=== PATIENT | male | born 1995 | race Caucasian/White ===

== ENCOUNTER 2020-06-01 18:05 | Inpatient (IN) ==
[2020-06-01] MEDS ORDERED: HALOPERIDOL LACTATE 5 MG/ML 1 ML VIAL IM PRN (18:16)
[2020-06-01] MEDS ORDERED: LORazepam 2 MG/ML VIAL (IM USE) IM PRN (18:16)
[2020-06-01 18:52] LABS: Basophils # (auto) 0.03 K/uL (0-0.2); Basophils % (auto) 0.2 %; Eosinophils # (auto) 0.04 K/uL (0-0.5); Eosinophils % (auto) 0.3 %; Hematocrit (blood only) 37.9 % (42-52); Hemoglobin 13.2 g/dL (14.0-18.0); Immature Granulocytes # (auto) 0.03 K/uL (0.00-0.02); Immature Granulocytes % (auto) 0.2 %; Lymphocytes # (auto) 1.21 K/uL (1.2-3.4); Lymphocytes % (auto) 9.2 %; Mean Corpuscular Hemoglobin 31.2 pg (25-34); Mean Corpuscular Hgb Conc 34.8 g/dL (32-36); Mean Corpuscular Volume 89.6 fL (80-100); Mean Platelet Volume 9.7 fL (7.4-10.4); Monocytes # (auto) 0.78 K/uL (0.11-0.59); Monocytes % (auto) 5.9 %; Neutrophils # (auto) 11.09 K/uL (1.4-6.5); Neutrophils % (auto) 84.2 %; Platelet Count 240 K/uL (130-400); RDW Coefficient of Variation 12.1 % (11.5-14.5); Red Blood Count 4.23 M/uL (4.7-6.1); White Blood Count 13.18 K/uL (4.8-10.8)
[2020-06-01 18:52] LABS: Appearance Urine Clear (Clear); Bilirubin Urine Negative (Negative); Blood Urine Negative (Negative); Color Urine Yellow; Glucose Urine UA Negative (Negative); Ketones Urine Negative (Negative); Leukocyte Esterase Urine Negative (Negative); Nitrite Urine Negative (Negative); Protein Urine Negative (Negative); Specific Gravity Urine 1.012 (1.000-1.030); Urobilinogen Urine Negative (Negative); pH Urine 7.5 (4.5-7.5)
[2020-06-01 19:10] LABS: Albumin Level 4.3 gm/dl (3.4-5.0); BUN Creatinine Ratio 13.4 (10-20); Calcium 9.4 mg/dl (8.5-10.1); Creatinine Clr Calc Pharmacy 103.6 ml/min; Est GFR (African American) 120.9; Est GFR (Non-African American) 104.4; Potassium 3.7 mmol/L (3.5-5.1)
[2020-06-01 19:12] LABS: Amphetamines+Metham, Urine Neg (Neg); Barbiturates, Urine Neg (Neg); Benzodiazepine, Urine Neg (Neg); Cocaine, Urine Neg (Neg); MDMA (Ecstacy), Urine Neg (Neg); Methadone, Urine Neg (Neg); Opiate, Urine Neg (Neg); Phencyclidine, Urine Neg (Neg)
[2020-06-01 19:17] LABS: Acetaminophen < 2 ug/ml (10-30); Lithium < 0.2 mmol/L (0.6-1.2); Salicylate < 1.7 mg/dl (2.8-20); Valproic Acid < 3 mcg/ml (50-100)
[2020-06-01 19:21] LABS: Albumin Globulin Ratio 1.2 (0.9-2); Bilirubin,Total 0.5 mg/dl (0.2-1); Globulin 3.5 gm/dl (2.5-4.0); Thyroid Stimulating Hormone 0.34 uIu/ml (0.300-4.500); Total Protein 7.8 gm/dl (6.4-8.2)
[2020-06-01] MEDS ORDERED: NICOTINE 21 MG/24 HR TDSY TD STA (19:34)
--- NOTE | 2020-06-01 20:42 | Emergency Department Note ---
Impression & Plan Delusional disorder, Behavioral disorder, Marijuana use ED Provider Note NAME: JAYSON CAMPUZANO AGE: 25 SEX: M : 1995 ARRIVES VIA: Walk-In INFORMANT: Patient, ED PROVIDER(S): Rishi Chacon MD Chief Complaint: Behavioral disturbance HPI: Patient does present with concern for behavioral disturbance. Patient was reportedly found near [facility] and subsequently gotten into a vehicle and drove off. The patient was not they are to the [facility]: Please give Rick. There is no reported trauma and the patient was brought in in police custody for further evaluation and treatment. The patient does admit to smoking marijuana and believes he did take his Abilify. Police are unsure as to whether or not the patient has taken an unknown amount of at home prescription or [id number] medication. Patient does admit to smoking cigarettes but denies any alcohol use. The patient states that he lives with his family. The patient is somewhat uncooperative to questioning. ROS: Unable to obtain secondary to the patient's uncooperative status. Past medical history: See below Surgical history: See below Social history: See below Physical Exam: GENERAL: Well appearing, well nourished, NAD, non-toxic. EYE EXAM: Normal conjunctiva. PERRL, no anisocoria and EOM's grossly intact w/o pain. NECK: Supple, no nuchal rigidity, no adenopathy, non-tender. No signs of meningismus. LUNGS: Clear to auscultation. Normal chest wall mechanics. HEART: NSR, no MRG. ABDOMEN: Abdomen soft, non-tender, normo-active bowel sounds, no masses, no rebound or guarding. BACK: No CVA TTP. SKIN: No rashes and no bruising. UPPER EXTREMITIES: Upper extremities are grossly normal. LOWER EXTREMITIES: Grossly normal, no edema. NEURO EXAM: A&O x3, cranial nerves II-XII grossly intact, normal speech, moves all 4 extremities on command w/o issue. Psych: Periods of calm mixed with periods of emotional outbursts, very alert, denies SI or AVH. Differential diagnoses: Mood disorder, infection, hypoglycemia, electrolyte abn ormalities, cardiac sources, intracerebral event, toxicologic, trauma, neurologic, as well as other pathologies. Course: Patient was seen and evaluated the bedside. Full history physical exam was performed. EKG: Indication: Possible overdose Sinus tachycardia, rate of 110, normal intervals, normal axis, nonspecific ST changes. No prior EKGs for comparison. MDM: Patient was seen due to concern for behavioral changes as well as the possibility of overdose. Blood work was obtained. The patient does have mild white count 13. The patient has not had any infectious symptoms. Additional h istory was gathered from the patient's mother with the psych telephonic case manager. Patient does receive an IM injection of the Abilify. The patient is currently not taking Depakote or lithium but was recently ordered a repeat prescription of the Depakote by the patient's primary mental health specialist. The patient has mild anemia at 13. The patient has normal kidney function no concerning LFTs TSH urinalysis. Patient's tox screen does show positive marijuana which the patient already endorsed. The patient's Depakote and lithium levels are undetectable along with patient's salicylate Tylenol and alcohol. A referral was made for inpatient treatment. The patient was subsequently mated to [facility] for inpatient treatment for acute psychosis. The patient was given some IM Ativan. Critical Care: I have personally spent 40 minutes of critical care time in direct management of this patient. This includes bedside care, interpretation of diagnostic studies, and testing, discussion with consultants, patient, and family members, and other require inpatient management activities. This 40 minutes is in excess of all separately billable procedures. Past Med/Surg History Medical History Bipolar disorder Surgical History No pertinent past surgical history Social History Smoking Status: Current every day smoker Tobacco Type: Cigarettes Preferred Language: [place]i Feels Safe at Home: Yes Allergies Allergies Allergy/AdvReac Type Severity Reaction Status Date / Time No Known Allergies Allergy Mild Verified 03/23/20 15:13 Home Meds Home Medications Medication Instructions Recorded Confirmed No Known Home Medications 03/23/20 03/23/20 Results & Data (ED) Vital Signs Vital Signs - 24 hr 06/01/20 18:07 06/01/20 22:03 Temperature 37.1 C Temperature Source Oral Pulse Rate 145 H Pulse Rate [Right Finger] 113 H Pulse Rhythm Regular Pulse Strength Normal Respiratory Rate 20 19 Respiratory Effort / Characteristics Non-Labored Spontaneous Respiratory Depth Normal Respiratory Pattern Regular Blood Pressure 145/92 H Blood Pressure [Right Arm] 139/85 Blood Pressure Mean 109 Blood Pressure Mean [Right Arm] 103 Blood Pressure Position Sitting Pulse Oximetry 96 98 Oxygen Delivery Method Room Air Sepsis Recent Fever Within 48 Hours No Sepsis New/Unexplained Change in Mental Status N/A Sepsis Action Taken by Nursing No Action Required Home Medications Current Medication List: was personally reviewed by me Laboratory Data Attestation: I reviewed the patient's lab results. Result diagrams: 06/01/20 18:36 06/01/20 18:36 Lab Results 06/01/20 06/01/20 06/01/20 Range/Units 18:36 18:36 18:36 WBC 13.18 H (4.8-10.8) K/uL RBC 4.23 L (4.7-6.1) M/uL Hgb 13.2 L (14.0-18.0) g/dL Hct 37.9 L (42-52) % MCV 89.6 (80-100) fL MCH 31.2 (25-34) pg MCHC 34.8 (32-36) g/dL RDW Std Deviation 39.0 (36.4-46.3) fL RDW Coeff of Connie 12.1 (11.5-14.5) % Plt Count 240 (130-400) K/uL MPV 9.7 (7.4-10.4) fL Immature Gran % (Auto) 0.2 % Neut % (Auto) 84.2 % Lymph % (Auto) 9.2 % Cooke % (Auto) 5.9 % Eos % (Auto) 0.3 % Baso % (Auto) 0.2 % Neut # (Auto) 11.09 H (1.4-6.5) K/uL Lymph # (Auto) 1.21 (1.2-3.4) K/uL [place]oke # (Auto) 0.78 H (0.11-0.59) K/uL Eos # (Auto) 0.04 (0-0.5) K/uL Baso # (Auto) 0.03 (0-0.2) K/uL Immature Gran # (Auto) 0.03 H (0.00-0.02) K/uL Sodium 136 (136-145) mmol/L Potassium 3.7 (3.5-5.1) mmol/L Chloride 105 (98-107) mmol/L Carbon Dioxide 26 (21-32) mmol/L Anion Gap 5.0 (3-11) BUN 14 (7-18) mg/dl Creatinine 1.01 (0.6-1.4) mg/dl Est Cr Clr Drug Dosing 103.6 ml/min Est GFR ( Amer) 120.9 Est GFR (Non-Af Amer) 104.4 BUN/Creatinine Ratio 13.4 (10-20) Glucose 146 H (70-99) mg/dl Calcium 9.4 (8.5-10.1) mg/dl Total Bilirubin 0.5 (0.2-1) mg/dl AST 15 (15-37) U/L ALT 27 (12-78) U/L Alkaline Phosphatase 51 (45-117) U/L Total Protein 7.8 (6.4-8.2) gm/dl Albumin 4.3 (3.4-5.0) gm/dl Globulin 3.5 (2.5-4.0) gm/dl Albumin/Globulin Ratio 1.2 (0.9-2) TSH 0.340 (0.300-4.500) uIu/ml Urine Color Urine Appearance (Clear) Urine pH (4.5-7.5) Ur Specific [place] (1.000-1.030) Urine Protein (Negative) Urine Glucose (UA) (Negative) Urine Ketones (Negative) Urine Blood (Negative) Urine Nitrite (Negative) Urine Bilirubin (Negative) Urine Urobilinogen (Negative) Ur Leukocyte Esterase (Negative) Salicylates < 1.7 L (2.8-20) mg/dl Urine Opiates Screen (Neg) Ur Methadone, Qual (Neg) Acetaminophen < 2 L (10-30) ug/ml Urine Barbiturates (Neg) Valproic Acid < 3 L (50-100) mcg/ml Ur Phencyclidine (PCP) (Neg) U Amphetamin/Meth Scrn (Neg) MDMA (Ecstasy) Screen (Neg) U Benzodiazepines Scrn (Neg) Wishram < 0.2 L (0.6-1.2) mmol/L Ur Cocaine Metabolite (Neg) U Marijuana (THC) Screen (Neg) Ethyl Alcohol mg/dL (0-3) mg/dl 06/01/20 06/01/20 06/01/20 Range/Units 18:36 18:40 18:40 WBC (4.8-10.8) K/uL RBC (4.7-6.1) M/uL Hgb (14.0-18.0) g/dL Hct (42-52) % MCV (80-100) fL MCH (25-34) pg MCHC (32-36) g/dL RDW Std Deviation (36.4-46.3) fL RDW Coeff of Connie (11.5-14.5) % Plt Count (130-400) K/uL MPV (7.4-10.4) fL Immature Gran % (Auto) % Neut % (Auto) % Lymph % (Auto) % [place] % (Auto) % Eos % (Auto) % Baso % (Auto) % Neut # (Auto) (1.4-6.5) K/uL Lymph # (Auto) (1.2-3.4) K/uL [place] # (Auto) (0.11-0.59) K/uL Eos # (Auto) (0-0.5) K/uL Baso # (Auto) (0-0.2) K/uL Immature Gran # (Auto) (0.00-0.02) K/uL Sodium (136-145) mmol/L Potassium (3.5-5.1) mmol/L Chloride (98-107) mmol/L Carbon Dioxide (21-32) mmol/L Anion Gap (3-11) BUN (7-18) mg/dl Creatinine (0.6-1.4) mg/dl Est Cr Clr Drug Dosing ml/min Est GFR ( Amer) Est GFR (Non-Af Amer) BUN/Creatinine Ratio (10-20) Glucose (70-99) mg/dl Calcium (8.5-10.1) mg/dl Total Bilirubin (0.2-1) mg/dl AST (15-37) U/L ALT (12-78) U/L Alkaline Phosphatase (45-117) U/L Total Protein (6.4-8.2) gm/dl Albumin (3.4-5.0) gm/dl Globulin (2.5-4.0) gm/dl Albumin/Globulin Ratio (0.9-2) TSH (0.300-4.500) uIu/ml Urine Color Yellow Urine Appearance Clear (Clear) Urine pH 7.5 (4.5-7.5) Ur Specific [place] 1.012 (1.000-1.030) Urine Protein Negative (Negative) Urine Glucose (UA) Negative (Negative) Urine Ketones Negative (Negative) Urine Blood Negative (Negative) Urine Nitrite Negative (Negative) Urine Bilirubin Negative (Negative) Urine Urobilinogen Negative (Negative) Ur Leukocyte Esterase Negative (Negative) Salicylates (2.8-20) mg/dl Urine Opiates Screen Neg (Neg) Ur Methadone, Qual Neg (Neg) Acetaminophen (10-30) ug/ml Urine Barbiturates Neg (Neg) Valproic Acid (50-100) mcg/ml Ur Phencyclidine (PCP) Neg (Neg) U Amphetamin/Meth Scrn Neg (Neg) MDMA (Ecstasy) Screen Neg (Neg) U Benzodiazepines Scrn Neg (Neg) Wishram (0.6-1.2) mmol/L Ur Cocaine Metabolite Neg (Neg) U Marijuana (THC) Screen Pos H (Neg) Ethyl Alcohol mg/dL < 3.0 (0-3) mg/dl Administered Medications Lorazepam (Lorazepam 2 Mg/Ml Vial (Im Use)) 1 mg IM UD PRN PRN Reason: Agitation Stop: 07/01/20 18:15 Last Admin: 06/01/20 21:56 Dose: 1 mg Documented by: [id number] Discontinued Medications Nicotine (Nicotine 21 Mg/24 Hr Tdsy) 21 mg TD NOW STA Stop: 06/01/20 19:35 Last Admin: 06/01/20 19:38 Dose: 21 mg Documented by: [id number] Discharge Plan Visit Data Chief Complaint: Mental Health Evaluation Stated Complaint: MENTAL HEALTH EVAL ED Provider: Rishi Chacon Discharge Problem: Delusional disorder, Behavioral disorder, Marijuana use Forms Stand Alone Forms: My [facility], Suicide Prevention Resources Prescriptions Prescriptions: No Action No Known Home Medications RF: 0
[2020-06-02] MEDS ORDERED: BISMUTH SUBSALICYLATE PER ML OMNICELL CHARGE PO PRN (00:23)
[2020-06-02] MEDS ORDERED: SODIUM CHLORIDE 0.65% NA SOLN 45 ML (OCEAN) PRN (00:23)
[2020-06-02] MEDS ORDERED: MAGNESIUM HYDROXIDE SUSP 30 ML UDC PO PRN (00:23)
[2020-06-02] MEDS ORDERED: ALUMINUM/MAGNESIUM SUSP 30 ML UDC PO PRN (00:23)
[2020-06-02] MEDS ORDERED: HALOPERIDOL LACTATE 5 MG/ML 1 ML VIAL IM PRN (00:26)
[2020-06-02] MEDS ORDERED: haloperidoL 5 MG TAB PO PRN (00:26)
[2020-06-02] MEDS: NICOTINE 21 MG/24 HR TDSY TD SCH (06:30)
--- NOTE | 2020-06-02 08:29 | Electrocardiogram Report ---
Test Reason : Blood Pressure : / mmHG Vent. Rate : 110 BPM Atrial Rate : 110 BPM P-R Int : 130 ms QRS Dur : 098 ms QT Int : 328 ms P-R-T Axes : 071 076 -20 degrees QTc Int : 443 ms Poor data quality, interpretation may be adversely affected Sinus tachycardia Diffuse Nonspecific T wave abnormality Abnormal ECG No previous ECGs available Confirmed by Nash Chicas ([id number]) on 06/02/2020 8:28:51 AM Referred By: REFERRED SELF Confirmed By:Nash Chicas
[2020-06-02] MEDS: NICOTINE POLACRILEX 2 MG GUM MT PRN ×3 (12:54→20:53)
[2020-06-02] MEDS ORDERED: ARIPiprazole 10 MG TAB PO SCH (13:30)
[2020-06-02] MEDS: lamoTRIgine 25 MG TAB PO SCH (14:16)
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
[2020-06-02] MEDS: MUPIROCIN 2% OINT 22 GM TUBE EXT SCH (20:43)
[2020-06-03] MEDS: TEMAZEPAM 15 MG CAPSULE PO PRN ×2 (02:44→23:11)
[2020-06-03] MEDS: ARIPiprazole 10 MG TAB PO SCH (07:29)
[2020-06-03] MEDS: lamoTRIgine 25 MG TAB PO SCH (07:29)
[2020-06-03] MEDS: NICOTINE 21 MG/24 HR TDSY TD SCH (07:30)
[2020-06-03] MEDS: MUPIROCIN 2% OINT 22 GM TUBE EXT SCH ×2 (07:30→21:52)
[2020-06-03] MEDS: NICOTINE POLACRILEX 2 MG GUM MT PRN ×4 (08:45→19:52)
[2020-06-03] MEDS ORDERED: BENZTROPINE MESYLATE 1 MG TAB PO PRN (09:52)
[2020-06-03] MEDS ORDERED: HALOPERIDOL LACTATE 5 MG/ML 1 ML VIAL IM PRN (09:53)
--- NOTE | 2020-06-03 10:02 | Psychiatric Progress Note ---
Date of Service June 03, 2020 Impression / Recommendations Impression This 25-year-old man was admitted after he was brought into the emergency department last night by the police following an arrest for stealing a truck that was apparently parked in a parking lot at [facility]. The patient is a poor historian, and I believe that in many instances the confused and contradictory history that the patient gives is deliberatenot to obfuscate, but because he has decided that it is somehow abusing or funny to misrepresent the truth or mislead, even after it is pointed out to him that this is a very serious situation and he needs to be sure to tell the truth. There is almost and oppositional defiant quality to some of the patient's behavior during the interview. However, he is clearly having a manic episode, with symptoms that include psychomotor agitation, pressured speech, flight of ideas, delusional grandiosity (going to get in [facility] with the stands at full capacity, and that the car he stole was either a "grand prize" that he had just won, or a present from his father, a former [employer] dealer, according the patient.), impulsive behavior, and extremely poor judgment. Collateral information is still needed. The patient gives various reports regarding his medications and his medication adherence. During the psychiatric assessment, he repeatedly said that he is never been prescribed any psychiatric medications. Med has also been reported that he has been prescribed aripiprazole, both oral and in Depo form, but it is not known at this point which the patient has actually taken, or at what dose he is taking the medication, or if he has taken any at all recently. Acknowledges that he smokes marijuana every day, or at least he claims he smokes marijuana every day. It is possible that he has used marijuana that has been laced with a synthetic drug. However, the patient's known history is most consistent with the current working diagnosis of bipolar disorder. We will start aripiprazole 10 mg by mouth daily and lamotrigine 25 mg daily with titration as indicated and tolerated. Material risks and anticipated benefits of both medications were reviewed with the patient. He indicated understanding after asking several questions. 06/03--reviewed. ongoing nhan but pleasant. (1) Bipolar disorder with severe nhan: 06/02/20 -The patient has been admitted to the [facility] behavioral health unit and placed in the special observation area. When more psychiatrically stable he will be encouraged to attend group and activity therapies. In the meantime, individual interventions will be provided. -Collateral information from his family, and possibly from outside treatment providers will be sought. The patient is not a reliable historian and seems to be misrepresenting the truth when it comes to his symptom treatment history. -We will attempt to obtain medical records from [place]. The patient had initially claimed that he had never been previously psychiatrically hospitalized, but then mentioned, in passing, that he likes the [facility] behavioral health unit much better than he liked [place], and when asked to explain the contradiction the patient stated, flatly, "I was lying." -After saying that he does not take and has never taken any psychiatric medications, he did acknowledge that he had taken aripiprazole. He gives conflicting reports regarding dose and dose schedule and dose form. However, he also says that he believes that aripiprazole helps, and he cannot recall the last time he actually took it. (There is no indication he may have received an aripiprazole injection an unspecified amount on 05/30/2020, but this has not been verified.) Given the degree of the patient's current nhan, and his psychosis, we will begin aripiprazole 10 mg by mouth now, and then daily pending acquisition of further information. -We will also begin lamotrigine 25 mg daily and titrate as indicated every 2 weeks. Material risks, including but not limited to, Kruger-Arvind syndrome were reviewed with the patient and he indicated understanding. 06/03--add standing order Lucia as receiving prns on top of Abilify. [place] prn. Consider temporary benzo if persists. (2) Marijuana use: 06/02/20 -The patient says that he smokes marijuana every day, and that an ounce of [place] will last him "a week." He also says that he purchases marijuana from someone who is well-known to him and who he believes is reliable. Nevertheless, he also reports that his current "batch" of marijuana is particularly "good," by which he says he means means strong. -At this point, the patient's thought processes are too disorganized to allow him to benefit from substance abuse counseling. We will refocus our attention on this problem as the patient's psychiatric condition improves. 06/03/20 reviewed (3) Axillary abscess: 06/02/20 -The patient has a small (6-10 mm) injected and tender axillary abscess. He reports that the abscess appeared "a day or 2 ago," and is currently painful. -There are no known allergies. We will treat with Bactroban 2% topical ointment to affected area twice daily. 06/03--reviewed Inventory Assets Strengths: Willing to take psychiatric medications. Supportive family. Intelligent Needs: Resolution of criminal charges. Resolution of nhan and mood stabilization. Risk Factors Assessment Male: Yes : Yes Do You Have Access To A Gun?: No (The patient says he does not have access to a gun. The emergency room record indicates that during the summer the patient presented after he had attempted to grab a gun at home. It is not known if the gun is still available to him at home.) Health Problems: No Mental Health Diagnoses: Yes Substance Use Disorders: Yes Previous Attempt: No (The patient says that he has never attempted suicide. The record indicates that he was evaluated in the emergency room and hospitalized after he reportedly attempted to grab a gun at home while so threatening to shoot himself.) Family History of Suicide: No Previous Psychiatric Hospitalization: Yes Hopelessness: No Smoker: Yes (The patient variously reports that he smokes and that he does not smoke. We are assuming that he is telling the truth when he says that he does smoke, and nicotine replacement medications have been prescribed.) Protective Factors Assessment Confucianism Beliefs: Yes (The patient says that he is Mormonism. 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 Review of Systems Sleep Information Total Hours of Sleep: 5 Sleep Comments: pt on q- 15 minute checks Meal Information Percent Meal Consumed - Breakfast: 100 Percent Meal Consumed - Lunch: 100 Percent Meal Consumed - Dinner: 75 Subjective Subjective Patient was seen & assessed and interval progress reviewed with nursing and social work. Difficult to stay in group, overstimulated by tv due to nhan, calls out cheering to [employer] commercials. He is requesting additional Haldol to calm down. 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 Remains on elopement precautions as did ring the rhodes to be let out. Physical Exam Psychiatric Orientation: alert, oriented to person and oriented to place; + uncooperative Apperance: + disheveled and appeared stated age Eye Contact: + fair eye contact Motor Behavior: + psychomotor agitation Speech: + pressured speech Affect: + elated affect Thought Process: + flight of ideas Thought Content: + delusions Suicidal Thoughts: denies suicidal thoughts Homicidal Thoughts: denies homicidal thoughts Hallucinations: no auditory hallucinations, no visual hallucinations, no tactile hallucinations and no gustatory hallucinations Estimated Intelligence: + above average estimated intelligence Insight: + poor insight Judgement: + severely impaired judgement Vital Signs (Past 24 Hours) Last Vital Signs Temp 36.5 C 06/03/20 06:37 Pulse 94 H 06/03/20 06:38 Resp 17 06/03/20 06:37 BP 132/91 06/03/20 06:38 Pulse Ox 98 06/01/20 23:54 Results & Data ([facility]) Current Inpatient Medications Current Inpatient Medications: Current Inpatient Medications Acetaminophen (Acetaminophen 325 Mg Tab) 650 mg PO Q4H PRN PRN Reason: Headache or Minor Fever Stop: 07/02/20 00:22 Al Hydrox/Mg Hydrox/Simethicone (Aluminum/Magnesium Susp 30 Ml Udc) 30 ml PO Q4H PRN PRN Reason: GI Upset Stop: 07/02/20 00:22 Aripiprazole (Aripiprazole 10 Mg Tab) 10 mg PO QAM TITA Stop: 07/03/20 08:59 Last Admin: 06/03/20 07:29 Dose: 10 mg Documented by: Benztropine Mesylate (Benztropine Mesylate 1 Mg Tab) 1 mg PO Q6 PRN PRN Reason: Muscle Spasm Stop: 07/03/20 09:51 Bismuth Subsalicylate (Bismuth Subsalicylate Per Ml Omnicell Charge) 15 ml PO PRN PRN PRN Reason: Loose Stool Stop: 07/02/20 00:22 Haloperidol (Haloperidol 5 Mg Tab) 5 mg PO Q4 PRN PRN Reason: Psychosis/Agitation Stop: 07/02/20 00:25 Haloperidol (Haloperidol 5 Mg Tab) 5 mg PO BID [facility] Stop: 07/03/20 09:59 Haloperidol Lactate (Haloperidol Lactate 5 Mg/Ml 1 Ml Vial) 10 mg IM Q4 PRN PRN Reason: Agitation/Psychosis Stop: 07/02/20 00:25 Hydroxyzine HCl (Hydroxyzine Hcl 25 Mg Tab) 50 mg PO HSZ PRN PRN Reason: Insomnia Stop: 07/02/20 00:22 Hydroxyzine HCl (Hydroxyzine Hcl 25 Mg Tab) 25 mg PO Q4H PRN PRN Reason: Anxiety Stop: 07/02/20 00:22 Lamotrigine (Lamotrigine 25 Mg Tab) 25 mg PO QAM [facility] Stop: 07/02/20 13:29 Last Admin: 06/03/20 07:29 Dose: 25 mg Documented by: Magnesium Hydroxide (Magnesium Hydroxide Susp 30 Ml Udc) 30 ml PO DAILY PRN PRN Reason: Constipation Stop: 07/02/20 00:22 Miscellaneous (Remove Nicoderm Patch) 1 ea N/A DAILY@0859 [facility] Stop: 07/02/20 08:58 Last Admin: 06/03/20 07:34 Dose: Not Given Documented by: Mupirocin (Mupirocin 2% Oint 22 Gm Tube) 1 appln EXT BID [facility] Stop: 06/09/20 20:59 Last Admin: 06/03/20 07:30 Dose: 1 appln Documented by: Nicotine (Nicotine 21 Mg/24 Hr Tdsy) 21 mg TD QAM [facility] Stop: 07/02/20 08:59 Last Admin: 06/03/20 07:30 Dose: 21 mg Documented by: Nicotine Polacrilex (Nicotine Polacrilex 2 Mg Gum) 1 piece MT Q1H PRN PRN Reason: nicotine cravings Stop: 07/02/20 11:55 Last Admin: 06/02/20 20:53 Dose: 1 piece Documented by: Sodium Chloride (Sodium Chloride 0.65% Na Soln 45 Ml ([place])) 1 - 2 sprays NA PRN PRN PRN Reason: Nasal Dryness/Congestion Stop: 07/02/20 00:22 Temazepam (Temazepam 15 Mg Capsule) 15 mg PO HSZ PRN PRN Reason: Insomnia Stop: 07/02/20 16:39 Last Admin: 06/03/20 02:44 Dose: 15 mg Documented by: Mental Health & Subst Abuse Tx Therapist Name of Therapist: None Liquefaction Supervisor Name of Liquefaction Supervisor: None
[2020-06-03] MEDS: haloperidoL 5 MG TAB PO SCH ×2 (10:06→21:52)
[2020-06-03] MEDS: clonazePAM 1 MG TAB PO SCH ×2 (12:16→21:53)
[2020-06-03] MEDS: clonazePAM 1 MG TAB PO PRN (16:41)
[2020-06-03 22:32] LABS: Marijuana Quant, GCMS Urine 439 ng/mL (<5)
[2020-06-04] MEDS: clonazePAM 1 MG TAB PO SCH ×2 (09:05→15:25)
[2020-06-04] MEDS: lamoTRIgine 25 MG TAB PO SCH (09:06)
[2020-06-04] MEDS: ARIPiprazole 10 MG TAB PO SCH (09:06)
[2020-06-04] MEDS: haloperidoL 5 MG TAB PO SCH ×2 (09:06→20:24)
[2020-06-04] MEDS: NICOTINE 21 MG/24 HR TDSY TD SCH (09:06)
[2020-06-04] MEDS: MUPIROCIN 2% OINT 22 GM TUBE EXT SCH ×2 (09:07→20:24)
[2020-06-04] MEDS: clonazePAM 1 MG TAB PO PRN ×2 (11:34→19:09)
[2020-06-04] MEDS: haloperidoL 5 MG TAB PO PRN (11:34)
--- NOTE | 2020-06-04 11:58 | Psychiatric Progress Note ---
Date of Service June 04, 2020 Impression / Recommendations Impression This 25-year-old man was admitted after he was brought into the emergency department last night by the police following an arrest for stealing a truck that was apparently parked in a parking lot at [facility]. The patient is a poor historian, and I believe that in many instances the confused and contradictory history that the patient gives is deliberatenot to obfuscate, but because he has decided that it is somehow abusing or funny to misrepresent the truth or mislead, even after it is pointed out to him that this is a very serious situation and he needs to be sure to tell the truth. There is almost and oppositional defiant quality to some of the patient's behavior during the interview. However, he is clearly having a manic episode, with symptoms that include psychomotor agitation, pressured speech, flight of ideas, delusional grandiosity (going to get in [place] [employer] with the stands at full capacity, and that the car he stole was either a "grand prize" that he had just won, or a present from his father, a former [employer] dealer, according the patient.), impulsive behavior, and extremely poor judgment. Collateral information is still needed. The patient gives various reports regarding his medications and his medication adherence. During the psychiatric assessment, he repeatedly said that he is never been prescribed any psychiatric medications. Med has also been reported that he has been prescribed aripiprazole, both oral and in Depo form, but it is not known at this point which the patient has actually taken, or at what dose he is taking the medication, or if he has taken any at all recently. Acknowledges that he smokes marijuana every day, or at least he claims he smokes marijuana every day. It is possible that he has used marijuana that has been laced with a synthetic drug. However, the patient's known history is most consistent with the current working diagnosis of bipolar disorder. We will start aripiprazole 10 mg by mouth daily and lamotrigine 25 mg daily with titration as indicated and tolerated. Material risks and anticipated benefits of both medications were reviewed with the patient. He indicated understanding after asking several questions. 06/04--ongoing nhan but pleasant. BID Klonopin was added yesterday to limit amount of Haldol prn given overall dosing of antipsychotic with injectable. Inventory Assets Strengths: Willing to take psychiatric medications. Supportive family. Intelligent Needs: Resolution of criminal charges. Resolution of nhan and mood stabilization. Risk Factors Assessment Male: Yes : Yes Do You Have Access To A Gun?: No (The patient says he does not have access to a gun. The emergency room record indicates that during the summer the patient presented after he had attempted to grab a gun at home. It is not known if the gun is still available to him at home.) Health Problems: No Mental Health Diagnoses: Yes Substance Use Disorders: Yes Previous Attempt: No (The patient says that he has never attempted suicide. The record indicates that he was evaluated in the emergency room and hospitalized after he reportedly attempted to grab a gun at home while so threatening to shoot himself.) Family History of Suicide: No Previous Psychiatric Hospitalization: Yes Hopelessness: No Smoker: Yes (The patient variously reports that he smokes and that he does not smoke. We are assuming that he is telling the truth when he says that he does smoke, and nicotine replacement medications have been prescribed.) Protective Factors Assessment Scientologist Beliefs: Yes (The patient says that he is Taoism. 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 It's just salt". Review of Systems Sleep Information Total Hours of Sleep: 7.25 Sleep Comments: pt on q- 15 minute checks Meal Information Percent Meal Consumed - Breakfast: 75 Percent Meal Consumed - Lunch: 0 Percent Meal Consumed - Dinner: 75 Nutrition Comment: pt. resting. Meal dated/labeled/refrigerated Subjective Subjective Patient was seen & assessed and interval progress reviewed with nursing and social work. Still requiring prns, Klonopin did decrease restlessness and he was able to sleep for 2 hours yesterday and the 5 hrs overnight. He still dances in his room as full of energy and will call out indiscriminately, sometimes rapping but much improved. Physical Exam Psychiatric Orientation: alert, oriented to person, oriented to place and + guarded; + uncooperative Apperance: + disheveled and appeared stated age Eye Contact: + fair eye contact Motor Behavior: + psychomotor agitation Speech: + pressured speech (but less) Affect: + elated affect Thought Process: + flight of ideas Thought Content: + delusions Suicidal Thoughts: denies suicidal thoughts Homicidal Thoughts: denies homicidal thoughts Hallucinations: no auditory hallucinations, no visual hallucinations, no tactile hallucinations and no gustatory hallucinations Estimated Intelligence: + above average estimated intelligence Insight: + poor insight Judgement: + severely impaired judgement Vital Signs (Past 24 Hours) Last Vital Signs Temp 36.4 C L 06/04/20 05:45 Pulse 111 H 06/04/20 05:45 Resp 18 06/04/20 05:45 BP 126/89 06/04/20 05:45 Pulse Ox 98 06/01/20 23:54 Results & Data ([facility]) Laboratory Results Laboratory Results - last 24 hr 06/01/20 18:40 U Marijuana THC Carboxy 439 H Drug Screen Comment SEE NOTE Current Inpatient Medications Current Inpatient Medications: Current Inpatient Medications Acetaminophen (Acetaminophen 325 Mg Tab) 650 mg PO Q4H PRN PRN Reason: Headache or Minor Fever Stop: 07/02/20 00:22 Al Hydrox/Mg Hydrox/Simethicone (Aluminum/Magnesium Susp 30 Ml Udc) 30 ml PO Q4H PRN PRN Reason: GI Upset Stop: 07/02/20 00:22 Aripiprazole (Aripiprazole 10 Mg Tab) 10 mg PO QAM TITA Stop: 07/03/20 08:59 Last Admin: 06/04/20 09:06 Dose: 10 mg Documented by: Benztropine Mesylate (Benztropine Mesylate 1 Mg Tab) 1 mg PO Q6 PRN PRN Reason: Muscle Spasm Stop: 07/03/20 09:51 Bismuth Subsalicylate (Bismuth Subsalicylate Per Ml Omnicell Charge) 15 ml PO PRN PRN PRN Reason: Loose Stool Stop: 07/02/20 00:22 Clonazepam (Clonazepam 1 Mg Tab) 1 mg PO BID PRN PRN Reason: Anxiety/Agitation Stop: 07/03/20 11:49 Last Admin: 06/04/20 11:34 Dose: 1 mg Documented by: Clonazepam (Clonazepam 1 Mg Tab) 1 mg PO BID17 TITA Stop: 07/04/20 16:59 Haloperidol (Haloperidol 5 Mg Tab) 5 mg PO Q4 PRN PRN Reason: Psychosis/Agitation Stop: 07/02/20 00:25 Last Admin: 06/04/20 11:34 Dose: 5 mg Documented by: Haloperidol (Haloperidol 5 Mg Tab) 5 mg PO BID [facility] Stop: 07/03/20 09:59 Last Admin: 06/04/20 09:06 Dose: 5 mg Documented by: Haloperidol Lactate (Haloperidol Lactate 5 Mg/Ml 1 Ml Vial) 10 mg IM Q4 PRN PRN Reason: Agitation/Psychosis Stop: 07/02/20 00:25 Hydroxyzine HCl (Hydroxyzine Hcl 25 Mg Tab) 50 mg PO HSZ PRN PRN Reason: Insomnia Stop: 07/02/20 00:22 Hydroxyzine HCl (Hydroxyzine Hcl 25 Mg Tab) 25 mg PO Q4H PRN PRN Reason: Anxiety Stop: 07/02/20 00:22 Last Admin: 06/04/20 06:16 Dose: 25 mg Documented by: Lamotrigine (Lamotrigine 25 Mg Tab) 25 mg PO QAM [facility] Stop: 07/02/20 13:29 Last Admin: 06/04/20 09:06 Dose: 25 mg Documented by: Magnesium Hydroxide (Magnesium Hydroxide Susp 30 Ml Udc) 30 ml PO DAILY PRN PRN Reason: Constipation Stop: 07/02/20 00:22 Miscellaneous (Remove Nicoderm Patch) 1 ea N/A DAILY@0859 [facility] Stop: 07/02/20 08:58 Last Admin: 06/04/20 09:07 Dose: 1 ea Documented by: Mupirocin (Mupirocin 2% Oint 22 Gm Tube) 1 appln EXT BID [facility] Stop: 06/09/20 20:59 Last Admin: 06/04/20 09:07 Dose: 1 appln Documented by: Nicotine (Nicotine 21 Mg/24 Hr Tdsy) 21 mg TD QAM [facility] Stop: 07/02/20 08:59 Last Admin: 06/04/20 09:06 Dose: 21 mg Documented by: Nicotine Polacrilex (Nicotine Polacrilex 2 Mg Gum) 1 piece MT Q1H PRN PRN Reason: nicotine cravings Stop: 07/02/20 11:55 Last Admin: 06/03/20 19:52 Dose: 1 piece Documented by: Sodium Chloride (Sodium Chloride 0.65% Na Soln 45 Ml ([place])) 1 - 2 sprays NA PRN PRN PRN Reason: Nasal Dryness/Congestion Stop: 07/02/20 00:22 Temazepam (Temazepam 15 Mg Capsule) 15 mg PO HSZ PRN PRN Reason: Insomnia Stop: 07/02/20 16:39 Last Admin: 06/03/20 23:11 Dose: 15 mg Documented by: Mental Health & Subst Abuse Tx Therapist Name of Therapist: None Pneumatic Tube Repairer Name of Pneumatic Tube Repairer: None
[2020-06-04] MEDS: NICOTINE POLACRILEX 2 MG GUM MT PRN ×2 (13:59→21:35)
[2020-06-04] MEDS: TEMAZEPAM 15 MG CAPSULE PO PRN (21:48)
[2020-06-05] MEDS: ARIPiprazole 10 MG TAB PO SCH (08:18)
[2020-06-05] MEDS: clonazePAM 1 MG TAB PO SCH ×2 (08:18→15:44)
[2020-06-05] MEDS: haloperidoL 5 MG TAB PO SCH ×3 (08:18→20:17)
[2020-06-05] MEDS: lamoTRIgine 25 MG TAB PO SCH (08:19)
[2020-06-05] MEDS: NICOTINE 21 MG/24 HR TDSY TD SCH (08:19)
[2020-06-05] MEDS: MUPIROCIN 2% OINT 22 GM TUBE EXT SCH ×2 (08:22→20:17)
--- NOTE | 2020-06-05 09:04 | Psychiatric Progress Note ---
Date of Service June 05, 2020 Impression / Recommendations Impression 25-year-old male with a history of bipolar type I who was admitted on 301 after he was brought into the emergency department by the police following arrest for stealing a truck that was apparently parked in a parking lot at [facility]. He is floridly manic and psychotic and a poor historian, with then oppositional defiant quality to his behavior. The patient gives various reports regarding his medications and his medication adherence, and collateral information is needed. His mother reported that he has been prescribed aripiprazole, both oral and in Depo form, but it is not known at this point which the patient has actually taken, or at what dose he is taking the medication, or if he has taken any at all recently. He acknowledges that he smokes marijuana every day, and UDS was + THC. On admission, he was started on aripiprazole 10 mg by mouth daily and lamotrigine 25 mg daily, and over the weekend scheduled haloperidol and clonazepam were added in addition to as needed medications, as he remains disorganized, hyperverbal, intrusive, and in poor behavioral control. He remains acutely ill and unable to provide for his own basic needs without the assistance of others, and will require a 303 involuntary commitment. (1) Bipolar disorder with severe nhan: 06/02/20 -The patient has been admitted to the [facility] behavioral health unit and placed in the special observation area. When more psychiatrically stable he will be encouraged to attend group and activity therapies. In the meantime, individual interventions will be provided. -Collateral information from his family, and possibly from outside treatment providers will be sought. The patient is not a reliable historian and seems to be misrepresenting the truth when it comes to his symptom treatment history. -We will attempt to obtain medical records from [place]. The patient had initially claimed that he had never been previously psychiatrically hospitalized, but then mentioned, in passing, that he likes the [facility] behavioral health unit much better than he liked [place], and when asked to explain the contradiction the patient stated, flatly, "I was lying." -After saying that he does not take and has never taken any psychiatric medications, he did acknowledge that he had taken aripiprazole. He gives conflicting reports regarding dose and dose schedule and dose form. However, he also says that he believes that aripiprazole helps, and he cannot recall the last time he actually took it. (There is no indication he may have received an aripiprazole injection an unspecified amount on 05/30/2020, but this has not been verified.) Given the degree of the patient's current nhan, and his psychosis, we will begin aripiprazole 10 mg by mouth now, and then daily pending acquisition of further information. -We will also begin lamotrigine 25 mg daily and titrate as indicated every 2 weeks. Material risks, including but not limited to, Kruger-Arvind syndrome were reviewed with the patient and he indicated understanding. 06/03--add standing order Haldol as receiving prns on top of Abilify. Cogentin prn. Consider temporary benzo if persists. 06/04--ongoing nhan but pleasant. BID Klonopin was added yesterday to limit amount of Haldol prn given overall dosing of antipsychotic with injectable . 06/05 -continue current medication regimen, get collateral information from outpatient providers at [place], as we do not know his previous medication trials and the Abilify Maintena has not been sufficient to control his symptoms. As he just received the Maintena last week, I would like to start him on a more robust mood stabilizer than lamotrigine, but he indicated a previous trial of lithium, but we have no details. Depakote is another possibility for acute nhan, and this medications may be more effective in combination with the Abilify Maintena. Additional antipsychotic medication may be less effective due to the psychopharmacologic properties of the aripiprazole, as it is a partial agonist at the D2 receptor so may prevent binding of additional D2 antagonists. -Order fasting lipid profile and glucose for tomorrow for monitoring on an atypical antipsychotic. (2) Marijuana use: 06/02/20 -The patient says that he smokes marijuana every day, and that an ounce of marijuana will last him "a week." He also says that he purchases marijuana from someone who is well-known to him and who he believes is reliable. Nevertheless, he also reports that his current "batch" of marijuana is particularly "good," by which he says he means means strong. -At this point, the patient's thought processes are too disorganized to allow him to benefit from substance abuse counseling. We will refocus our attention on this problem as the patient's psychiatric condition improves. 06/03/20 reviewed (3) Axillary abscess: 06/02/20 -The patient has a small (6-10 mm) injected and tender axillary abscess. He reports that the abscess appeared "a day or 2 ago," and is currently painful. -There are no known allergies. We will treat with Bactroban 2% topical ointment to affected area twice daily. 06/03--reviewed Inventory Assets Strengths: Willing to take psychiatric medications. Supportive family. Intelligent Needs: Resolution of criminal charges. Resolution of nhan and mood stabilization. Risk Factors Assessment Male: Yes : Yes Do You Have Access To A Gun?: No (The patient says he does not have access to a gun. The emergency room record indicates that during the summer the patient presented after he had attempted to grab a gun at home. It is not known if the gun is still available to him at home.) Health Problems: No Mental Health Diagnoses: Yes Substance Use Disorders: Yes Previous Attempt: No (The patient says that he has never attempted suicide. The record indicates that he was evaluated in the emergency room and hospitalized after he reportedly attempted to grab a gun at home while so threatening to shoot himself.) Family History of Suicide: No Previous Psychiatric Hospitalization: Yes Hopelessness: No Smoker: Yes (The patient variously reports that he smokes and that he does not smoke. We are assuming that he is telling the truth when he says that he does smoke, and nicotine replacement medications have been prescribed.) Protective Factors Assessment Hindu Beliefs: Yes (The patient says that he is Hinduism. 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 He has a history of bipolar 1 disorder and cannabis abuse, and was admitted on 06/01/20 23:06 on a 302 involuntary commitment for grossly disorganized and dangerous behaviors. Chief Complaint "I feel amazing!" Review of Systems Sleep Information Total Hours of Sleep: 7 Sleep Comments: pt on q-15 minute checks Meal Information Percent Meal Consumed - Breakfast: 75 Percent Meal Consumed - Lunch: 80 Percent Meal Consumed - Dinner: 25 Nutrition Comment: pt. resting. Meal dated/labeled/refrigerated Subjective Subjective Patient was seen & assessed and interval progress reviewed with treatment team. Staff report the patient remains manic, intrusive, disorganized, hyperactive, pressured, grandiose, with very poor interpersonal boundaries. He is easily overstimulated, and remains in the TIFFANIE to reduce stimulation/agitation. He has required frequent PRN medications in addition to scheduled aripiprazole, so was started on scheduled haloperidol and clonazepam over the weekend for nhan. 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 He has attempted to leave the unit, and is on elopement precautions. Sleep has been improving but is still suboptimal. He requires frequent redirection, and is inappropriate behaviorally and unable to tolerate groups. On my assessment, the patient was seen in his room, where he was blaring music, jumping up and down, dancing, and yelling out. He states he has here because "I stole a truck, a voice told me, a crowd of people, no seriously, forget the whole ' I heard a voice,' I won the lottery." He states that he has been diagnosed with "bipolar and nhan," but does not feel he is manic currently, and wants to leave the hospital. He says that he is manic when "I'm frustrated and people do not listen to me." He says that if he were discharged, he would "just live my life." He cannot state any kind of discharge plan with respect to his mental illness. He denies hallucinations currently, describes his mood as "awesome!" He says he has been talking with his family frequently on the phone, and when asked who is in his family, replies "[place]," while looking at the brand name on my jacket. When asked what he is working on here with respect to treatment, he says "keep making music! Music! 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 making music!" He is not able to list the medications that he is on, other than Haldol and Ativan, and when asked if there are others, states "blah blah." When advised of treatment recommendations and the plans for a 303 involuntary commitment hearing tomorrow, he lies down on his bed and says "this sucks!" Physical Exam Psychiatric Orientation: alert and cooperative (Poor historian, unreliable) Apperance: appropriately dressed, + disheveled and appeared stated age Eye Contact: good eye contact (Staring intently) Motor Behavior: + psychomotor agitation (Jumping around, dancing) Hyperverbal, pressured, loud Affect: + elated affect Expansive, inappropriate "Amazing!" Thought Process: + looseness of associations Thought Content: + delusions and + ideas of reference Suicidal Thoughts: denies suicidal thoughts Homicidal Thoughts: denies homicidal thoughts Hallucinations: + auditory hallucinations (Denies currently, but reports hearing voices and sounds like a crowd of people recently, cannot state when.) Cognition: + recent memory not intact and + attention not intact Insight: + severely impaired insight Judgement: + severely impaired judgement Vital Signs (Past 24 Hours) Last Vital Signs Temp 36.6 C 06/05/20 06:49 Pulse 92 H 06/05/20 06:50 Resp 16 06/05/20 06:49 BP 114/79 06/05/20 06:50 Pulse Ox 98 06/01/20 23:54 Results & Data ([facility]) Current Inpatient Medications Current Inpatient Medications: Current Inpatient Medications Acetaminophen (Acetaminophen 325 Mg Tab) 650 mg PO Q4H PRN PRN Reason: Headache or Minor Fever Stop: 07/02/20 00:22 Al Hydrox/Mg Hydrox/Simethicone (Aluminum/Magnesium Susp 30 Ml Udc) 30 ml PO Q4H PRN PRN Reason: GI Upset Stop: 07/02/20 00:22 Aripiprazole (Aripiprazole 10 Mg Tab) 10 mg PO QAM TITA Stop: 07/03/20 08:59 Last Admin: 06/05/20 08:18 Dose: 10 mg Documented by: Benztropine Mesylate (Benztropine Mesylate 1 Mg Tab) 1 mg PO Q6 PRN PRN Reason: Muscle Spasm Stop: 07/03/20 09:51 Bismuth Subsalicylate (Bismuth Subsalicylate Per Ml Omnicell Charge) 15 ml PO PRN PRN PRN Reason: Loose Stool Stop: 07/02/20 00:22 Clonazepam (Clonazepam 1 Mg Tab) 1 mg PO BID PRN PRN Reason: Anxiety/Agitation Stop: 07/03/20 11:49 Last Admin: 06/04/20 19:09 Dose: 1 mg Documented by: Clonazepam (Clonazepam 1 Mg Tab) 1 mg PO [id number] [facility] Stop: 07/04/20 16:59 Last Admin: 06/05/20 08:18 Dose: 1 mg Documented by: Haloperidol (Haloperidol 5 Mg Tab) 5 mg PO Q4 PRN PRN Reason: Psychosis/Agitation Stop: 07/02/20 00:25 Last Admin: 06/04/20 11:34 Dose: 5 mg Documented by: Haloperidol (Haloperidol 5 Mg Tab) 5 mg PO BID [facility] Stop: 07/03/20 09:59 Last Admin: 06/05/20 08:18 Dose: 5 mg Documented by: Haloperidol Lactate (Haloperidol Lactate 5 Mg/Ml 1 Ml Vial) 10 mg IM Q4 PRN PRN Reason: Agitation/Psychosis Stop: 07/02/20 00:25 Hydroxyzine HCl (Hydroxyzine Hcl 25 Mg Tab) 50 mg PO HSZ PRN PRN Reason: Insomnia Stop: 07/02/20 00:22 Hydroxyzine HCl (Hydroxyzine Hcl 25 Mg Tab) 25 mg PO Q4H PRN PRN Reason: Anxiety Stop: 07/02/20 00:22 Last Admin: 06/04/20 06:16 Dose: 25 mg Documented by: Lamotrigine (Lamotrigine 25 Mg Tab) 25 mg PO QAM [facility] Stop: 07/02/20 13:29 Last Admin: 06/05/20 08:19 Dose: 25 mg Documented by: Magnesium Hydroxide (Magnesium Hydroxide Susp 30 Ml Udc) 30 ml PO DAILY PRN PRN Reason: Constipation Stop: 07/02/20 00:22 Miscellaneous (Remove Nicoderm Patch) 1 ea N/A DAILY@[id number] [facility] Stop: 07/02/20 08:58 Last Admin: 06/05/20 08:19 Dose: 1 ea Documented by: Mupirocin (Mupirocin 2% Oint 22 Gm Tube) 1 appln EXT BID [facility] Stop: 06/09/20 20:59 Last Admin: 06/05/20 08:22 Dose: Not Given Documented by: Nicotine (Nicotine 21 Mg/24 Hr Tdsy) 21 mg TD QAM TITA Stop: 07/02/20 08:59 Last Admin: 06/05/20 08:19 Dose: 21 mg Documented by: Nicotine Polacrilex (Nicotine Polacrilex 2 Mg Gum) 1 piece MT Q1H PRN PRN Reason: nicotine cravings Stop: 07/02/20 11:55 Last Admin: 06/04/20 21:35 Dose: 1 piece Documented by: Sodium Chloride (Sodium Chloride 0.65% Na Soln 45 Ml ([place])) 1 - 2 sprays NA PRN PRN PRN Reason: Nasal Dryness/Congestion Stop: 07/02/20 00:22 Temazepam (Temazepam 15 Mg Capsule) 15 mg PO HSZ PRN PRN Reason: Insomnia Stop: 07/02/20 16:39 Last Admin: 06/04/20 21:48 Dose: 15 mg Documented by: Mental Health & Subst Abuse Tx Therapist Name of Therapist: None City Engineer Name of City Engineer: None
[2020-06-05] MEDS: haloperidoL 5 MG TAB PO PRN ×2 (10:09→19:35)
[2020-06-05] MEDS: clonazePAM 1 MG TAB PO PRN ×2 (10:09→19:35)
[2020-06-05] MEDS: NICOTINE POLACRILEX 2 MG GUM MT PRN ×3 (11:43→21:10)
--- NOTE | 2020-06-05 12:47 | Communication Note ---
Date of Service: June 05, 2020 Received and reviewed outpatient records from [facility] where patient sees Rachelle POLK. Initial evaluation 04/19/2020, after discharge from [facility] where he was admitted on a 302 for 5 days for SI, auditory hallucinations, nhan. Recently lost his job of 6 months, and family got involved as they were concerned about him. He was manic in the visit, with NIGEL, grandiosity, hyperreligiosity, decreased need for sleep, impulsivity, and AH of voices. He denied ever having mental health treatment prior to [facility] hospitalization. He was started on Haldol decanoate 100mg q 4 wks there, next due 04/24. He reported drinking 3-4 mixed drinks 2-3 times a week, which he did not think was a problem, and daily marijuana use. He also reported stimulant and cocaine use. He was diagnosed with bipolar disorder, manic, cannabis and alcohol abuse, and lithium 300mg bid was started. Transition to Abilify Maintena was also discussed. Cessation of alcohol and marijuana as well as therapy was recommended, but he refused, and also refused to allow his mother to join him in the appt. On /04/21, he returned and saw Rachelle Bansal. He was arguing with his mother, was disinhibited and grandiose. His mother stated she had not yet picked up the lithium prescription. He agreed to transition to Abilify Maintena, received Haldol decanoate 50mg IM, and was started on aripiprazole 10mg. 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 He reported nausea and vomiting about an hour after taking lithium, and had ongoing paranoia, disorganization, and AH. He did not want to continue lithium, and it was stopped (level was 0.3, BMP normal). He was tolerating Abilify well and got Maintena 400mg IM, to continue po Abilify for 2 weeks, and then discontinue. At his most recent appt 05/18 patient reported FOI, restlessness, feeling tired, disrupted sleep, low motivation, cessation of cannabis and decreased alcohol intake. He was still living with his mother and was not working. He denies marijuana use, and reported mood was more stable. He was due for Maintena on 06/02, and was to discontinue PO Abilify on 05/19. There was concern for akathisia and benztropine 0.5mg bid was added. F/u was recommended in 4 weeks.
[2020-06-05] MEDS: TEMAZEPAM 15 MG CAPSULE PO PRN (21:43)
[2020-06-05] MEDS ORDERED: DIVALPROEX EXTENDED RELEASE 500 MG TAB PO SCH (22:00)
[2020-06-06] MEDS: haloperidoL 5 MG TAB PO PRN (06:34)
[2020-06-06] MEDS: clonazePAM 1 MG TAB PO PRN (06:58)
--- NOTE | 2020-06-06 07:53 | Psychiatric Progress Note ---
Date of Service June 06, 2020 Impression / Recommendations Impression 25-year-old male with a history of bipolar type I who was admitted on 301 after he was brought into the emergency department by the police following arrest for stealing a truck that was apparently parked in a parking lot at [facility]. He is floridly manic and psychotic and a poor historian, with then oppositional defiant quality to his behavior. The patient gives various reports regarding his medications and his medication adherence, and collateral information is needed. His mother reported that he has been prescribed aripiprazole, both oral and in Depo form, and reportedly he received Maintena on 05/31 or 06/01/2020. He reports smoking marijuana every day, and UDS was + THC, which is likely contributing to his ongoing symptoms and poor treatment response. On admission, he was started on aripiprazole 10 mg by mouth daily and lamotrigine 25 mg daily, and over the weekend scheduled haloperidol and clonazepam were added in addition to as needed medications, as he remains disorganized, hyperverbal, intrusive, and in poor behavioral control. Outpatient records were reviewed and he was switched to Depakote on 06/05/2020 to target ongoing nhan, and today we will try a different antipsychotic as aripiprazole has been ineffective. He remains acutely ill and unable to provide for his own basic needs without the assistance of others, is at risk of harm to both himself and others as a result of his nhan and psychosis (acting on delusions, hallucinating, unable to reality test, poor insight and judgment, impulsive, inappropriately touching others on the unit despite redirection, recently stole a vehicle with resulting felony charges) and inpatient treatment is medically necessary. (1) Bipolar disorder with severe nhan: 06/02/20 -The patient has been admitted to the locked behavioral health unit and placed in the special observation area. When more psychiatrically stable he will be encouraged to attend group and activity therapies. In the meantime, individual interventions will be provided. -Collateral information from his family, and possibly from outside treatment providers will be sought. The patient is not a reliable historian and seems to be misrepresenting the truth when it comes to his symptom treatment history. -We will attempt to obtain medical records from [facility]. The patient had initially claimed that he had never been previously psychiatrically hospitalized, but then mentioned, in passing, that he likes the [facility] behavioral health unit much better than he liked [facility], and when asked to explain the contradiction the patient stated, flatly, "I was lying." -After saying that he does not take and has never taken any psychiatric medications, he did acknowledge that he had taken aripiprazole. He gives conflicting reports regarding dose and dose schedule and dose form. However, he also says that he believes that aripiprazole helps, and he cannot recall the last time he actually took it. (There is no indication he may have received an aripiprazole injection an unspecified amount on 05/30/2020, but this has not been verified.) Given the degree of the patient's current nhan, and his psychosis, we will begin aripiprazole 10 mg by mouth now, and then daily pending acquisition of further information. -We will also begin lamotrigine 25 mg daily and titrate as indicated every 2 weeks. Material risks, including but not limited to, Kruger-Arvind syndrome were reviewed with the patient and he indicated understanding. 06/03--add standing order Haldol as receiving prns on top of Abilify. Cogentin prn. Consider temporary benzo if persists. 06/04--ongoing nhan but pleasant. BID Klonopin was added yesterday to limit amount of Haldol prn given overall dosing of antipsychotic with injectable . 06/05 -continue current medication regimen, get collateral information from outpatient providers at [facility], as we do not know his previous medication trials and the Abilify Maintena has not been sufficient to control his symptoms. As he just received the Maintena last week, I would like to start him on a more robust mood stabilizer than lamotrigine, but he indicated a previous trial of lithium, but we have no details. Depakote is another possibility for acute nhan, and this medications may be more effective in combination with the Abilify Maintena. Additional antipsychotic medication may be less effective due to the psychopharmacologic properties of the aripiprazole, as it is a partial agonist at the D2 receptor so may prevent binding of additional D2 antagonists. -Order fasting lipid profile and glucose for tomorrow for monitoring on an atypical antipsychotic. 06/06 - involuntary commitment hearing held and granted. -Patient remains floridly manic and psychotic, unable to maintain behavioral control or participate meaningfully in treatment, and is disruptive on the unit, demanding to leave and escalating in his behavior and agitation. Aripiprazole has not been effective despite being on it for almost 7 weeks and receiving 2 doses of Maintena, and I am concerned that it may be causing akathisia, contributing to his restlessness and agitation. We will stop oral aripiprazole, continue oral haloperidol 5 mg twice daily and as needed, and start chlorpromazine 100 mg as needed for nhan/psychosis. If the chlorpromazine is helpful, could titrate this up and replace haloperidol. We will also increase Depakote to 500 mg twice daily, and check a trough level in 5 days (06/11/2020). -Fasting labs reviewed for monitoring on an atypical antipsychotic: Glucose normal (90), FLP notable for elevated cholesterol 226. Refer to PCP as below. (2) Marijuana use: 06/02/20 -The patient says that he smokes marijuana every day, and that an ounce of marijuana will last him "a week." He also says that he purchases marijuana from someone who is well-known to him and who he believes is reliable. Nevertheless, he also reports that his current "batch" of marijuana is particularly "good," by which he says he means means strong. -At this point, the patient's thought processes are too disorganized to allow him to benefit from substance abuse counseling. We will refocus our attention on this problem as the patient's psychiatric condition improves. 06/03/20 reviewed (3) Axillary abscess: 06/02/20 -The patient has a small (6-10 mm) injected and tender axillary abscess. He reports that the abscess appeared "a day or 2 ago," and is currently painful. -There are no known allergies. We will treat with Bactroban 2% topical ointment to affected area twice daily. 06/03--reviewed (4) Hypercholesteremia: 06/06 -cholesterol elevated at 226, will refer to PCP for follow-up. Once patient is psychiatrically stable, provide education about the roles of diet and exercise, and the need for ongoing monitoring. Inventory Assets Strengths: Willing to take psychiatric medications. Supportive family. Intelligent Needs: Resolution of criminal charges. Resolution of nhan and mood stabilization. Risk Factors Assessment Male: Yes : Yes Do You Have Access To A Gun?: No (The patient says he does not have access to a gun. The emergency room record indicates that during the summer the patient presented after he had attempted to grab a gun at home. It is not known if the gun is still available to him at home.) Health Problems: No Mental Health Diagnoses: Yes Substance Use Disorders: Yes Previous Attempt: No (The patient says that he has never attempted suicide. The record indicates that he was evaluated in the emergency room and hospitalized after he reportedly attempted to grab a gun at home while so threatening to shoot himself.) Family History of Suicide: No Previous Psychiatric Hospitalization: Yes Hopelessness: No Smoker: Yes (The patient variously reports that he smokes and that he does not smoke. We are assuming that he is telling the truth when he says that he does smoke, and nicotine replacement medications have been prescribed.) Protective Factors Assessment Samaritan Beliefs: Yes (The patient says that he is Baptist. 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 He has a history of bipolar 1 disorder and cannabis abuse, and was admitted on 06/01/20 23:06 on a 302 involuntary commitment for grossly disorganized and dangerous behaviors. Chief Complaint "Beautiful, wonderful". Review of Systems Notes 10 systems reviewed, all negative. Sleep Information Total Hours of Sleep: 6 Sleep Comments: pt on q-15 minute checks Meal Information Percent Meal Consumed - Breakfast: 75 Percent Meal Consumed - Lunch: 100 Percent Meal Consumed - Dinner: 25 Subjective Subjective Patient was seen & assessed and interval progress reviewed with nursing and social work. Staff report patient is demonstrating very poor boundaries with peers, repeatedly hugging them and telling them he loves them, despite frequent redirection from staff. He was asked to leave groups due to inappropriate disruptive behavior. He remains hyperactive, easily overstimulated, laughing and talking to himself, and yelling out. He received Haldol 5 mg and clonazepam 1 mg as needed yesterday morning, and hydroxyzine in the afternoon. He is demonstrating labile moods, vacillating rapidly from euphoric to angry. He frequently comes to the nursing station with requests, and is unable to retain information given to him by staff. He continues to ask to leave, tried to open the locked doors, stating he is fine and does not need treatment, and was up overnight, agitated, demanding his belongings, stating he was leaving. Sleep remains suboptimal, up overnight, intrusive with other patients (knocking on the quiet room door and trying to get in, as he thought another patient was there). He appears to be responding to unseen stimuli, yelling out "Lu!" and "Cierra Degeneres" without provocation. He received clonazepam this morning for agitation and anger. On my assessment, he says he is "great," is spending his time here "doing fun things," and says he talk to his family "all day" yesterday. When discussing his treatment/medication recommendations and review of his recent outpatient treatment, he interrupts to ask if he can have medical marijuana. Seconds later he interrupts to say "that nicotine is really kicking in!" He denies medication side effects. He continues to state that he does not need to be here, that he is "amazing" and ready for discharge. He reports auditory hallucinations of voices, last heard them last evening, and cannot recall what they said. He maintains that he stole the truck prior to admission because he heard a crowd sharing for him and thought he wanted us a prize. He does not seem to appreciate that he has felt any criminal charges as a result of this. He says he talk to his banking attorney about his commitment hearing and does not want to attend, saying he was told "not to worry about it." He reports good sleep and appetite. When asked if he has questions about his treatment, he says "is 6 9 still alive?" When I tell him I do not know what he means, he laughs uncontrollably and lies back on his bed. He then lists several other names and asks if these people are alive, and says they are "famous rappers, I'm a famous rapper to." He then starts looking intently out the window behind me, stating "someone's playing mine sweeper, got 'em!" He then starts laughing uncontrollably again and yells out "perfect!" very loudly. After the interview, he became increasingly agitated, was attempting to leave the unit, pulling on the doors, repeatedly ringing the doorbell, and called the hotel front office manager demanding to leave. He had already received Haldol 5 mg, clonazepam 1 mg, and his a.m. dose of aripiprazole 10 mg. He declined to attend his 303 hearing, and it was granted. Physical Exam Psychiatric Orientation: alert and cooperative (Partially, poor historian) Apperance: appropriately dressed, + disheveled and appeared stated age Stares intently at times, other times closes his eyes for prolonged periods Motor Behavior: steady gait and station and + psychomotor agitation Hyperactive, frequently moving around the unit Frequently interrupts, yells out loudly at times unpredictably Affect: + labile affect Mostly euphoric/expansive, but switches rapidly to fearful and irritable "Amazing." Thought Process: + tangential thought process, + looseness of associations and + incoherent thought process Thought Content: + paranoid and + delusions Suicidal Thoughts: denies suicidal thoughts Homicidal Thoughts: denies homicidal thoughts Hallucinations: + auditory hallucinations Cognition: + recent memory not intact, + remote memory not intact, + attention not intact and + language not intact Insight: + severely impaired insight Judgement: + severely impaired judgement Vital Signs (Past 24 Hours) Last Vital Signs Temp 36.3 C L 06/06/20 06:28 Pulse 120 H 06/06/20 06:29 Resp 16 06/06/20 06:28 BP 125/89 06/06/20 06:29 Pulse Ox 98 06/01/20 23:54 Results & Data ([facility]) Current Inpatient Medications Current Inpatient Medications: Current Inpatient Medications Acetaminophen (Acetaminophen 325 Mg Tab) 650 mg PO Q4H PRN PRN Reason: Headache or Minor Fever Stop: 07/02/20 00:22 Al Hydrox/Mg Hydrox/Simethicone (Aluminum/Magnesium Susp 30 Ml Udc) 30 ml PO Q4H PRN PRN Reason: GI Upset Stop: 07/02/20 00:22 Aripiprazole (Aripiprazole 10 Mg Tab) 10 mg PO QAM TITA Stop: 07/03/20 08:59 Last Admin: 06/05/20 08:18 Dose: 10 mg Documented by: Benztropine Mesylate (Benztropine Mesylate 1 Mg Tab) 1 mg PO Q6 PRN PRN Reason: Muscle Spasm Stop: 07/03/20 09:51 Bismuth Subsalicylate (Bismuth Subsalicylate Per Ml Omnicell Charge) 15 ml PO PRN PRN PRN Reason: Loose Stool Stop: 07/02/20 00:22 Clonazepam (Clonazepam 1 Mg Tab) 1 mg PO BID PRN PRN Reason: Anxiety/Agitation Stop: 07/03/20 11:49 Last Admin: 06/06/20 06:58 Dose: 1 mg Documented by: Clonazepam (Clonazepam 1 Mg Tab) 1 mg PO BID17 TITA Stop: 07/04/20 16:59 Last Admin: 06/05/20 15:44 Dose: 1 mg Documented by: Divalproex Sodium (Divalproex Extended Release 500 Mg Tab) 500 mg PO HS TITA Stop: 07/05/20 21:59 Last Admin: 06/05/20 20:17 Dose: 500 mg Documented by: Haloperidol (Haloperidol 5 Mg Tab) 5 mg PO Q4 PRN PRN Reason: Psychosis/Agitation Stop: 07/02/20 00:25 Last Admin: 06/06/20 06:34 Dose: 5 mg Documented by: Haloperidol (Haloperidol 5 Mg Tab) 5 mg PO BID TITA Stop: 07/03/20 09:59 Last Admin: 06/05/20 20:17 Dose: 5 mg Documented by: Haloperidol Lactate (Haloperidol Lactate 5 Mg/Ml 1 Ml Vial) 10 mg IM Q4 PRN PRN Reason: Agitation/Psychosis Stop: 07/02/20 00:25 Hydroxyzine HCl (Hydroxyzine Hcl 25 Mg Tab) 50 mg PO HSZ PRN PRN Reason: Insomnia Stop: 07/02/20 00:22 Last Admin: 06/05/20 23:03 Dose: 50 mg Documented by: Hydroxyzine HCl (Hydroxyzine Hcl 25 Mg Tab) 25 mg PO Q4H PRN PRN Reason: Anxiety Stop: 07/02/20 00:22 Last Admin: 06/05/20 15:44 Dose: 25 mg Documented by: Magnesium Hydroxide (Magnesium Hydroxide Susp 30 Ml Udc) 30 ml PO DAILY PRN PRN Reason: Constipation Stop: 07/02/20 00:22 Miscellaneous (Remove Nicoderm Patch) 1 ea N/A DAILY@[id number] [facility] Stop: 07/02/20 08:58 Last Admin: 06/05/20 08:19 Dose: 1 ea Documented by: Mupirocin (Mupirocin 2% Oint 22 Gm Tube) 1 appln EXT BID [facility] Stop: 06/09/20 20:59 Last Admin: 06/05/20 20:17 Dose: 1 appln Documented by: Nicotine (Nicotine 21 Mg/24 Hr Tdsy) 21 mg TD QAM [facility] Stop: 07/02/20 08:59 Last Admin: 06/05/20 08:19 Dose: 21 mg Documented by: Nicotine Polacrilex (Nicotine Polacrilex 2 Mg Gum) 1 piece MT Q1H PRN PRN Reason: nicotine cravings Stop: 07/02/20 11:55 Last Admin: 06/05/20 21:10 Dose: 1 piece Documented by: Sodium Chloride (Sodium Chloride 0.65% Na Soln 45 Ml ([place])) 1 - 2 sprays NA PRN PRN PRN Reason: Nasal Dryness/Congestion Stop: 07/02/20 00:22 Temazepam (Temazepam 15 Mg Capsule) 15 mg PO HSZ PRN PRN Reason: Insomnia Stop: 07/02/20 16:39 Last Admin: 06/05/20 21:43 Dose: 15 mg Documented by: Mental Health & Subst Abuse Tx Psychiatrist Name of Psychiatrist: Mari Bansal Psychiatrist's Therapist Name of Therapist: None [employer] Name of [employer]facer: None
[2020-06-06] MEDS: ARIPiprazole 10 MG TAB PO SCH (08:55)
[2020-06-06] MEDS: MUPIROCIN 2% OINT 22 GM TUBE EXT SCH ×2 (08:55→22:46)
[2020-06-06] MEDS: NICOTINE 21 MG/24 HR TDSY TD SCH (08:56)
[2020-06-06] MEDS: clonazePAM 1 MG TAB PO SCH ×2 (08:56→22:46)
[2020-06-06] MEDS: haloperidoL 5 MG TAB PO SCH ×2 (08:56→22:47)
[2020-06-06 09:29] LABS: Glucose Fasting 90 mg/dl (70-99)
[2020-06-06 09:36] LABS: Chol HDL Ratio 5; Cholesterol 226 mg/dl (0-200); HDL Cholesterol 44 mg/dl; LDL Cholesterol Calculated 153 mg/dl; Triglycerides 146 mg/dl (0-150); VLDL Cholesterol 29 mg/dl
[2020-06-06] MEDS ORDERED: CHLORPROMAZINE HCL 100 MG TABLET PO ONE (10:15)
[2020-06-06] MEDS: DIVALPROEX EXTENDED RELEASE 500 MG TAB PO SCH ×2 (10:26→22:47)
[2020-06-06] MEDS: CHLORPROMAZINE HCL 100 MG TABLET PO PRN (11:18)
--- NOTE | 2020-06-06 12:34 | Communication Note ---
Date of Service: June 06, 2020 Spoke with JAM Mendiola at [facility] (outpatient provider) to coordinate care. Patient's first episode began this summer, hospitalized at [place] in March. He appeared to do the best on lithium, but refused to continue taking it. He last received Abilify Maintena 05/30 and it was his 2nd injection. He has continued to smoke marijuana regularly despite recommendations to stop, reported cutting back on alcohol, and reviewed UDS. Reviewed prominent psychotic symptoms and possibility of schizoaffective disorder. She did not think he had ever had a brain MRI. Discussed his commitment status and option of a [address] [facility], which she was in favor of.
[2020-06-07] MEDS: TEMAZEPAM 15 MG CAPSULE PO PRN ×2 (00:04→23:30)
[2020-06-07] MEDS: CHLORPROMAZINE HCL 100 MG TABLET PO PRN ×2 (00:18→11:37)
[2020-06-07] MEDS: DIVALPROEX EXTENDED RELEASE 500 MG TAB PO SCH ×2 (07:48→20:31)
[2020-06-07] MEDS: haloperidoL 5 MG TAB PO SCH ×2 (07:49→20:31)
[2020-06-07] MEDS: clonazePAM 1 MG TAB PO SCH ×2 (07:49→16:35)
[2020-06-07] MEDS: MUPIROCIN 2% OINT 22 GM TUBE EXT SCH ×2 (07:52→20:30)
[2020-06-07] MEDS: NICOTINE 21 MG/24 HR TDSY TD SCH (07:53)
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
[2020-06-07] MEDS: ACETAMINOPHEN 325 MG TAB PO PRN (09:53)
[2020-06-07] MEDS ORDERED: CHLORPROMAZINE HCL 100 MG TABLET PO PRN (13:00)
[2020-06-07] MEDS: clonazePAM 1 MG TAB PO PRN ×2 (13:16→18:34)
[2020-06-08] MEDS: clonazePAM 1 MG TAB PO SCH ×2 (09:02→14:58)
[2020-06-08] MEDS: haloperidoL 5 MG TAB PO SCH ×2 (09:02→22:55)
[2020-06-08] MEDS: MUPIROCIN 2% OINT 22 GM TUBE EXT SCH ×2 (09:02→22:55)
[2020-06-08] MEDS: NICOTINE 21 MG/24 HR TDSY TD SCH (09:04)
[2020-06-08 09:45] LABS: BUN Creatinine Ratio 7.4 (10-20); Calcium 9.9 mg/dl (8.5-10.1); Creatinine Clr Calc Pharmacy 93.3 ml/min; Est GFR (African American) 110.3; Est GFR (Non-African American) 95.2; Potassium 4.1 mmol/L (3.5-5.1)
[2020-06-08] MEDS: DIVALPROEX EXTENDED RELEASE 500 MG TAB PO SCH ×2 (10:00→22:55)
[2020-06-08] MEDS: clonazePAM 1 MG TAB PO PRN (10:51)
--- NOTE | 2020-06-08 11:57 | Psychiatric Progress Note ---
Date of Service June 08, 2020 Impression / Recommendations Impression 25-year-old male with a history of bipolar type I who was admitted on a 302 after he was brought into the emergency department by the police following arrest for stealing a truck that was apparently parked in a parking lot at [facility], and is on a 303 involuntary commitment as of 06/06/2020. He is floridly manic and psychotic and a poor historian, with an oppositional defiant quality to his behavior. He has failed multiple trials of PACHECO's (Haldol decanoate started at [place] and then switched to Abilify Maintena and received his second injection on 05/30/2020. He reports smoking marijuana every day, and UDS was + THC, which is likely contributing to his ongoing symptoms and poor treatment response. On admission, he was started on aripiprazole 10 mg by mouth daily and lamotrigine 25 mg daily, and over the weekend scheduled haloperidol and clonazepam were added in addition to as needed medications, as he remains disorganized, hyperverbal, intrusive, and in poor behavioral control. Outpatien t records were reviewed and he was switched to Depakote on 06/05/2020 to target ongoing nhan, and chlorpromazine as aripiprazole has been ineffective. Persistent tachycardia with normal BP, consulted hospitalist service on 06/08 for possible recommendations and ongoing monitoring. He remains acutely ill and unable to provide for his own basic needs without the assistance of others, is at risk of harm to both himself and others as a result of his nhan and psychosis (acting on delusions, hallucinating, unable to reality test, poor insight and judgment, impulsive, inappropriately touching others on the unit despite redirection, recently stole a vehicle with resulting felony charges) and inpatient treatment is medically necessary. (1) Bipolar disorder with severe nhan: 06/02/20 -The patient has been admitted to the locked behavioral health unit and placed in the special observation area. When more psychiatrically stable he will be encouraged to attend group and activity therapies. In the meantime, individual interventions will be provided. -Collateral information from his family, and possibly from outside treatment providers will be sought. The patient is not a reliable historian and seems to be misrepresenting the truth when it comes to his symptom treatment history. -We will attempt to obtain medical records from [facility]. The patient had initially claimed that he had never been previously psychiatrically hospitalized, but then mentioned, in passing, that he likes the [facility] behavioral health unit much better than he liked [facility], and when asked to explain the contradiction the patient stated, flatly, "I was lying." -After saying that he does not take and has never taken any psychiatric medic ations, he did acknowledge that he had taken aripiprazole. He gives conflicting reports regarding dose and dose schedule and dose form. However, he also says that he believes that aripiprazole helps, and he cannot recall the last time he actually took it. (There is no indication he may have received an aripiprazole injection an unspecified amount on 05/30/2020, but this has not been verified.) Given the degree of the patient's current nhan, and his psychosis, we will begin aripiprazole 10 mg by mouth now, and then daily pending acquisition of further information. -We will also begin lamotrigine 25 mg daily and titrate as indicated every 2 weeks. Material risks, including but not limited to, Kruger-Arvind syndrome were reviewed with the patient and he indicated understanding. 06/03--add standing order Haldol as receiving prns on top of Abilify. Cogentin prn. Consider temporary benzo if persists. 06/04--ongoing nhan but pleasant. BID Klonopin was added yesterday to limit amount of Haldol prn given overall dosing of antipsychotic with injectable. 06/05 - Continue current medication regimen, get collateral information from outpatient providers at [place], as we do not know his previous medication trials and the Abilify Maintena has not been sufficient to control his symptoms. As he just received the Maintena last week, I would like to start him on a more robust mood stabilizer than lamotrigine, but he indicated a previous trial of lithium, but we have no details. Depakote is another possibility for acute nhan, and this medications may be more effective in combination with the Abilify Maintena. Additional antipsychotic medication may be less effective due to the psychopharmacologic properties of the aripiprazole, as it is a partial agonist at the D2 receptor so may prevent binding of additional D2 antagonists. -Order fasting lipid profile and glucose for tomorrow for monitoring on an atypical antipsychotic. 06/06 - 303 involuntary commitment hearing held and granted. -Patient remains floridly manic and psychotic, unable to maintain behavioral control or participate meaningfully in treatment, and is disruptive on the unit, demanding to leave and escalating in his behavior and agitation. Aripiprazole has not been effective despite being on it for almost 7 weeks and receiving 2 doses of Maintena, and I am concerned that it may be causing akathisia, contribu ting to his restlessness and agitation. We will stop oral aripiprazole, continue oral haloperidol 5 mg twice daily and as needed, and start chlorpromazine 100 mg as needed for nhan/psychosis. If the chlorpromazine is helpful, could titrate this up and replace haloperidol. We will also increase Depakote to 500 mg twice daily, and check a trough level in 5 days (06/11/2020). -Fasting labs reviewed for monitoring on an atypical antipsychotic: Glucose normal (90), FLP notable for elevated cholesterol 226. Refer to PCP as below. 06/07 -Increase Depakote to 500mg qam and 1000mg HS and check trough in 5 days (06/12). -Received 300 mg of chlorpromazine yesterday, and had broken sleep. Remains floridly manic, and poor behavioral control. Continue clonazepam and chlorpromazine prn. 06/08 - Continue as above - recommending primary utilization of benzodiazepines and/or benztropine as prn agents, as patient has received decent amounts of antipsychotic medications with little benefit - Pt continues to be disorganized, intrusive, difficult to redirect, and demonstrates continued tangentiality and flight of ideas. - Hospitalist consultation for tachycardia with abnormal EKG as discussed below (2) Marijuana use: 06/02/20 -The patient says that he smokes marijuana every day, and that an ounce of marijuana will last him "a week." He also says that he purchases marijuana from someone who is well-known to him and who he believes is reliable. Nevertheless, he also reports that his current "batch" of marijuana is particularly "good," by which he says he means means strong. -At this point, the patient's thought processes are too disorganized to allow him to benefit from substance abuse counseling. We will refocus our attention on this problem as the patient's psychiatric condition improves. 06/03/20 - reviewed (3) Axillary abscess: 06/02/20 -The patient has a small (6-10 mm) injected and tender axillary abscess. He reports that the abscess appeared "a day or 2 ago," and is currently painful. -There are no known allergies. We will treat with Bactroban 2% topical ointment to affected area twice daily. 06/03--reviewed (4) Hypercholesteremia: 06/06 -cholesterol elevated at 226, will refer to PCP for follow-up. Once patient is psychiatrically stable, provide education about the roles of diet and exercise, and the need for ongoing monitoring. (5) Tachycardia: 06/08 - Pt with concerning persistent tachycardia (max of 140's at this time) - blood pressure this admission has been stable - EKG ordered, QTc WNL at 437. "Sinus rhythm with marked sinus arrhythmia; left ventricular hypertrophy with QRS widening; abnormal EKG" - Previous EKG poor quality - sinus tachycardia, diffuse nonspecific T wave abnormality, abnormal EKG - No evidence of additional concerns for NMS (afebrile, no tachypnea, no evidence of muscle rigidity - AMS present as a result of his psychiatric condition). - Will consult [facility] Hospitalist for possible recommendations and ongoing support regarding this concern, discussed case directly with hospitalist via phone Inventory Assets Strengths: Willing to take psychiatric medications. Supportive family. Intelligent Needs: Resolution of criminal charges. Resolution of nhan and mood stabilization. Risk Factors Assessment Male: Yes : Yes Do You Have Access To A Gun?: No (The patient says he does not have access to a gun. The emergency room record indicates that during the summer the patient presented after he had attempted to grab a gun at home. It is not known if the gun is still available to him at home.) Health Problems: No Mental Health Diagnoses: Yes Substance Use Disorders: Yes Previous Attempt: No (The patient says that he has never attempted suicide. The record indicates that he was evaluated in the emergency room and hospitalized after he reportedly attempted to grab a gun at home while so threatening to shoot himself.) Family History of Suicide: No Previous Psychiatric Hospitalization: Yes Hopelessness: No Smoker: Yes (The patient variously reports that he smokes and that he does not smoke. We are assuming that he is telling the truth when he says that he does smoke, and nicotine replacement medications have been prescribed.) Protective Factors Assessment Taoism Beliefs: Yes (The patient says that he is Anglican. 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 He has a history of bipolar 1 disorder and cannabis abuse, and was admitted on 06/01/20 23:06 on a 302 involuntary commitment for grossly disorganized and dangerous behaviors. Chief Complaint "I'm amazing!!!" Review of Systems Notes Constitutional: pt perceives that his sleep is "great!", reports restlessness Cardiovascular: denied Respiratory: denied Gastrointestinal: denied Neurological: denied Psychiatric: denies symptoms other than stated above Total of at least 10 systems reviewed, pertinent positives as above and in HPI. Sleep Information Total Hours of Sleep: 4.5 Sleep Comments: pt appeared to sleep 6.75 hr during evening shift. pt given restoril per rn. pt awake @beginning of shift. pt needy but redirectable. pt appeared to be asleep @0100 till 0500. pt on q-15 minute checks Meal Information Percent Meal Consumed - Breakfast: 100 Percent Meal Consumed - Lunch: 100 Percent Meal Consumed - Dinner: 75 Nutrition Comment: Pt is sleeping Subjective Subjective Patient was seen & assessed and interval progress reviewed with nursing and social work. Staff report the patient continues to be intrusive with poor boundaries and is difficult to redirect. He continues to be hyperactive and asks the same questions repeatedly (usually regarding checking his phone messages or asking if he can leave). Pt's sleep was reported to be broken last evening, and seems to be decreasing in quality/length over the past few days. Pt was seen today to assess progress since admission. Pt states "I'm amazing!!" when asked how he is doing. He does report to this provider that he is feeling restless, stating it feels like it's coming from his heart. When asked addit ional questions, he denies feeling as though his heart is racing. This provider discussed our concerns for persistent tachycardia, and reviewed possible explanations. Pt states "no, I know what it is. I'm just so excited to finally see my girlfriend again." Pt was encouraged to continue adequate hydration and was reminded that we are not permitting coffee ingestion at this time. Pt was informed of plan to consult hospitalist for additional review, and stated he would be willing to meet with their service. Pt was asked about his current mood, and he responded by saying "ynes..." Pt was asked to explain this response. He states, becoming rather tearful and introspective, "someone gave me a book a while ago...and the last word...was ynes." Pt states that this gesture had a "profound effect on me." Pt denies SI/HI. He was asked about the presence of auditory and visual hallucinations. He admits to hearing voices, and points at the radio. With some additional questioning, patient states he believes the songs are being played for him "by God", stating the songs are "because he loves me so much." Pt was asked if he was able to get a hold of his public policy analyst, as he had requested the number to call. Pt became silent and intently stared at this provider. He finally stated "I do not wish to discuss anything about that with you at this time." Pt then walked away from this provider, and began running toward the day area. Physical Exam Psychiatric Orientation: alert; + uncooperative (due to level of disorganization) Apperance: appropriately dressed, + disheveled (appearing unkempt, sweaty, wearing same clothes for several days) and appeared stated age Eye Contact: + fair eye contact (prolonged direct eye contact) Motor Behavior: + psychomotor agitation (still appearing very restless, unable to sit still) and + akathisia (may be possible explanation of restlessness) Speech: + pressured speech (rambling at times) Affect: + tearful affect, + labile affect and + elated affect Alternating between tearful affect and elated/expansive affect during our conversation - remains very labile Mood: no depressed mood (quite the opposite - "I'm amazing!!!") Thought Process: + tangential thought process, + flight of ideas and + looseness of associations; + thought process not linear or logical and + thought process not clear or coherent Thought Content: + preoccupation (with discharge, checking his messages, etc.), + delusions and + ideas of reference (believes God is playing music for him, "because He loves me so much") Suicidal Thoughts: denies suicidal thoughts Homicidal Thoughts: denies homicidal thoughts Hallucinations: no visual hallucinations Admits to hearing voices "through the radio" - not clearly able to delineate if this is the DJ's vs. true AH Cognition: language grossly intact; + attention not intact Insight: + severely impaired insight Judgement: + severely impaired judgement Vital Signs (Past 24 Hours) Last Vital Signs Temp 36.5 C 06/07/20 20:00 Pulse 140 H 06/08/20 07:51 Resp 16 06/07/20 06:31 BP 101/69 06/08/20 07:51 Pulse Ox 98 06/01/20 23:54 Results & Data ([facility]) Laboratory Results Laboratory Results - last 24 hr 06/08/20 09:02 Sodium 140 Potassium 4.1 Chloride 106 Carbon Dioxide 28 Anion Gap 7.0 BUN 8 Creatinine 1.09 Est Cr Clr Drug Dosing 93.3 Est GFR ( Amer) 110.3 Est GFR (Non-Af Amer) 95.2 BUN/Creatinine Ratio 7.4 L Glucose 87 Calcium 9.9 Current Inpatient Medications Current Inpatient Medications: Current Inpatient Medications Acetaminophen (Acetaminophen 325 Mg Tab) 650 mg PO Q4H PRN PRN Reason: Headache or Minor Fever Stop: 07/02/20 00:22 Last Admin: 06/07/20 09:53 Dose: 650 mg Documented by: Al Hydrox/Mg Hydrox/Simethicone (Aluminum/Magnesium Susp 30 Ml Udc) 30 ml PO Q4H PRN PRN Reason: GI Upset Stop: 07/02/20 00:22 Benztropine Mesylate (Benztropine Mesylate 1 Mg Tab) 1 mg PO Q6 PRN PRN Reason: Muscle Spasm Stop: 07/03/20 09:51 Last Admin: 06/07/20 09:52 Dose: 1 mg Documented by: Bismuth Subsalicylate (Bismuth Subsalicylate Per Ml Omnicell Charge) 15 ml PO PRN PRN PRN Reason: Loose Stool Stop: 07/02/20 00:22 Chlorpromazine HCl (Chlorpromazine Hcl 100 Mg Tablet) 150 mg PO Q6H PRN PRN Reason: psychosis or nhan Stop: 07/07/20 12:59 Last Admin: 06/07/20 13:15 Dose: 150 mg Documented by: Clonazepam (Clonazepam 1 Mg Tab) 1 mg PO [id number] TITA Stop: 07/04/20 16:59 Last Admin: 06/08/20 09:02 Dose: 1 mg Documented by: Clonazepam (Clonazepam 1 Mg Tab) 1 mg PO Q6H PRN PRN Reason: Anxiety/Agitation Stop: 07/03/20 11:49 Last Admin: 06/08/20 10:51 Dose: 1 mg Documented by: Divalproex Sodium (Divalproex Extended Release 500 Mg Tab) 500 mg PO QAM TITA Stop: 07/08/20 08:59 Last Admin: 06/08/20 10:00 Dose: 500 mg Documented by: Divalproex Sodium (Divalproex Extended Release 500 Mg Tab) 1,000 mg PO HS TITA Stop: 07/07/20 21:59 Last Admin: 06/07/20 20:31 Dose: 1,000 mg Documented by: Haloperidol (Haloperidol 5 Mg Tab) 5 mg PO Q4 PRN PRN Reason: Psychosis/Agitation Stop: 07/02/20 00:25 Last Admin: 06/06/20 06:34 Dose: 5 mg Documented by: Haloperidol (Haloperidol 5 Mg Tab) 5 mg PO BID TITA Stop: 07/03/20 09:59 Last Admin: 06/08/20 09:02 Dose: 5 mg Documented by: Haloperidol Lactate (Haloperidol Lactate 5 Mg/Ml 1 Ml Vial) 10 mg IM Q4 PRN PRN Reason: Agitation/Psychosis Stop: 07/02/20 00:25 Hydroxyzine HCl (Hydroxyzine Hcl 25 Mg Tab) 50 mg PO HSZ PRN PRN Reason: Insomnia Stop: 07/02/20 00:22 Last Admin: 06/07/20 21:31 Dose: 50 mg Documented by: Hydroxyzine HCl (Hydroxyzine Hcl 25 Mg Tab) 25 mg PO Q4H PRN PRN Reason: Anxiety Stop: 07/02/20 00:22 Last Admin: 06/07/20 16:35 Dose: 25 mg Documented by: Magnesium Hydroxide (Magnesium Hydroxide Susp 30 Ml Udc) 30 ml PO DAILY PRN PRN Reason: Constipation Stop: 07/02/20 00:22 Miscellaneous (Remove Nicoderm Patch) 1 ea N/A DAILY@0859 [facility] Stop: 07/02/20 08:58 Last Admin: 06/08/20 09:04 Dose: 1 ea Documented by: Mupirocin (Mupirocin 2% Oint 22 Gm Tube) 1 appln EXT BID [facility] Stop: 06/09/20 20:59 Last Admin: 06/08/20 09:02 Dose: 1 appln Documented by: Nicotine (Nicotine 21 Mg/24 Hr Tdsy) 21 mg TD QAM [facility] Stop: 07/02/20 08:59 Last Admin: 06/08/20 09:04 Dose: 21 mg Documented by: Nicotine Polacrilex (Nicotine Polacrilex 2 Mg Gum) 1 piece MT Q1H PRN PRN Reason: nicotine cravings Stop: 07/02/20 11:55 Last Admin: 06/05/20 21:10 Dose: 1 piece Documented by: Sodium Chloride (Sodium Chloride 0.65% Na Soln 45 Ml ([place])) 1 - 2 sprays NA PRN PRN PRN Reason: Nasal Dryness/Congestion Stop: 07/02/20 00:22 Temazepam (Temazepam 15 Mg Capsule) 15 mg PO HSZ PRN PRN Reason: Insomnia Stop: 07/02/20 16:39 Last Admin: 06/07/20 23:30 Dose: 15 mg Documented by: Mental Health & Subst Abuse Tx Psychiatrist Name of Psychiatrist: Mari Bansal Psychiatrist's Therapist Name of Therapist: None Industrial Controller Name of Industrial Controller: None
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
--- NOTE | 2020-06-08 16:31 | Billing Data ---
Date of Service June 08, 2020 Coding Level of Care Code 25320 Inpt Consult Level 3
[2020-06-08] MEDS: TEMAZEPAM 15 MG CAPSULE PO PRN (22:55)
[2020-06-09] MEDS: clonazePAM 1 MG TAB PO PRN ×2 (03:09→11:43)
[2020-06-09] MEDS: MUPIROCIN 2% OINT 22 GM TUBE EXT SCH (09:05)
[2020-06-09] MEDS: clonazePAM 1 MG TAB PO SCH (09:05)
[2020-06-09] MEDS: haloperidoL 5 MG TAB PO SCH ×3 (09:05→20:30)
[2020-06-09] MEDS: NICOTINE 21 MG/24 HR TDSY TD SCH (09:06)
[2020-06-09] MEDS: DIVALPROEX EXTENDED RELEASE 500 MG TAB PO SCH ×2 (09:07→20:30)
[2020-06-09] MEDS: NICOTINE POLACRILEX 2 MG GUM MT PRN (10:24)
--- NOTE | 2020-06-09 11:20 | XCELERA ---
[id number]
--- NOTE | 2020-06-09 11:59 | Psychiatric Progress Note ---
Date of Service June 09, 2020 Impression / Recommendations Impression 25-year-old male with a history of bipolar type I who was admitted on a 302 after he was brought into the emergency department by the police following arrest for stealing a truck that was apparently parked in a parking lot at [facility], and is on a 303 involuntary commitment as of 06/06/2020. He is floridly manic and psychotic and a poor historian, with an oppositional defiant quality to his behavior. He has failed multiple trials of PACHECO's (Haldol decanoate started at [facility] and then switched to Abilify Maintena and received his second injection on 05/30/2020. He reports smoking marijuana every day, and UDS was + THC, which is likely contributing to his ongoing symptoms and poor treatment response. On admission, he was started on aripiprazole 10 mg by mouth daily and lamotrigine 25 mg daily, and over the weekend scheduled haloperidol and clonazepam were added in addition to as needed medications, as he remains disorganized, hyperverbal, intrusive, and in poor behavioral control. Outpatien t records were reviewed and he was switched to Depakote on 06/05/2020 to target ongoing nhan, and chlorpromazine as aripiprazole has been ineffective. Persistent tachycardia with normal BP, consulted hospitalist service on 06/08 for possible recommendations and ongoing monitoring. He remains acutely ill and unable to provide for his own basic needs without the assistance of others, is at risk of harm to both himself and others as a result of his nhan and psychosis (acting on delusions, hallucinating, unable to reality test, poor insight and judgment, impulsive, inappropriately touching others on the unit despite redirection, recently stole a vehicle with resulting felony charges) and inpatient treatment is medically necessary. 06/09/20 update: With the perspective of a 1 week absence from the care and treatment of Mr. Campuzano, I can see definite improvements. His speech is no longer particularly pressured, although he remains intrusive and attention seeking, often by engaging in silly, purposeless behaviors. He also appears to be less hyperkinetic and is able to rest in his room, or sit in the day room and watch television with his peers. Also, he reports that the auditory scott ucinations have stoppedand then adds "I wish they did not stop. I like hearing from my dad." He remains delusional and, for example, today asked me if it is possible that his father, a man who , when the patient was 14, of a myocardial infarction, could still be living. He added, "I think he is. Can you help me find him?" The patient does add that he remembers his father's , and knows that his father was cremated. I tried to talk to the patient about a "journey of discovery" to learn more about his father since he had been so young when his father and, therefore, would not have had the same opportunities to know his father in the same way that an adult child typically is able to know and understand their parents as adults. However, this seem to be too abstract for the patient at the present time, and he said, "I guess you are saying that he is ." He continues to believe that he was going to be presented at [facility] to a capacity crowd where he was going to give a concert (Rap) and, also, possibly a woman that may or may not be his girlfriend. He also made reference to a set of numbers, "69," a number that he had said was his "staged name" at admission. Today, he said that "69" refers to the number 69, and that he considers that number to represent "switching" or "Kamila and Arndt." He further clarified that the "switching" which she refers has to do with his changing from manic to depressed, although he quickly adds that he typically does not become depressed or, if he begins to feel depressed, he is usually "pretty good about getting [himself] out of it." Klonopin was discontinued because the patient requested that we stop that and complained that he felt it caused too much sedation. He reports that he feels the Depakote an d, particularly, Haldol have been extremely helpful to him. And there may be some evidence that these medications, Haldol in particular, may be instrumental in his report that his auditory hallucinations have stopped and his thinking seems significantly more organized. (1) Bipolar disorder with severe nhan: 06/02/20 -The patient has been admitted to the [facility] behavioral health unit and placed in the special observation area. When more psychiatrically stable he will be encouraged to attend group and activity therapies. In the meantime, individual interventions will be provided. -Collateral information from his family, and possibly from outside treatment providers will be sought. The patient is not a reliable historian and seems to be misrepresenting the truth when it comes to his symptom treatment history. -We will attempt to obtain medical records from [facility]. The patient had initially claimed that he had never been previously psychiatrically hospitalized, but then mentioned, in passing, that he likes the [facility] behavioral health unit much better than he liked [facility], and when asked to explain the contradiction the patient stated, flatly, "I was lying." -After saying that he does not take and has never taken any psychiatric medications, he did acknowledge that he had taken aripiprazole. He gives conflicting reports regarding dose and dose schedule and dose form. However, he also says that he believes that aripiprazole helps, and he cannot recall the last time he actually took it. (There is no indication he may have received an aripiprazole injection an unspecified amount on 05/30/2020, but this has not been verified.) Given the degree of the patient's current nhan, and his psychosis, we will begin aripiprazole 10 mg by mouth now, and then daily pending acquisition of further information. -We will also begin lamotrigine 25 mg daily and titrate as indicated every 2 weeks. Material risks, including but not limited to, Kruger-Arvind syndrome were reviewed with the patient and he indicated understanding. 06/03--add standing order Haldol as receiving prns on top of Abilify. Cogentin prn. Consider temporary benzo if persists. 06/04--ongoing nhan but pleasant. BID Klonopin was added yesterday to limit amount of Haldol prn given overall dosing of antipsychotic with injectable. 06/05 - Continue current medication regimen, get collateral information from outpatient providers at [place], as we do not know his previous medication trials and the Abilify Maintena has not been sufficient to control his symptoms. As he just received the Maintena last week, I would like to start him on a more robust mood stabilizer than lamotrigine, but he indicated a previous trial of lithium, but we have no details. Depakote is another possibility for acute nhan, and this medications may be more effective in combination with the Abilify Maintena. Additional antipsychotic medication may be less effective due to the psychopharmacologic properties of the aripiprazole, as it is a partial agonist at the D2 receptor so may prevent binding of additional D2 antagonists. -Order fasting lipid profile and glucose for tomorrow for monitoring on an atypical antipsychotic. 06/06 - involuntary commitment hearing held and granted. -Patient remains floridly manic and psychotic, unable to maintain behavioral control or participate meaningfully in treatment, and is disruptive on the unit, demanding to leave and escalating in his behavior and agitation. Aripiprazole has not been effective despite being on it for almost 7 weeks and receiving 2 doses of Maintena, and I am concerned that it may be causing akathisia, contributing to his restlessness and agitation. We will stop oral aripiprazole, continue oral haloperidol 5 mg twice daily and as needed, and start chlorpromazine 100 mg as needed for nhan/psychosis. If the chlorpromazine is helpful, could titrate this up and replace haloperidol. We will also increase Depakote to 500 mg twice daily, and check a trough level in 5 days (06/11/2020). -Fasting labs reviewed for monitoring on an atypical antipsychotic: Glucose normal (90), FLP notable for elevated cholesterol 226. Refer to PCP as below. 06/07 -Increase Depakote to 500mg qam and 1000mg HS and check trough in 5 days (06/12). -Received 300 mg of chlorpromazine yesterday, and had broken sleep. Remains floridly manic, and poor behavioral control. Continue clonazepam and chlorpromazine prn. 06/08 - Continue as above - recommending primary utilization of benzodiazepines and/or benztropine as prn agents, as patient has received decent amounts of antipsychotic medications with little benefit - Pt continues to be disorganized, intrusive, difficult to redirect, and demons trates continued tangentiality and flight of ideas. - Hospitalist consultation for tachycardia with abnormal EKG as discussed below 06/09 -The patient has a history of marijuana abuse, and, somewhat to our surprise, today he asked that we discontinue clonazepam because he finds it too sedating and somehow makes his thinking "more fuzzy." Standing dose clonazepam was discontinued in favor of "as needed" clonazepam for agitation/anxiety. -The patient indicates that he feels that he is tolerating divalproex well at the current dosage. We will obtain a valproic acid level in the morning before any further adjustment in the divalproex dose is made. -The patient had said that he feels that Haldol is "the best" medication for him. He notes that he has taken it in the past with favorable results, but also said that he would like to ask us to be careful not to "give [him] too much," because that has happened during other hospitalizations and he says that it causes him to feel like a "zombie." -Patient has been having episodes of tachycardia. Remains afebrile. On examination, he had mild cogwheeling. Benztropine has been discontinued because of the fairly common side effect of tachycardia associated with benztropine. In its place, today, given the slight cogwheeling I have ordered trihexyphenidyl 2 mg daily, with a additional doses of as needed for dystonia. - (2) Marijuana use: 06/02/20 -The patient says that he smokes marijuana every day, and that an ounce of marijuana will last him "a week." He also says that he purchases marijuana from someone who is well-known to him and who he believes is reliable. Nevertheless, he also reports that his current "batch" of marijuana is particularly "good," by which he says he means means strong. -At this point, the patient's thought processes are too disorganized to allow him to benefit from substance abuse counseling. We will refocus our attention on this problem as the patient's psychiatric condition improves. 06/03/20 - reviewed 06/09 -The topic of his marijuana use came up today during our meeting, and he asked me if I thought it would be okay for him to continue to use marijuana when he leaves the hospital. I told him directly that I would strongly advise against using marijuana, medical or otherwise, while undergoing treatment for bipolar disorder. I explained that marijuana can significantly interfere with treatment of bipolar disorder and is only medication that can affect the mood and ways that may not be intended to his part of the treatment. The patient indicated understanding and said that he would honor and respect the opinion in this regard (3) Axillary abscess: 06/02/20 -The patient has a small (6-10 mm) injected and tender axillary abscess. He reports that the abscess appeared "a day or 2 ago," and is currently painful. -There are no known allergies. We will treat with Bactroban 2% topical ointment to affected area twice daily. 06/03--reviewed 06/09 -The patient reports that the axillary abscess in his left axilla has resolved. (4) Hypercholesteremia: 06/06 -cholesterol elevated at 226, will refer to PCP for follow-up. Once patient is psychiatrically stable, provide education about the roles of diet and exercise, and the need for ongoing monitoring. (5) Tachycardia: 06/08 - Pt with concerning persistent tachycardia (max of 140's at this time) - blood pressure this admission has been stable - EKG ordered, QTc WNL at 437. "Sinus rhythm with marked sinus arrhythmia; left ventricular hypertrophy with QRS widening; abnormal EKG" - Previous EKG poor quality - sinus tachycardia, diffuse nonspecific T wave abnormality, abnormal EKG - No evidence of additional concerns for NMS (afebrile, no tachypnea, no evidence of muscle rigidity - AMS present as a result of his psychiatric condit ion). - Will consult [facility] Hospitalist for possible recommendations and ongoing support regarding this concern, discussed case directly with hospitalist via phone 06/09 -The patient had an echocardiogram today at bedside. -The findings of this study have been reviewed. In summary, it was determined that this was essentially a normal study. His left ventricular systolic function is described as "normal." -There have been several reports that the patient has appeared diaphoretic. It has been suspected that this has occurred when the patient splashes water on his face or hair. Today, on examination I checked for cogwheel rigidity and noticed mild cogwheel rigidity. I also noticed that his gait appears to be somewhat stiff. He denies feeling any stiffness and reports no distress. He also remains afebrile. Nevertheless, and even with a relatively low level of suspicion for neuroleptic malignant syndrome, I have ordered several laboratory tests including LDH, CK, and alkaline phosphatase for the morning labs, to be drawn with the patient's trough valproic acid level. Inventory Assets Strengths: Willing to take psychiatric medications. Supportive family. Intelligent Needs: Resolution of criminal charges. Resolution of nhan and mood stabilization. Risk Factors Assessment Male: Yes : Yes Do You Have Access To A Gun?: No (The patient says he does not have access to a gun. The emergency room record indicates that during the summer the patient presented after he had attempted to grab a gun at home. It is not known if the gun is still available to him at home.) Health Problems: No Mental Health Diagnoses: Yes Substance Use Disorders: Yes Previous Attempt: No (The patient says that he has never attempted suicide. The record indicates that he was evaluated in the emergency room and hospitalized after he reportedly attempted to grab a gun at home while so threatening to shoot himself.) Family History of Suicide: No Previous Psychiatric Hospitalization: Yes Hopelessness: No Smoker: Yes (The patient variously reports that he smokes and that he does not smoke. We are assuming that he is telling the truth when he says that he does smoke, and nicotine replacement medications have been prescribed.) Protective Factors Assessment Baptism Beliefs: Yes (The patient says that he is Nondenominational. 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 He has a history of bipolar 1 disorder and cannabis abuse, a nd was admitted on 06/01/20 23:06 on a 302 involuntary commitment for grossly disorganized and dangerous behaviors. Chief Complaint " I have got bipolar". Review of Systems Sleep Information Total Hours of Sleep: 2 Sleep Comments: pt appeared to sleep 6.75 hr during evening shift. pt given restoril per rn. pt awake @beginning of shift. pt needy but redirectable. pt appeared to be asleep @0100 till 0500. pt on q-15 minute checks Meal Information Percent Meal Consumed - Breakfast: 50 Percent Meal Consumed - Lunch: 70 Percent Meal Consumed - Dinner: 100 Nutrition Comment: Pt is sleeping Subjective Subjective Patient was seen & assessed and interval progress reviewed with treatment team. I met individually with the patient today in order to assess his current mental status, evaluate his response to treatment, coordinate with the patient and necessary changes in the patient's treatment regimen, and address issues, questions and concerns that may arise. The treatment team reports that for much of this week the patient has continued to exhibit manic symptoms that include hyperkinesis (dancing, performing jumping jacks, pacing), intrusive behaviors, pronounced tangentiality, and grandiose delusional beliefs. However, today, the staff has noticed some improvement and that the patient is less motorically hyperactive and somewhat less intrusive. The patient tells me during our meeting today that he, himself, has noticed some improvement today and that he is feeling "much better." He then coupled that report with an immediate request to be discharged, a behavior that has persisted for much of this week; i.e., reports of improvement followed by assertions that he is now ready to be discharged and is hoping to leave. The patient accepted my explanation that the rest of the treatment team and I do not feel that he is ready, but that we have noticed some improvement and are hopeful. I also advised the patient that we appreciate his cooperation with treatment. Together, we reviewed his current medications. He tells me that he does not know for sure if divalproex sodium is helping, but he adds "I am pretty sure it is. It kind of makes me less hyper." At the same time, the patient reports that he does not feel clonazepam is helpful and explains that he finds clonazepam "just makes [him] tired but does not help with [manic symptoms]." He enthusiastically says that he feels that Haldol is helping. The patient notes that, in the past, he has responded favorably to Haldol, but the mistake that he believes has been made previously during a hospitalization elsewhere was that he was given "too much Haldol" and h e ended up overly sedated and "like a zombie. Depressed, and I am usually not depressed." However, he reports that at lower doses of Haldol he believes he does well. On examination, there is mild cogwheeling, and his gait is somewhat stiff. Although not diaphoretic today during the examination, staff report that he has appeared to be perspiring on certain occasions recently, but they note that this tends to be observed from the patient has recently been to his bathroom and may have applied cool water to his face. Respirations are not increased, but he has been having episodes of tachycardia (over 100 beats per second). I asked the patient to tell me more about the circumstances that led to his admission. He tells me that he was guided by his late father ("I was hearing his voice. 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 I reminded the patient that he had previously told me that the woman that he was going to meet in the [facility] was someone that he did not know very well, and he responded by saying, "well, I did not for a long time, but I called her and we decided that we should be a couple." The patient went on to explain that he continues to believe that the reason that he was being told to g o to the [facility] was that, in fact[facility] ("I could hear the crowd to hearing") and that they were waiting for him to give a concert, or, possibly, give a concert and then his girlfriend. When asked about the truck that he is allegedly stolen, he reiterated that he thought that possibly the truck was a "grand prize" that was being awarded to him, perhaps by the producers at the concert in which he believed that he was scheduled to perform, or, alternatively, that the truck was placed there as a gift from his late father; a gift that was brokered by "God." The patient insists that the door to the truck was unlocked (parked in the parking lot of [facility]) and that the keys were in the truck. He does note that he had some suspicion that he might be mistaken because when he got into the truck he saw that there were personable longings that he realized might not still be there if the car was a gift or prize, but decided that the personal items were left by mistake and drove off. Patient also tells me that he believes that his young nephew may be Darío Simmons, and that he was given the signal "69" which he says means "switchlike to switch from depressed to manic." However, he also says he cannot explain what he means by that, other than he got the message "69" on the evening that he was accused of taking the truck. Today, the patient talked about how hard it had been for him to lose his father when he was 14 years old. He said that he learned later that his father's family had a history of heart disease, but he was totally "shocked" when his father . He then asked me several times if I thought it was possible that there had been a mistake and his father is still living, but Dr. Frazier further he told me that he realizes that his father is "probably" because he attended the , cried, and knows that his father was cremated. Physical Exam Psychiatric Orientation: alert, oriented to person, oriented to place and oriented to time The patient is oriented to month and year, but believes it is 06/02/2020, the first full day of his hospital stay. The patient is also oriented to situation and realizes that he is being treated Apperance: appropriately dressed, appropriately groomed and appeared stated age Eye Contact: + fair eye contact Mild cogwheeling on examination. The patient's gait is somewhat stiff. Speech: normal rate/rhythm/volume of speech Expansive. At times hebephrenic "Great." Thought Process: + thought blocking and + tangential thought process Thought Content: + delusions Suicidal Thoughts: denies suicidal thoughts Homicidal Thoughts: denies homicidal thoughts Hallucinations: + auditory hallucinations (Patient reports that his auditory hallucinations have stopped.); no visual hallucinations (The patient initially reported visual hallucinations and said that he was seeing the number "209" outside of his bedroom window here at the hospital, when no one else can see it. However, I asked him to take me to his bedroom window and show me and, in fact, the #209 is posted on an air handler on a roof outside of his window.) It is difficult to formally assess the patient's cognitive ability. He essentially repeats that the same story that he told me a week ago today about the circumstances that led to the admission. But he also continues to exhibit behaviors that suggests that he is "goofing around" by deliberately saying relatively minor things that he knows that we know are not true. Estimated Intelligence: + above average estimated intelligence Insight: + poor insight The patient does have insight of the fact that he suffers from bipolar disorder and needs medication. He is not aware that the number of the symptoms he is currently presenting represent psychiatric symptoms rather than reality. Judgement: + poor judgement Vital Signs (Past 24 Hours) Last Vital Signs Temp 36.5 C 06/09/20 08:58 Pulse 108 H 06/09/20 08:58 Resp 16 06/09/20 08:58 BP 120/78 06/09/20 08:58 Pulse Ox 98 06/01/20 23:54 Results & Data (U) Current Inpatient Medications Current Inpatient Medications: Current Inpatient Medications Acetaminophen (Acetaminophen 325 Mg Tab) 650 mg PO Q4H PRN PRN Reason: Headache or Minor Fever Stop: 07/02/20 00:22 Last Admin: 06/07/20 09:53 Dose: 650 mg Documented by: Al Hydrox/Mg Hydrox/Simethicone (Aluminum/Magnesium Susp 30 Ml Udc) 30 ml PO Q4H PRN PRN Reason: GI Upset Stop: 07/02/20 00:22 Bismuth Subsalicylate (Bismuth Subsalicylate Per Ml Omnicell Charge) 15 ml PO PRN PRN PRN Reason: Loose Stool Stop: 07/02/20 00:22 Chlorpromazine HCl (Chlorpromazine Hcl 100 Mg Tablet) 150 mg PO Q6H PRN PRN Reason: psychosis or nhan Stop: 07/07/20 12:59 Last Admin: 06/07/20 13:15 Dose: 150 mg Documented by: Clonazepam (Clonazepam 1 Mg Tab) 1 mg PO Q6H PRN PRN Reason: Anxiety/Agitation Stop: 07/03/20 11:49 Last Admin: 06/09/20 03:09 Dose: 1 mg Documented by: Divalproex Sodium (Divalproex Extended Release 500 Mg Tab) 500 mg PO QAM [facility] Stop: 07/08/20 08:59 Last Admin: 06/09/20 09:07 Dose: 500 mg Documented by: Divalproex Sodium (Divalproex Extended Release 500 Mg Tab) 1,000 mg PO HS [facility] Stop: 07/07/20 21:59 Last Admin: 06/07/20 20:31 Dose: 1,000 mg Documented by: Haloperidol (Haloperidol 5 Mg Tab) 5 mg PO Q4 PRN PRN Reason: Psychosis/Agitation Stop: 07/02/20 00:25 Last Admin: 06/06/20 06:34 Dose: 5 mg Documented by: Haloperidol (Haloperidol 5 Mg Tab) 5 mg PO TID [facility] Stop: 07/09/20 13:59 Haloperidol Lactate (Haloperidol Lactate 5 Mg/Ml 1 Ml Vial) 10 mg IM Q4 PRN PRN Reason: Agitation/Psychosis Stop: 07/02/20 00:25 Hydroxyzine HCl (Hydroxyzine Hcl 25 Mg Tab) 50 mg PO HSZ PRN PRN Reason: Insomnia Stop: 07/02/20 00:22 Last Admin: 06/07/20 21:31 Dose: 50 mg Documented by: Hydroxyzine HCl (Hydroxyzine Hcl 25 Mg Tab) 25 mg PO Q4H PRN PRN Reason: Anxiety Stop: 07/02/20 00:22 Last Admin: 06/08/20 17:42 Dose: 25 mg Documented by: Magnesium Hydroxide (Magnesium Hydroxide Susp 30 Ml Udc) 30 ml PO DAILY PRN PRN Reason: Constipation Stop: 07/02/20 00:22 Miscellaneous (Remove Nicoderm Patch) 1 ea N/A DAILY@0859 [facility] Stop: 07/02/20 08:58 Last Admin: 06/09/20 09:06 Dose: 1 ea Documented by: Mupirocin (Mupirocin 2% Oint 22 Gm Tube) 1 appln EXT BID [facility] Stop: 06/09/20 20:59 Last Admin: 06/09/20 09:05 Dose: 1 appln Documented by: Nicotine (Nicotine 14 Mg/24 Hr Patch) 14 mg TD QAM [facility] Stop: 07/10/20 08:59 Nicotine Polacrilex (Nicotine Polacrilex 2 Mg Gum) 1 piece MT Q1H PRN PRN Reason: nicotine cravings Stop: 07/02/20 11:55 Last Admin: 06/09/20 10:24 Dose: 1 piece Documented by: Sodium Chloride (Sodium Chloride 0.65% Na Soln 45 Ml ([place])) 1 - 2 sprays NA PRN PRN PRN Reason: Nasal Dryness/Congestion Stop: 10/18/20 00:22 Temazepam (Temazepam 15 Mg Capsule) 15 mg PO HSZ PRN PRN Reason: Insomnia Stop: 07/02/20 16:39 Last Admin: 06/07/20 23:30 Dose: 15 mg Documented by: Trihexyphenidyl HCl (Trihexyphenidyl Hcl 2 Mg Tab) 2 mg PO BID PRN PRN Reason: dystonia Stop: 07/09/20 20:59 Mental Health & Subst Abuse Tx Psychiatrist Name of Psychiatrist: Mari Bansal Psychiatrist's Therapist Name of Therapist: None Metal Fabricator Name of Metal Fabricator: None
--- NOTE | 2020-06-09 12:44 | Electrocardiogram Report ---
Test Reason : Blood Pressure : / mmHG Vent. Rate : 067 BPM Atrial Rate : 067 BPM P-R Int : 124 ms QRS Dur : 120 ms QT Int : 414 ms P-R-T Axes : 063 080 068 degrees QTc Int : 437 ms Sinus rhythm with marked sinus arrhythmia Left ventricular hypertrophy with QRS widening Abnormal ECG When compared with ECG of 01-JUN-2020 18:40, Vent. rate has decreased BY [address] elevation now present in Anterolateral leads Nonspecific T wave abnormality no longer evident in Inferior leads Nonspecific T wave abnormality no longer evident in Lateral leads Confirmed by Souleymane Rush ([id number]) on 06/09/2020 12:44:08 PM Referred By: REFERRED SELF Confirmed By:Souleymane Rush
[2020-06-09] MEDS: TRIHEXYPHENIDYL HCL 2 MG TAB PO PRN (13:42)
--- NOTE | 2020-06-09 16:06 | Hospitalist Progress Note ---
Date of Service June 09, 2020 Assessment & Plan (1) Tachycardia: 25 yo M with persistent tachycardia in the setting of uncontrolled bipolar nhan. Tachycardia appears to be most likely secondary to medication overlap/adverse effect from the Abilify maintenna (IM half life 30-46 days). Also possible that he is having a paradoxical reaction to the cogentin. Also with stress and anxiety contributing to tachycardia. EKG on admission showing sinus tachycardia without aberrancies or abnormal rhythms. Repeat ECG today with normal sinus rhythm with rates in the 60s and LVH by voltage criteria ECHO normal structure and function no valvular heart disease seen EKG repeat when persistently tachycardic. TSH 0.034 on admission, low concern for hyperthyroid issue. Tox screen on admission only positive for marijuana and THC. Additionally substrates prior to admission would be expected to have washed out by day 8 of admission. No concern for PE given no hypoxia, atypical chest pain. Recommendations: Consider stopping stimulants such as abilify, may also consider to eliminate cogentin to reduce risk of paradoxical reaction/adverse effect. May use IR 10 mg Propranolol to help with tachycardia that would allow for slowed HR without mechanistic overlap with antipsychotics. (2) Bipolar disorder with severe nhan: (3) Delusional disorder: (4) Marijuana use: (5) Hypercholesteremia: likely secondary to antipsychotics, follow outpatient Admission and Anticipated Discharge Date Admission Date: June 01, 2020 Subjective Patient was seen in his room he is quite animated. I would likely believe his tachycardia is because of some anxiety state that he has. He was relieved to know that his echocardiogram was without any significant concerns for abnormalities of his heart. At this point time around the first tachycardia to his psychological illness. We will certainly follow along if there is any q uestions or concerns please not hesitate to recontact us Results & Data Results & Data ([facility]) Vital Signs (Past 12 Hours) Vital Signs Temp Pulse Resp BP 06/09/20 08:58 97.7 F 108 H 16 120/78 PG Care Time/CCT Total # of Minutes Spent Total Time Spent with Patient: Total time spent is greater than 50% in coordination of care (as documented) at patient's floor/unit and/or counseling patient: Coding Level of Care Code 70403 Subseq Hosp Care Lvl 1 Diagnoses Tachycardia R00.0 Bipolar disorder with severe nhan F31.13 Delusional disorder F22 Marijuana use F12.90 Hypercholesteremia E78.00
[2020-06-10] MEDS: haloperidoL 5 MG TAB PO SCH ×3 (06:48→21:13)
[2020-06-10] MEDS: DIVALPROEX EXTENDED RELEASE 500 MG TAB PO SCH ×2 (06:48→21:13)
[2020-06-10] MEDS: NICOTINE 14 MG/24 HR PATCH TD SCH (06:49)
--- NOTE | 2020-06-10 07:54 | Psychiatric Progress Note ---
Date of Service June 10, 2020 Impression / Recommendations Impression 25-year-old male with a history of bipolar type I who was admitted on a 302 after he was brought into the emergency department by the police following arrest for stealing a truck that was apparently parked in a parking lot at [facility], and is on a 303 involuntary commitment as of 06/06/2020. He is floridly manic and psychotic and a poor historian, with an oppositional defiant quality to his behavior. He has failed multiple trials of PACHECO's (Haldol decanoate started at [facility] and then switched to Abilify Maintena and received his second injection on 05/30/2020. He reports smoking marijuana every day, and UDS was + THC, which is likely contributing to his ongoing symptoms and poor treatment response. On admission, he was started on aripiprazole 10 mg by mouth daily and lamotrigine 25 mg daily, and over the weekend scheduled haloperidol and clonazepam were added in addition to as needed medications, as he remains disorganized, hyperverbal, intrusive, and in poor behavioral control. Outpatien t records were reviewed and he was switched to Depakote on 06/05/2020 to target ongoing nhan, and chlorpromazine as aripiprazole has been ineffective. Persistent tachycardia with normal BP, consulted hospitalist service on 06/08 for possible recommendations and ongoing monitoring. Tachycardia has improved, and we will continue to monitor. Echocardiogram and repeat EKG without significant abnormality. Although he is demonstrating mild improvement, he remains acutely ill and unable to provide for his own basic needs without the assistance of others, is at risk of harm to both himself and others as a result of his nhan and psychosis (acting on delusions, hallucinating, unable to reality test, poor insight and judgment, impulsive, inappropriately touching others on the unit despite redirection, recently stole a vehicle with resulting felony charges) and inpatient treatment is medically necessary. (1) Bipolar disorder with severe nhan: 06/02/20 -The patient has been admitted to the locked behavioral health unit and placed in the special observation area. When more psychiatrically stable he will be encouraged to attend group and activity therapies. In the meantime, individual interventions will be provided. -Collateral information from his family, and possibly from outside treatment providers will be sought. The patient is not a reliable historian and seems to be misrepresenting the truth when it comes to his symptom treatment history. -We will attempt to obtain medical records from [facility]. The patient had initially claimed that he had never been previously psychiatrically hospitalized, but then mentioned, in passing, that he likes the [facility] behavioral health unit much better than he liked [facility], and when asked to explain the contradiction the patient stated, flatly, "I was lying." -After saying that he does not take and has never taken any psychiatric medications, he did acknowledge that he had taken aripiprazole. He gives conflicting reports regarding dose and dose schedule and dose form. However, he also says that he believes that aripiprazole helps, and he cannot recall the la st time he actually took it. (There is no indication he may have received an aripiprazole injection an unspecified amount on 05/30/2020, but this has not been verified.) Given the degree of the patient's current nhan, and his psychosis, we will begin aripiprazole 10 mg by mouth now, and then daily pending acquisition of further information. -We will also begin lamotrigine 25 mg daily and titrate as indicated every 2 weeks. Material risks, including but not limited to, Kruger-Arvind syndrome were reviewed with the patient and he indicated understanding. 06/03--add standing order Haldol as receiving prns on top of Abilify. Cogentin prn. Consider temporary benzo if persists. 06/04--ongoing nhan but pleasant. BID Klonopin was added yesterday to limit amount of Haldol prn given overall dosing of antipsychotic with injectable. 06/05 - Continue current medication regimen, get collateral information from outpatient providers at [facility], as we do not know his previous medication trials and the Abilify Maintena has not been sufficient to control his symptoms. As he just received the Maintena last week, I would like to start him on a more robust mood stabilizer than lamotrigine, but he indicated a previous trial of lithium, but we have no details. Depakote is another possibility for acute nhan, and this medications may be more effective in combination with the Abilify Maintena. Additional antipsychotic medication may be less effective due to the psychopharmacologic properties of the aripiprazole, as it is a partial agonist at the D2 receptor so may prevent binding of additional D2 antagonists. -Order fasting lipid profile and glucose for tomorrow for monitoring on an atypical antipsychotic. 06/06 - 303 involuntary commitment hearing held and granted. -Patient remains floridly manic and psychotic, unable to maintain behavioral control or participate meaningfully in treatment, and is disruptive on the unit, demanding to leave and escalating in his behavior and agitation. Aripiprazole has not been effective despite being on it for almost 7 weeks and receiving 2 doses of Maintena, and I am concerned that it may be causing akathisia, contributing to his restlessness and agitation. We will stop oral aripiprazole, continue oral haloperidol 5 mg twice daily and as needed, and start chlorpromazine 100 mg as needed for nhan/psychosis. If the chlorpromazine is helpful, could titrate this up and replace haloperidol. We will also increase Depakote to 500 mg twice daily, and check a trough level in 5 days (06/11/2020). -Fasting labs reviewed for monitoring on an atypical antipsychotic: Glucose normal (90), FLP notable for elevated cholesterol 226. Refer to PCP as below. 06/07 -Increase Depakote to 500mg qam and 1000mg HS and check trough in 5 days (06/12). -Received 300 mg of chlorpromazine yesterday, and had broken sleep. Remains floridly manic, and poor behavioral control. Continue clonazepam and chlorpromazine prn. 06/08 - Continue as above - recommending primary utilization of benzodiazepines and/or benztropine as prn agents, as patient has received decent amounts of antipsychotic medications with little benefit - Pt continues to be disorganized, intrusive, difficult to redirect, and demonstrates continued tangentiality and flight of ideas. - Hospitalist consultation for tachycardia with abnormal EKG as discussed below 06/09 -The patient has a history of marijuana abuse, and, somewhat to our surprise, today he asked that we discontinue clonazepam because he finds it too sedating and somehow makes his thinking "more fuzzy." Standing dose clonazepam was discontinued in favor of "as needed" clonazepam for agitation/anxiety. -The patient indicates that he feels that he is tolerating divalproex well at the current dosage. We will obtain a valproic acid level in the morning before any further adjustment in the divalproex dose is made. -The patient had said that he feels that Haldol is "the best" medication for him. He notes that he has taken it in the past with favorable results, but also said that he would like to ask us to be careful not to "give [him] too much," because that has happened during other hospitalizations and he says that it causes him to feel like a "zombie." -Patient has been having episodes of tachycardia. Remains afebrile. On examination, he had mild cogwheeling. Benztropine has been discontinued because of the fairly common side effect of tachycardia associated with benztropine. In its place, today, given the slight cogwheeling I have ordered trihexyphenidyl 2 mg daily, with a additional doses of as needed for dystonia. 06/10 - Continue current medication regimen (haloperidol 5mg TID), with recent adjustments from yesterday. Pt continues to report that he feels "amazing" - Depakote level obtained today - therapeutic at 95, so will refrain from further titration - Additional labs obtained to further work-up possibility of NMS - alkaline phosphatase, lactate dehydrogenase, and total creatinine kinase all WNL. Pt is not tachycardic today and remains afebrile. Will continue to monitor. - Pt signed ALEJANDRA for the [facility] yesterday, will continue attempts to arrange after care (2) Marijuana use: 06/02/20 -The patient says that he smokes marijuana every day, and that an ounce of marijuana will last him "a week." He also says that he purchases marijuana from someone who is well-known to him and who he believes is reliable. Nevertheless, he also reports that his current "batch" of marijuana is particularly "good," by which he says he means means strong. -At this point, the patient's thought processes are too disorganized to allow him to benefit from substance abuse counseling. We will refocus our attention on this problem as the patient's psychiatric condition improves. 06/03/20 - reviewed 06/09 -The topic of his marijuana use came up today during our meeting, and he asked me if I thought it would be okay for him to continue to use marijuana when he leaves the hospital. I told him directly that I would strongly advise against using marijuana, medical or otherwise, while undergoing treatment for bipolar disorder. I explained that marijuana can significantly interfere with treatment of bipolar disorder and is only medication that can affect the mood and ways that may not be intended to his part of the treatment. The patient indicated understanding and said that he would honor and respect the opinion in this regard (3) Axillary abscess: 06/02/20 -The patient has a small (6-10 mm) injected and tender axillary abscess. He reports that the abscess appeared "a day or 2 ago," and is currently painful. -There are no known allergies. We will treat with Bactroban 2% topical ointment to affected area twice daily. 06/03--reviewed 06/09 -The patient reports that the axillary abscess in his left axilla has resolved. (4) Hypercholesteremia: 06/06 -cholesterol elevated at 226, will refer to PCP for follow-up. Once patient is psychiatrically stable, provide education about the roles of diet and exercise, and the need for ongoing monitoring. (5) Tachycardia: 06/08 - Pt with concerning persistent tachycardia (max of 140's at this time) - blood pressure this admission has been stable - EKG ordered, QTc WNL at 437. "Sinus rhythm with marked sinus arrhythmia; left ventricular hypertrophy with QRS widening; abnormal EKG" - Previous EKG poor quality - sinus tachycardia, diffuse nonspecific T wave abnormality, abnormal EKG - No evidence of additional concerns for NMS (afebrile, no tachypnea, no evidence of muscle rigidity - AMS present as a result of his psychiatric condition). - Will consult [facility] Hospitalist for possible recommendations and ongoing support regarding this concern, discussed case directly with hospitalist via phone 06/09 -The patient had an echocardiogram today at bedside. -The findings of this study have been reviewed. In summary, it was determined that this was essentially a normal study. His left ventricular systolic function is described as "normal." -There have been several reports that the patient has appeared diaphoretic. It has been suspected that this has occurred when the patient splashes water on his face or hair. Today, on examination I checked for cogwheel rigidity and noticed mild cogwheel rigidity. I also noticed that his gait appears to be somewhat stiff. He denies feeling any stiffness and reports no distress. He also remains afebrile. Nevertheless, and even with a relatively low level of suspicion for neuroleptic malignant syndrome, I have ordered several laboratory tests including LDH, CK, and alkaline phosphatase for the morning labs, to be drawn with the patient's trough valproic acid level. 06/10 - Appreciate hospitalist recommendations - pulse today was 62 and 73 - Will continue to monitor Inventory Assets Strengths: Willing to take psychiatric medications. Supportive family. Intelligent Needs: Resolution of criminal charges. Resolution of nhan and mood stabilization. Risk Factors Assessment Male: Yes : Yes Do You Have Access To A Gun?: No (The patient says he does not have access to a gun. The emergency room record indicates that during the summer the patient presented after he had attempted to grab a gun at home. It is not known if the gun is still available to him at home.) Health Problems: No Mental Health Diagnoses: Yes Substance Use Disorders: Yes Previous Attempt: No (The patient says that he has never attempted suicide. The record indicates that he was evaluated in the emergency room and hospitalized after he reportedly attempted to grab a gun at home while so threatening to shoot himself.) Family History of Suicide: No Previous Psychiatric Hospitalization: Yes Hopelessness: No Smoker: Yes (The patient variously reports that he smokes and that he does not smoke. We are assuming that he is telling the truth when he says that he does smoke, and nicotine replacement medications have been prescribed.) Protective Factors Assessment Catholic Beliefs: Yes (The patient says that he is Evangelical. 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 He has a history of bipolar 1 disorder and cannabis abuse, and was admitted on 06/01/20 23:06 on a 302 involuntary commitment for grossly disorganized and dangerous behaviors. Chief Complaint "I'm feeling amazing." Review of Systems Notes Constitutional: denied Cardiovascular: denied Respiratory: denied Gastrointestinal: denied Neurological: denied Psychiatric: denies symptoms other than stated above Total of at least 10 systems reviewed, pertinent positives as above and in HPI. Sleep Information Total Hours of Sleep: 8.5 Sleep Comments: pt appeared to sleep 6.75 hr during evening shift. pt given restoril per rn. pt awake @beginning of shift. pt needy but redirectable. pt appeared to be asleep @0100 till 0500. pt on q-15 minute checks Meal Information Percent Meal Consumed - Breakfast: 50 Percent Meal Consumed - Lunch: 70 Percent Meal Consumed - Dinner: 100 Nutrition Comment: Pt is sleeping Subjective Subjective Patient was seen & assessed and interval progress reviewed with nursing and social work. Staff report the patient has continued to demonstrate gradual improvement. Pt was encouraged to remain awake throughout the evening y esterday, and did sleep well last night. Pt was reported to be somewhat more consolidated with regard to his thought process. He rated his mood a 6/10 and "ynes" last evening. Pt was seen today to assess progress since admission. Pt reports "I'm feeling amazing." He was asked what activities kept him busy yesterday, and stated "I made a music video!!" Pt reports he used the security cameras on the unit to record the video which he states is an original song with themes of "Hope and love. Ynes." Pt was asked if he believes anyone saw his video, and he states "Yes! Everyone!" Pt cannot explain how he believes it happened, but he feels the video footage was put on the internet and is now streaming on YouTube. We reviewed patient's labs from this morning. Pt was able to verbalize understanding of need to routinely check his Depakote level. Reviewed that the other labs ordered to rule out potential side effects related to antipsychotic use were normal. Pt does state that he felt nauseated briefly this morning, but states this quickly resolved. He denies any other physical concerns at this time. Physical Exam Psychiatric Orientation: alert and cooperative (able to participate with superficial conversation) Apperance: appropriately dressed, + disheveled (still appears somewhat diaphoretic, unkempt) and appeared stated age Eye Contact: + fair eye contact (prolonged staring ) Motor Behavior: steady gait and station and no abnormal motor movements Speech: normal rate/rhythm/volume of speech Affect: + constricted affect (but appearing very alert) Mood: no depressed mood ("I'm amazing") Thought Process: + tangential thought process (easily distracted) and + flight of ideas (grandiose ) Thought Content: + delusions and + ideas of reference Suicidal Thoughts: denies suicidal thoughts Homicidal Thoughts: denies homicidal thoughts Hallucinations: no auditory hallucinations and no visual hallucinations Cognition: attention grossly intact (remains easily distractible, but able to maintain attention during superfic) and language grossly intact Insight: + impaired insight Judgement: + impaired judgement Vital Signs (Past 24 Hours) Last Vital Signs Temp 36.4 C L 06/10/20 06:39 Pulse 73 06/10/20 06:39 Resp 16 06/10/20 06:39 BP 113/76 06/10/20 06:39 Pulse Ox 98 06/01/20 23:54 Results & Data ([facility]) Laboratory Results Laboratory Results - last 24 hr 06/10/20 06/10/20 06/10/20 07:31 07:31 07:31 Alkaline Phosphatase Pending Lactate Dehydrogenase Pending Total Creatine Kinase Pending Valproic Acid Pending Current Inpatient Medications Current Inpatient Medications: Current Inpatient Medications Acetaminophen (Acetaminophen 325 Mg Tab) 650 mg PO Q4H PRN PRN Reason: Headache or Minor Fever Stop: 07/02/20 00:22 Last Admin: 06/07/20 09:53 Dose: 650 mg Documented by: Al Hydrox/Mg Hydrox/Simethicone (Aluminum/Magnesium Susp 30 Ml Udc) 30 ml PO Q4H PRN PRN Reason: GI Upset Stop: 07/02/20 00:22 Bismuth Subsalicylate (Bismuth Subsalicylate Per Ml Omnicell Charge) 15 ml PO PRN PRN PRN Reason: Loose Stool Stop: 07/02/20 00:22 Chlorpromazine HCl (Chlorpromazine Hcl 100 Mg Tablet) 150 mg PO Q6H PRN PRN Reason: psychosis or nhan Stop: 07/07/20 12:59 Last Admin: 06/07/20 13:15 Dose: 150 mg Documented by: Clonazepam (Clonazepam 1 Mg Tab) 1 mg PO Q6H PRN PRN Reason: Anxiety/Agitation Stop: 07/03/20 11:49 Last Admin: 06/09/20 11:43 Dose: 1 mg Documented by: Divalproex Sodium (Divalproex Extended Release 500 Mg Tab) 500 mg PO QAM [facility] Stop: 07/08/20 08:59 Last Admin: 06/10/20 06:48 Dose: 500 mg Documented by: Divalproex Sodium (Divalproex Extended Release 500 Mg Tab) 1,000 mg PO HS TITA Stop: 07/07/20 21:59 Last Admin: 06/09/20 20:30 Dose: 1,000 mg Documented by: Haloperidol (Haloperidol 5 Mg Tab) 5 mg PO Q4 PRN PRN Reason: Psychosis/Agitation Stop: 07/02/20 00:25 Last Admin: 06/06/20 06:34 Dose: 5 mg Documented by: Haloperidol (Haloperidol 5 Mg Tab) 5 mg PO TID [facility] Stop: 07/09/20 13:59 Last Admin: 06/10/20 06:48 Dose: 5 mg Documented by: Haloperidol Lactate (Haloperidol Lactate 5 Mg/Ml 1 Ml Vial) 10 mg IM Q4 PRN PRN Reason: Agitation/Psychosis Stop: 07/02/20 00:25 Hydroxyzine HCl (Hydroxyzine Hcl 25 Mg Tab) 50 mg PO HSZ PRN PRN Reason: Insomnia Stop: 07/02/20 00:22 Last Admin: 06/07/20 21:31 Dose: 50 mg Documented by: Hydroxyzine HCl (Hydroxyzine Hcl 25 Mg Tab) 25 mg PO Q4H PRN PRN Reason: Anxiety Stop: 07/02/20 00:22 Last Admin: 06/08/20 17:42 Dose: 25 mg Documented by: Magnesium Hydroxide (Magnesium Hydroxide Susp 30 Ml Udc) 30 ml PO DAILY PRN PRN Reason: Constipation Stop: 07/02/20 00:22 Miscellaneous (Remove Nicoderm Patch) 1 ea N/A DAILY@0859 [facility] Stop: 07/02/20 08:58 Last Admin: 06/10/20 06:52 Dose: Not Given Documented by: Nicotine (Nicotine 14 Mg/24 Hr Patch) [facility] Stop: 07/10/20 08:59 Last Admin: 06/10/20 06:49 Dose: 14 mg Documented by: Nicotine Polacrilex (Nicotine Polacrilex 2 Mg Gum) 1 piece MT Q1H PRN PRN Reason: nicotine cravings Stop: 07/02/20 11:55 Last Admin: 09/25/20 10:24 Dose: 1 piece Documented by: Sodium Chloride (Sodium Chloride 0.65% Na Soln 45 Ml ([place])) 1 - 2 sprays NA PRN PRN PRN Reason: Nasal Dryness/Congestion Stop: 07/02/20 00:22 Temazepam (Temazepam 15 Mg Capsule) 15 mg PO HSZ PRN PRN Reason: Insomnia Stop: 07/02/20 16:39 Last Admin: 06/08/20 22:55 Dose: 15 mg Documented by: Trihexyphenidyl HCl (Trihexyphenidyl Hcl 2 Mg Tab) 2 mg PO BID PRN PRN Reason: dystonia Stop: 07/09/20 20:59 Last Admin: 06/09/20 13:42 Dose: 2 mg Documented by: Mental Health & Subst Abuse Tx Psychiatrist Name of Psychiatrist: Mari Bansal Psychiatrist's Therapist Name of Therapist: None Fitting Room Associate Name of Fitting Room Associate: None
[2020-06-10 08:33] LABS: Alkaline Phosphatase 50 U/L (45-117); Creatine Kinase 78 U/L (39-308)
[2020-06-10] MEDS: NICOTINE POLACRILEX 2 MG GUM MT PRN ×2 (10:59→21:45)
--- NOTE | 2020-06-11 07:47 | Electrocardiogram Report ---
Test Reason : Blood Pressure : / mmHG Vent. Rate : 089 BPM Atrial Rate : 089 BPM P-R Int : 134 ms QRS Dur : 114 ms QT Int : 378 ms P-R-T Axes : 069 080 060 degrees QTc Int : 459 ms Normal sinus rhythm Nonspecific ST abnormality Abnormal ECG When compared with ECG of 08-JUN-2020 10:09, ST no longer elevated in Lateral leads Confirmed by Souleymane Rush ([id number]) on 06/11/2020 7:47:18 AM Referred By: REFERRED SELF Confirmed By:Souleymane Rush
[2020-06-11] MEDS: haloperidoL 5 MG TAB PO SCH ×3 (08:16→20:53)
[2020-06-11] MEDS: DIVALPROEX EXTENDED RELEASE 500 MG TAB PO SCH ×2 (08:16→20:54)
[2020-06-11] MEDS: NICOTINE 14 MG/24 HR PATCH TD SCH (08:21)
--- NOTE | 2020-06-11 08:39 | Psychiatric Progress Note ---
Date of Service June 11, 2020 Impression / Recommendations Impression 25-year-old male with a history of bipolar type I who was admitted on a 302 after he was brought into the emergency department by the police following arrest for stealing a truck that was apparently parked in a parking lot at [facility], and is on a 303 involuntary commitment as of 06/06/2020. He is floridly manic and psychotic and a poor historian, with an oppositional defiant quality to his behavior. He has failed multiple trials of PACHECO's (Haldol decanoate started at [facility] and then switched to Abilify Maintena and received his second injection on 05/30/2020. He reports smoking marijuana every day, and UDS was + THC, which is likely contributing to his ongoing symptoms and poor treatment response. On admission, he was started on aripiprazole 10 mg by mouth daily and lamotrigine 25 mg daily, and over the weekend scheduled haloperidol and clonazepam were added in addition to as needed medications, as he remains disorganized, hyperverbal, intrusive, and in poor behavioral control. Outpatien t records were reviewed and he was switched to Depakote on 06/05/2020 to target ongoing nhan, and chlorpromazine as aripiprazole has been ineffective. Persistent tachycardia with normal BP, consulted hospitalist service on 06/08 for possible recommendations and ongoing monitoring. Tachycardia has improved, and we will continue to monitor. Echocardiogram and repeat EKG without significant abnormality. Although he is demonstrating mild improvement, he remains acutely ill and unable to provide for his own basic needs without the assistance of others, is at risk of harm to both himself and others as a result of his nhan and psychosis (acting on delusions, hallucinating, unable to reality test, poor insight and judgment, impulsive, inappropriately touching others on the unit despite redirection, recently stole a vehicle with resulting felony charges) and inpatient treatment is medically necessary. (1) Bipolar disorder with severe nhan: 06/02/20 -The patient has been admitted to the locked behavioral health unit and placed in the special observation area. When more psychiatrically stable he will be encouraged to attend group and activity therapies. In the meantime, individual interventions will be provided. -Collateral information from his family, and possibly from outside treatment providers will be sought. The patient is not a reliable historian and seems to be misrepresenting the truth when it comes to his symptom treatment history. -We will attempt to obtain medical records from [facility]. The patient had initially claimed that he had never been previously psychiatrically hospitalized, but then mentioned, in passing, that he likes the [facility] behavioral health unit much better than he liked [facility], and when asked to explain the contradiction the patient stated, flatly, "I was lying." -After saying that he does not take and has never taken any psychiatric medications, he did acknowledge that he had taken aripiprazole. He gives conflicting reports regarding dose and dose schedule and dose form. However, he also says that he believes that aripiprazole helps, and he cannot recall the la st time he actually took it. (There is no indication he may have received an aripiprazole injection an unspecified amount on 05/30/2020, but this has not been verified.) Given the degree of the patient's current nhan, and his psychosis, we will begin aripiprazole 10 mg by mouth now, and then daily pending acquisition of further information. -We will also begin lamotrigine 25 mg daily and titrate as indicated every 2 weeks. Material risks, including but not limited to, Kruger-Arvind syndrome were reviewed with the patient and he indicated understanding. 06/03--add standing order Haldol as receiving prns on top of Abilify. Cogentin prn. Consider temporary benzo if persists. 06/04--ongoing nhan but pleasant. BID Klonopin was added yesterday to limit amount of Haldol prn given overall dosing of antipsychotic with injectable. 06/05 - Continue current medication regimen, get collateral information from outpatient providers at [place], as we do not know his previous medication trials and the Abilify Maintena has not been sufficient to control his symptoms. As he just received the Maintena last week, I would like to start him on a more robust mood stabilizer than lamotrigine, but he indicated a previous trial of lithium, but we have no details. Depakote is another possibility for acute nhan, and this medications may be more effective in combination with the Abilify Maintena. Additional antipsychotic medication may be less effective due to the psychopharmacologic properties of the aripiprazole, as it is a partial agonist at the D2 receptor so may prevent binding of additional D2 antagonists. -Order fasting lipid profile and glucose for tomorrow for monitoring on an atypical antipsychotic. 06/06 - 303 involuntary commitment hearing held and granted. -Patient remains floridly manic and psychotic, unable to maintain behavioral control or participate meaningfully in treatment, and is disruptive on the unit, demanding to leave and escalating in his behavior and agitation. Aripiprazole has not been effective despite being on it for almost 7 weeks and receiving 2 doses of Maintena, and I am concerned that it may be causing akathisia, contributing to his restlessness and agitation. We will stop oral aripiprazole, continue oral haloperidol 5 mg twice daily and as needed, and start chlorpromazine 100 mg as needed for nhan/psychosis. If the chlorpromazine is helpful, could titrate this up and replace haloperidol. We will also increase Depakote to 500 mg twice daily, and check a trough level in 5 days (06/11/2020). -Fasting labs reviewed for monitoring on an atypical antipsychotic: Glucose normal (90), FLP notable for elevated cholesterol 226. Refer to PCP as below. 06/07 -Increase Depakote to 500mg qam and 1000mg HS and check trough in 5 days (06/12). -Received 300 mg of chlorpromazine yesterday, and had broken sleep. Remains floridly manic, and poor behavioral control. Continue clonazepam and chlorpromazine prn. 06/08 - Continue as above - recommending primary utilization of benzodiazepines and/or benztropine as prn agents, as patient has received decent amounts of antipsychotic medications with little benefit - Pt continues to be disorganized, intrusive, difficult to redirect, and demonstrates continued tangentiality and flight of ideas. - Hospitalist consultation for tachycardia with abnormal EKG as discussed below 06/09 -The patient has a history of marijuana abuse, and, somewhat to our surprise, today he asked that we discontinue clonazepam because he finds it too sedating and somehow makes his thinking "more fuzzy." Standing dose clonazepam was discontinued in favor of "as needed" clonazepam for agitation/anxiety. -The patient indicates that he feels that he is tolerating divalproex well at the current dosage. We will obtain a valproic acid level in the morning before any further adjustment in the divalproex dose is made. -The patient had said that he feels that Haldol is "the best" medication for him. He notes that he has taken it in the past with favorable results, but also said that he would like to ask us to be careful not to "give [him] too much," because that has happened during other hospitalizations and he says that it causes him to feel like a "zombie." -Patient has been having episodes of tachycardia. Remains afebrile. On examination, he had mild cogwheeling. Benztropine has been discontinued because of the fairly common side effect of tachycardia associated with benztropine. In its place, today, given the slight cogwheeling I have ordered trihexyphenidyl 2 mg daily, with a additional doses of as needed for dystonia. 06/10 - Continue current medication regimen (haloperidol 5mg TID), with recent adjustments from yesterday. Pt continues to report that he feels "amazing" - Depakote level obtained today - therapeutic at 95, so will refrain from further titration - Additional labs obtained to further work-up possibility of NMS - alkaline phosphatase, lactate dehydrogenase, and total creatinine kinase all WNL. Pt is not tachycardic today and remains afebrile. Will continue to monitor. - Pt signed ALEJANDRA for the [facility] yesterday, will continue attempts to arrange after care 06/11 - Continue current medication regimen - gradual daily improvements being observed - Will attempt to engage patient in more aftercare planning starting Friday (2) Marijuana use: 06/02/20 -The patient says that he smokes marijuana every day, and that an ounce of marijuana will last him "a week." He also says that he purchases marijuana from someone who is well-known to him and who he believes is reliable. Nevertheless, he also reports that his current "batch" of marijuana is particularly "good," by which he says he means means strong. -At this point, the patient's thought processes are too disorganized to allow him to benefit from substance abuse counseling. We will refocus our attention on this problem as the patient's psychiatric condition improves. 06/03/20 - reviewed 06/09 -The topic of his marijuana use came up today during our meeting, and he asked me if I thought it would be okay for him to continue to use marijuana when he leaves the hospital. I told him directly that I would strongly advise against using marijuana, medical or otherwise, while undergoing treatment for bipolar disorder. I explained that marijuana can significantly interfere with treatment of bipolar disorder and is only medication that can affect the mood and ways that may not be intended to his part of the treatment. The patient indicated understanding and said that he would honor and respect the opinion in this regard (3) Axillary abscess: 06/02/20 -The patient has a small (6-10 mm) injected and tender axillary abscess. He r eports that the abscess appeared "a day or 2 ago," and is currently painful. -There are no known allergies. We will treat with Bactroban 2% topical ointment to affected area twice daily. 06/03--reviewed 06/09 -The patient reports that the axillary abscess in his left axilla has resolved. (4) Hypercholesteremia: 06/06 -cholesterol elevated at 226, will refer to PCP for follow-up. Once patient is psychiatrically stable, provide education about the roles of diet and exercise, and the need for ongoing monitoring. (5) Tachycardia: 06/08 - Pt with concerning persistent tachycardia (max of 140's at this time) - blood pressure this admission has been stable - EKG ordered, QTc WNL at 437. "Sinus rhythm with marked sinus arrhythmia; left ventricular hypertrophy with QRS widening; abnormal EKG" - Previous EKG poor quality - sinus tachycardia, diffuse nonspecific T wave abnormality, abnormal EKG - No evidence of additional concerns for NMS (afebrile, no tachypnea, no evidence of muscle rigidity - AMS present as a result of his psychiatric condition). - Will consult [facility] Hospitalist for possible recommendations and ongoing support regarding this concern, discussed case directly with hospitalist via phone 06/09 -The patient had an echocardiogram today at bedside. -The findings of this study have been reviewed. In summary, it was determined that this was essentially a normal study. His left ventricular systolic function is described as "normal." -There have been several reports that the patient has appeared diaphoretic. It has been suspected that this has occurred when the patient splashes water on his face or hair. Today, on examination I checked for cogwheel rigidity and noticed mild cogwheel rigidity. I also noticed that his gait appears to be somewhat stiff. He denies feeling any stiffness and reports no distress. He also remains afebrile. Nevertheless, and even with a relatively low level of suspicion for neuroleptic malignant syndrome, I have ordered several laboratory tests including LDH, CK, and alkaline phosphatase for the morning labs, to be drawn with the patient's trough valproic acid level. 06/10 - Appreciate hospitalist recommendations - pulse today was 62 and 73 - Will continue to monitor 06/11 - Hospitalist signed off - appreciate recommendations - Can contact should concerns recur Inventory Assets Strengths: Willing to take psychiatric medications. Supportive family. Intelligent Needs: Resolution of criminal charges. Resolution of nhan and mood stabilization. Risk Factors Assessment Male: Yes : Yes Do You Have Access To A Gun?: No (The patient says he does not have access to a gun. The emergency room record indicates that during the summer the patient presented after he had attempted to grab a gun at home. It is not known if the gun is still available to him at home.) Health Problems: No Mental Health Diagnoses: Yes Substance Use Disorders: Yes Previous Attempt: No (The patient says that he has never attempted suicide. The record indicates that he was evaluated in the emergency room and hospitalized after he reportedly attempted to grab a gun at home while so threatening to maida ot himself.) Family History of Suicide: No Previous Psychiatric Hospitalization: Yes Hopelessness: No Smoker: Yes (The patient variously reports that he smokes and that he does not smoke. We are assuming that he is telling the truth when he says that he does smoke, and nicotine replacement medications have been prescribed.) Protective Factors Assessment Taoism Beliefs: Yes (The patient says that he is Catholic. 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 He has a history of bipolar 1 disorder and cannabis abuse, and was admitted on 06/01/20 23:06 on a 302 involuntary commitment for grossly disorganized and dangerous behaviors. Chief Complaint "I'm awesome!" Review of Systems Notes Constitutional: denied Cardiovascular: denied Respiratory: denied Gastrointestinal: denied Neurological: denied Psychiatric: denies symptoms other than stated above Total of at least 10 systems reviewed, pertinent positives as above and in HPI. Sleep Information Total Hours of Sleep: 9.5 Sleep Comments: pt appeared to sleep 6.75 hr during evening shift. pt given restoril per rn. pt awake @beginning of shift. pt needy but redirectable. pt appeared to be asleep @0100 till 0500. pt on q-15 minute checks Meal Information Percent Meal Consumed - Breakfast: 50 Percent Meal Consumed - Lunch: 80 Percent Meal Consumed - Dinner: 75 Nutrition Comment: Pt is sleeping Subjective Subjective Patient was seen & assessed and interval progress reviewed with nursing and social work. Staff report the patient has been less hyperactive and responds better to redirection. He is demonstrating some ability to reality test and is better able to more clearly articulate his thoughts. Last evening he was able to express anxiety related to a conversation with his sister. [facility] due to poor boundaries, need for limited stimulation, and some ongoing intrusiveness. Pt was seen today to assess progress since admission. Pt states "I'm awesome!" He is able to admit that his mood feels "more normal", and describes his previous mood as "elevated." Pt admits he is able to recognize the difference in his moods at this point. 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 After quitting his job, patient admits that he began to consume alcohol and smoke marijuana on a regular basis, and believes these contributed to his mood changes as well. He also notes an "unh ealthy" relationship with a girl was contributing to frequent mood fluctuations as well. Pt is able to admit that he no longer believes that songs on the radio are meant for him directly, and is able to process why he may have believed this. He states "the words were relatable, so I thought the songs were for me." Pt admits that sometimes his mood feels "down", but states this is only related to feeling homesick. Otherwise, the patient continues to feel "amazing!" He denies concerns related to potential medication side effects. He denies additional questions or concerns today. Physical Exam Psychiatric Orientation: alert, oriented x 3 and cooperative (with superficial conversation, remains easily distractible ) Apperance: appropriately dressed, appropriately groomed (though hair is wet from putting water in it) and appeared stated age Eye Contact: good eye contact (some improvement in prolonged staring ) Motor Behavior: steady gait and station, no abnormal motor movements and + psychomotor retardation (much more slowed, but continues to be fidgety and easily distracted ) Speech: normal rate/rhythm/volume of speech (becoming less pressured, though still delivered with excited tone) Affect: euthymic affect (continues to be easily excitable ) Mood: no depressed mood ("I'm amazing" - reports mood as "normal" rather than "elevated" as before) Thought Process: goal directed thought process and + concrete thought process Thought Content: reality based without delusions (at least during conversation w/ this provider, reality testing is improving); no ideas of reference Suicidal Thoughts: denies suicidal thoughts Homicidal Thoughts: denies homicidal thoughts Hallucinations: no auditory hallucinations and no visual hallucinations Cognition: attention grossly intact (better able to focus on conversation, but remains somewhat distractible) and language grossly intact Insight: + impaired insight (gradually improving) Judgement: + impaired judgement Vital Signs (Past 24 Hours) Last Vital Signs Temp 36.6 C 06/11/20 06:45 Pulse 73 06/11/20 06:46 Resp 16 06/11/20 06:45 BP 119/81 06/11/20 06:46 Pulse Ox 98 06/01/20 23:54 Results & Data ([facility]) Current Inpatient Medications Current Inpatient Medications: Current Inpatient Medications Acetaminophen (Acetaminophen 325 Mg Tab) 650 mg PO Q4H PRN PRN Reason: Headache or Minor Fever Stop: 07/02/20 00:22 Last Admin: 06/07/20 09:53 Dose: 650 mg Documented by: Al Hydrox/Mg Hydrox/Simethicone (Aluminum/Magnesium Susp 30 Ml Udc) 30 ml PO Q4H PRN PRN Reason: GI Upset Stop: 07/02/20 00:22 Bismuth Subsalicylate (Bismuth Subsalicylate Per Ml Omnicell Charge) 15 ml PO PRN PRN PRN Reason: Loose Stool Stop: 07/02/20 00:22 Chlorpromazine HCl (Chlorpromazine Hcl 100 Mg Tablet) 150 mg PO Q6H PRN PRN Reason: psychosis or nhan Stop: 07/07/20 12:59 Last Admin: 06/07/20 13:15 Dose: 150 mg Documented by: Clonazepam (Clonazepam 1 Mg Tab) 1 mg PO Q6H PRN PRN Reason: Anxiety/Agitation Stop: 07/03/20 11:49 Last Admin: 06/09/20 11:43 Dose: 1 mg Documented by: Divalproex Sodium (Divalproex Extended Release 500 Mg Tab) 500 mg PO QAM TITA Stop: 07/08/20 08:59 Last Admin: 06/11/20 08:16 Dose: 500 mg Documented by: Divalproex Sodium (Divalproex Extended Release 500 Mg Tab) 1,000 mg PO HS TITA Stop: 07/07/20 21:59 Last Admin: 06/10/20 21:13 Dose: 1,000 mg Documented by: Haloperidol (Haloperidol 5 Mg Tab) 5 mg PO Q4 PRN PRN Reason: Psychosis/Agitation Stop: 07/02/20 00:25 Last Admin: 06/06/20 06:34 Dose: 5 mg Documented by: Haloperidol (Haloperidol 5 Mg Tab) 5 mg PO TID TITA Stop: 07/09/20 13:59 Last Admin: 06/11/20 08:16 Dose: 5 mg Documented by: Haloperidol Lactate (Haloperidol Lactate 5 Mg/Ml 1 Ml Vial) 10 mg IM Q4 PRN PRN Reason: Agitation/Psychosis Stop: 07/02/20 00:25 Hydroxyzine HCl (Hydroxyzine Hcl 25 Mg Tab) 50 mg PO HSZ PRN PRN Reason: Insomnia Stop: 07/02/20 00:22 Last Admin: 06/07/20 21:31 Dose: 50 mg Documented by: Hydroxyzine HCl (Hydroxyzine Hcl 25 Mg Tab) 25 mg PO Q4H PRN PRN Reason: Anxiety Stop: 07/02/20 00:22 Last Admin: 06/10/20 16:41 Dose: 25 mg Documented by: Magnesium Hydroxide (Magnesium Hydroxide Susp 30 Ml Udc) 30 ml PO DAILY PRN PRN Reason: Constipation Stop: 07/02/20 00:22 Miscellaneous (Remove Nicoderm Patch) 1 ea N/A DAILY@[id number] [facility] Stop: 07/02/20 08:58 Last Admin: 06/11/20 08:21 Dose: Not Given Documented by: Nicotine (Nicotine 14 Mg/24 Hr Patch) 14 mg TD QAM TITA Stop: 07/10/20 08:59 Last Admin: 06/11/20 08:21 Dose: 14 mg Documented by: Nicotine Polacrilex (Nicotine Polacrilex 2 Mg Gum) 1 piece MT Q1H PRN PRN Reason: nicotine cravings Stop: 07/02/20 11:55 Last Admin: 06/10/20 21:45 Dose: 1 piece Documented by: Sodium Chloride (Sodium Chloride 0.65% Na Soln 45 Ml ([place])) 1 - 2 sprays NA PRN PRN PRN Reason: Nasal Dryness/Congestion Stop: 07/02/20 00:22 Temazepam (Temazepam 15 Mg Capsule) 15 mg PO HSZ PRN PRN Reason: Insomnia Stop: 07/02/20 16:39 Last Admin: 06/08/20 22:55 Dose: 15 mg Documented by: Trihexyphenidyl HCl (Trihexyphenidyl Hcl 2 Mg Tab) 2 mg PO BID PRN PRN Reason: dystonia Stop: 07/09/20 20:59 Last Admin: 06/09/20 13:42 Dose: 2 mg Documented by: Mental Health & Subst Abuse Tx Psychiatrist Name of Psychiatrist: Alejandra Bansal Psychiatrist's Therapist Name of Therapist: None 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
[2020-06-11] MEDS: NICOTINE POLACRILEX 2 MG GUM MT PRN ×2 (12:19→17:50)
[2020-06-12] MEDS: NICOTINE 14 MG/24 HR PATCH TD SCH (08:40)
[2020-06-12] MEDS: DIVALPROEX EXTENDED RELEASE 500 MG TAB PO SCH ×2 (08:40→20:29)
[2020-06-12] MEDS: haloperidoL 5 MG TAB PO SCH ×3 (08:40→20:29)
--- NOTE | 2020-06-12 09:18 | Psychiatric Progress Note ---
Date of Service June 12, 2020 Impression / Recommendations Impression 25-year-old male with a history of bipolar type I who was admitted on a 302 after he was brought into the emergency department by the police following arrest for stealing a truck that was apparently parked in a parking lot at [facility], and is on a 303 involuntary commitment as of 06/06/2020. He is floridly manic and psychotic and a poor historian, with an oppositional defiant quality to his behavior. He has failed multiple trials of PACHECO's (Haldol decanoate started at [facility] and then switched to Abilify Maintena and received his second injection on 05/30/2020. He reports smoking marijuana every day, and UDS was + THC, which is likely contributing to his ongoing symptoms and poor treatment response. On admission, he was started on aripiprazole 10 mg by mouth daily and lamotrigine 25 mg daily, and over the weekend scheduled haloperidol and clonazepam were added in addition to as needed medications, as he remains disorganized, hyperverbal, intrusive, and in poor behavioral control. Outpatien t records were reviewed and he was switched to Depakote on 06/05/2020 to target ongoing nhan, and chlorpromazine as aripiprazole has been ineffective. Persistent tachycardia with normal BP, consulted hospitalist service on 06/08 for possible recommendations and ongoing monitoring. Tachycardia has improved, and we will continue to monitor. Echocardiogram and repeat EKG without significant abnormality. Although he is demonstrating mild improvement, he remains acutely ill and unable to provide for his own basic needs without the assistance of others, is at risk of harm to both himself and others as a result of his nhan and psychosis (acting on delusions, hallucinating, unable to reality test, poor insight and judgment, impulsive, inappropriately touching others on the unit despite redirection, recently stole a vehicle with resulting felony charges) and inpatient treatment is medically necessary. (1) Bipolar disorder with severe nhan: 06/02/20 -The patient has been admitted to the locked behavioral health unit and placed in the special observation area. When more psychiatrically stable he will be encouraged to attend group and activity therapies. In the meantime, individual interventions will be provided. -Collateral information from his family, and possibly from outside treatment providers will be sought. The patient is not a reliable historian and seems to be misrepresenting the truth when it comes to his symptom treatment history. -We will attempt to obtain medical records from [facility]. The patient had initially claimed that he had never been previously psychiatrically hospitalized, but then mentioned, in passing, that he likes the [facility] behavioral health unit much better than he liked [facility], and when asked to explain the contradiction the patient stated, flatly, "I was lying." -After saying that he does not take and has never taken any psychiatric medications, he did acknowledge that he had taken aripiprazole. He gives conflicting reports regarding dose and dose schedule and dose form. However, he also says that he believes that aripiprazole helps, and he cannot recall the la st time he actually took it. (There is no indication he may have received an aripiprazole injection an unspecified amount on 05/30/2020, but this has not been verified.) Given the degree of the patient's current nhan, and his psychosis, we will begin aripiprazole 10 mg by mouth now, and then daily pending acquisition of further information. -We will also begin lamotrigine 25 mg daily and titrate as indicated every 2 weeks. Material risks, including but not limited to, Kruger-Arvind syndrome were reviewed with the patient and he indicated understanding. 06/03--add standing order Haldol as receiving prns on top of Abilify. Cogentin prn. Consider temporary benzo if persists. 06/04--ongoing nhan but pleasant. BID Klonopin was added yesterday to limit amount of Haldol prn given overall dosing of antipsychotic with injectable. 06/05 - Continue current medication regimen, get collateral information from outpatient providers at [facility], as we do not know his previous medication trials and the Abilify Maintena has not been sufficient to control his symptoms. As he just received the Maintena last week, I would like to start him on a more robust mood stabilizer than lamotrigine, but he indicated a previous trial of lithium, but we have no details. Depakote is another possibility for acute nhan, and this medications may be more effective in combination with the Abilify Maintena. Additional antipsychotic medication may be less effective due to the psychopharmacologic properties of the aripiprazole, as it is a partial agonist at the D2 receptor so may prevent binding of additional D2 antagonists. -Order fasting lipid profile and glucose for tomorrow for monitoring on an atypical antipsychotic. 06/06 - 303 involuntary commitment hearing held and granted. -Patient remains floridly manic and psychotic, unable to maintain behavioral control or participate meaningfully in treatment, and is disruptive on the unit, demanding to leave and escalating in his behavior and agitation. Aripiprazole has not been effective despite being on it for almost 7 weeks and receiving 2 doses of Maintena, and I am concerned that it may be causing akathisia, contributing to his restlessness and agitation. We will stop oral aripiprazole, continue oral haloperidol 5 mg twice daily and as needed, and start chlorpromazine 100 mg as needed for nhan/psychosis. If the chlorpromazine is helpful, could titrate this up and replace haloperidol. We will also increase Depakote to 500 mg twice daily, and check a trough level in 5 days (06/11/2020). -Fasting labs reviewed for monitoring on an atypical antipsychotic: Glucose normal (90), FLP notable for elevated cholesterol 226. Refer to PCP as below. 06/07 -Increase Depakote to 500mg qam and 1000mg HS and check trough in 5 days (06/12). -Received 300 mg of chlorpromazine yesterday, and had broken sleep. Remains floridly manic, and poor behavioral control. Continue clonazepam and chlorpromazine prn. 06/08 - Continue as above - recommending primary utilization of benzodiazepines and/or benztropine as prn agents, as patient has received decent amounts of antipsychotic medications with little benefit - Pt continues to be disorganized, intrusive, difficult to redirect, and demonstrates continued tangentiality and flight of ideas. - Hospitalist consultation for tachycardia with abnormal EKG as discussed below 06/09 -The patient has a history of marijuana abuse, and, somewhat to our surprise, today he asked that we discontinue clonazepam because he finds it too sedating and somehow makes his thinking "more fuzzy." Standing dose clonazepam was discontinued in favor of "as needed" clonazepam for agitation/anxiety. -The patient indicates that he feels that he is tolerating divalproex well at the current dosage. We will obtain a valproic acid level in the morning before any further adjustment in the divalproex dose is made. -The patient had said that he feels that Haldol is "the best" medication for him. He notes that he has taken it in the past with favorable results, but also said that he would like to ask us to be careful not to "give [him] too much," because that has happened during other hospitalizations and he says that it causes him to feel like a "zombie." -Patient has been having episodes of tachycardia. Remains afebrile. On examination, he had mild cogwheeling. Benztropine has been discontinued because of the fairly common side effect of tachycardia associated with benztropine. In its place, today, given the slight cogwheeling I have ordered trihexyphenidyl 2 mg daily, with a additional doses of as needed for dystonia. 06/10 - Continue current medication regimen (haloperidol 5mg TID), with recent adjustments from yesterday. Pt continues to report that he feels "amazing" - Depakote level obtained today - therapeutic at 95, so will refrain from further titration - Additional labs obtained to further work-up possibility of NMS - alkaline phosphatase, lactate dehydrogenase, and total creatinine kinase all WNL. Pt is not tachycardic today and remains afebrile. Will continue to monitor. - Pt signed ALEJANDRA for the [facility] yesterday, will continue attempts to arrange after care 06/11 - Continue current medication regimen - gradual daily improvements being observed - Will attempt to engage patient in more aftercare planning starting Tuesday 06/12 - Continue current medication regimen - ongoing improvements - Continue conversations regrading discharge and aftercare planning - Schedule family meeting with parents - Complete [facility] referral for case management - refer for therapy - Will call patient's mother to provide updates (2) Marijuana use: 06/02/20 -The patient says that he smokes marijuana every day, and that an ounce of marijuana will last him "a week." He also says that he purchases marijuana from someone who is well-known to him and who he believes is reliable. Nevertheless, he also reports that his current "batch" of marijuana is part icularly "good," by which he says he means means strong. -At this point, the patient's thought processes are too disorganized to allow him to benefit from substance abuse counseling. We will refocus our attention on this problem as the patient's psychiatric condition improves. 06/03/20 - reviewed 06/09 -The topic of his marijuana use came up today during our meeting, and he asked me if I thought it would be okay for him to continue to use marijuana when he leaves the hospital. I told him directly that I would strongly advise against using marijuana, medical or otherwise, while undergoing treatment for bipolar disorder. I explained that marijuana can significantly interfere with treatment of bipolar disorder and is only medication that can affect the mood and ways that may not be intended to his part of the treatment. The patient indicated understanding and said that he would honor and respect the opinion in this regard 06/12 - Pt able to demonstrate some insight regarding how his substance use (alcohol and marijuana) contributed to his mood changes - Pt agreeable with beginning the recovery protocol at this time - Brief intervention was offered and accepted Intervention was greater than 5 min in length. Brief interventions include: 1. Assess Readiness to Quit, 2. Advise: Help Patient to Reduce or Abstain from Alcohol and other substances, 3. Agree: Set Specific, Feasible Goals, 4. Assist: Anticipate barriers, Problem-Solving Solutions. Social work to 5. Arrange: Referrals to appropriate treatment. Summary of intervention: The patient is in contemplation stage with regards to transtheoretical model of change. The patient is advised to decrease alcohol consumption due to depressant effects and risk of interactions with prescription medications. The patient was advised of recommendations for abstinence from alcohol and other abusable substances and to attend substance abuse treatment at discharge, and will be provided with recovery materials to continue to e ducation self on how to cope with their condition without drinking. (3) Axillary abscess: 06/02/20 -The patient has a small (6-10 mm) injected and tender axillary abscess. He reports that the abscess appeared "a day or 2 ago," and is currently painful. -There are no known allergies. We will treat with Bactroban 2% topical ointment to affected area twice daily. 06/03--reviewed 06/09 -The patient reports that the axillary abscess in his left axilla has resolved. (4) Hypercholesteremia: 06/06 -cholesterol elevated at 226, will refer to PCP for follow-up. Once patient is psychiatrically stable, provide education about the roles of diet and exercise, and the need for ongoing monitoring. (5) Tachycardia: 06/08 - Pt with concerning persistent tachycardia (max of 140's at this time) - blood pressure this admission has been stable - EKG ordered, QTc WNL at 437. "Sinus rhythm with marked sinus arrhythmia; left ventricular hypertrophy with QRS widening; abnormal EKG" - Previous EKG poor quality - sinus tachycardia, diffuse nonspecific T wave abnormality, abnormal EKG - No evidence of additional concerns for NMS (afebrile, no tachypnea, no evidence of muscle rigidity - AMS present as a result of his psychiatric condition). - Will consult [facility] [place] for possible recommendations and ongoing support regarding this concern, discussed case directly with hospitalist via phone 06/09 -The patient had an echocardiogram today at bedside. -The findings of this study have been reviewed. In summary, it was determined that this was essentially a normal study. His left ventricular systolic function is described as "normal." -There have been several reports that the patient has appeared diaphoretic. It has been suspected that this has occurred when the patient splashes water on his face or hair. Today, on examination I checked for cogwheel rigidity and noticed mild cogwheel rigidity. I also noticed that his gait appears to be somewhat stiff. He denies feeling any stiffness and reports no distress. He also remains afebrile. Nevertheless, and even with a relatively low level of suspicion for neuroleptic malignant syndrome, I have ordered several laboratory tests including LDH, CK, and alkaline phosphatase for the morning labs, to be drawn with the patient's trough valproic acid level. 06/10 - Appreciate hospitalist recommendations - pulse today was 62 and 73 - Will continue to monitor 06/11 - Hospitalist signed off - appreciate recommendations - Can contact should concerns recur Inventory Assets Strengths: Willing to take psychiatric medications. Supportive family. Intelligent Needs: Resolution of criminal charges. Resolution of nhan and mood stabilization. Risk Factors Assessment Male: Yes : Yes Do You Have Access To A Gun?: No (The patient says he does not have access to a gun. The emergency room record indicates that during the summer the patient presented after he had attempted to grab a gun at home. It is not known if the gun is still available to him at home.) Health Problems: No Mental Health Diagnoses: Yes Substance Use Disorders: Yes Previous Attempt: No (The patient says that he has never attempted suicide. The record indicates that he was evaluated in the emergency room and hospitalized after he reportedly attempted to grab a gun at home while so threatening to shoot himself.) Family History of Suicide: No Previous Psychiatric Hospitalization: Yes Hopelessness: No Smoker: Yes (The patient variously reports that he smokes and that he does not smoke. We are assuming that he is telling the truth when he says that he does smoke, and nicotine replacement medications have been prescribed.) Protective Factors Assessment Yazidi Beliefs: Yes (The patient says that he is Mandaen. 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 He has a history of bipolar 1 disorder and cannabis abuse, and was admitted on 06/01/20 23:06 on a 302 involuntary commitment for grossly disorganized and dangerous behaviors. Chief Complaint "I'm amazing!" Review of Systems Notes Constitutional: reports some mild fatigue today Cardiovascular: denied Respiratory: denied Gastrointestinal: denied Neurological: denied Psychiatric: denies symptoms other than stated above Total of at least 10 systems reviewed, pertinent positives as above and in HPI. Sleep Information Total Hours of Sleep: 8.75 Sleep Comments: pt on q-15 minute checks Meal Information Percent Meal Consumed - Breakfast: 75 Percent Meal Consumed - Lunch: 100 Percent Meal Consumed - Dinner: 75 Nutrition Comment: Pt is sleeping Subjective Subjective Patient was seen & assessed and interval progress reviewed with treatment team. Staff report the patient has continues to demonstrate improvements in clarity of thought. He has been less intrusive and requiring less redirection. Will call mom today to provide updates. Pt was seen today to assess progress since admission. Pt states, "I'm amazing. How are you doing?" He reports that he made a collage yesterday and was happy to be able to talk to his icu rn via phone. He admits to having phone conversations with his mother and sister as well. He states their feedback has been positive and they have reported he sounds much better. Pt states this makes him feel "awesome." Pt is agreeable with beginning our recovery protocol, as he admits that substance abuse may have been contributing to his mood changes. Pt is open to scheduling a family meeting with his parents to discuss aftercare and discharge planning. Pt is open to psychiatry, therapy, and case management. Physical Exam Psychiatric Orientation: alert, oriented x 3 and cooperative Apperance: appropriately dressed, appropriately groomed and appeared stated age Eye Contact: good eye contact Motor Behavior: steady gait and station and no abnormal motor movements Speech: normal rate/rhythm/volume of speech Affect: euthymic affect (still somewhat expansive) and mood congruent with affect Mood: no depressed mood ("I'm amazing") Thought Process: goal directed thought process and clear/coherent thought process Thought Content: reality based without delusions; no ideas of reference, no hopelessness and no worthlessness Suicidal Thoughts: denies suicidal thoughts Homicidal Thoughts: denies homicidal thoughts Hallucinations: no auditory hallucinations and no visual hallucinations Cognition: recent memory grossly intact, attention grossly intact and language grossly intact Estimated Intelligence: consistent with education level Insight: + impaired insight (though improving) Judgement: + impaired judgement Vital Signs (Past 24 Hours) Last Vital Signs Temp 36.6 C 06/12/20 06:42 Pulse 78 06/12/20 06:43 Resp 16 06/12/20 06:42 BP 126/76 06/12/20 06:43 Pulse Ox 98 06/01/20 23:54 Results & Data ([facility]) Laboratory Results Laboratory Results - last 24 hr 06/12/20 08:19 Free Valproic Acid Pending Total Valproic Acid Pending Current Inpatient Medications Current Inpatient Medications: Current Inpatient Medications Acetaminophen (Acetaminophen 325 Mg Tab) 650 mg PO Q4H PRN PRN Reason: Headache or Minor Fever Stop: 07/02/20 00:22 Last Admin: 06/07/20 09:53 Dose: 650 mg Documented by: Al Hydrox/Mg Hydrox/Simethicone (Aluminum/Magnesium Susp 30 Ml Udc) 30 ml PO Q4H PRN PRN Reason: GI Upset Stop: 07/02/20 00:22 Bismuth Subsalicylate (Bismuth Subsalicylate Per Ml Omnicell Charge) 15 ml PO PRN PRN PRN Reason: Loose Stool Stop: 07/02/20 00:22 Chlorpromazine HCl (Chlorpromazine Hcl 100 Mg Tablet) 150 mg PO Q6H PRN PRN Reason: psychosis or nhan Stop: 07/07/20 12:59 Last Admin: 06/07/20 13:15 Dose: 150 mg Documented by: Clonazepam (Clonazepam 1 Mg Tab) 1 mg PO Q6H PRN PRN Reason: Anxiety/Agitation Stop: 07/03/20 11:49 Last Admin: 06/09/20 11:43 Dose: 1 mg Documented by: Divalproex Sodium (Divalproex Extended Release 500 Mg Tab) 500 mg PO QAM TITA Stop: 07/08/20 08:59 Last Admin: 06/12/20 08:40 Dose: 500 mg Documented by: Divalproex Sodium (Divalproex Extended Release 500 Mg Tab) 1,000 mg PO HS TITA Stop: 07/07/20 21:59 Last Admin: 06/11/20 20:54 Dose: 1,000 mg Documented by: Haloperidol (Haloperidol 5 Mg Tab) 5 mg PO Q4 PRN PRN Reason: Psychosis/Agitation Stop: 07/02/20 00:25 Last Admin: 06/06/20 06:34 Dose: 5 mg Documented by: Haloperidol (Haloperidol 5 Mg Tab) 5 mg PO TID TITA Stop: 07/09/20 13:59 Last Admin: 06/12/20 08:40 Dose: 5 mg Documented by: Haloperidol Lactate (Haloperidol Lactate 5 Mg/Ml 1 Ml Vial) 10 mg IM Q4 PRN PRN Reason: Agitation/Psychosis Stop: 07/02/20 00:25 Hydroxyzine HCl (Hydroxyzine Hcl 25 Mg Tab) 50 mg PO HSZ PRN PRN Reason: Insomnia Stop: 07/02/20 00:22 Last Admin: 06/07/20 21:31 Dose: 50 mg Documented by: Hydroxyzine HCl (Hydroxyzine Hcl 25 Mg Tab) 25 mg PO Q4H PRN PRN Reason: Anxiety Stop: 07/02/20 00:22 Last Admin: 06/10/20 16:41 Dose: 25 mg Documented by: Magnesium Hydroxide (Magnesium Hydroxide Susp 30 Ml Udc) 30 ml PO DAILY PRN PRN Reason: Constipation Stop: 07/02/20 00:22 Miscellaneous (Remove Nicoderm Patch) 1 ea N/A [id number] [facility] Stop: 07/02/20 08:58 Last Admin: 06/12/20 08:40 Dose: Not Given Documented by: Nicotine (Nicotine 14 Mg/24 Hr Patch) 14 mg TD QAM [facility] Stop: 07/10/20 08:59 Last Admin: 06/12/20 08:40 Dose: Not Given Documented by: Nicotine Polacrilex (Nicotine Polacrilex 2 Mg Gum) 1 piece MT Q1H PRN PRN Reason: nicotine cravings Stop: 07/02/20 11:55 Last Admin: 06/11/20 17:50 Dose: 1 piece Documented by: Sodium Chloride (Sodium Chloride 0.65% Na Soln 45 Ml ([place])) 1 - 2 sprays NA PRN PRN PRN Reason: Nasal Dryness/Congestion Stop: 07/02/20 00:22 Temazepam (Temazepam 15 Mg Capsule) 15 mg PO HSZ PRN PRN Reason: Insomnia Stop: 07/02/20 16:39 Last Admin: 06/08/20 22:55 Dose: 15 mg Documented by: Trihexyphenidyl HCl (Trihexyphenidyl Hcl 2 Mg Tab) 2 mg PO BID PRN PRN Reason: dystonia Stop: 07/09/20 20:59 Last Admin: 06/09/20 13:42 Dose: 2 mg Documented by: Mental Health & Subst Abuse Tx Psychiatrist Name of Psychiatrist: Alejandra Bansal Psychiatrist's Therapist Name of Therapist: None [employer] [facility] Assistant Name of [employer] [facility] Assistant: None
[2020-06-12] MEDS: ACETAMINOPHEN 325 MG TAB PO PRN (10:04)
[2020-06-12] MEDS: TRIHEXYPHENIDYL HCL 2 MG TAB PO PRN (10:40)
[2020-06-13] MEDS: DIVALPROEX EXTENDED RELEASE 500 MG TAB PO SCH ×2 (09:09→21:02)
[2020-06-13] MEDS: haloperidoL 5 MG TAB PO SCH ×3 (09:09→21:01)
[2020-06-13] MEDS: NICOTINE 14 MG/24 HR PATCH TD SCH (09:12)
--- NOTE | 2020-06-13 10:03 | Psychiatric Progress Note ---
Date of Service June 13, 2020 Impression / Recommendations Impression 25-year-old male with a history of bipolar type I who was admitted on a 302 after he was brought into the emergency department by the police following arrest for stealing a truck that was apparently parked in a parking lot at [facility], and is on a 303 involuntary commitment as of 06/06/2020. He is floridly manic and psychotic and a poor historian, with an oppositional defiant quality to his behavior. He has failed multiple trials of PACHECO's (Haldol decanoate started at [facility] and then switched to Abilify Maintena and received his second injection on 05/30/2020. He reports smoking marijuana every day, and UDS was + THC, which is likely contributing to his ongoing symptoms and poor treatment response. On admission, he was started on aripiprazole 10 mg by mouth daily and lamotrigine 25 mg daily, and over the weekend scheduled haloperidol and clonazepam were added in addition to as needed medications, as he remains disorganized, hyperverbal, intrusive, and in poor behavioral control. Outpatien t records were reviewed and he was switched to Depakote on 06/05/2020 to target ongoing nhan, and chlorpromazine as aripiprazole has been ineffective. Persistent tachycardia with normal BP, consulted hospitalist service on 06/08 for possible recommendations and ongoing monitoring. Tachycardia has improved, and we will continue to monitor. Echocardiogram and repeat EKG without significant abnormality. Pt has been demonstrating more recent improvement, and is reaching the point that he is able to participate in discharge and safety planning. Family meeting scheduled with mother. Without adequate discussion of discharge/safety recommendations and ability to ensure a period of mood stability, he remains at risk of harm to both himself and others as a result of history of nhan and psychosis (acting on delusions, hallucinating, unable to reality test, poor insight and judgment, impulsive, inappropriately touching others on the unit despite redirection, recently stole a vehicle with resulting felony charges) and inpatient treatment is medically necessary. (1) Bipolar disorder with severe nhan: 06/02/20 -The patient has been admitted to the locked behavioral health unit and placed in the special observation area. When more psychiatrically stable he will be encouraged to attend group and activity therapies. In the meantime, individual interventions will be provided. -Collateral information from his family, and possibly from outside treatment providers will be sought. The patient is not a reliable historian and seems to be misrepresenting the truth when it comes to his symptom treatment history. -We will attempt to obtain medical records from [facility]. The patient had initially claimed that he had never been previously psychiatrically hospitalized, but then mentioned, in passing, that he likes the [facility] behavioral health unit much better than he liked [facility], and when asked to explain the contradiction the patient stated, flatly, "I was lying." -After saying that he does not take and has never taken any psychiatric medications, he did acknowledge that he had taken aripiprazole. He gives conflicting reports regarding dose and dose schedule and dose form. However, he also says that he believes that aripiprazole helps, and he cannot recall the last time he actually took it. (There is no indication he may have received an aripiprazole injection an unspecified amount on 05/30/2020, but this has not been verified.) Given the degree of the patient's current nhan, and his psychosis, we will begin aripiprazole 10 mg by mouth now, and then daily pending acquisition of further information. -We will also begin lamotrigine 25 mg daily and titrate as indicated every 2 weeks. Material risks, including but not limited to, Kruger-Arvind syndrome were reviewed with the patient and he indicated understanding. 06/03--add standing order Haldol as receiving prns on top of Abilify. Cogentin prn. Consider temporary benzo if persists. 06/04--ongoing nhan but pleasant. BID Klonopin was added yesterday to limit amount of Haldol prn given overall dosing of antipsychotic with injectable. 06/05 - Continue current medication regimen, get collateral information from outpatient providers at [facility], as we do not know his previous medication trials and the Abilify Maintena has not been sufficient to control his symptoms. As he just received the Maintena last week, I would like to start him on a more robust mood stabilizer than lamotrigine, but he indicated a previous trial of lithium, but we have no details. Depakote is another possibility for acute nhan, and this medications may be more effective in combination with the Abilify Maintena. Additional antipsychotic medication may be less effective due to the psychopharmacologic properties of the aripiprazole, as it is a partial agonist at the D2 receptor so may prevent binding of additional D2 antagonists. -Order fasting lipid profile and glucose for tomorrow for monitoring on an atypical antipsychotic. 06/06 - 303 involuntary commitment hearing held and granted. -Patient remains floridly manic and psychotic, unable to maintain behavioral control or participate meaningfully in treatment, and is disruptive on the unit, demanding to leave and escalating in his behavior and agitation. Aripiprazole has not been effective despite being on it for almost 7 weeks and receiving 2 doses of Maintena, and I am concerned that it may be causing akathisia, contributing to his restlessness and agitation. We will stop oral aripiprazole, continue oral haloperidol 5 mg twice daily and as needed, and start chlorpromazine 100 mg as needed for nhan/psychosis. If the chlorpromazine is helpful, could titrate this up and replace haloperidol. We will also increase Depakote to 500 mg twice daily, and check a trough level in 5 days (06/11/2020). -Fasting labs reviewed for monitoring on an atypical antipsychotic: Glucose normal (90), FLP notable for elevated cholesterol 226. Refer to PCP as below. 06/07 -Increase Depakote to 500mg qam and 1000mg HS and check trough in 5 days (06/12). -Received 300 mg of chlorpromazine yesterday, and had broken sleep. Remains floridly manic, and poor behavioral control. Continue clonazepam and chlorpromazine prn. 06/08 - Continue as above - recommending primary utilization of benzodiazepines and/or benztropine as prn agents, as patient has received decent amounts of antipsychotic medications with little benefit - Pt continues to be disorganized, intrusive, difficult to redirect, and demon strates continued tangentiality and flight of ideas. - Hospitalist consultation for tachycardia with abnormal EKG as discussed below 06/09 -The patient has a history of marijuana abuse, and, somewhat to our surprise, today he asked that we discontinue clonazepam because he finds it too sedating and somehow makes his thinking "more fuzzy." Standing dose clonazepam was discontinued in favor of "as needed" clonazepam for agitation/anxiety. -The patient indicates that he feels that he is tolerating divalproex well at the current dosage. We will obtain a valproic acid level in the morning before any further adjustment in the divalproex dose is made. -The patient had said that he feels that Haldol is "the best" medication for him. He notes that he has taken it in the past with favorable results, but also said that he would like to ask us to be careful not to "give [him] too much," because that has happened during other hospitalizations and he says that it causes him to feel like a "zombie." -Patient has been having episodes of tachycardia. Remains afebrile. On examination, he had mild cogwheeling. Benztropine has been discontinued because of the fairly common side effect of tachycardia associated with benztropine. In its place, today, given the slight cogwheeling I have ordered trihexyphenidyl 2 mg daily, with a additional doses of as needed for dystonia. 06/10 - Continue current medication regimen (haloperidol 5mg TID), with recent adjustments from yesterday. Pt continues to report that he feels "amazing" - Depakote level obtained today - therapeutic at 95, so will refrain from further titration - Additional labs obtained to further work-up possibility of NMS - alkaline phosphatase, lactate dehydrogenase, and total creatinine kinase all WNL. Pt is not tachycardic today and remains afebrile. Will continue to monitor. - Pt signed ALEJANDRA for the [facility] yesterday, will continue attempts to arrange after care 06/11 - Continue current medication regimen - gradual daily improvements being observed - Will attempt to engage patient in more aftercare planning starting Tuesday 06/12 - Continue current medication regimen - ongoing improvements - Continue conversations regrading discharge and aftercare planning - Schedule family meeting with parents - Complete [facility] referral for case management - refer for therapy - Will call patient's mother to provide updates 06/13 - Continue current medication regimen - patient is able to participate in a very productive conversation regarding medications. He reports "I really like how the Abilify makes me feel." He does admit it may have contributed to some restlessness, but feels Artane has been helpful at alleviating this. - Pt states he was very sedated and nauseated after receiving the injection of haloperidol decanoate at the [facility]. He states these symptoms continued for ~3 weeks after the injection. Pt is able to confirm that lithium also contributed to nausea. - Family meeting with mother scheduled for tomorrow morning to discuss discharge and safety planning (2) Marijuana use: 06/02/20 -The patient says that he smokes marijuana every day, and that an ounce of marijuana will last him "a week." He also says that he purchases marijuana from someone who is well-known to him and who he believes is reliable. Nevertheless, he also reports that his current "batch" of marijuana is particularly "good," by which he says he means means strong. -At this point, the patient's thought processes are too disorganized to allow him to benefit from substance abuse counseling. We will refocus our attention on this problem as the patient's psychiatric condition improves. 06/03/20 - reviewed 06/09 -The topic of his marijuana use came up today during our meeting, and he asked me if I thought it would be okay for him to continue to use marijuana when he leaves the hospital. I told him directly that I would strongly advise against using marijuana, medical or otherwise, while undergoing treatment for bipolar disorder. I explained that marijuana can significantly interfere with treatment of bipolar disorder and is only medication that can affect the mood and ways that may not be intended to his part of the treatment. The patient indicated understanding and said that he would honor and respect the opinion in this regard 06/12 - Pt able to demonstrate some insight regarding how his substance use (alcohol and marijuana) contributed to his mood changes - Pt agreeable with beginning the recovery protocol at this time - Brief intervention was offered and accepted Intervention was greater than 5 min in length. Brief interventions include: 1. Assess Readiness to Quit, 2. Advise: Help Patient to Reduce or Abstain from Alcohol and other substances, 3. Agree: Set Specific, Feasible Goals, 4. Assist: Anticipate barriers, Problem-Solving Solutions. Social work to 5. Arrange: Referrals to appropriate treatment. Summary of intervention: The patient is in contemplation stage with regards to transtheoretical model of change. The patient is advised to decrease alcohol consumption due to depressant effects and risk of interactions with prescription medications. The patient was advised of recommendations for abstinence from alcohol and other abusable substances and to attend substance abuse treatment at discharge, and will be provided with recovery materials to continue to education self on how to cope with their condition without drinking. 06/13 - Reviewed again today that marijuana is contraindicated with mood disorder diagnoses and can contribute to continued mood instability and even psychosis. - Pt verbalized understanding of this. He has been referred for dual diagnosis therapy through [facility]. (3) Axillary abscess: 06/02/20 -The patient has a small (6-10 mm) injected and tender axillary abscess. He reports that the abscess appeared "a day or 2 ago," and is currently painful. -There are no known allergies. We will treat with Bactroban 2% topical ointment to affected area twice daily. 06/03--reviewed 06/09 -The patient reports that the axillary abscess in his left axilla has resolved. (4) Hypercholesteremia: 06/06 -cholesterol elevated at 226, will refer to PCP for follow-up. Once patient is psychiatrically stable, provide education about the roles of diet and exercise, and the need for ongoing monitoring. (5) Tachycardia: 06/08 - Pt with concerning persistent tachycardia (max of 140's at this time) - blood pressure this admission has been stable - EKG ordered, QTc WNL at 437. "Sinus rhythm with marked sinus arrhythmia; left ventricular hypertrophy with QRS widening; abnormal EKG" - Previous EKG poor quality - sinus tachycardia, diffuse nonspecific T wave abnormality, abnormal EKG - No evidence of additional concerns for NMS (afebrile, no tachypnea, no evidence of muscle rigidity - AMS present as a result of his psychiatric condition). - Will consult [facility] Hospitalist for possible recommendations and ongoing support regarding this concern, discussed case directly with hospitalist via phone 06/09 -The patient had an echocardiogram today at bedside. -The findings of this study have been reviewed. In summary, it was determined that this was essentially a normal study. His left ventricular systolic function is described as "normal." -There have been several reports that the patient has appeared diaphoretic. It has been suspected that this has occurred when the patient splashes water on his face or hair. Today, on examination I checked for cogwheel rigidity and noticed mild cogwheel rigidity. I also noticed that his gait appears to be s omewhat stiff. He denies feeling any stiffness and reports no distress. He also remains afebrile. Nevertheless, and even with a relatively low level of suspicion for neuroleptic malignant syndrome, I have ordered several laboratory tests including LDH, CK, and alkaline phosphatase for the morning labs, to be drawn with the patient's trough valproic acid level. 06/10 - Appreciate hospitalist recommendations - pulse today was 62 and 73 - Will continue to monitor 06/11 - Hospitalist signed off - appreciate recommendations - Can contact should concerns recur 06/13 - Pulse remains stable - 81 today Inventory Assets Strengths: Willing to take psychiatric medications. Supportive family. Intelligent Needs: Resolution of criminal charges. Resolution of nhan and mood stabilization. Risk Factors Assessment Male: Yes : Yes Do You Have Access To A Gun?: No (The patient says he does not have access to a gun. The emergency room record indicates that during the summer the patient presented after he had attempted to grab a gun at home. It is not known if the gun is still available to him at home.) Health Problems: No Mental Health Diagnoses: Yes Substance Use Disorders: Yes Previous Attempt: No (The patient says that he has never attempted suicide. The record indicates that he was evaluated in the emergency room and hospitalized after he reportedly attempted to grab a gun at home while so threatening to shoot himself.) Family History of Suicide: No Previous Psychiatric Hospitalization: Yes Hopelessness: No Smoker: Yes (The patient variously reports that he smokes and that he does not smoke. We are assuming that he is telling the truth when he says that he does smoke, and nicotine replacement medications have been prescribed.) Protective Factors Assessment Mu-Ism Beliefs: Yes (The patient says that he is Buddhism. 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 He has a history of bipolar 1 disorder and cannabis abuse, and was admitted on 06/01/20 23:06 on a 302 involuntary commitment for grossly disorganized and dangerous behaviors. Chief Complaint "I'm good. I'm getting better at this whole peace of mind thing." Review of Systems Notes Constitutional: denied Cardiovascular: denied Respiratory: denied Gastrointestinal: denied Neurological: denied Psychiatric: denies symptoms other than stated above Total of at least 10 systems reviewed, pertinent positives as above and in HPI. Sleep Information Total Hours of Sleep: 7.75 Sleep Comments: pt on q-15 minute checks Meal Information Percent Meal Consumed - Breakfast: 100 Percent Meal Consumed - Lunch: 100 Percent Meal Consumed - Dinner: 75 Nutrition Comment: Pt is sleeping Subjective Subjective Patient was seen & assessed and interval progress reviewed with nursing and social work. Staff report the patient has been demonstrating much improved boundaries, not requiring any redirection from staff yesterday. Pt has been participating in groups with productive contributions. Will plan to schedule a family meeting with mother to discuss safety and discharge planning. Pt was seen today to assess progress since admission. Pt states "I'm good. I'm getting better at this whole peace of mind thing." Pt was asked to elaborate on this thought, as he verbalized it rather spontaneously. Pt reports "I'm more at peace. I'm realizing I don't need anything to be accomplished, I can just be content and live in the moment." Patient reveals that since his father passed 12 years ago, he has been very focused on working hard and striving to accomplish rather significant things. He states "my dad's dad when he was 54, my dad when he was 54. I've lived my life thinking every moment has to count, because I may only live to 56 too." Pt states this caused him a lot of stress to constantly strive for a certain level of success. He reports feeling less compelled to achieve great things, and more comfortable with living in the moment. Pt is able to have a very productive conversation with this provider regarding the events that led to his admission, as he is now better able to recall and process some of his actions. We reviewed working diagnosis of bipolar I disorder and patient was provided with education on this diagnosis. He feels that his presentation is consistent with nhan, admitting "my thoughts were crazy, like crazy crazy, but I have to tell you...they were well-oiled. They were almost like gears of a machine. I knew exactly what I was doing and exactly what I had to do next. It was like [id number]." Pt is able to admit to awareness that he drove to [place] "because I was supposed to meet up with this girl and make her my girlfriend. I was feeling urged to do certain things, and that was the ultimate goal." Pt states he started by knocking on the doors to the [facility] and then went to the security office on campus and began knocking on their doors. Pt states, "I realize how crazy it was now...but I was trying so hard to get into [employer]." Pt states he believed the truck was a prize for "winning the lottery." Reflecting on the urges he was having, patient states "that's not like me at all. I am super cautious of people's vehicles, I never drive anyone else's car without permission. It was so weird." Pt participates actively with a conversation about the role of medications and provides appropriate feedback. Pt states that he remembers getting haloperidol decanoate, and states he was very fatigued and nauseated for ~3 weeks after the injection. He also admits to nausea related to lithium. Pt reports "I like the way Abilify makes me feel." We discussed concern for akathisia, which patient admits he may be experiencing a bit. Pt does feel that the Artane has helped to alleviate this sensation. We discussed potential to utilize the medication on a regular basis if desired. Pt was informed that many medication decisions may be discussed on an outpatient basis, as it will still be several weeks until the aripiprazole would be out of his system. Pt is aware of family meeting scheduled with mother for tomorrow morning. Although patient admits his thoughts are more clear, he does state "it's still a little hard for me. I have to think about what I'm going to say to you. Words are important." Pt declined to discuss possible outcome after discharge, and it is unclear if he has yet processed news that he will be discharged to police custody. He reported "I don't want to talk about that yet. We'll discuss it in the meeting. I'm just wanting to stay in the moment." Pt denied SI/HI and denies A/V hallucinations. He recalls telling staff that he could hear his father's voice and admits "I think I have my dad's mentality with me still. I don't actually hear his voice, but I can imagine what he would say or do in certain situations. That's what I'm experiencing." Pt denied other needs or concerns at this time and is appreciate of explanations and conversations provided by staff. Physical Exam Psychiatric Orientation: alert, oriented x 3 and cooperative Apperance: appropriately dressed, appropriately groomed and appeared stated age Eye Contact: good eye contact Motor Behavior: steady gait and station and no abnormal motor movements; no psychomotor agitation (appearing far less restless) Speech: normal rate/rhythm/volume of speech Affect: euthymic affect Mood: no depressed mood and no anxious mood Thought Process: goal directed thought process and clear/coherent thought process thought process seems much improved from admission; however, patient does admit that he is still struggling a bit with processing thoughts to make sure he is effectively communicating with our team, stating "words are important". Thought Content: + loneliness; no hopelessness and no worthlessness Suicidal Thoughts: denies suicidal thoughts, denies suicidal plan and denies suicidal intent Homicidal Thoughts: denies homicidal thoughts Hallucinations: no auditory hallucinations and no visual hallucinations Cognition: recent memory grossly intact (able to recount events that occurred while in a manic state), attention grossly intact and language grossly intact Estimated Intelligence: consistent with education level Insight: + fair insight (far better able to process and express events leading to admission) Judgement: + fair judgement Vital Signs (Past 24 Hours) Last Vital Signs Temp 36.5 C 06/13/20 06:43 Pulse 81 06/13/20 06:44 Resp 16 06/13/20 06:43 BP 110/71 06/13/20 06:44 Pulse Ox 98 06/01/20 23:54 Results & Data ([facility]) Current Inpatient Medications Current Inpatient Medications: Current Inpatient Medications Acetaminophen (Acetaminophen 325 Mg Tab) 650 mg PO Q4H PRN PRN Reason: Headache or Minor Fever Stop: 07/02/20 00:22 Last Admin: 06/12/20 10:04 Dose: 650 mg Documented by: Al Hydrox/Mg Hydrox/Simethicone (Aluminum/Magnesium Susp 30 Ml Udc) 30 ml PO Q4H PRN PRN Reason: GI Upset Stop: 07/02/20 00:22 Bismuth Subsalicylate (Bismuth Subsalicylate Per Ml Omnicell Charge) 15 ml PO PRN PRN PRN Reason: Loose Stool Stop: 07/02/20 00:22 Chlorpromazine HCl (Chlorpromazine Hcl 100 Mg Tablet) 150 mg PO Q6H PRN PRN Reason: psychosis or nhan Stop: 07/07/20 12:59 Last Admin: 06/07/20 13:15 Dose: 150 mg Documented by: Clonazepam (Clonazepam 1 Mg Tab) 1 mg PO Q6H PRN PRN Reason: Anxiety/Agitation Stop: 07/03/20 11:49 Last Admin: 06/09/20 11:43 Dose: 1 mg Documented by: Divalproex Sodium (Divalproex Extended Release 500 Mg Tab) 500 mg PO QAM TITA Stop: 07/08/20 08:59 Last Admin: 06/13/20 09:09 Dose: 500 mg Documented by: Divalproex Sodium (Divalproex Extended Release 500 Mg Tab) 1,000 mg PO HS TITA Stop: 07/07/20 21:59 Last Admin: 06/12/20 20:29 Dose: 1,000 mg Documented by: Haloperidol (Haloperidol 5 Mg Tab) 5 mg PO Q4 PRN PRN Reason: Psychosis/Agitation Stop: 07/02/20 00:25 Last Admin: 06/06/20 06:34 Dose: 5 mg Documented by: Haloperidol (Haloperidol 5 Mg Tab) 5 mg PO TID TITA Stop: 07/09/20 13:59 Last Admin: 06/13/20 09:09 Dose: 5 mg Documented by: Haloperidol Lactate (Haloperidol Lactate 5 Mg/Ml 1 Ml Vial) 10 mg IM Q4 PRN PRN Reason: Agitation/Psychosis Stop: 07/02/20 00:25 Hydroxyzine HCl (Hydroxyzine Hcl 25 Mg Tab) 50 mg PO HSZ PRN PRN Reason: Insomnia Stop: 07/02/20 00:22 Last Admin: 06/07/20 21:31 Dose: 50 mg Documented by: Hydroxyzine HCl (Hydroxyzine Hcl 25 Mg Tab) 25 mg PO Q4H PRN PRN Reason: Anxiety Stop: 07/02/20 00:22 Last Admin: 06/10/20 16:41 Dose: 25 mg Documented by: Magnesium Hydroxide (Magnesium Hydroxide Susp 30 Ml Udc) 30 ml PO DAILY PRN PRN Reason: Constipation Stop: 07/02/20 00:22 Miscellaneous (Remove Nicoderm Patch) 1 ea N/A DAILY@0859 [facility] Stop: 07/02/20 08:58 Last Admin: 06/13/20 09:12 Dose: Not Given Documented by: Nicotine (Nicotine 14 Mg/24 Hr Patch) 14 mg TD QAM TITA Stop: 07/10/20 08:59 Last Admin: 06/13/20 09:12 Dose: 14 mg Documented by: Nicotine Polacrilex (Nicotine Polacrilex 2 Mg Gum) 1 piece MT Q1H PRN PRN Reason: nicotine cravings Stop: 07/02/20 11:55 Last Admin: 06/11/20 17:50 Dose: 1 piece Documented by: Sodium Chloride (Sodium Chloride 0.65% Na Soln 45 Ml (Craig)) 1 - 2 sprays NA PRN PRN PRN Reason: Nasal Dryness/Congestion Stop: 07/02/20 00:22 Temazepam (Temazepam 15 Mg Capsule) 15 mg PO HSZ PRN PRN Reason: Insomnia Stop: 07/02/20 16:39 Last Admin: 06/08/20 22:55 Dose: 15 mg Documented by: Trihexyphenidyl HCl (Trihexyphenidyl Hcl 2 Mg Tab) 2 mg PO BID PRN PRN Reason: dystonia Stop: 07/09/20 20:59 Last Admin: 06/12/20 10:40 Dose: 2 mg Documented by: Mental Health & Subst Abuse Tx Psychiatrist Name of Psychiatrist: Alejandra Bansal Psychiatrist's Date of Appointment with Psychiatrist: 06/30/20 Time of Appointment with Psychiatrist: 9:40 a.m. Psychiatric Appointment Comment: [id number] [facility] Therapist Name of Therapist: [facility] (Dual Diagnosis) Therapist's Therapy Appointment Comment: [address] [facility] [place], [place] Licensed Pharmacist Name of Licensed Pharmacist: [facility] Phone Number for Licensed Pharmacist: [phone] Case Management Appointment Comment: [address] [facility] [address] [place], [place] Post Discharge Appointments Primary Care Physician Name Of Family Doctor: Alejandra [facility] Date of Appointment with PCP: 07/04/20 Time of Appointment with PCP: 2:00 p.m. [facility]ment [facility] [id number] [facility]
[2020-06-13] MEDS: TRIHEXYPHENIDYL HCL 2 MG TAB PO PRN (10:31)
[2020-06-13] MEDS: NICOTINE POLACRILEX 2 MG GUM MT PRN (15:05)
[2020-06-14 04:06] LABS: Valproic Acid, Free 14.4 mg/L (4.8-17.3); Valproic Acid, Total 97.6 mg/L (50.0-100.0)
[2020-06-14] MEDS: NICOTINE 14 MG/24 HR PATCH TD SCH (09:02)
[2020-06-14] MEDS: DIVALPROEX EXTENDED RELEASE 500 MG TAB PO SCH ×2 (09:03→21:31)
[2020-06-14] MEDS: haloperidoL 5 MG TAB PO SCH ×3 (09:03→21:31)
--- NOTE | 2020-06-14 10:37 | Psychiatric Progress Note ---
Date of Service June 14, 2020 Impression / Recommendations Impression 25-year-old male with a history of bipolar type I who was admitted on a 302 after he was brought into the emergency department by the police following arrest for stealing a truck that was apparently parked in a parking lot at [facility], and is on a 303 involuntary commitment as of 06/06/2020. He presented with manic and psychotic symptoms and was a poor historian, with an oppositional defiant quality to his behavior, but has improved significantly throughout the course of treatment. He has failed multiple trials of PACHECO's (Haldol decanoate started at [facility] and then switched to Abilify Maintena and received his second injection on 05/30/2020). He reports smoking marijuana every day, and UDS was + THC, which is likely contributing to his ongoing symptoms and poor treatment response. On admission, he was started on aripiprazole 10 mg by mouth daily and lamotrigine 25 mg daily, then scheduled haloperidol and clonazepam were added in addition to as needed medications, as he remained disorganized, hyperverbal, intrusive, and in poor behavioral control. Outpatient records were reviewed and he was switched to Depakote on 06/05/2020 to target ongoing nhan, and chlorpromazine as aripiprazole has been ineffective. Persistent tachycardia with normal BP, consulted hospitalist service on 06/08 for possible recommendations and ongoing monitoring. Tachycardia has improved, echocardiogram and repeat EKG without significant abnormality. Family meeting for discharge planning held today, being referred for therapy and case management, and will file for a 304 IOC after discussion with his outpatient clinician at [facility]. His hearing will be held on Friday, and the plan is to discharge him afterwards, to police custody as he has an active warrant, with hopes that he will be able to access outpatient treatment after arraignment. (1) Bipolar disorder with severe nhan: 06/02/20 -The patient has been admitted to the locked behavioral health unit and placed in the special observation area. When more psychiatrically stable he will be encouraged to attend group and activity therapies. In the meantime, individual interventions will be provided. -Collateral information from his family, and possibly from outside treatment providers will be sought. The patient is not a reliable historian and seems to be misrepresenting the truth when it comes to his symptom treatment history. -We will attempt to obtain medical records from [facility]. The patient had initially claimed that he had never been previously psychiatrically hospitalized, but then mentioned, in passing, that he likes the [facility] behavioral health unit much better than he liked [facility], and when asked to explain the contradiction the patient stated, flatly, "I was lying." -After saying that he does not take and has never taken any psychiatric medications, he did acknowledge that he had taken aripiprazole. He gives conflicting reports regarding dose and dose schedule and dose form. However, he also says that he believes that aripiprazole helps, and he cannot recall the last time he actually took it. (There is no indication he may have received an aripiprazole injection an unspecified amount on 05/30/2020, but this has not been verified.) Given the degree of the patient's current nhan, and his psychosis, we will begin aripiprazole 10 mg by mouth now, and then daily pending acquisition of further information. -We will also begin lamotrigine 25 mg daily and titrate as indicated every 2 weeks. Material risks, including but not limited to, Kruger-Arvind syndrome were reviewed with the patient and he indicated understanding. 06/03--add standing order Haldol as receiving prns on top of Abilify. Cogentin prn. Consider temporary benzo if persists. 06/04--ongoing nhan but pleasant. BID Klonopin was added yesterday to limit amount of Haldol prn given overall dosing of antipsychotic with injectable. 06/05 - Continue current medication regimen, get collateral information from outpatient providers at [facility], as we do not know his previous medication trials and the Abilify Maintena has not been sufficient to control his symptoms. As he just received the Maintena last week, I would like to start him on a more robust mood stabilizer than lamotrigine, but he indicated a previous trial of lithium, but we have no details. Depakote is another possibility for acute nhan, and this medications may be more effective in combination with the Abilify Maintena. Additional antipsychotic medication may be less effective due to the psychopha rmacologic properties of the aripiprazole, as it is a partial agonist at the D2 receptor so may prevent binding of additional D2 antagonists. -Order fasting lipid profile and glucose for tomorrow for monitoring on an atypical antipsychotic. 06/06 - 303 involuntary commitment hearing held and granted. -Patient remains floridly manic and psychotic, unable to maintain behavioral control or participate meaningfully in treatment, and is disruptive on the unit, demanding to leave and escalating in his behavior and agitation. Aripiprazole has not been effective despite being on it for almost 7 weeks and receiving 2 doses of Maintena, and I am concerned that it may be causing akathisia, contributing to his restlessness and agitation. We will stop oral aripiprazole, continue oral haloperidol 5 mg twice daily and as needed, and start chlorpromazine 100 mg as needed for nhan/psychosis. If the chlorpromazine is helpful, could titrate this up and replace haloperidol. We will also increase Depakote to 500 mg twice daily, and check a trough level in 5 days (06/11/2020). -Fasting labs reviewed for monitoring on an atypical antipsychotic: Glucose normal (90), FLP notable for elevated cholesterol 226. Refer to PCP as below. 06/07 -Increase Depakote to 500mg qam and 1000mg HS and check trough in 5 days (06/12). -Received 300 mg of chlorpromazine yesterday, and had broken sleep. Remains floridly manic, and poor behavioral control. Continue clonazepam and chlorpromazine prn. 06/08 - Continue as above - recommending primary utilization of benzodiazepines and/or benztropine as prn agents, as patient has received decent amounts of antipsychotic medications with little benefit - Pt continues to be disorganized, intrusive, difficult to redirect, and demonstrates continued tangentiality and flight of ideas. - Hospitalist consultation for tachycardia with abnormal EKG as discussed below 06/09 -The patient has a history of marijuana abuse, and, somewhat to our surprise, today he asked that we discontinue clonazepam because he finds it too sedating and somehow makes his thinking "more fuzzy." Standing dose clonazepam was discontinued in favor of "as needed" clonazepam for agitation/anxiety. -The patient indicates that he feels that he is tolerating divalproex well at the current dosage. We will obtain a valproic acid level in the morning before any further adjustment in the divalproex dose is made. -The patient had said that he feels that Haldol is "the best" medication for him. He notes that he has taken it in the past with favorable results, but also said that he would like to ask us to be careful not to "give [him] too much," because that has happened during other hospitalizations and he says that it causes him to feel like a "zombie." -Patient has been having episodes of tachycardia. Remains afebrile. On examination, he had mild cogwheeling. Benztropine has been discontinued because of the fairly common side effect of tachycardia associated with benztropine. In its place, today, given the slight cogwheeling I have ordered trihexyphenidyl 2 mg daily, with a additional doses of as needed for dystonia. 06/10 - Continue current medication regimen (haloperidol 5mg TID), with recent adjustments from yesterday. Pt continues to report that he feels "amazing" - Depakote level obtained today - therapeutic at 95, so will refrain from further titration - Additional labs obtained to further work-up possibility of NMS - alkaline phosphatase, lactate dehydrogenase, and total creatinine kinase all WNL. Pt is not tachycardic today and remains afebrile. Will continue to monitor. - Pt signed ALEJANDRA for the BSU yesterday, will continue attempts to arrange after care 06/11 - Continue current medication regimen - gradual daily improvements being observed - Will attempt to engage patient in more aftercare planning starting Tuesday 06/12 - Continue current medication regimen - ongoing improvements - Continue conversations regrading discharge and aftercare planning - Schedule family meeting with parents - Complete [facility] referral for case management - refer for therapy - Will call patient's mother to provide updates 06/13 - Continue current medication regimen - patient is able to participate in a very productive conversation regarding medications. He reports "I really like how the Abilify makes me feel." He does admit it may have contributed to some res tlessness, but feels Artane has been helpful at alleviating this. - Pt states he was very sedated and nauseated after receiving the injection of haloperidol decanoate at the [facility]. He states these symptoms continued for ~3 weeks after the injection. Pt is able to confirm that lithium also contributed to nausea. - Family meeting with mother scheduled for tomorrow morning to discuss discharge and safety planning 06/14 -Continue Depakote and haloperidol, as patient is stabilizing on this regimen, and discussed that he can follow-up with his outpatient clinician for discussion of transition to an atypical or a different PACHECO. -Total valproic acid 97.6, free VPA 14.4 on 06/12/2020. -Participated in family meeting with patient, his mother, and the neonatal social worker, and schedule 304 outpatient commitment hearing for 06/19/2020, with a plan to discharge him afterwards. -Patient has been referred for blended case management, and Salvador Galindo will meet with him on the unit in 2 days initiate care. (2) Marijuana use: 06/02/20 -The patient says that he smokes marijuana every day, and that an ounce of marijuana will last him "a week." He also says that he purchases marijuana from someone who is well-known to him and who he believes is reliable. Nevertheless, he also reports that his current "batch" of marijuana is particularly "good," by which he says he means means strong. -At this point, the patient's thought processes are too disorganized to allow him to benefit from substance abuse counseling. We will refocus our attention on this problem as the patient's psychiatric condition improves. 06/03/20 - reviewed 06/09 -The topic of his marijuana use came up today during our meeting, and he asked me if I thought it would be okay for him to continue to use marijuana when he leaves the hospital. I told him directly that I would strongly advise against using marijuana, medical or otherwise, while undergoing treatment for bipolar disorder. I explained that marijuana can significantly interfere with treatment of bipolar disorder and is only medication that can affect the mood and ways that may not be intended to his part of the treatment. The patient indicated understanding and said that he would honor and respect the opinion in this regard 06/12 - Pt able to demonstrate some insight regarding how his substance use (alcohol and marijuana) contributed to his mood changes - Pt agreeable with beginning the recovery protocol at this time - Brief intervention was offered and accepted Intervention was greater than 5 min in length. Brief interventions include: 1. Assess Readiness to Quit, 2. Advise: Help Patient to Reduce or Abstain from Alcohol and other substances, 3. Agree: Set Specific, Feasible Goals, 4. Assist: Anticipate barriers, Problem-Solving Solutions. Social work to 5. Arrange: Referrals to appropriate treatment. Summary of intervention: The patient is in contemplation stage with regards to transtheoretical model of change. The patient is advised to decrease alcohol consumption due to depressant effects and risk of interactions with prescription medications. The patient was advised of recommendations for abstinence from alcohol and other abusable substances and to attend substance abuse treatment at discharge, and will be provided with recovery materials to continue to education self on how to cope with their condition without drinking. 06/13 - Reviewed again today that marijuana is contraindicated with mood disorder diagnoses and can contribute to continued mood instability and even psychosis. - Pt verbalized understanding of this. He has been referred for dual diagnosis therapy through [facility]. (3) Axillary abscess: 06/02/20 -The patient has a small (6-10 mm) injected and tender axillary abscess. He reports that the abscess appeared "a day or 2 ago," and is currently painful. -There are no known allergies. We will treat with Bactroban 2% topical ointment to affected area twice daily. 06/03--reviewed 06/09 -The patient reports that the axillary abscess in his left axilla has resolved. (4) Hypercholesteremia: 06/06 -cholesterol elevated at 226, will refer to PCP for follow-up. Once patient is psychiatrically stable, provide education about the roles of diet and exercise, and the need for ongoing monitoring. (5) Tachycardia: 06/08 - Pt with concerning persistent tachycardia (max of 140's at this time) - blood pressure this admission has been stable - EKG ordered, QTc WNL at 437. "Sinus rhythm with marked sinus arrhythmia; left ventricular hypertrophy with QRS widening; abnormal EKG" - Previous EKG poor quality - sinus tachycardia, diffuse nonspecific T wave abnormality, abnormal EKG - No evidence of additional concerns for NMS (afebrile, no tachypnea, no evidence of muscle rigidity - AMS present as a result of his psychiatric condition). - Will consult [facility] Hospitalist for possible recommendations and ongoing support regarding this concern, discussed case directly with hospitalist via phone 06/09 -The patient had an echocardiogram today at bedside. -The findings of this study have been reviewed. In summary, it was determined that this was essentially a normal study. His left ventricular systolic function is described as "normal." -There have been several reports that the patient has appeared diaphoretic. It has been suspected that this has occurred when the patient splashes water on his face or hair. Today, on examination I checked for cogwheel rigidity and noticed mild cogwheel rigidity. I also noticed that his gait appears to be somewhat stiff. He denies feeling any stiffness and reports no distress. He also remains afebrile. Nevertheless, and even with a relatively low level of suspicion for neuroleptic malignant syndrome, I have ordered several laboratory tests including LDH, CK, and alkaline phosphatase for the morning labs, to be drawn with the patient's trough valproic acid level. 06/10 - Appreciate hospitalist recommendations - pulse today was 62 and 73 - Will continue to monitor 06/11 - Hospitalist signed off - appreciate recommendations - Can contact should concerns recur 06/13 - Pulse remains stable - 81 today Inventory Assets Strengths: Willing to take psychiatric medications. Supportive family. Intelligent Needs: Resolution of criminal charges. Resolution of nhan and mood stabilization. Risk Factors Assessment Male: Yes : Yes Do You Have Access To A Gun?: No (The patient says he does not have access to a gun. The emergency room record indicates that during the summer the patient presented after he had attempted to grab a gun at home. It is not known if the gun is still available to him at home.) Health Problems: No Mental Health Diagnoses: Yes Substance Use Disorders: Yes Previous Attempt: No (The patient says that he has never attempted suicide. The record indicates that he was evaluated in the emergency room and hospitalized after he reportedly attempted to grab a gun at home while so threatening to shoot himself.) Family History of Suicide: No Previous Psychiatric Hospitalization: Yes Hopelessness: No Smoker: Yes (The patient variously reports that he smokes and that he does not smoke. We are assuming that he is telling the truth when he says that he does smoke, and nicotine replacement medications have been prescribed.) Protective Factors Assessment Pentecostal Beliefs: Yes (The patient says that he is Yazidism. 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 He has a history of bipolar 1 disorder and cannabis abuse, and was admitted on 06/01/20 23:06 on a 302 involuntary commitment for grossly disorganized and dangerous behaviors. Chief Complaint "Good, a lot better". Review of Systems Notes 10 systems reviewed; negative except as stated above, and patient reports ongoing but less intense and frequent sense of restlessness. Sleep Information Total Hours of Sleep: 10 Sleep Comments: pt on q-15 minute checks Meal Information Percent Meal Consumed - Breakfast: 100 Percent Meal Consumed - Lunch: 75 Percent Meal Consumed - Dinner: 100 Nutrition Comment: Pt is sleeping Subjective Subjective Patient was seen & assessed and interval progress reviewed with treatment team. Staff report he continues to improve, has been in better behavioral control, able to attend and participate appropriately in groups, and is sleeping better through the night. He is taking medication as prescribed, and has received as needed hydroxyzine and trihexyphenidyl, but not Haldol, temazepam, or Klonopin in about 5 days. On my assessment today, he states that he feels much better, as mood is more stable, sleep is better, and restlessness has improved. He describes his mood today as "a little cloudy," which he explains means he is feeling overwhelmed and anxious due to multiple new patients. He continues to wake frequently overnight, but is able to fall back asleep. He is able to recall the events leading up to admission, stating he was at the [facility], picking up trash, as "I thought I needed to clean up trash to get in." He went around knocking on many doors trying to enter, as he thought his girlfriend was inside. He then saw a truck and "thought it was my prize, opened it and there were keys and there, so I took it." He is aware that he has criminal charges related to this, and thinks his mother has retained an admitted attorneys for him. He thinks medications are helping, and denies side effects. We reviewed all of his discharge plans including scheduled appointments, the plan for 304 involuntary outpatient commitment, the need to follow-up with his PCP for a brain MRI and hyperlipidemia, and that he should not drive until he is fully stabilized and been cleared by his outpatient clinician. He expressed understanding and agreement. Joined the family meeting with the patient, neonatal social worker, and his mother and again reviewed the patient's progress and improvement, as well as the plan detailed above. All expressed agreement. Physical Exam Psychiatric Orientation: alert and cooperative Apperance: appropriately dressed, appropriately groomed and appeared stated age Thin white male, dressed in scrub pants and a T-shirt, seated in no acute distress. Adequate hygiene and grooming. Alert, no signs of sedation. Eye Contact: + fair eye contact Motor Behavior: steady gait and station Mild fidgeting Speech: normal rate/rhythm/volume of speech Bright affect, intermittent, appropriate anxiety when discussing discharge plans and his legal issues. Mood: + anxious mood "Cloudy" Thought Process: goal directed thought process Thought Content: reality based without delusions Suicidal Thoughts: denies suicidal thoughts Homicidal Thoughts: denies homicidal thoughts Hallucinations: no auditory hallucinations and no visual hallucinations Cognition: recent memory grossly intact, attention grossly intact and language grossly intact Insight: + fair insight Judgement: + fair judgement Vital Signs (Past 24 Hours) Last Vital Signs Temp 36.4 C L 06/14/20 06:40 Pulse 81 06/14/20 06:41 Resp 16 06/14/20 06:40 BP 114/67 06/14/20 06:41 Pulse Ox 98 06/01/20 23:54 Results & Data ([facility]) Laboratory Results Laboratory Results - last 24 hr 06/12/20 08:19 Free Valproic Acid 14.4 Total Valproic Acid 97.6 Current Inpatient Medications Current Inpatient Medications: Current Inpatient Medications Acetaminophen (Acetaminophen 325 Mg Tab) 650 mg PO Q4H PRN PRN Reason: Headache or Minor Fever Stop: 07/02/20 00:22 Last Admin: 06/12/20 10:04 Dose: 650 mg Documented by: Al Hydrox/Mg Hydrox/Simethicone (Aluminum/Magnesium Susp 30 Ml Udc) 30 ml PO Q4H PRN PRN Reason: GI Upset Stop: 07/02/20 00:22 Bismuth Subsalicylate (Bismuth Subsalicylate Per Ml Omnicell Charge) 15 ml PO PRN PRN PRN Reason: Loose Stool Stop: 07/02/20 00:22 Chlorpromazine HCl (Chlorpromazine Hcl 100 Mg Tablet) 150 mg PO Q6H PRN PRN Reason: psychosis or nhan Stop: 07/07/20 12:59 Last Admin: 06/07/20 13:15 Dose: 150 mg Documented by: Clonazepam (Clonazepam 1 Mg Tab) 1 mg PO Q6H PRN PRN Reason: Anxiety/Agitation Stop: 07/03/20 11:49 Last Admin: 06/09/20 11:43 Dose: 1 mg Documented by: Divalproex Sodium (Divalproex Extended Release 500 Mg Tab) 500 mg PO QAM [facility] Stop: 07/08/20 08:59 Last Admin: 06/14/20 09:03 Dose: 500 mg Documented by: Divalproex Sodium (Divalproex Extended Release 500 Mg Tab) 1,000 mg PO HS TITA Stop: 07/07/20 21:59 Last Admin: 06/13/20 21:02 Dose: 1,000 mg Documented by: Haloperidol (Haloperidol 5 Mg Tab) 5 mg PO Q4 PRN PRN Reason: Psychosis/Agitation Stop: 07/02/20 00:25 Last Admin: 06/06/20 06:34 Dose: 5 mg Documented by: Haloperidol (Haloperidol 5 Mg Tab) 5 mg PO TID [facility] Stop: 07/09/20 13:59 Last Admin: 06/14/20 09:03 Dose: 5 mg Documented by: Haloperidol Lactate (Haloperidol Lactate 5 Mg/Ml 1 Ml Vial) 10 mg IM Q4 PRN PRN Reason: Agitation/Psychosis Stop: 07/02/20 00:25 Hydroxyzine HCl (Hydroxyzine Hcl 25 Mg Tab) 50 mg PO HSZ PRN PRN Reason: Insomnia Stop: 07/02/20 00:22 Last Admin: 06/07/20 21:31 Dose: 50 mg Documented by: Hydroxyzine HCl (Hydroxyzine Hcl 25 Mg Tab) 25 mg PO Q4H PRN PRN Reason: Anxiety Stop: 07/02/20 00:22 Last Admin: 06/13/20 17:42 Dose: 25 mg Documented by: Magnesium Hydroxide (Magnesium Hydroxide Susp 30 Ml Udc) 30 ml PO DAILY PRN PRN Reason: Constipation Stop: 07/02/20 00:22 Miscellaneous (Remove Nicoderm Patch) 1 ea N/A DAILY@[id number] [facility] Stop: 07/02/20 08:58 Last Admin: 06/14/20 09:02 Dose: Not Given Documented by: Nicotine (Nicotine 14 Mg/24 Hr Patch) 14 mg TD QAM TITA Stop: 07/10/20 08:59 Last Admin: 06/14/20 09:02 Dose: Not Given Documented by: Nicotine Polacrilex (Nicotine Polacrilex 2 Mg Gum) 1 piece MT Q1H PRN PRN Reason: nicotine cravings Stop: 07/02/20 11:55 Last Admin: 06/13/20 15:05 Dose: 1 piece Documented by: Sodium Chloride (Sodium Chloride 0.65% Na Soln 45 Ml ([facility]ray)) 1 - 2 sprays NA PRN PRN PRN Reason: Nasal Dryness/Congestion Stop: 07/02/20 00:22 Temazepam (Temazepam 15 Mg Capsule) 15 mg PO HSZ PRN PRN Reason: Insomnia Stop: 07/02/20 16:39 Last Admin: 06/08/20 22:55 Dose: 15 mg Documented by: Trihexyphenidyl HCl (Trihexyphenidyl Hcl 2 Mg Tab) 2 mg PO BID PRN PRN Reason: dystonia Stop: 07/09/20 20:59 Last Admin: 06/13/20 10:31 Dose: 2 mg Documented by: Mental Health & Subst Abuse Tx Psychiatrist Name of Psychiatrist: Alejandra Bansal Psychiatrist's Date of Appointment with Psychiatrist: 06/30/20 Time of Appointment with Psychiatrist: 9:40 a.m. Psychiatric Appointment Comment: [address] [facility] Therapist Name of Therapist: [facility] (Dual Diagnosis) Therapist's Therapy Appointment Comment: [address] [facility], [facility] [address] Supervisor Drying Name of Supervisor Drying: [employer] Phone Number for Supervisor Drying: [phone] Case Management Appointment Comment: [address] [facility], [facility] Post Discharge Appointments Primary Care Physician Name Of Family Doctor: Alejandra [facility] Date of Appointment with PCP: 07/04/20 Time of Appointment with PCP: 2:00 p.m. Provider Appointment Comment: [address] [facility]
[2020-06-14] MEDS: NICOTINE POLACRILEX 2 MG GUM MT PRN (17:37)
[2020-06-15] MEDS: DIVALPROEX EXTENDED RELEASE 500 MG TAB PO SCH ×2 (08:48→20:55)
[2020-06-15] MEDS: haloperidoL 5 MG TAB PO SCH ×3 (08:48→20:53)
[2020-06-15] MEDS: NICOTINE 14 MG/24 HR PATCH TD SCH (08:49)
--- NOTE | 2020-06-15 09:00 | Psychiatric Progress Note ---
Date of Service June 15, 2020 Impression / Recommendations Impression 25-year-old male with a history of bipolar type I who was admitted on a 302 after he was brought into the emergency department by the police following arrest for stealing a truck that was apparently parked in a parking lot at [facility], and is on a 303 involuntary commitment as of 06/06/2020. He presented with manic and psychotic symptoms and was a poor historian, with an oppositional defiant quality to his behavior, but has improved significantly throughout the course of treatment. He has failed multiple trials of PACHECO's (Haldol decanoate started at [facility] and then switched to Abilify Maintena and received his second injection on 05/30/2020). He reports smoking marijuana every day, and UDS was + THC, which is likely contributing to his ongoing symptoms and poor treatment response. On admission, he was started on aripiprazole 10 mg by mouth daily and lamotrigine 25 mg daily, then scheduled haloperidol and clonazepam were added in addition to as needed medications, as he remained disorganized, hyperverbal, intrusive, and in poor behavioral control. Outpatient records were reviewed and he was switched to Depakote on 06/05/2020 to target ongoing nhan, and chlorpromazine as aripiprazole has been ineffective. Persistent tachycardia with normal BP, consulted hospitalist service on 06/08 for possible recommendations and ongoing monitoring. Tachycardia has improved, echocardiogram and repeat EKG without significant abnormality. Family meeting for discharge planning held today, being referred for therapy and case management, and will file for a 304 IOC after discussion with his outpatient clinician at [facility] - though now reported that it is uncertain if [facility] will be able to accommodate an involuntary commitment. His hearing will be held on Friday, and the plan is to discharge him afterwards, to police custody as he has an active warrant, with hopes that he will be able to access outpatient treatment after arraignment. (1) Bipolar disorder with severe nhan: 06/02/20 -The patient has been admitted to the locked behavioral health unit and placed in the special observation area. When more psychiatrically stable he will be encouraged to attend group and activity therapies. In the meantime, individual interventions will be provided. -Collateral information from his family, and possibly from outside treatment providers will be sought. The patient is not a reliable historian and seems to be misrepresenting the truth when it comes to his symptom treatment history. -We will attempt to obtain medical records from [facility]. The patient had initially claimed that he had never been previously psychiatrically hospitalized, but then mentioned, in passing, that he likes the [facility] behavioral health unit much better than he liked [facility], and when asked to explain the contradiction the patient stated, flatly, "I was lying." -After saying that he does not take and has never taken any psychiatric medic ations, he did acknowledge that he had taken aripiprazole. He gives conflicting reports regarding dose and dose schedule and dose form. However, he also says that he believes that aripiprazole helps, and he cannot recall the last time he actually took it. (There is no indication he may have received an aripiprazole injection an unspecified amount on 05/30/2020, but this has not been verified.) Given the degree of the patient's current nhan, and his psychosis, we will begin aripiprazole 10 mg by mouth now, and then daily pending acquisition of further information. -We will also begin lamotrigine 25 mg daily and titrate as indicated every 2 weeks. Material risks, including but not limited to, Kruger-Arvind syndrome were reviewed with the patient and he indicated understanding. 06/03--add standing order Haldol as receiving prns on top of Abilify. Cogentin prn. Consider temporary benzo if persists. 06/04--ongoing nhan but pleasant. BID Klonopin was added yesterday to limit amount of Haldol prn given overall dosing of antipsychotic with injectable. 06/05 - Continue current medication regimen, get collateral information from outpatient providers at [facility], as we do not know his previous medication trials and the Abilify Maintena has not been sufficient to control his symptoms. As he just received the Maintena last week, I would like to start him on a more robust mood stabilizer than lamotrigine, but he indicated a previous trial of lithium, but we have no details. Depakote is another possibility for acute nhan, and this medications may be more effective in combination with the Abilify Maintena. Additional antipsychotic medication may be less effective due to the psychopharmacologic properties of the aripiprazole, as it is a partial agonist at the D2 receptor so may prevent binding of additional D2 antagonists. -Order fasting lipid profile and glucose for tomorrow for monitoring on an atypical antipsychotic. 06/06 - 303 involuntary commitment hearing held and granted. -Patient remains floridly manic and psychotic, unable to maintain behavioral control or participate meaningfully in treatment, and is disruptive on the unit, demanding to leave and escalating in his behavior and agitation. Aripiprazole has not been effective despite being on it for almost 7 weeks and receiving 2 doses of Maintena, and I am concerned that it may be causing akathisia, contribu ting to his restlessness and agitation. We will stop oral aripiprazole, continue oral haloperidol 5 mg twice daily and as needed, and start chlorpromazine 100 mg as needed for nhan/psychosis. If the chlorpromazine is helpful, could titrate this up and replace haloperidol. We will also increase Depakote to 500 mg twice daily, and check a trough level in 5 days (06/11/2020). -Fasting labs reviewed for monitoring on an atypical antipsychotic: Glucose normal (90), FLP notable for elevated cholesterol 226. Refer to PCP as below. 06/07 -Increase Depakote to 500mg qam and 1000mg HS and check trough in 5 days (06/12). -Received 300 mg of chlorpromazine yesterday, and had broken sleep. Remains floridly manic, and poor behavioral control. Continue clonazepam and chlorpromazine prn. 06/08 - Continue as above - recommending primary utilization of benzodiazepines and/or benztropine as prn agents, as patient has received decent amounts of antipsychotic medications with little benefit - Pt continues to be disorganized, intrusive, difficult to redirect, and demonstrates continued tangentiality and flight of ideas. - Hospitalist consultation for tachycardia with abnormal EKG as discussed below 06/09 -The patient has a history of marijuana abuse, and, somewhat to our surprise, today he asked that we discontinue clonazepam because he finds it too sedating and somehow makes his thinking "more fuzzy." Standing dose clonazepam was discontinued in favor of "as needed" clonazepam for agitation/anxiety. -The patient indicates that he feels that he is tolerating divalproex well at the current dosage. We will obtain a valproic acid level in the morning before any further adjustment in the divalproex dose is made. -The patient had said that he feels that Haldol is "the best" medication for him. He notes that he has taken it in the past with favorable results, but also said that he would like to ask us to be careful not to "give [him] too much," because that has happened during other hospitalizations and he says that it causes him to feel like a "zombie." -Patient has been having episodes of tachycardia. Remains afebrile. On examination, he had mild cogwheeling. Benztropine has been discontinued because of the fairly common side effect of tachycardia associated with benztropine. In its place, today, given the slight cogwheeling I have ordered trihexyphenidyl 2 mg daily, with a additional doses of as needed for dystonia. 06/10 - Continue current medication regimen (haloperidol 5mg TID), with recent adjustments from yesterday. Pt continues to report that he feels "amazing" - Depakote level obtained today - therapeutic at 95, so will refrain from further titration - Additional labs obtained to further work-up possibility of NMS - alkaline phosphatase, lactate dehydrogenase, and total creatinine kinase all WNL. Pt is not tachycardic today and remains afebrile. Will continue to monitor. - Pt signed ALEJANDRA for the BSU yesterday, will continue attempts to arrange after care 06/11 - Continue current medication regimen - gradual daily improvements being observed - Will attempt to engage patient in more aftercare planning starting Tuesday 06/12 - Continue current medication regimen - ongoing improvements - Continue conversations regrading discharge and aftercare planning - Schedule family meeting with parents - Complete [facility] referral for case management - refer for therapy - Will call patient's mother to provide updates 06/13 - Continue current medication regimen - patient is able to participate in a very productive conversation regarding medications. He reports "I really like how the Abilify makes me feel." He does admit it may have contributed to some restlessness, but feels Artane has been helpful at alleviating this. - Pt states he was very sedated and nauseated after receiving the injection of haloperidol decanoate at the [facility]. He states these symptoms continued for ~3 weeks after the injection. Pt is able to confirm that lithium also contributed to nausea. - [facility] and safety planning 06/14 -Continue Depakote and haloperidol, as patient is stabilizing on this regimen, and discussed that he can follow-up with his outpatient clinician for discussion of transition to an atypical or a different PACHECO. -Total valproic acid 97.6, free VPA 14.4 on 06/12/2020. -Participated in family meeting with patient, his mother, and the social economist, and schedule 304 outpatient commitment hearing for 06/19/2020, with a plan to discharge him afterwards. -Patient has been referred for blended case management, and Salvador Galindo will meet with him on the unit in 2 days initiate care. 06/15 - Continue current dosing of haloperidol and Depakote. Pt reports ongoing restlessness which he feels is contributing to distractibility. Will order for scheduled BID dosing of trihexyphenidyl for likely akathisia. - Family meeting yesterday with mother, social work, and psychiatrist - patient is still processing potential legal consequences of his behavior prior to admission, admitting it is somewhat overwhelming - Meeting with Salvador Galindo [facility], tomorrow (2) Marijuana use: 06/02/20 -The patient says that he smokes marijuana every day, and that an ounce of marijuana will last him "a week." He also says that he purchases marijuana from someone who is well-known to him and who he believes is reliable. Nevertheless, he also reports that his current "batch" of marijuana is particularly "good," by which he says he means means strong. -At this point, the patient's thought processes are too disorganized to allow him to benefit from substance abuse counseling. We will refocus our attention on this problem as the patient's psychiatric condition improves. 06/03/20 - reviewed 06/09 -The topic of his marijuana use came up today during our meeting, and he asked me if I thought it would be okay for him to continue to use marijuana when he leaves the hospital. I told him directly that I would strongly advise against using marijuana, medical or otherwise, while undergoing treatment for bipolar disorder. I explained that marijuana can significantly interfere with treatment of bipolar disorder and is only medication that can affect the mood and ways that may not be intended to his part of the treatment. The patient indicated understanding and said that he would honor and respect the opinion in this regard 06/12 - Pt able to demonstrate some insight regarding how his substance use (alcohol and marijuana) contributed to his mood changes - Pt agreeable with beginning the recovery protocol at this time - Brief intervention was offered and accepted Intervention was greater than 5 min in length. Brief interventions include: 1. Assess Readiness to Quit, 2. Advise: Help Patient to Reduce or Abstain from Alcohol and other substances, 3. Agree: Set Specific, Feasible Goals, 4. Assist: Anticipate barriers, Problem-Solving Solutions. Social work to 5. Arrange: Referrals to appropriate treatment. Summary of intervention: The patient is in contemplation stage with regards to transtheoretical model of change. The patient is advised to decrease alcohol consumption due to depressant effects and risk of interactions with prescription medications. The patient was advised of recommendations for abstinence from alcohol and other abusable substances and to attend substance abuse treatment at discharge, and will be provided with recovery materials to continue to education self on how to cope with their condition without drinking. 06/13 - Reviewed again today that marijuana is contraindicated with mood disorder diagnoses and can contribute to continued mood instability and even psychosis. - Pt verbalized understanding of this. He has been referred for dual diagnosis therapy through [facility]. (3) Axillary abscess: 06/02/20 -The patient has a small (6-10 mm) injected and tender axillary abscess. He reports that the abscess appeared "a day or 2 ago," and is currently painful. -There are no known allergies. We will treat with Bactroban 2% topical ointment to affected area twice daily. 06/03--reviewed 06/09 -The patient reports that the axillary abscess in his left axilla has resolved. (4) Hypercholesteremia: 06/06 -cholesterol elevated at 226, will refer to PCP for follow-up. Once patient is psychiatrically stable, provide education about the roles of diet and exercise, and the need for ongoing monitoring. (5) Tachycardia: 06/08 - Pt with concerning persistent tachycardia (max of 140's at this time) - blood pressure this admission has been stable - EKG ordered, QTc WNL at 437. "Sinus rhythm with marked sinus arrhythmia; left ventricular hypertrophy with QRS widening; abnormal EKG" - Previous EKG poor quality - sinus tachycardia, diffuse nonspecific T wave abnormality, abnormal EKG - No evidence of additional concerns for NMS (afebrile, no tachypnea, no evidence of muscle rigidity - AMS present as a result of his psychiatric cond ition). - Will consult [facility] Hospitalist for possible recommendations and ongoing support regarding this concern, discussed case directly with hospitalist via phone 06/09 -The patient had an echocardiogram today at bedside. -The findings of this study have been reviewed. In summary, it was determined that this was essentially a normal study. His left ventricular systolic function is described as "normal." -There have been several reports that the patient has appeared diaphoretic. It has been suspected that this has occurred when the patient splashes water on his face or hair. Today, on examination I checked for cogwheel rigidity and noticed mild cogwheel rigidity. I also noticed that his gait appears to be somewhat stiff. He denies feeling any stiffness and reports no distress. He al so remains afebrile. Nevertheless, and even with a relatively low level of suspicion for neuroleptic malignant syndrome, I have ordered several laboratory tests including LDH, CK, and alkaline phosphatase for the morning labs, to be drawn with the patient's trough valproic acid level. 06/10 - Appreciate hospitalist recommendations - pulse today was 62 and 73 - Will continue to monitor 06/11 - Hospitalist signed off - appreciate recommendations - Can contact should concerns recur 06/13 - Pulse remains stable - 81 today Inventory Assets Strengths: Willing to take psychiatric medications. Supportive family. Intelligent Needs: Resolution of criminal charges. Resolution of nahn and mood stabilization. Risk Factors Assessment Male: Yes : Yes Do You Have Access To A Gun?: No (The patient says he does not have access to a gun. The emergency room record indicates that during the summer the patient presented after he had attempted to grab a gun at home. It is not known if the gun is still available to him at home.) Health Problems: No Mental Health Diagnoses: Yes Substance Use Disorders: Yes Previous Attempt: No (The patient says that he has never attempted suicide. The record indicates that he was evaluated in the emergency room and hospitalized after he reportedly attempted to grab a gun at home while so threatening to shoot himself.) Family History of Suicide: No Previous Psychiatric Hospitalization: Yes Hopelessness: No Smoker: Yes (The patient variously reports that he smokes and that he does not smoke. We are assuming that he is telling the truth when he says that he does smoke, and nicotine replacement medications have been prescribed.) Protective Factors Assessment Hindu Beliefs: Yes (The patient says that he is Baptism. 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 He has a history of bipolar 1 disorder and cannabis abuse, and was admitted on 06/01/20 23:06 on a 302 involuntary commitment for grossly disorganized and dangerous behaviors. Chief Complaint "I'm still pretty restless, so I don't know about that." Review of Systems Notes Constitutional: reports restlessness Cardiovascular: denied Respiratory: denied Gastrointestinal: denied Neurological: denied Psychiatric: denies symptoms other than stated above Total of at least 10 systems reviewed, pertinent positives as above and in HPI. Sleep Information Total Hours of Sleep: 8.25 Sleep Comments: pt on q-15 minute checks Meal Information Percent Meal Consumed - Breakfast: 100 Percent Meal Consumed - Lunch: 90 Percent Meal Consumed - Dinner: 75 Nutrition Comment: Pt is sleeping Subjective Subjective Patient was seen & assessed and interval progress reviewed with nursing and social work. Staff report the patient has been appropriate and no longer intrusive. He was reportedly more isolative yesterday, with staff's assumption that some of our patient's may be overstimulating for him. Pt only learned yesterday of the likely implications of his actions prior to arrival: recommendation that he not drive until psychiatrically stable, being discharged to police custody. Pt was seen today to assess progress since admission. Pt states "I'm still pretty restless, so I don't know about that." Pt states he is feeling a little scattered as a result. We revisited a previous conversation regarding ability to schedule trihexyphenidyl dosing for ongoing likely akathisia. Pt admits that his mood at this point is a 4.5/10, admitting that he would like to remain at around a 5/10 since "any higher than that is probably nhan again." Pt admits "I'm a little sad since there's a hay ride back home this weekend, but I don't mind being here. It's better than usp." Pt admits that he found the family meeting to be very helpful yesterday. He states learning of the legal implications of his actions is helping him to know what to expect on discharge. Pt does admitted to feeling a little overwhelmed about this. Pt denies SI/HI and A/V hallucinations. Pt denies other needs or concerns for today. Physical Exam Psychiatric Orientation: alert, oriented x 3 and cooperative Apperance: appropriately dressed, appropriately groomed and appeared stated age Eye Contact: good eye contact Motor Behavior: steady gait and station and no abnormal motor movements Speech: normal rate/rhythm/volume of speech Affect: + anxious affect and mood congruent with affect Mood: + anxious mood (unclear if anxiety versus restlessness); no depressed mood ("About a 4.5 I guess. At least I'm not in usp.") Thought Process: goal directed thought process and clear/coherent thought process Reporting distractibility due to continued restlessness Thought Content: reality based without delusions; no hopelessness and no worthlessness Suicidal Thoughts: denies suicidal thoughts and denies suicidal intent Homicidal Thoughts: denies homicidal thoughts Hallucinations: no auditory hallucinations and no visual hallucinations Cognition: recent memory grossly intact and language grossly intact Estimated Intelligence: consistent with education level Insight: + fair insight Judgement: + fair judgement Vital Signs (Past 24 Hours) Last Vital Signs Temp 36.4 C L 06/15/20 06:55 Pulse 87 06/15/20 06:55 Resp 16 06/15/20 06:55 BP 114/64 06/15/20 06:55 Pulse Ox 98 06/01/20 23:54 Results & Data ([facility]) Current Inpatient Medications Current Inpatient Medications: Current Inpatient Medications Acetaminophen (Acetaminophen 325 Mg Tab) 650 mg PO Q4H PRN PRN Reason: Headache or Minor Fever Stop: 07/02/20 00:22 Last Admin: 06/12/20 10:04 Dose: 650 mg Documented by: Al Hydrox/Mg Hydrox/Simethicone (Aluminum/Magnesium Susp 30 Ml Udc) 30 ml PO Q4H PRN PRN Reason: GI Upset Stop: 07/02/20 00:22 Bismuth Subsalicylate (Bismuth Subsalicylate Per Ml Omnicell Charge) 15 ml PO PRN PRN PRN Reason: Loose Stool Stop: 07/02/20 00:22 Chlorpromazine HCl (Chlorpromazine Hcl 100 Mg Tablet) 150 mg PO Q6H PRN PRN Reason: psychosis or nhan Stop: 07/07/20 12:59 Last Admin: 06/07/20 13:15 Dose: 150 mg Documented by: Clonazepam (Clonazepam 1 Mg Tab) 1 mg PO Q6H PRN PRN Reason: Anxiety/Agitation Stop: 07/03/20 11:49 Last Admin: 06/09/20 11:43 Dose: 1 mg Documented by: Divalproex Sodium (Divalproex Extended Release 500 Mg Tab) 500 mg PO QAM TITA Stop: 07/08/20 08:59 Last Admin: 06/15/20 08:48 Dose: 500 mg Documented by: Divalproex Sodium (Divalproex Extended Release 500 Mg Tab) 1,000 mg PO HS TITA Stop: 07/07/20 21:59 Last Admin: 06/14/20 21:31 Dose: 1,000 mg Documented by: Haloperidol (Haloperidol 5 Mg Tab) 5 mg PO Q4 PRN PRN Reason: Psychosis/Agitation Stop: 07/02/20 00:25 Last Admin: 06/06/20 06:34 Dose: 5 mg Documented by: Haloperidol (Haloperidol 5 Mg Tab) 5 mg PO TID TITA Stop: 07/09/20 13:59 Last Admin: 06/15/20 08:48 Dose: 5 mg Documented by: Haloperidol Lactate (Haloperidol Lactate 5 Mg/Ml 1 Ml Vial) 10 mg IM Q4 PRN PRN Reason: Agitation/Psychosis Stop: 07/02/20 00:25 Hydroxyzine HCl (Hydroxyzine Hcl 25 Mg Tab) 50 mg PO HSZ PRN PRN Reason: Insomnia Stop: 07/02/20 00:22 Last Admin: 06/07/20 21:31 Dose: 50 mg Documented by: Hydroxyzine HCl (Hydroxyzine Hcl 25 Mg Tab) 25 mg PO Q4H PRN PRN Reason: Anxiety Stop: 07/02/20 00:22 Last Admin: 06/13/20 17:42 Dose: 25 mg Documented by: Magnesium Hydroxide (Magnesium Hydroxide Susp 30 Ml Udc) 30 ml PO DAILY PRN PRN Reason: Constipation Stop: 07/02/20 00:22 Miscellaneous (Remove Nicoderm Patch) 1 ea N/A DAILY@0859 [facility] Stop: 07/02/20 08:58 Last Admin: 06/15/20 08:48 Dose: Not Given Documented by: Nicotine (Nicotine 14 Mg/24 Hr Patch) 14 mg TD QAM TITA Stop: 07/10/20 08:59 Last Admin: 06/15/20 08:49 Dose: Not Given Documented by: Nicotine Polacrilex (Nicotine Polacrilex 2 Mg Gum) 1 piece MT Q1H PRN PRN Reason: nicotine cravings Stop: 07/02/20 11:55 Last Admin: 06/14/20 17:37 Dose: 1 piece Documented by: Sodium Chloride (Sodium Chloride 0.65% Na Soln 45 Ml ([place])) 1 - 2 sprays NA PRN PRN PRN Reason: Nasal Dryness/Congestion Stop: 07/02/20 00:22 Temazepam (Temazepam 15 Mg Capsule) 15 mg PO HSZ PRN PRN Reason: Insomnia Stop: 07/02/20 16:39 Last Admin: 06/08/20 22:55 Dose: 15 mg Documented by: Trihexyphenidyl HCl (Trihexyphenidyl Hcl 2 Mg Tab) 2 mg PO BID PRN PRN Reason: dystonia Stop: 07/09/20 20:59 Last Admin: 06/13/20 10:31 Dose: 2 mg Documented by: Mental Health & Subst Abuse Tx Psychiatrist Name of Psychiatrist: Alejandra Bansal Psychiatrist's Date of Appointment with Psychiatrist: 06/30/20 Time of Appointment with Psychiatrist: 9:40 a.m. Psychiatric Appointment Comment: [id number] [facility] Therapist Name of Therapist: Alberto Powell (Dual Diagnosis) - Marylou Berger Therapist's Date of Therapist Appointment: 06/21/20 Time of Therapist Appointment: 3:00 p.m. 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 Thomas Primary [facility] Date of Appointment with PCP: 07/04/20 Time of Appointment with PCP: 2:00 p.m. Provider Appointment Comment: [id number] [facility] Contact Information Discharge Discharge Address: [address] [place] [address]
[2020-06-15] MEDS: TRIHEXYPHENIDYL HCL 2 MG TAB PO PRN (10:12)
[2020-06-15] MEDS ORDERED: TRIHEXYPHENIDYL HCL 2 MG TAB PO PRN (10:15)
[2020-06-15] MEDS: TRIHEXYPHENIDYL HCL 2 MG TAB PO SCH (20:52)
[2020-06-16] MEDS: DIVALPROEX EXTENDED RELEASE 500 MG TAB PO SCH ×2 (08:56→20:46)
[2020-06-16] MEDS: haloperidoL 5 MG TAB PO SCH ×3 (08:56→20:45)
[2020-06-16] MEDS: TRIHEXYPHENIDYL HCL 2 MG TAB PO SCH ×2 (08:56→20:46)
[2020-06-16] MEDS: NICOTINE 14 MG/24 HR PATCH TD SCH (08:57)
--- NOTE | 2020-06-16 11:32 | Psychiatric Progress Note ---
Date of Service June 16, 2020 Impression / Recommendations Impression 25-year-old male with a history of bipolar type I who was admitted on a 302 after he was brought into the emergency department by the police following arrest for stealing a truck that was apparently parked in a parking lot at [facility], and is on a 303 involuntary commitment as of 06/06/2020. He presented with manic and psychotic symptoms and was a poor historian, with an oppositional defiant quality to his behavior, but has improved significantly throughout the course of treatment. He has failed multiple trials of PACHECO's (Haldol decanoate started at [place] and then switched to Abilify Maintena and received his second injection on 05/30/2020). He reports smoking marijuana every day, and UDS was + THC, which is likely contributing to his ongoing symptoms and poor treatment response. On admission, he was started on aripiprazole 10 mg by mouth daily and lamotrigine 25 mg daily, then scheduled haloperidol and clonazepam were added in addition to as needed medications, as he remained disorganized, hyperverbal, intrusive, and in poor behavioral control. Outpatient records were reviewed and he was switched to Depakote on 06/05/2020 to target ongoing nhan, and chlorpromazine as aripiprazole has been ineffective. Persistent tachycardia with normal BP, consulted hospitalist service on 06/08 for possible recommendations and ongoing monitoring. Tachycardia has improved, echocardiogram and repeat EKG without significant abnormality. Family meeting for discharge planning held today, being referred for therapy and case management, and will file for a 304 IOC after discussion with his outpatient clinician at [facility] - though now reported that it is uncertain if [facility] will be able to accommodate an involuntary commitment. His hearing will be held on Friday, and the plan is to discharge him afterwards, to police custody as he has an active warrant, with hopes that he will be able to access outpatient treatment after arraignment. (1) Bipolar disorder with severe nhan: 06/02/20 -The patient has been admitted to the locked behavioral health unit and placed in the special observation area. When more psychiatrically stable he will be encouraged to attend group and activity therapies. In the meantime, individual interventions will be provided. -Collateral information from his family, and possibly from outside treatment providers will be sought. The patient is not a reliable historian and seems to be misrepresenting the truth when it comes to his symptom treatment history. -We will attempt to obtain medical records from [facility]. The patient had initially claimed that he had never been previously psychiatrically hospitalized, but then mentioned, in passing, that he likes the [facility] behavioral health unit much better than he liked [facility], and when asked to explain the contradiction the patient stated, flatly, "I was lying." -After saying that he does not take and has never taken any psychiatric medic ations, he did acknowledge that he had taken aripiprazole. He gives conflicting reports regarding dose and dose schedule and dose form. However, he also says that he believes that aripiprazole helps, and he cannot recall the last time he actually took it. (There is no indication he may have received an aripiprazole injection an unspecified amount on 05/30/2020, but this has not been verified.) Given the degree of the patient's current nhan, and his psychosis, we will begin aripiprazole 10 mg by mouth now, and then daily pending acquisition of further information. -We will also begin lamotrigine 25 mg daily and titrate as indicated every 2 weeks. Material risks, including but not limited to, Kruger-Arvind syndrome were reviewed with the patient and he indicated understanding. 06/03--add standing order Haldol as receiving prns on top of Abilify. Cogentin prn. Consider temporary benzo if persists. 06/04--ongoing nhan but pleasant. BID Klonopin was added yesterday to limit amount of Haldol prn given overall dosing of antipsychotic with injectable. 06/05 - Continue current medication regimen, get collateral information from outpatient providers at [facility], as we do not know his previous medication trials and the Abilify Maintena has not been sufficient to control his symptoms. As he just received the Maintena last week, I would like to start him on a more robust mood stabilizer than lamotrigine, but he indicated a previous trial of lithium, but we have no details. Depakote is another possibility for acute nhan, and this medications may be more effective in combination with the Abilify Maintena. Additional antipsychotic medication may be less effective due to the psychopharmacologic properties of the aripiprazole, as it is a partial agonist at the D2 receptor so may prevent binding of additional D2 antagonists. -Order fasting lipid profile and glucose for tomorrow for monitoring on an atypical antipsychotic. 06/06 - 303 involuntary commitment hearing held and granted. -Patient remains floridly manic and psychotic, unable to maintain behavioral control or participate meaningfully in treatment, and is disruptive on the unit, demanding to leave and escalating in his behavior and agitation. Aripiprazole has not been effective despite being on it for almost 7 weeks and receiving 2 doses of Maintena, and I am concerned that it may be causing akathisia, contribu ting to his restlessness and agitation. We will stop oral aripiprazole, continue oral haloperidol 5 mg twice daily and as needed, and start chlorpromazine 100 mg as needed for nhan/psychosis. If the chlorpromazine is helpful, could titrate this up and replace haloperidol. We will also increase Depakote to 500 mg twice daily, and check a trough level in 5 days (06/11/2020). -Fasting labs reviewed for monitoring on an atypical antipsychotic: Glucose normal (90), FLP notable for elevated cholesterol 226. Refer to PCP as below. 06/07 -Increase Depakote to 500mg qam and 1000mg HS and check trough in 5 days (06/12). -Received 300 mg of chlorpromazine yesterday, and had broken sleep. Remains floridly manic, and poor behavioral control. Continue clonazepam and chlorpromazine prn. 06/08 - Continue as above - recommending primary utilization of benzodiazepines and/or benztropine as prn agents, as patient has received decent amounts of antipsychotic medications with little benefit - Pt continues to be disorganized, intrusive, difficult to redirect, and demonstrates continued tangentiality and flight of ideas. - Hospitalist consultation for tachycardia with abnormal EKG as discussed below 06/09 -The patient has a history of marijuana abuse, and, somewhat to our surprise, today he asked that we discontinue clonazepam because he finds it too sedating and somehow makes his thinking "more fuzzy." Standing dose clonazepam was discontinued in favor of "as needed" clonazepam for agitation/anxiety. -The patient indicates that he feels that he is tolerating divalproex well at the current dosage. We will obtain a valproic acid level in the morning before any further adjustment in the divalproex dose is made. -The patient had said that he feels that Haldol is "the best" medication for him. He notes that he has taken it in the past with favorable results, but also said that he would like to ask us to be careful not to "give [him] too much," because that has happened during other hospitalizations and he says that it causes him to feel like a "zombie." -Patient has been having episodes of tachycardia. Remains afebrile. On examination, he had mild cogwheeling. Benztropine has been discontinued because of the fairly common side effect of tachycardia associated with benztropine. In its place, today, given the slight cogwheeling I have ordered trihexyphenidyl 2 mg daily, with a additional doses of as needed for dystonia. 06/10 - Continue current medication regimen (haloperidol 5mg TID), with recent adjustments from yesterday. Pt continues to report that he feels "amazing" - Depakote level obtained today - therapeutic at 95, so will refrain from further titration - Additional labs obtained to further work-up possibility of NMS - alkaline phosphatase, lactate dehydrogenase, and total creatinine kinase all WNL. Pt is not tachycardic today and remains afebrile. Will continue to monitor. - Pt signed ALEJANDRA for the [facility] yesterday, will continue attempts to arrange after care 06/11 - Continue current medication regimen - gradual daily improvements being observed - Will attempt to engage patient in more aftercare planning starting Tuesday 06/12 - Continue current medication regimen - ongoing improvements - Continue conversations regrading discharge and aftercare planning - Schedule family meeting with parents - Complete [facility] referral for case management - refer for therapy - Will call patient's mother to provide updates 06/13 - Continue current medication regimen - patient is able to participate in a very productive conversation regarding medications. He reports "I really like how the Abilify makes me feel." He does admit it may have contributed to some restlessness, but feels Artane has been helpful at alleviating this. - Pt states he was very sedated and nauseated after receiving the injection of haloperidol decanoate at the [facility]. He states these symptoms continued for ~3 weeks after the injection. Pt is able to confirm that lithium also contributed to nausea. - [facility] and safety planning 06/14 -Continue Depakote and haloperidol, as patient is stabilizing on this regimen, and discussed that he can follow-up with his outpatient clinician for discussion of transition to an atypical or a different PACHECO. -Total valproic acid 97.6, free VPA 14.4 on 06/12/2020. -Participated in family meeting with patient, his mother, and the medical social worker, and schedule 304 outpatient commitment hearing for 06/19/2020, with a plan to discharge him afterwards. -Patient has been referred for blended case management, and Salvador Galindo will meet with him on the unit in 2 days initiate care. 06/15 - Continue current dosing of haloperidol and Depakote. Pt reports ongoing restlessness which he feels is contributing to distractibility. Will order for scheduled BID dosing of trihexyphenidyl for likely akathisia. - Family meeting yesterday with mother, social work, and psychiatrist - patient is still processing potential legal consequences of his behavior prior to admission, admitting it is somewhat overwhelming - Meeting with Salvador Galindo [facility], tomorrow. 06/16 -The patient reports that his restlessness is improved in response to trihexyphenidyl. -Currently the patient appears to have stabilized and reached euthymia. However, given the severity of his manic episode and the associated behaviors during the manic episode, we feel strongly that we need to observe him over the next few days in order to assure that the apparent stability and euthymia are sustained Also, we will be seeking outpatient commitment and the hearing is scheduled for Friday. Because of the patient's history of nonadherence with medications on an outpatient basis, despite his seemingly genuine assertions that his intent is to continue to take his psychiatric medications and continue in outpatient psychiatric treatment, we feel that outpatient civil commitment will be necessary in order to assure safety and avoid serious physical harm.. (2) Marijuana use: 06/02/20 -The patient says that he smokes marijuana every day, and that an ounce of marijuana will last him "a week." He also says that he purchases marijuana from someone who is well-known to him and who he believes is reliable. Nevertheless, he also reports that his current "batch" of marijuana is particularly "good," by which he says he means means strong. -At this point, the patient's thought processes are too disorganized to allow him to benefit from substance abuse counseling. We will refocus our attention on this problem as the patient's psychiatric condition improves. 06/03/20 - reviewed 06/09 -The topic of his marijuana use came up today during our meeting, and he asked me if I thought it would be okay for him to continue to use marijuana when he leaves the hospital. I told him directly that I would strongly advise against using marijuana, medical or otherwise, while undergoing treatment for bipolar disorder. I explained that marijuana can significantly interfere with treatment of bipolar disorder and is only medication that can affect the mood and ways that may not be intended to his part of the treatment. The patient indicated understanding and said that he would honor and respect the opinion in this regard 06/12 - Pt able to demonstrate some insight regarding how his substance use (alcohol and marijuana) contributed to his mood changes - Pt agreeable with beginning the recovery protocol at this time - Brief intervention was offered and accepted Intervention was greater than 5 min in length. Brief interventions include: 1. Assess Readiness to Quit, 2. Advise: Help Patient to Reduce or Abstain from Alcohol and other substances, 3. Agree: Set Specific, Feasible Goals, 4. Assist: Anticipate barriers, Problem-Solving Solutions. Social work to 5. Arrange: Referrals to appropriate treatment. Summary of intervention: The patient is in contemplation stage with regards to transtheoretical model of change. The patient is advised to decrease alcohol consumption due to depressant effects and risk of interactions with prescription medications. The patient was advised of recommendations for abstinence from alcohol and other abusable substances and to attend substance abuse treatment at discharge, and will be provided with recovery materials to continue to education self on how to cope with their condition without drinking. 06/13 - Reviewed again today that marijuana is contraindicated with mood disorder diagnoses and can contribute to continued mood instability and even psychosis. - Pt verbalized understanding of this. He has been referred for dual diagnosis therapy through [facility]. 06/16 -The patient spontaneously tells us that his intent is to not use marijuana or alcohol or any other nonprescribed medication. He does say that he understands that such substances are contraindicated while undergoing treatment for bipolar disorder. -The patient also agrees to "worked hard" in therapy through [facility]. (3) Axillary abscess: 06/02/20 -The patient has a small (6-10 mm) injected and tender axillary abscess. He reports that the abscess appeared "a day or 2 ago," and is currently painful. -There are no known allergies. We will treat with Bactroban 2% topical ointment to affected area twice daily. 06/03--reviewed 06/09 -The patient reports that the axillary abscess in his left axilla has resolved. (4) Hypercholesteremia: 06/06 -cholesterol elevated at 226, will refer to PCP for follow-up. Once patient is psychiatrically stable, provide education about the roles of diet and exercise, and the need for ongoing monitoring. (5) Tachycardia: 06/08 - Pt with concerning persistent tachycardia (max of 140's at this time) - blood pressure this admission has been stable - EKG ordered, QTc WNL at 437. "Sinus rhythm with marked sinus arrhythmia; left ventricular hypertrophy with QRS widening; abnormal EKG" - Previous EKG poor quality - sinus tachycardia, diffuse nonspecific T wave abnormality, abnormal EKG - No evidence of additional concerns for NMS (afebrile, no tachypnea, no evidence of muscle rigidity - AMS present as a result of his psychiatric condit ion). - Will consult [facility] Hospitalist for possible recommendations and ongoing support regarding this concern, discussed case directly with hospitalist via phone 06/09 -The patient had an echocardiogram today at bedside. -The findings of this study have been reviewed. In summary, it was determined that this was essentially a normal study. His left ventricular systolic function is described as "normal." -There have been several reports that the patient has appeared diaphoretic. It has been suspected that this has occurred when the patient splashes water on his face or hair. Today, on examination I checked for cogwheel rigidity and noticed mild cogwheel rigidity. I also noticed that his gait appears to be somewhat stiff. He denies feeling any stiffness and reports no distress. He also remains afebrile. Nevertheless, and even with a relatively low level of suspicion for neuroleptic malignant syndrome, I have ordered several laboratory tests including LDH, CK, and alkaline phosphatase for the morning labs, to be drawn with the patient's trough valproic acid level. 06/10 - Appreciate hospitalist recommendations - pulse today was 62 and 73 - Will continue to monitor 06/11 - Hospitalist signed off - appreciate recommendations - Can contact should concerns recur 06/13 - Pulse remains stable - 81 today Inventory Assets Strengths: Willing to take psychiatric medications. Supportive family. Intelligent Needs: Resolution of criminal charges. Resolution of nhan and mood stabilization. Risk Factors Assessment Male: Yes : Yes Do You Have Access To A Gun?: No (The patient says he does not have access to a gun. The emergency room record indicates that during the summer the patient presented after he had attempted to grab a gun at home. It is not known if the gun is still available to him at home.) Health Problems: No Mental Health Diagnoses: Yes Substance Use Disorders: Yes Previous Attempt: No (The patient says that he has never attempted suicide. The record indicates that he was evaluated in the emergency room and hospitalized after he reportedly attempted to grab a gun at home while so threatening to shoot himself.) Family History of Suicide: No Previous Psychiatric Hospitalization: Yes Hopelessness: No Smoker: Yes (The patient variously reports that he smokes and that he does not smoke. We are assuming that he is telling the truth when he says that he does smoke, and nicotine replacement medications have been prescribed.) Protective Factors Assessment Holiness Beliefs: Yes (The patient says that he is [employer]ar[employer]. 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 He has a history of bipolar 1 disorder and cannabis abuse, and was admitted on 06/01/20 23:06 on a 302 involuntary commitment for grossly disorganized and dangerous behaviors. Chief Complaint " The medicines are really working. I am much better.". Review of Systems Sleep Information Total Hours of Sleep: 8 Sleep Comments: pt on q-15 minute checks Meal Information Percent Meal Consumed - Breakfast: 90 Percent Meal Consumed - Lunch: 80 Percent Meal Consumed - Dinner: 75 Nutrition Comment: Pt is sleeping Subjective Subjective Patient was seen & assessed and interval progress reviewed with treatment team. I met individually with the patient in order to assess his current mental status, evaluate his response to treatment, make any necessary changes in his treatment regimen and coordination with the patient; and address issues, questions and concerns that may arise. The patient begins by telling me that he feels that the combination of Depakote and Haldol are "really working." He expresses embarrassment about some of the things he remembers doing while manic, and reiterated what he had said before which is that he really does not have episodes of depression, at least episodes that last more than a day, but he does have episodes of "really high nhan." The patient clearly noted that he has come to realize that that the various things that he had believed at the time of his admission, such as his belief that he had his "girlfriend" were about to be in [facility], and that he had drawn a large crowd to [facility] in order for him to give a concert, and that the truck that he had taken from the parking lot of [facility] was either a gift from his late father, or "the grand prize" that was being bestowed on him because of his talent. The patient now notes that he realizes that the woman that he believed was his "girlfriend" is some of that he does not know particularly well and while he would like to have a girlfriend such as this particular woman, he knows that she is not actually a girlfriend and, in fact, "probably is not even a friend." He also says that he knows that he is not a "rap star," and says that he is extremely embarrassed about his behaviors prior to admission, and during the initial portion of the hospital stay. Specifically, he notes that he is concerned about his legal charges stemming from his alleged theft of a truck during his manic episode. Physical Exam Psychiatric Orientation: alert, oriented x 3 and cooperative Apperance: appropriately dressed, appropriately groomed and appeared stated age Eye Contact: good eye contact Motor Behavior: steady gait and station Speech: normal rate/rhythm/volume of speech Affect: euthymic affect "Normal. A little nervous, but pretty good." Thought Process: goal directed thought process There are no flight of ideas Thought Content: reality based without delusions Suicidal Thoughts: denies suicidal thoughts Homicidal Thoughts: denies homicidal thoughts Hallucinations: no auditory hallucinations and no visual hallucinations Estimated Intelligence: + above average estimated intelligence Insight: good insight Judgement: good judgement Vital Signs (Past 24 Hours) Last Vital Signs Temp 36.5 C 06/16/20 06:35 Pulse 82 06/16/20 06:36 Resp 16 06/16/20 06:35 BP 101/65 06/16/20 06:36 Pulse Ox 98 06/01/20 23:54 Results & Data ([facility]) Current Inpatient Medications Current Inpatient Medications: Current Inpatient Medications Acetaminophen (Acetaminophen 325 Mg Tab) 650 mg PO Q4H PRN PRN Reason: Headache or Minor Fever Stop: 07/02/20 00:22 Last Admin: 06/12/20 10:04 Dose: 650 mg Documented by: Al Hydrox/Mg Hydrox/Simethicone (Aluminum/Magnesium Susp 30 Ml Udc) 30 ml PO Q4H PRN PRN Reason: GI Upset Stop: 07/02/20 00:22 Bismuth Subsalicylate (Bismuth Subsalicylate Per Ml Omnicell Charge) 15 ml PO PRN PRN PRN Reason: Loose Stool Stop: 07/02/20 00:22 Chlorpromazine HCl (Chlorpromazine Hcl 100 Mg Tablet) 150 mg PO Q6H PRN PRN Reason: psychosis or nhan Stop: 07/07/20 12:59 Last Admin: 06/07/20 13:15 Dose: 150 mg Documented by: Clonazepam (Clonazepam 1 Mg Tab) 1 mg PO Q6H PRN PRN Reason: Anxiety/Agitation Stop: 07/03/20 11:49 Last Admin: 06/09/20 11:43 Dose: 1 mg Documented by: Divalproex Sodium (Divalproex Extended Release 500 Mg Tab) 500 mg PO QAM TITA Stop: 07/08/20 08:59 Last Admin: 06/16/20 08:56 Dose: 500 mg Documented by: Divalproex Sodium (Divalproex Extended Release 500 Mg Tab) 1,000 mg PO HS TITA Stop: 07/07/20 21:59 Last Admin: 06/15/20 20:55 Dose: 1,000 mg Documented by: Haloperidol (Haloperidol 5 Mg Tab) 5 mg PO Q4 PRN PRN Reason: Psychosis/Agitation Stop: 07/02/20 00:25 Last Admin: 06/06/20 06:34 Dose: 5 mg Documented by: Haloperidol (Haloperidol 5 Mg Tab) 5 mg PO TID [facility] Stop: 07/09/20 13:59 Last Admin: 06/16/20 08:56 Dose: 5 mg Documented by: Haloperidol Lactate (Haloperidol Lactate 5 Mg/Ml 1 Ml Vial) 10 mg IM Q4 PRN PRN Reason: Agitation/Psychosis Stop: 07/02/20 00:25 Hydroxyzine HCl (Hydroxyzine Hcl 25 Mg Tab) 50 mg PO HSZ PRN PRN Reason: Insomnia Stop: 07/02/20 00:22 Last Admin: 06/07/20 21:31 Dose: 50 mg Documented by: Hydroxyzine HCl (Hydroxyzine Hcl 25 Mg Tab) 25 mg PO Q4H PRN PRN Reason: Anxiety Stop: 07/02/20 00:22 Last Admin: 06/13/20 17:42 Dose: 25 mg Documented by: Magnesium Hydroxide (Magnesium Hydroxide Susp 30 Ml Udc) 30 ml PO DAILY PRN PRN Reason: Constipation Stop: 07/02/20 00:22 Miscellaneous (Remove Nicoderm Patch) 1 ea N/A DAILY@0859 [facility] Stop: 07/02/20 08:58 Last Admin: 06/16/20 08:57 Dose: Not Given Documented by: Nicotine (Nicotine 14 Mg/24 Hr Patch) 14 mg TD QAM [facility] Stop: 07/10/20 08:59 Last Admin: 06/16/20 08:57 Dose: Not Given Documented by: Nicotine Polacrilex (Nicotine Polacrilex 2 Mg Gum) 1 piece MT Q1H PRN PRN Reason: nicotine cravings Stop: 07/02/20 11:55 Last Admin: 06/14/20 17:37 Dose: 1 piece Documented by: Sodium Chloride (Sodium Chloride 0.65% Na Soln 45 Ml ([place])) 1 - 2 sprays NA PRN PRN PRN Reason: Nasal Dryness/Congestion Stop: 07/02/20 00:22 Temazepam (Temazepam 15 Mg Capsule) 15 mg PO HSZ PRN PRN Reason: Insomnia Stop: 07/02/20 16:39 Last Admin: 06/08/20 22:55 Dose: 15 mg Documented by: Trihexyphenidyl HCl (Trihexyphenidyl Hcl 2 Mg Tab) 2 mg PO DAILY PRN PRN Reason: dystonia Stop: 07/09/20 10:14 Trihexyphenidyl HCl (Trihexyphenidyl Hcl 2 Mg Tab) 2 mg PO BID TITA Stop: 07/15/20 20:59 Last Admin: 06/16/20 08:56 Dose: 2 mg Documented by: Mental Health & Subst Abuse Tx Psychiatrist Name of Psychiatrist: Alejandra Bansal Psychiatrist's Date of Appointment with Psychiatrist: 06/30/20 Time of Appointment with Psychiatrist: 9:40 a.m. Psychiatric Appointment Comment: [id number] Therapist Name of Therapist: Alberto Powell (Dual Diagnosis) - Marylou Berger Therapist's Date of Therapist Appointment: 06/21/20 Time of Therapist Appointment: 3:00 p.m. Therapy Appointment Comment: Telehealth - will email you directions Merchant Miller Name of Merchant Miller: [employer] - Bill Phone Number for Merchant Miller: [phone] Date of Appointment with Merchant Miller: 06/23/20 Time of Appointment with Merchant Miller: 1:00 p.m. Case Management Appointment Comment: Will see you at your house Post Discharge Appointments Primary Care Physician Name Of Family Doctor: Alejandra Thomas Primary Care Date of Appointment with PCP: 07/04/20 Time of Appointment with PCP: 2:00 p.m. Provider Appointment Comment: [phone] Contact Information Discharge Discharge Address: [address] [place] [id number]
[2020-06-17] MEDS: TRIHEXYPHENIDYL HCL 2 MG TAB PO SCH ×2 (08:51→20:50)
[2020-06-17] MEDS: NICOTINE 14 MG/24 HR PATCH TD SCH ×2 (08:51→11:25)
[2020-06-17] MEDS: haloperidoL 5 MG TAB PO SCH ×3 (08:51→20:50)
[2020-06-17] MEDS: DIVALPROEX EXTENDED RELEASE 500 MG TAB PO SCH ×2 (08:51→20:51)
--- NOTE | 2020-06-17 11:26 | Psychiatric Progress Note ---
Date of Service June 17, 2020 Impression / Recommendations Impression 25-year-old male with a history of bipolar type I who was admitted on a 302 after he was brought into the emergency department by the police following arrest for stealing a truck that was apparently parked in a parking lot at [facility], and is on a 303 involuntary commitment as of 06/06/2020. He presented with manic and psychotic symptoms and was a poor historian, with an oppositional defiant quality to his behavior, but has improved significantly throughout the course of treatment. He has failed multiple trials of PACHECO's (Haldol decanoate started at [place] and then switched to Abilify Maintena and received his second injection on 05/30/2020). He reports smoking marijuana every day, and UDS was + THC, which is likely contributing to his ongoing symptoms and poor treatment response. On admission, he was started on aripiprazole 10 mg by mouth daily and lamotrigine 25 mg daily, then scheduled haloperidol and clonazepam were added in addition to as needed medications, as he remained disorganized, hyperverbal, intrusive, and in poor behavioral control. Outpatient records were reviewed and he was switched to Depakote on 06/05/2020 to target ongoing nhan, and chlorpromazine as aripiprazole has been ineffective. Persistent tachycardia with normal BP, consulted hospitalist service on 06/08 for possible recommendations and ongoing monitoring. Tachycardia has improved, echocardiogram and repeat EKG without significant abnormality. Family meeting for discharge planning held today, being referred for therapy and case management, and will file for a 304 IO after discussion with his outpatient clinician at [facility] [place] - though now reported that it is uncertain if [facility] will be able to accommodate an involuntary commitment. His hearing will be held on Friday, and the plan is to discharge him afterwards, to police custody as he has an active warrant, with hopes that he will be able to access outpatient treatment after arraignment. Reviewed 06/17/2020. very much improved since last contact Plan: Continue current meds and treatment plan. Inventory Assets Strengths: Willing to take psychiatric medications. Supportive family. Intelligent Needs: Resolution of criminal charges. Resolution of nhan and mood stabilization. Risk Factors Assessment Male: Yes : Yes Do You Have Access To A Gun?: No (The patient says he does not have access to a gun. The emergency room record indicates that during the summer the patient presented after he had attempted to grab a gun at home. It is not known if the gun is still available to him at home.) Health Problems: No Mental Health Diagnoses: Yes Substance Use Disorders: Yes Previous Attempt: No (The patient says that he has never attempted suicide. The record indicates that he was evaluated in the emergency room and hospitalized after he reportedly attempted to grab a gun at home while so threatening to shoot himself.) Family History of Suicide: No Previous Psychiatric Hospitalization: Yes Hopelessness: No Smoker: Yes (The patient variously reports that he smokes and that he does not smoke. We are assuming that he is telling the truth when he says that he does smoke, and nicotine replacement medications have been prescribed.) Protective Factors Assessment Oriental Orthodox Beliefs: Yes (The patient says that he is Adventism. 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 He has a history of bipolar 1 disorder and cannabis abuse, and was admitted on 06/01/20 23:06 on a 302 involuntary commitment for grossly disorganized and dangerous behaviors. Reviewed 06/17/2020. Patient known to me from earlier this stay. Chief Complaint "I really feel great, so much better". Review of Systems Sleep Information Total Hours of Sleep: 8 Sleep Comments: pt on q-15 minute checks Meal Information Percent Meal Consumed - Breakfast: 100 Percent Meal Consumed - Lunch: 100 Percent Meal Consumed - Dinner: 90 Nutrition Comment: Pt is sleeping Subjective Subjective Patient was seen & assessed and interval progress reviewed with nursing and social work. Patient's nhan continues to resolve, cooperative with Haldol and Depakote and the latter is at a therapeutic level. There is a 304 outpatient conversion hearing on Friday. He is agreeable to follow up with [facility] and looking forward to taking some time at home. Physical Exam Psychiatric Orientation: alert Apperance: appropriately dressed and appropriately groomed Eye Contact: good eye contact Motor Behavior: no abnormal motor movements Speech: normal rate/rhythm/volume of speech Affect: euthymic affect Mood: + anxious mood Thought Process: goal directed thought process Thought Content: reality based without delusions Suicidal Thoughts: denies suicidal thoughts Homicidal Thoughts: denies homicidal thoughts Cognition: recent memory grossly intact and attention grossly intact Estimated Intelligence: consistent with education level Insight: + limited insight (much improved) Judgement: + limited judgement Vital Signs (Past 24 Hours) Last Vital Signs Temp 36.5 C 06/17/20 06:30 Pulse 86 06/17/20 06:30 Resp 18 06/17/20 06:30 BP 121/66 06/17/20 06:30 Pulse Ox 98 06/01/20 23:54 Results & Data ([facility]) Current Inpatient Medications Current Inpatient Medications: Current Inpatient Medications Acetaminophen (Acetaminophen 325 Mg Tab) 650 mg PO Q4H PRN PRN Reason: Headache or Minor Fever Stop: 07/02/20 00:22 Last Admin: 06/12/20 10:04 Dose: 650 mg Documented by: Al Hydrox/Mg Hydrox/Simethicone (Aluminum/Magnesium Susp 30 Ml Udc) 30 ml PO Q4H PRN PRN Reason: GI Upset Stop: 07/02/20 00:22 Bismuth Subsalicylate (Bismuth Subsalicylate Per Ml [employer] Charge) 15 ml PO PRN PRN PRN Reason: Loose Stool Stop: 07/02/20 00:22 Chlorpromazine HCl (Chlorpromazine Hcl 100 Mg Tablet) 150 mg PO Q6H PRN PRN Reason: psychosis or nhan Stop: 07/07/20 12:59 Last Admin: 06/07/20 13:15 Dose: 150 mg Documented by: Clonazepam (Clonazepam 1 Mg Tab) 1 mg PO Q6H PRN PRN Reason: Anxiety/Agitation Stop: 07/03/20 11:49 Last Admin: 06/09/20 11:43 Dose: 1 mg Documented by: Divalproex Sodium (Divalproex Extended Release 500 Mg Tab) 500 mg PO QAM T[facility] Stop: 07/08/20 08:59 Last Admin: 06/17/20 08:51 Dose: 500 mg Documented by: Divalproex Sodium (Divalproex Extended Release 500 Mg Tab) 1,000 mg PO HS TITA Stop: 07/07/20 21:59 Last Admin: 06/16/20 20:46 Dose: 1,000 mg Documented by: Haloperidol (Haloperidol 5 Mg Tab) 5 mg PO Q4 PRN PRN Reason: Psychosis/Agitation Stop: 07/02/20 00:25 Last Admin: 06/06/20 06:34 Dose: 5 mg Documented by: Haloperidol (Haloperidol 5 Mg Tab) 5 mg PO TID [facility] Stop: 07/09/20 13:59 Last Admin: 06/17/20 08:51 Dose: 5 mg Documented by: Haloperidol Lactate (Haloperidol Lactate 5 Mg/Ml 1 Ml Vial) 10 mg IM Q4 PRN PRN Reason: Agitation/Psychosis Stop: 07/02/20 00:25 Hydroxyzine HCl (Hydroxyzine Hcl 25 Mg Tab) 50 mg PO HSZ PRN PRN Reason: Insomnia Stop: 07/02/20 00:22 Last Admin: 06/07/20 21:31 Dose: 50 mg Documented by: Hydroxyzine HCl (Hydroxyzine Hcl 25 Mg Tab) 25 mg PO Q4H PRN PRN Reason: Anxiety Stop: 07/02/20 00:22 Last Admin: 06/13/20 17:42 Dose: 25 mg Documented by: Magnesium Hydroxide (Magnesium Hydroxide Susp 30 Ml Udc) 30 ml PO DAILY PRN PRN Reason: Constipation Stop: 07/02/20 00:22 Miscellaneous (Remove Nicoderm Patch) 1 ea N/A DAILY@0859 [facility] Stop: 07/02/20 08:58 Last Admin: 06/17/20 08:51 Dose: Not Given Documented by: Nicotine (Nicotine 14 Mg/24 Hr Patch) 14 mg TD QAM [facility] Stop: 07/10/20 08:59 Last Admin: 06/17/20 08:51 Dose: Not Given Documented by: Nicotine Polacrilex (Nicotine Polacrilex 2 Mg Gum) 1 piece MT Q1H PRN PRN Reason: nicotine cravings Stop: 07/02/20 11:55 Last Admin: 06/14/20 17:37 Dose: 1 piece Documented by: Sodium Chloride (Sodium Chloride 0.65% Na Soln 45 Ml ([place])) 1 - 2 sprays NA PRN PRN PRN Reason: Nasal Dryness/Congestion Stop: 10/18/20 00:22 Temazepam (Temazepam 15 Mg Capsule) 15 mg PO HSZ PRN PRN Reason: Insomnia Stop: 07/02/20 16:39 Last Admin: 06/08/20 22:55 Dose: 15 mg Documented by: Trihexyphenidyl HCl (Trihexyphenidyl Hcl 2 Mg Tab) 2 mg PO DAILY PRN PRN Reason: dystonia Stop: 07/09/20 10:14 Trihexyphenidyl HCl (Trihexyphenidyl Hcl 2 Mg Tab) 2 mg PO BID TITA Stop: 07/15/20 20:59 Last Admin: 06/17/20 08:51 Dose: 2 mg Documented by: Mental Health & Subst Abuse Tx Psychiatrist Name of Psychiatrist: Alejandra Bansal Psychiatrist's Date of Appointment with Psychiatrist: 06/30/20 Time of Appointment with Psychiatrist: 9:40 a.m. Psychiatric Appointment Comment: [id number] Therapist Name of Therapist: [facility] (Dual Diagnosis) - Marylou Berger Therapist's Date of Therapist Appointment: 06/21/20 Time of Therapist Appointment: 3:00 p.m. Therapy Appointment Comment: Telehealth - will email you directions Players Club Representative Name of Players Club Representative: [employer] - Bill Phone Number for Players Club Representative: [phone] Date of Appointment with Players Club Representative: 06/23/20 Time of Appointment with Players Club Representative: 1:00 p.m. Case Management Appointment Comment: Will see you at your house Post Discharge Appointments Primary Care Physician Name Of Family Doctor: Alejandra Thomas Primary Care Date of Appointment with PCP: 07/04/20 Time of Appointment with PCP: 2:00 p.m. Provider Appointment Comment: [facility] Contact Information Discharge Discharge Address: [address] [place] [id number]
[2020-06-18] MEDS: DIVALPROEX EXTENDED RELEASE 500 MG TAB PO SCH ×2 (08:44→20:43)
[2020-06-18] MEDS: haloperidoL 5 MG TAB PO SCH ×3 (08:44→20:42)
[2020-06-18] MEDS: TRIHEXYPHENIDYL HCL 2 MG TAB PO SCH ×2 (08:44→20:42)
[2020-06-18] MEDS: NICOTINE 14 MG/24 HR PATCH TD SCH (09:20)
--- NOTE | 2020-06-18 09:55 | Psychiatric Progress Note ---
Date of Service June 18, 2020 Impression / Recommendations Impression 25-year-old male with a history of bipolar type I who was admitted on a 302 after he was brought into the emergency department by the police following arrest for stealing a truck that was apparently parked in a parking lot at [facility], and is on a 303 involuntary commitment as of 06/06/2020. He presented with manic and psychotic symptoms and was a poor historian, with an oppositional defiant quality to his behavior, but has improved significantly throughout the course of treatment. He has failed multiple trials of PACHECO's (Haldol decanoate started at [place] and then switched to Abilify Maintena and received his second injection on 05/30/2020). He reports smoking marijuana every day, and UDS was + THC, which is likely contributing to his ongoing symptoms and poor treatment response. On admission, he was started on aripiprazole 10 mg by mouth daily and lamotrigine 25 mg daily, then scheduled haloperidol and clonazepam were added in addition to as needed medications, as he remained disorganized, hyperverbal, intrusive, and in poor behavioral control. Outpatient records were reviewed and he was switched to Depakote on 06/05/2020 to target ongoing nhan, and chlorpromazine as aripiprazole has been ineffective. Persistent tachycardia with normal BP, consulted hospitalist service on 06/08 for possible recommendations and ongoing monitoring. Tachycardia has improved, echocardiogram and repeat EKG without significant abnormality. Family meeting for discharge planning held today, being referred for therapy and case management, and will file for a 304 IOC after discussion with his outpatient clinician at [facility] - though now reported that it is uncertain if [facility] will be able to accommodate an involuntary commitment. His hearing will be held on Friday, and the plan is to discharge him afterwards, to police custody as he has an active warrant, with hopes that he will be able to access outpatient treatment after arraignment. Reviewed 06/17/2020. 06/18--no change, remains very much improved Plan: Continue current meds and treatment plan. 304 conversion hearing tomorrow with anticipated discharge home to mother. Inventory Assets Strengths: Willing to take psychiatric medications. Supportive family. Intelligent Needs: Resolution of criminal charges. Resolution of nhan and mood stabilization. Risk Factors Assessment Male: Yes : Yes Do You Have Access To A Gun?: No (The patient says he does not have access to a gun. The emergency room record indicates that during the summer the patient presented after he had attempted to grab a gun at home. It is not known if the gun is still available to him at home.) Health Problems: No Mental Health Diagnoses: Yes Substance Use Disorders: Yes Previous Attempt: No (The patient says that he has never attempted suicide. The record indicates that he was evaluated in the emergency room and hospitalized after he reportedly attempted to grab a gun at home while so threatening to shoot himself.) Family History of Suicide: No Previous Psychiatric Hospitalization: Yes Hopelessness: No Smoker: Yes (The patient variously reports that he smokes and that he does not smoke. We are assuming that he is telling the truth when he says that he does smoke, and nicotine replacement medications have been prescribed.) Protective Factors Assessment Denominational Beliefs: Yes (The patient says that he is Yarsanism. 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 He has a history of bipolar 1 disorder and cannabis abuse, and was admitted on 06/01/20 23:06 on a 302 involuntary commitment for grossly disorganized and dangerous behaviors. Reviewed 06/17/2020. Patient known to me from earlier this stay. Chief Complaint "I'm good, ready to go tomorrow". Review of Systems Sleep Information Total Hours of Sleep: 6.25 Sleep Comments: additional 3.5 hours on 11-23. Meal Information Percent Meal Consumed - Breakfast: 100 Percent Meal Consumed - Lunch: 100 Percent Meal Consumed - Dinner: 100 Nutrition Comment: Pt is sleeping Subjective Subjective Patient was seen & assessed and interval progress reviewed with nursing and social work. No issues overnight. Continuing to voice readiness for discharge and commitment to outpatient services. Physical Exam Psychiatric Orientation: alert Apperance: appropriately dressed and appropriately groomed Eye Contact: + fair eye contact Motor Behavior: steady gait and station Speech: normal rate/rhythm/volume of speech Affect: euthymic affect good mood Thought Process: goal directed thought process Thought Content: reality based without delusions Suicidal Thoughts: denies suicidal thoughts Homicidal Thoughts: denies homicidal thoughts Hallucinations: no auditory hallucinations and no visual hallucinations Vital Signs (Past 24 Hours) Last Vital Signs Temp 36.6 C 06/18/20 06:39 Pulse 65 06/18/20 06:39 Resp 18 06/18/20 06:39 BP 113/72 06/18/20 06:39 Pulse Ox 98 06/01/20 23:54 Results & Data ([facility]) Current Inpatient Medications Current Inpatient Medications: Current Inpatient Medications Acetaminophen (Acetaminophen 325 Mg Tab) 650 mg PO Q4H PRN PRN Reason: Headache or Minor Fever Stop: 07/02/20 00:22 Last Admin: 06/12/20 10:04 Dose: 650 mg Documented by: Al Hydrox/Mg Hydrox/Simethicone (Aluminum/Magnesium Susp 30 Ml Udc) 30 ml PO Q4H PRN PRN Reason: GI Upset Stop: 07/02/20 00:22 Bismuth Subsalicylate (Bismuth Subsalicylate Per Ml [employer] Charge) 15 ml PO PRN PRN PRN Reason: Loose Stool Stop: 07/02/20 00:22 Chlorpromazine HCl (Chlorpromazine Hcl 100 Mg Tablet) 150 mg PO Q6H PRN PRN Reason: psychosis or nhan Stop: 07/07/20 12:59 Last Admin: 06/07/20 13:15 Dose: 150 mg Documented by: Clonazepam (Clonazepam 1 Mg Tab) 1 mg PO Q6H PRN PRN Reason: Anxiety/Agitation Stop: 07/03/20 11:49 Last Admin: 06/09/20 11:43 Dose: 1 mg Documented by: Divalproex Sodium (Divalproex Extended Release 500 Mg Tab) 500 mg PO QAM [facility] Stop: 07/08/20 08:59 Last Admin: 06/18/20 08:44 Dose: 500 mg Documented by: Divalproex Sodium (Divalproex Extended Release 500 Mg Tab) 1,000 mg PO HS TITA Stop: 07/07/20 21:59 Last Admin: 06/17/20 20:51 Dose: 1,000 mg Documented by: Haloperidol (Haloperidol 5 Mg Tab) 5 mg PO Q4 PRN PRN Reason: Psychosis/Agitation Stop: 07/02/20 00:25 Last Admin: 06/06/20 06:34 Dose: 5 mg Documented by: Haloperidol (Haloperidol 5 Mg Tab) 5 mg PO TID [facility] Stop: 07/09/20 13:59 Last Admin: 06/18/20 08:44 Dose: 5 mg Documented by: Haloperidol Lactate (Haloperidol Lactate 5 Mg/Ml 1 Ml Vial) 10 mg IM Q4 PRN PRN Reason: Agitation/Psychosis Stop: 07/02/20 00:25 Hydroxyzine HCl (Hydroxyzine Hcl 25 Mg Tab) 50 mg PO HSZ PRN PRN Reason: Insomnia Stop: 07/02/20 00:22 Last Admin: 06/07/20 21:31 Dose: 50 mg Documented by: Hydroxyzine HCl (Hydroxyzine Hcl 25 Mg Tab) 25 mg PO Q4H PRN PRN Reason: Anxiety Stop: 07/02/20 00:22 Last Admin: 06/13/20 17:42 Dose: 25 mg Documented by: Magnesium Hydroxide (Magnesium Hydroxide Susp 30 Ml Udc) 30 ml PO DAILY PRN PRN Reason: Constipation Stop: 07/02/20 00:22 Miscellaneous (Remove Nicoderm Patch) 1 ea N/A DAILY@0859 [facility] Stop: 07/02/20 08:58 Last Admin: 06/18/20 09:20 Dose: Not Given Documented by: Nicotine (Nicotine 14 Mg/24 Hr Patch) 14 mg TD QAM [facility] Stop: 07/10/20 08:59 Last Admin: 06/18/20 09:20 Dose: Not Given Documented by: Nicotine Polacrilex (Nicotine Polacrilex 2 Mg Gum) 1 piece MT Q1H PRN PRN Reason: nicotine cravings Stop: 07/02/20 11:55 Last Admin: 06/14/20 17:37 Dose: 1 piece Documented by: Sodium Chloride (Sodium Chloride 0.65% Na Soln 45 Ml ([place])) 1 - 2 sprays NA P RN PRN PRN Reason: Nasal Dryness/Congestion Stop: 07/02/20 00:22 Temazepam (Temazepam 15 Mg Capsule) 15 mg PO HSZ PRN PRN Reason: Insomnia Stop: 07/02/20 16:39 Last Admin: 06/08/20 22:55 Dose: 15 mg Documented by: Trihexyphenidyl HCl (Trihexyphenidyl Hcl 2 Mg Tab) 2 mg PO DAILY PRN PRN Reason: dystonia Stop: 07/09/20 10:14 Trihexyphenidyl HCl (Trihexyphenidyl Hcl 2 Mg Tab) 2 mg PO BID TITA Stop: 07/15/20 20:59 Last Admin: 06/18/20 08:44 Dose: 2 mg Documented by: Mental Health & Subst Abuse Tx Psychiatrist Name of Psychiatrist: Alejandra Bansal Psychiatrist's Date of Appointment with Psychiatrist: 06/30/20 Time of Appointment with Psychiatrist: 9:40 a.m. Psychiatric Appointment Comment: [phone] [facility] Therapist Name of Therapist: Alberto Powell (Dual Diagnosis) - Marylou Berger Therapist's Date of Therapist Appointment: 06/21/20 Time of Therapist Appointment: 3:00 p.m. Therapy Appointment Comment: Telehealth - will email you directions Online Marketing Strategist Name of Online Marketing Strategist: [employer] - Bill Phone Number for Online Marketing Strategist: [phone] Date of Appointment with Online Marketing Strategist: 06/23/20 Time of Appointment with Online Marketing Strategist: 1:00 p.m. Case Management Appointment Comment: Will see you at your house Post Discharge Appointments Primary Care Physician Name Of Family Doctor: Alejandra Thomas Primary Care Date of Appointment with PCP: 07/04/20 Time of Appointment with PCP: 2:00 p.m. Provider Appointment Comment: [phone] [facility] Contact Information Discharge Discharge Address: [address] [place] [id number]
[2020-06-19] MEDS: DIVALPROEX EXTENDED RELEASE 500 MG TAB PO SCH (09:13)
[2020-06-19] MEDS: TRIHEXYPHENIDYL HCL 2 MG TAB PO SCH (09:13)
[2020-06-19] MEDS: haloperidoL 5 MG TAB PO SCH (09:13)
[2020-06-19] MEDS: NICOTINE 14 MG/24 HR PATCH TD SCH (09:15)
--- NOTE | 2020-06-19 11:04 | Discharge Summary ---
Date of Service June 19, 2020 History of Present Illness per admitting provider: The patient is a 25-year-old man who was admitted through the emergency department last night after he was evaluated subsequent to a run in with the police. Specifically, the patient allegedly stole a truck and drove it to the [facility]. He was arrested by the police after he got out of the car and, according to reports, he has been charged with a felony in relation to the truck. The patient is not a reliable historian and often makes statements that appear to be deliberately falsified. However, his story is that he had gone to [facility] earlier in the evening and had tried to enter the stadium in response to hearing the voice of his father (the father was nowhere nearby) telling him to go into the stadium where he would meet a particular woman to which he, the patient, is attracted (but not dating or, necessarily, acquainted with) whereupon, according to the voice the patient reportedly was hearing, he and this particular woman would be , possibly in front of a large crowd of spectator's. The patient said that when he was not able to enter the stadium he attempted to alert the [place] police at a police station in an unspecified location. However, upon not receiving a response at the police station, he walked over to the nearby [facility] arena, known as the [facility] and attempted unsuccessfully to enter the arena because his father's voice was now telling him that he when he had been moved there. Apparently, at some point during the above activities the patient encountered a [employer] truck ("a Hana," according to the patient) and he said that when he saw the truck he assumed that he had won the truck as a "prize." A few minutes later, he said that he believes that the truck had been put there as a present from his father, a man who, according the patient, had wants been a [employer] salesman. Patient reports that his belief that the truck was intended for him was heightened when he noticed that the keys were in the ignition or elsewhere in the truck. It is not clear if the truck was unlocked or if he broke into it, but indicates the patient's report is that he started the truck and drove to the ice hockey arena after hearing his father's voice that told him that the wedding had been moved to the ice arena and that his intended bride would be waiting for him. The patient acknowledges that he is a "every day smoker" of marijuana and that he had been smoking marijuana recently. He also said that he suspects that the marijuana that he was smoking may have been tampered with because it was "really good [stuff]." His toxicology screen was positive for marijuana. The patient made a number of statements that were quickly shown to not be true during the admission assessment. These included his insistence that he lives in [place], but does not remember the name of the street he lives on. (The patient is a resident of [place], [place].) He first says that he is craving a cigarette, but then, when asked how many cigarettes he smokes every day, he says that he does not smoke at all. He initially said that he had no history of psychiatric hospitalizations and has never been prescribed any psychiatric medications. The record clearly shows that he was admitted to [facility] earlier this summer after he attempted to grab a gun and threatened to shoot himself. Also, the record indicates that the patient has been prescribed Abilify and may have received Abilify Maintena several days ago. He also reportedly told the emergency department that he had taken his prescribed oral aripiprazole. Physical Exam Mental Examination see admission H&P and DOD summary. Vital Signs (Past 24 Hours) Last Vital Signs Temp 36.7 C 06/19/20 10:53 Pulse 140 H 06/19/20 10:53 Resp 16 06/19/20 10:53 BP 101/58 L 06/19/20 10:53 Pulse Ox 98 06/19/20 10:53 Principal Diagnosis bipolar I disorder, most recent episode manic Psychiatric Data See daily care summary. Was admitted for nhan, initially po Abilify added to IM maintenna that was given outpatient but he remained expanisve and hyperactive/impulsive. He was ultimately converted to extended involunatry commitment, transitioned to higher dose of Depakote and Haldol with significant improvement. He gained more insight into his condition and was able to process the outstanding legal matters. He was agreeable to live with mother and family was supportive of his hospitalization and return home. A 304 conversion hearing was held today and granted. Day of Discharge Assessment alert, cooperative, pleasant, thoughts organized, mood "great", affect congruent, no SI/HI/scott and is able to verbalize his safety plan. He is stable for discharge to outpatient level of care with ongoing case management, psychiatric care ([place]) and therapy at [facility]. Transition of Care Transition Of Care Record: was reviewed with the patient Advance Directives Advance Directives Information Provided: Yes Advance Directives: No Mental Health Advance Directive: No Living Will: No Power of Spinner Cap Frame: No Advance Directives Reason:: Declines as Mental Health Visit. Risk Factors Assessment Male: Yes : Yes Do You Have Access To A Gun?: No (The patient says he does not have access to a gun. The emergency room record indicates that during the summer the patient presented after he had attempted to grab a gun at home. It is not known if the gun is still available to him at home.) Health Problems: No Mental Health Diagnoses: Yes Substance Use Disorders: Yes Previous Attempt: No (The patient says that he has never attempted suicide. The record indicates that he was evaluated in the emergency room and hospitalized after he reportedly attempted to grab a gun at home while so threatening to shoot himself.) Family History of Suicide: No Previous Psychiatric Hospitalization: Yes Hopelessness: No Smoker: Yes (The patient variously reports that he smokes and that he does not s moke. We are assuming that he is telling the truth when he says that he does smoke, and nicotine replacement medications have been prescribed.) Protective Factors Assessment Denominational Beliefs: Yes (The patient says that he is Anabaptist. 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") Stable Relationships: Yes Supportive Family: Yes Good Rapport with Provider: No Absence of Any Risk Factors Above: No Tobacco Cessation at Discharge Tobacco Cessation Medication Prescribed at Discharge: Offered & Pt Refused Total Time Total Time Spent: Greater Than 30 Minutes Total Time Includes: Examination of the patient, Discharge Planning, Medication Reconciliation and Communication with other providers Discharge Data Consultations 06/08/20 12:00 Consult Hospitalist Routine Lab Results 06/01/20 06/01/20 06/01/20 18:36 18:36 18:36 WBC 13.18 H RBC 4.23 L Hgb 13.2 L Hct 37.9 L MCV 89.6 MCH 31.2 MCHC 34.8 RDW Std Deviation 39.0 RDW Coeff of Connie 12.1 Plt Count 240 MPV 9.7 Immature Gran % (Auto) 0.2 Neut % (Auto) 84.2 Lymph % (Auto) 9.2 [place] % (Auto) 5.9 Eos % (Auto) 0.3 Baso % (Auto) 0.2 Neut # (Auto) 11.09 H Lymph # (Auto) 1.21 [place] # (Auto) 0.78 H Eos # (Auto) 0.04 Baso # (Auto) 0.03 Immature Gran # (Auto) 0.03 H Sodium 136 Potassium 3.7 Chloride 105 Carbon Dioxide 26 Anion Gap 5.0 BUN 14 Creatinine 1.01 Est Cr Clr Drug Dosing 103.6 Est GFR ( Amer) 120.9 Est GFR (Non-Af Amer) 104.4 BUN/Creatinine Ratio 13.4 Glucose 146 H Fasting Glucose Calcium 9.4 Total Bilirubin 0.5 AST 15 ALT 27 Alkaline Phosphatase 51 Lactate Dehydrogenase Total Creatine Kinase Total Protein 7.8 Albumin 4.3 Globulin 3.5 Albumin/Globulin Ratio 1.2 Triglycerides Cholesterol LDL Cholesterol, Calc VLDL Cholesterol, Calc HDL Cholesterol Cholesterol/HDL Ratio TSH 0.340 Urine Color Urine Appearance Urine pH Ur Specific [place] Urine Protein Urine Glucose (UA) Urine Ketones Urine Blood Urine Nitrite Urine Bilirubin Urine Urobilinogen Ur Leukocyte Esterase Salicylates < 1.7 L Urine Opiates Screen Ur Methadone, Qual Acetaminophen < 2 L Urine Barbiturates Valproic Acid < 3 L Free Valproic Acid Total Valproic Acid Ur Phencyclidine (PCP) U Amphetamin/Meth Scrn MDMA (Ecstasy) Screen U Benzodiazepines Scrn [place] < 0.2 L Ur Cocaine Metabolite U Marijuana (THC) Screen U Marijuana THC Carboxy Drug Screen Comment Ethyl Alcohol mg/dL 06/01/20 06/01/20 06/01/20 18:36 18:40 18:40 WBC RBC Hgb Hct MCV MCH MCHC RDW Std Deviation RDW Coeff of Connie Plt Count MPV Immature Gran % (Auto) Neut % (Auto) Lymph % (Auto) [place] % (Auto) Eos % (Auto) Baso % (Auto) Neut # (Auto) Lymph # (Auto) [place] # (Auto) Eos # (Auto) Baso # (Auto) Immature Gran # (Auto) Sodium Potassium Chloride Carbon Dioxide Anion Gap BUN Creatinine Est Cr Clr Drug Dosing Est GFR ( Amer) Est GFR (Non-Af Amer) BUN/Creatinine Ratio Glucose Fasting Glucose Calcium Total Bilirubin AST ALT Alkaline Phosphatase Lactate Dehydrogenase Total Creatine Kinase Total Protein Albumin Globulin Albumin/Globulin Ratio Triglycerides Cholesterol LDL Cholesterol, Calc VLDL Cholesterol, Calc HDL Cholesterol Cholesterol/HDL Ratio TSH Urine Color Yellow Urine Appearance Clear Urine pH 7.5 Ur Specific [place] 1.012 Urine Protein Negative Urine Glucose (UA) Negative Urine Ketones Negative Urine Blood Negative Urine Nitrite Negative Urine Bilirubin Negative Urine Urobilinogen Negative Ur Leukocyte Esterase Negative Salicylates Urine Opiates Screen Neg Ur Methadone, Qual Neg Acetaminophen Urine Barbiturates Neg Valproic Acid Free Valproic Acid Total Valproic Acid Ur Phencyclidine (PCP) Neg U Amphetamin/Meth Scrn Neg MDMA (Ecstasy) Screen Neg U Benzodiazepines Scrn Neg [employer] Ur Cocaine Metabolite Neg U Marijuana (THC) Screen Pos H U Marijuana THC Carboxy Drug Screen Comment Ethyl Alcohol mg/dL < 3.0 06/01/20 06/06/20 06/08/20 18:40 08:44 09:02 WBC RBC Hgb Hct MCV MCH MCHC RDW Std Deviation RDW Coeff of Connie Plt Count MPV Immature Gran % (Auto) Neut % (Auto) Lymph % (Auto) [place] % (Auto) Eos % (Auto) Baso % (Auto) Neut # (Auto) Lymph # (Auto) [place] # (Auto) Eos # (Auto) Baso # (Auto) Immature Gran # (Auto) Sodium 140 Potassium 4.1 Chloride 106 Carbon Dioxide 28 Anion Gap 7.0 BUN 8 Creatinine 1.09 Est Cr Clr Drug Dosing 93.3 Est GFR ( Amer) 110.3 Est GFR (Non-Af Amer) 95.2 BUN/Creatinine Ratio 7.4 L Glucose 87 Fasting Glucose 90 Calcium 9.9 Total Bilirubin AST ALT Alkaline Phosphatase Lactate Dehydrogenase Total Creatine Kinase Total Protein Albumin Globulin Albumin/Globulin Ratio Triglycerides 146 Cholesterol 226 H LDL Cholesterol, Calc 153 VLDL Cholesterol, Calc 29 HDL Cholesterol 44 Cholesterol/HDL Ratio 5 TSH Urine Color Urine Appearance Urine pH Ur Specific [place] Urine Protein Urine Glucose (UA) Urine Ketones Urine Blood Urine Nitrite Urine Bilirubin Urine Urobilinogen Ur Leukocyte Esterase Salicylates Urine Opiates Screen Ur Methadone, Qual Acetaminophen Urine Barbiturates Valproic Acid Free Valproic Acid Total Valproic Acid Ur Phencyclidine (PCP) U Amphetamin/Meth Scrn MDMA (Ecstasy) Screen U Benzodiazepines Scrn [place] [employer] Ur Cocaine Metabolite U Marijuana (THC) Screen U Marijuana THC Carboxy 439 H Drug Screen Comment SEE NOTE Ethyl Alcohol mg/dL 06/10/20 06/10/20 06/10/20 07:31 07:31 07:31 WBC RBC Hgb Hct MCV MCH MCHC RDW Std Deviation RDW Coeff of Connie Plt Count MPV Immature Gran % (Auto) Neut % (Auto) Lymph % (Auto) [place] % (Auto) Eos % (Auto) Baso % (Auto) Neut # (Auto) Lymph # (Auto) [place] # (Auto) Eos # (Auto) Baso # (Auto) Immature Gran # (Auto) Sodium Potassium Chloride Carbon Dioxide Anion Gap BUN Creatinine Est Cr Clr Drug Dosing Est GFR ( Amer) Est GFR (Non-Af Amer) BUN/Creatinine Ratio Glucose Fasting Glucose Calcium Total Bilirubin AST ALT Alkaline Phosphatase 50 Lactate Dehydrogenase 134 Total Creatine Kinase 78 Total Protein Albumin Globulin Albumin/Globulin Ratio Triglycerides Cholesterol LDL Cholesterol, Calc VLDL Cholesterol, Calc HDL Cholesterol Cholesterol/HDL Ratio TSH Urine Color Urine Appearance Urine pH Ur Specific [place] Urine Protein Urine Glucose (UA) Urine Ketones Urine Blood Urine Nitrite Urine Bilirubin Urine Urobilinogen Ur Leukocyte Esterase Salicylates Urine Opiates Screen Ur Methadone, Qual Acetaminophen Urine Barbiturates Valproic Acid 95 Free Valproic Acid Total Valproic Acid Ur Phencyclidine (PCP) U Amphetamin/Meth Scrn MDMA (Ecstasy) Screen U Benzodiazepines Scrn [place] [employer] Ur Cocaine Metabolite U Marijuana (THC) Screen U Marijuana THC Carboxy Drug Screen Comment Ethyl Alcohol mg/dL 06/12/20 08:19 WBC RBC Hgb Hct MCV MCH MCHC RDW Std Deviation RDW Coeff of Connie Plt Count MPV Immature Gran % (Auto) Neut % (Auto) Lymph % (Auto) [place] % (Auto) Eos % (Auto) Baso % (Auto) Neut # (Auto) Lymph # (Auto) [place] # (Auto) Eos # (Auto) Baso # (Auto) Immature Gran # (Auto) Sodium Potassium Chloride Carbon Dioxide Anion Gap BUN Creatinine Est Cr Clr Drug Dosing Est GFR ( Amer) Est GFR (Non-Af Amer) BUN/Creatinine Ratio Glucose Fasting Glucose Calcium Total Bilirubin AST ALT Alkaline Phosphatase Lactate Dehydrogenase Total Creatine Kinase Total Protein Albumin Globulin Albumin/Globulin Ratio Triglycerides Cholesterol LDL Cholesterol, Calc VLDL Cholesterol, Calc HDL Cholesterol Cholesterol/HDL Ratio TSH Urine Color Urine Appearance Urine pH Ur Specific [place] Urine Protein Urine Glucose (UA) Urine Ketones Urine Blood Urine Nitrite Urine Bilirubin Urine Urobilinogen Ur Leukocyte Esterase Salicylates Urine Opiates Screen Ur Methadone, Qual Acetaminophen Urine Barbiturates Valproic Acid Free Valproic Acid 14.4 Total Valproic Acid 97.6 Ur Phencyclidine (PCP) U Amphetamin/Meth Scrn MDMA (Ecstasy) Screen U Benzodiazepines Scrn [employer] [place] Ur Cocaine Metabolite U Marijuana (THC) Screen U Marijuana THC Carboxy Drug Screen Comment Ethyl Alcohol mg/dL Hospital Course (1) Bipolar disorder with severe nhan: 06/02/20 -The patient has been admitted to the [facility] behavioral health unit and placed in the special observation area. When more psychiatrically stable he will be encouraged to attend group and activity therapies. In the meantime, individual interventions will be provided. -Collateral information from his family, and possibly from outside treatment providers will be sought. The patient is not a reliable historian and seems to be misrepresenting the truth when it comes to his symptom treatment history. -We will attempt to obtain medical records from [facility]. The patient had initially claimed that he had never been previously psychiatrically hospitalized, but then mentioned, in passing, that he likes the [facility] behavioral health unit much better than he liked [facility], and when asked to explain the contradiction the patient stated, flatly, "I was lying." -After saying that he does not take and has never taken any psychiatric medications, he did acknowledge that he had taken aripiprazole. He gives conflicting reports regarding dose and dose schedule and dose form. However, he also says that he believes that aripiprazole helps, and he cannot recall the last time he actually took it. (There is no indication he may have received an aripiprazole injection an unspecified amount on 05/30/2020, but this has not been verified.) Given the degree of the patient's current nhan, and his psychosis, we will begin aripiprazole 10 mg by mouth now, and then daily pending acquisition of further information. -We will also begin lamotrigine 25 mg daily and titrate as indicated every 2 weeks. Material risks, including but not limited to, Kruger-Arvind syndrome were reviewed with the patient and he indicated understanding. 06/03--add standing order Hall as receiving prns on top of Abilify. Mercadoentin prn. Consider temporary benzo if persists. (2) Marijuana use: 06/02/20 -The patient says that he smokes marijuana every day, and that an ounce of marijuana will last him "a week." He also says that he purchases marijuana from someone who is well-known to him and who he believes is reliable. Nevertheless, he also reports that his current "batch" of marijuana is pa rticularly "good," by which he says he means means strong. -At this point, the patient's thought processes are too disorganized to allow him to benefit from substance abuse counseling. We will refocus our attention on this problem as the patient's psychiatric condition improves. 06/03/20 reviewed (3) Axillary abscess: 06/02/20 -The patient has a small (6-10 mm) injected and tender axillary abscess. He reports that the abscess appeared "a day or 2 ago," and is currently painful. -There are no known allergies. We will treat with Bactroban 2% topical ointment to affected area twice daily. 06/03--reviewed Mental Health & Subst Abuse Tx Psychiatrist Name of Psychiatrist: Alejandra Bansal Psychiatrist's Date of Appointment with Psychiatrist: 06/30/20 Time of Appointment with Psychiatrist: 9:40 a.m. Psychiatric Appointment Comment: [id number] [facility] Psychiatrist Release of Information: Obtained, Reviewed and Signed Therapist Name of Therapist: Alberto Powell (Dual Diagnosis) - Marylou Berger Therapist's Date of Therapist Appointment: 06/21/20 Time of Therapist Appointment: 3:00 p.m. Therapy Appointment Comment: Telehealth - will email you directions Therapist Release of Information: Obtained, Reviewed and Signed 4 H Youth Development Specialist Name of 4 H Youth Development Specialist: [employer] [facility] - Bill Phone Number for 4 H Youth Development Specialist: [phone] Date of Appointment with 4 H Youth Development Specialist: 06/23/20 Time of Appointment with 4 H Youth Development Specialist: 1:00 p.m. Case Management Appointment Comment: Will see you at your house 4 H Youth Development Specialist Release of Information: Obtained, Reviewed and Signed Post Discharge Appointments Primary Care Physician Name Of Family Doctor: Alejandra Thomas Primary [facility] Date of Appointment with PCP: 07/04/20 Time of Appointment with PCP: 2:00 p.m. Provider Appointment Comment: [id number] [facility] Primary Care Release of Information: Obtained, Reviewed and Signed Smoking Cessation Counseling Tobacco Cessation Medication Prescribed at Discharge: Offered & Pt Refused Contact Information Discharge Discharge Address: [address] [place] [address] Discharge Plan Discharge Items Patient Disposition: Home - Self-Care Reason For Visit: PSYCHOSIS NOS Discharge Diagnosis: bipolar disorder Activity: Resume your previous activity Non-emergency contact: Primary Care Provider, Psychiatrist, Therapist and Life Tester [employer] Call non-emergency contact if: you have any medication questions and your symptoms worsen Follow-up/Referrals: PCP,NO [Primary Care Provider] - Diet: Regular Addtl Attending Provider Instructions: SPECIAL CARE INSTRUCTIONS: 1. Follow through with your scheduled aftercare appointments. If unable to keep an appointment, please call to reschedule. 2. Take your medication only as prescribed. Medication should not be changed or stopped without the approval of your doctor. In the event of worsening symptoms or concerns about side effects, contact your doctor immediately. 3. Utilize new healthy coping skills, anger management skills, and stress management skills learned during your hospitalization. Journal feelings and process them with a support person. Identify stressors or situations that may result in relapse, deterioration or inappropriate behaviors and develop a plan to deal with those issues. 4. If your coping skills are ineffective and you are in crisis, contact your outpatient providers for direction. If unable to reach your providers, please call the [facility] CRISIS LINE AT , go to the [facility] walk-in center at [address], [address], [place], or go to the closest Emergency Room. 5. Avoid alcohol and un-prescribed drugs. 6. You have been provided with the Mental Health Advance Directives Pamphlet for your review. AFTERCARE APPOINTMENTS: * Please call your insurance company prior to your scheduled appointment to confirm your aftercare providers are covered. Take your insurance information to your appointments. WHO TO CALL AND WHEN: Medical Emergencies: For questions or emergencies related to your hospital stay, please contact the Inpatient Behavioral Health Unit at [phone]. A ballistics expert forensic is on-call 07/04 for the Behavioral Health Unit for emergencies At any time you feel your situation is an emergency, you may also call 911 immediately. Pending Studies at Discharge: No Stand-Alone Forms: My [facility], Smoking Cessation, Suicide Prevention Resources Medications and DC Order Prescriptions: New divalproex 500 mg Tablet Extended Release 24 Hr See Rx Instructions .ROUTE .COMPLEX Qty: 90 RF: 0 haloperidol 5 mg Tablet 5 mg PO TID 30 Days Qty: 90 RF: 0 Discontinued Abilify Maintena 400 mg suspension,extended rel recon 400 mg IM MONTHLY RF: 0 divalproex 500 mg tablet extended release 24 hr 500 mg PO HS RF: 0 Discharge Orders: Discharge Order (Routine); Ordered 06/19/20 Ordered By: Lawanda High Admission Data Admit Date/Time: 06/01/20 23:06 Attending Provider: Iris Martinez Admit Provider: Iris Martinez Primary Care Provider: PCP,NO Other Providers: Denilson Hoffmann Other Interventions: Discharge Summary Assessment (RN) Last Done: 06/19/20 10:53 PSY Interdisciplinary Discharge Planning Last Done: 06/19/20 10:50 Coding Level of Care Code 27754 D/C day mgmt > 30 min Diagnoses Bipolar disorder with severe nhan F31.13 Marijuana use F12.90 Axillary abscess L02.419
== END 2020-06-19 11:30 | disposition home or self-care (01) | DRG 885 ==
LOC: ED 18:05 → SUATTDRO 23:06 → 3S 23:06

== ENCOUNTER 2020-07-14 12:34 | Inpatient (IN) ==
[2020-07-14] MEDS ORDERED: NICOTINE 21 MG/24 HR TDSY TD STA (13:13)
[2020-07-14] MEDS ORDERED: NICOTINE POLACRILEX 2 MG GUM MT PRN (13:13)
[2020-07-14 13:15] LABS: Appearance Urine Clear (Clear); Bilirubin Urine Negative (Negative); Blood Urine Negative (Negative); Color Urine Yellow; Glucose Urine UA Negative (Negative); Ketones Urine Negative (Negative); Leukocyte Esterase Urine Negative (Negative); Nitrite Urine Negative (Negative); Protein Urine Negative (Negative); Specific Gravity Urine 1.019 (1.000-1.030); Urobilinogen Urine Negative (Negative); pH Urine 6.5 (4.5-7.5)
--- NOTE | 2020-07-14 13:17 | Emergency Department Note ---
History of Present Illness General Chief complaint: Mental Health Evaluation Stated complaint: FEELING MANIC Time Seen by Provider: 07/14/20 12:45 Source: patient and family Mode of arrival: ambulatory Limitations: no limitations History of Present Illness Provider complaint: Hallucinations, manic Onset (ago): day(s) This is a 25-year-old male with a history of bipolar disorder who was brought in with mom due to concern for increased nhan type symptoms, increased agitation, and hallucinations similar to prior episodes. Patient was last treated on 3 S. the end of May into the beginning of June. Patient states he has been taking his medications as prescribed. States recently his Haldol was increased to 2 tablets at night to try and help him sleep. Patient states he is taking his medications as prescribed. Patient states he does vape, denies any other tobacco use, alcohol or recreational drugs. Mother states he has been living with them and she confirms that he has not otherwise been using any illicit substance. He denies any other concern for illness or injury, no concern for any sick contact. Patient denies SI or HI, does admit to hallucinations which he states he has had before. Denies that the hallucinations tell him to her hurt himself or anyone else. Mother states he has become increasingly agitated, slightly threatening and aggressive in his behavior, which she recognizes is all similar to prior episodes Pt seen during a time of high acuity and national emergency pandemic while wearing PPE. Home Medications Home Medications Medication Instructions Recorded Confirmed Type benztropine [Cogentin] 0.5 mg PO BID 07/14/20 07/14/20 History diphenhydramine HCl [Benadryl] 25 mg PO Q6H PRN 07/14/20 07/14/20 History divalproex 1,000 mg PO HS 07/14/20 07/14/20 History divalproex 500 mg PO QAM 07/14/20 07/14/20 History haloperidol 5 mg PO QAM 07/14/20 07/14/20 History haloperidol 5 mg PO QPM 07/14/20 07/14/20 History haloperidol 10 mg PO HS 07/14/20 07/14/20 History Allergies Allergy/AdvReac Type Severity Reaction Status Date / Time No Known Allergies Allergy Mild Verified 03/23/20 15:13 Past Med/Surg History Medical History Bipolar disorder Kidney stones Surgical History H/O adenoidectomy Hx of tonsillectomy Family History Father Myocardial infarction Mother Anxiety Social History Smoking Status: Current every day smoker Tobacco Type: E-cigarettes / Vaping Preferred Language: [place] Communication Ability: Effective Vp Revenue Cycle Required: No Beliefs That Will Affect Care: None Feels Safe at Home: Yes Assistive Devices: Glasses Review of Systems See HPI for pertinent positives & negatives. and A total of 10 systems reviewed and were otherwise negative Physical Exam Vital Signs Vital Signs - 24 hr 07/14/20 12:38 07/14/20 14:45 Temperature 36.5 C Temperature Source Oral Pulse Rate 108 H Pulse Rate [Left Finger] 104 H Pulse Rhythm Regular Pulse Rhythm [Left Finger] Regular Pulse Strength Normal Pulse Strength [Left Finger] Normal Respiratory Rate 20 16 Respiratory Effort / Characteristics Non-Labored Non-Labored Respiratory Depth Normal Normal Respiratory Pattern Regular Regular Blood Pressure 135/85 Blood Pressure [Left Arm] 138/87 Blood Pressure Mean 101 Blood Pressure Mean [Left Arm] 104 Blood Pressure Position Lying Blood Pressure Position [Left Arm] Lying Pulse Oximetry 98 98 Oxygen Delivery Method Room Air Room Air Sepsis Recent Fever Within 48 Hours No Sepsis New/Unexplained Change in Mental Status No Sepsis Action Taken by Nursing No Action Required GENERAL: alert, well appearing, well nourished, no distress, non-toxic EYE EXAM: normal conjunctiva, PERRL and EOM's grossly intact OROPHARYNX: no exudate, no erythema, lips, buccal mucosa, and tongue normal and mucous membranes are moist NECK: supple, no nuchal rigidity, no adenopathy, non-tender LUNGS: Clear to auscultation. Normal chest wall mechanics, no w/r/r HEART: no murmurs, S1 normal and S2 normal ABDOMEN: abdomen soft, non-tender, normo-active bowel sounds, no masses, no rebound or guarding. BACK: Back is symmetrical on inspection and there is no deformity, no midline tenderness, no CVA tenderness. SKIN: no rashes and no bruising UPPER EXTREMITIES: upper extremities are grossly normal. FROM, nml pulses b/l. LOWER EXTREMITIES: No pitting edema. FROM, nml pulses b/l. NEURO EXAM: Normal sensorium, cranial nerves II-XII grossly intact, normal speech, no gross weakness of arms, no gross weakness of legs. Gross sensation intact. PSYCH: Makes good eye contact, odd affect Course Course 1520: Call from Kathy, case management, requesting a coronavirus test for mental health placement. 1750: Patient admitted to [facility]. 201 signed. Administered Medications Benztropine Mesylate (Benztropine Mesylate 0.5 Mg Tab) 0.5 mg PO BID [facility] Stop: 08/13/20 20:59 Last Admin: 07/15/20 08:48 Dose: 0.5 mg Documented by: [id number] Admin: 07/14/20 19:46 Dose: 0.5 mg Documented by: [id number] Benztropine Mesylate (Benztropine Mesylate 1 Mg Tab) 1 mg PO Q6 PRN PRN Reason: Muscle Spasm Stop: 08/14/20 11:59 Last Admin: 07/15/20 12:19 Dose: 1 mg Documented by: [id number] Divalproex Sodium (Divalproex Extended Release 500 Mg Tab) 1,000 mg PO [facility] Stop: 08/13/20 20:59 Last Admin: 07/14/20 19:47 Dose: 1,000 mg Documented by: [id number] Divalproex Sodium (Divalproex Extended Release 500 Mg Tab) 500 mg PO QAM [facility] Stop: 08/14/20 08:59 Last Admin: 07/15/20 08:46 Dose: 500 mg Documented by: [id number] Haloperidol (Haloperidol 5 Mg Tab) 5 mg PO QAM [facility] Stop: 08/14/20 08:59 Last Admin: 07/15/20 08:47 Dose: 5 mg Documented by: [id number] Haloperidol (Haloperidol 5 Mg Tab) 5 mg PO DAILY@1200 [facility] Stop: 08/14/20 11:59 Last Admin: 07/15/20 12:19 Dose: 5 mg Documented by: [id number] Haloperidol (Haloperidol 5 Mg Tab) 10 mg PO HS [facility] Stop: 08/13/20 20:59 Last Admin: 07/14/20 19:48 Dose: 10 mg Documented by: [id number] Hydroxyzine HCl (Hydroxyzine Hcl 25 Mg Tab) 25 mg PO Q4H PRN PRN Reason: Anxiety Stop: 08/13/20 17:26 Last Admin: 07/15/20 06:27 Dose: 25 mg Documented by: [id number] Miscellaneous (Remove Nicoderm Patch) 1 ea N/A DAILY@0859 [facility] Stop: 08/14/20 08:58 Last Admin: 07/15/20 08:50 Dose: Not Given Documented by: [id number] Nicotine (Nicotine 21 Mg/24 Hr Tdsy) 21 mg TD QAM [facility] Stop: 08/14/20 08:59 Last Admin: 07/15/20 13:56 Dose: 21 mg Documented by: [id number] Admin: 07/15/20 08:51 Dose: Not Given Documented by: [id number] Discontinued Medications Haloperidol (Haloperidol 5 Mg Tab) 5 mg PO NOW STA Stop: 07/14/20 14:26 Last Admin: 07/14/20 14:40 Dose: 5 mg Documented by: [id number] Nicotine (Nicotine 21 Mg/24 Hr Tdsy) 21 mg TD NOW STA Stop: 07/14/20 13:14 Last Admin: 07/14/20 13:21 Dose: 21 mg Documented by: [id number] Nicotine Polacrilex (Nicotine Polacrilex 2 Mg Gum) 1 piece MT PRN PRN PRN Reason: Agitation Stop: 08/13/20 13:12 Last Admin: 07/14/20 13:21 Dose: 1 piece Documented by: [id number] Paliperidone (Paliperidone 3 Mg Tabcr) 3 mg PO ONE ONE Stop: 07/15/20 09:26 Last Admin: 07/15/20 10:03 Dose: 3 mg Documented by: [id number] Medical Decision Making Differential Diagnosis Differential diagnoses considered include mood disorder, infection, hypoglycemia, electrolyte abnormalities, cardiac sources, intracerebral event, toxicologic, neurologic, as well as others. Medical Records Attestation: I reviewed the patient's medical records. Home Medications Current Medication List: was personally reviewed by me Laboratory Data Attestation: I reviewed the patient's lab results. Result diagrams: 07/14/20 14:02 07/14/20 14:02 Lab Results 07/14/20 07/14/20 07/14/20 Range/Units 12:49 12:49 14:02 WBC 5.90 (4.8-10.8) K/uL RBC 4.47 L (4.7-6.1) M/uL Hgb 13.9 L (14.0-18.0) g/dL Hct 40.5 L (42-52) % MCV 90.6 (80-100) fL MCH 31.1 (25-34) pg MCHC 34.3 (32-36) g/dL RDW Std Deviation 41.3 (36.4-46.3) fL RDW Coeff of Connie 12.4 (11.5-14.5) % Plt Count 238 (130-400) K/uL MPV 10.5 H (7.4-10.4) fL Immature Gran % (Auto) 0.5 % Neut % (Auto) 49.1 % Lymph % (Auto) 35.6 % Moffat % (Auto) 10.8 % Eos % (Auto) 3.2 % Baso % (Auto) 0.8 % Neut # (Auto) 2.89 (1.4-6.5) K/uL Lymph # (Auto) 2.10 (1.2-3.4) K/uL Moffat # (Auto) 0.64 H (0.11-0.59) K/uL Eos # (Auto) 0.19 (0-0.5) K/uL Baso # (Auto) 0.05 (0-0.2) K/uL Immature Gran # (Auto) 0.03 H (0.00-0.02) K/uL Sodium (136-145) mmol/L Potassium (3.5-5.1) mmol/L Chloride (98-107) mmol/L Carbon Dioxide (21-32) mmol/L Anion Gap (3-11) BUN (7-18) mg/dl Creatinine (0.6-1.4) mg/dl Est Cr Clr Drug Dosing ml/min Est GFR ( Amer) Est GFR (Non-Af Amer) BUN/Creatinine Ratio (10-20) Glucose (70-99) mg/dl Calcium (8.5-10.1) mg/dl Total Bilirubin (0.2-1) mg/dl AST (15-37) U/L ALT (12-78) U/L Alkaline Phosphatase (45-117) U/L Total Protein (6.4-8.2) gm/dl Albumin (3.4-5.0) gm/dl Globulin (2.5-4.0) gm/dl Albumin/Globulin Ratio (0.9-2) TSH (0.300-4.500) uIu/ml Urine Color Yellow Urine Appearance Clear (Clear) Urine pH 6.5 (4.5-7.5) Ur Specific [place] 1.019 (1.000-1.030) Urine Protein Negative (Negative) Urine Glucose (UA) Negative (Negative) Urine Ketones Negative (Negative) Urine Blood Negative (Negative) Urine Nitrite Negative (Negative) Urine Bilirubin Negative (Negative) Urine Urobilinogen Negative (Negative) Ur Leukocyte Esterase Negative (Negative) Salicylates (2.8-20) mg/dl Urine Opiates Screen Neg (Neg) Ur Methadone, Qual Neg (Neg) Acetaminophen (10-30) ug/ml Urine Barbiturates Neg (Neg) Valproic Acid (50-100) mcg/ml Ur Phencyclidine (PCP) Neg (Neg) U Amphetamin/Meth Scrn Neg (Neg) MDMA (Ecstasy) Screen Neg (Neg) U Benzodiazepines Scrn Neg (Neg) Ur Cocaine Metabolite Neg (Neg) U Marijuana (THC) Screen Neg (Neg) Ethyl Alcohol mg/dL (0-3) mg/dl COVID-19 Eval Order SARS-CoV-2, RNA, NAAT (NEGATIVE) 07/14/20 07/14/20 07/14/20 Range/Units 14:02 14:02 14:02 WBC (4.8-10.8) K/uL RBC (4.7-6.1) M/uL Hgb (14.0-18.0) g/dL Hct (42-52) % MCV (80-100) fL MCH (25-34) pg MCHC (32-36) g/dL RDW Std Deviation (36.4-46.3) fL RDW Coeff of Connie (11.5-14.5) % Plt Count (130-400) K/uL MPV (7.4-10.4) fL Immature Gran % (Auto) % Neut % (Auto) % Lymph % (Auto) % Moffat % (Auto) % Eos % (Auto) % Baso % (Auto) % Neut # (Auto) (1.4-6.5) K/uL Lymph # (Auto) (1.2-3.4) K/uL Moffat # (Auto) (0.11-0.59) K/uL Eos # (Auto) (0-0.5) K/uL Baso # (Auto) (0-0.2) K/uL Immature Gran # (Auto) (0.00-0.02) K/uL Sodium 138 (136-145) mmol/L Potassium 4.4 (3.5-5.1) mmol/L Chloride 106 (98-107) mmol/L Carbon Dioxide 30 (21-32) mmol/L Anion Gap 2.0 L (3-11) BUN 16 (7-18) mg/dl Creatinine 0.99 (0.6-1.4) mg/dl Est Cr Clr Drug Dosing 107.0 ml/min Est GFR ( Amer) 123.9 Est GFR (Non-Af Amer) 106.9 BUN/Creatinine Ratio 16.3 (10-20) Glucose 80 (70-99) mg/dl Calcium 9.6 (8.5-10.1) mg/dl Total Bilirubin 0.5 (0.2-1) mg/dl AST 14 L (15-37) U/L ALT 22 (12-78) U/L Alkaline Phosphatase 64 (45-117) U/L Total Protein 8.1 (6.4-8.2) gm/dl Albumin 4.4 (3.4-5.0) gm/dl Globulin 3.7 (2.5-4.0) gm/dl Albumin/Globulin Ratio 1.2 (0.9-2) TSH 0.682 (0.300-4.500) uIu/ml Urine Color Urine Appearance (Clear) Urine pH (4.5-7.5) Ur Specific [place] (1.000-1.030) Urine Protein (Negative) Urine Glucose (UA) (Negative) Urine Ketones (Negative) Urine Blood (Negative) Urine Nitrite (Negative) Urine Bilirubin (Negative) Urine Urobilinogen (Negative) Ur Leukocyte Esterase (Negative) Salicylates < 1.7 L (2.8-20) mg/dl Urine Opiates Screen (Neg) Ur Methadone, Qual (Neg) Acetaminophen < 2 L (10-30) ug/ml Urine Barbiturates (Neg) Valproic Acid 83 (50-100) mcg/ml Ur Phencyclidine (PCP) (Neg) U Amphetamin/Meth Scrn (Neg) MDMA (Ecstasy) Screen (Neg) U Benzodiazepines Scrn (Neg) Ur Cocaine Metabolite (Neg) U Marijuana (THC) Screen (Neg) Ethyl Alcohol mg/dL < 3.0 (0-3) mg/dl COVID-19 Eval Order SARS-CoV-2, RNA, NAAT (NEGATIVE) 07/14/20 07/14/20 Range/Units 15:33 15:33 WBC (4.8-10.8) K/uL RBC (4.7-6.1) M/uL Hgb (14.0-18.0) g/dL Hct (42-52) % MCV (80-100) fL MCH (25-34) pg MCHC (32-36) g/dL RDW Std Deviation (36.4-46.3) fL RDW Coeff of Connie (11.5-14.5) % Plt Count (130-400) K/uL MPV (7.4-10.4) fL Immature Gran % (Auto) % Neut % (Auto) % Lymph % (Auto) % Moffat % (Auto) % Eos % (Auto) % Baso % (Auto) % Neut # (Auto) (1.4-6.5) K/uL Lymph # (Auto) (1.2-3.4) K/uL Moffat # (Auto) (0.11-0.59) K/uL Eos # (Auto) (0-0.5) K/uL Baso # (Auto) (0-0.2) K/uL Immature Gran # (Auto) (0.00-0.02) K/uL Sodium (136-145) mmol/L Potassium (3.5-5.1) mmol/L Chloride (98-107) mmol/L Carbon Dioxide (21-32) mmol/L Anion Gap (3-11) BUN (7-18) mg/dl Creatinine (0.6-1.4) mg/dl Est Cr Clr Drug Dosing ml/min Est GFR ( Amer) Est GFR (Non-Af Amer) BUN/Creatinine Ratio (10-20) Glucose (70-99) mg/dl Calcium (8.5-10.1) mg/dl Total Bilirubin (0.2-1) mg/dl AST (15-37) U/L ALT (12-78) U/L Alkaline Phosphatase (45-117) U/L Total Protein (6.4-8.2) gm/dl Albumin (3.4-5.0) gm/dl Globulin (2.5-4.0) gm/dl Albumin/Globulin Ratio (0.9-2) TSH (0.300-4.500) uIu/ml Urine Color Urine Appearance (Clear) Urine pH (4.5-7.5) Ur Specific [place] (1.000-1.030) Urine Protein (Negative) Urine Glucose (UA) (Negative) Urine Ketones (Negative) Urine Blood (Negative) Urine Nitrite (Negative) Urine Bilirubin (Negative) Urine Urobilinogen (Negative) Ur Leukocyte Esterase (Negative) Salicylates (2.8-20) mg/dl Urine Opiates Screen (Neg) Ur Methadone, Qual (Neg) Acetaminophen (10-30) ug/ml Urine Barbiturates (Neg) Valproic Acid (50-100) mcg/ml Ur Phencyclidine (PCP) (Neg) U Amphetamin/Meth Scrn (Neg) MDMA (Ecstasy) Screen (Neg) U Benzodiazepines Scrn (Neg) Ur Cocaine Metabolite (Neg) U Marijuana (THC) Screen (Neg) Ethyl Alcohol mg/dL (0-3) mg/dl COVID[facility]19 [facility], NAAT NEGATIVE (NEGATIVE) MDM Narrative Well-appearing 25-year-old male with a history of bipolar disorder who presents due to worsening symptoms of possible manic episode again. Patient was recently inpatient in a psychiatric facility. Patient is taking his medications and several adjustments were recently made. Mother concerned about evolving manic episode and psychosis. Patient willing to come in voluntarily, 201 signed, patient accepted to 3 S. Impression & Plan Bipolar disorder with severe nhan, Auditory hallucinations Discharge Plan Visit Data Chief Complaint: Mental Health Evaluation Stated Complaint: FEELING MANIC ED Provider: Larisa Kaur Discharge Problem: Bipolar disorder with severe nhan, Auditory hallucinations Patient Disposition: Admitted As Inpatient Discharge Instructions Interventions: ED Discharge Assessment Last Done: 07/14/20 18:10
[2020-07-14 13:37] LABS: Amphetamines+Metham, Urine Neg (Neg); Barbiturates, Urine Neg (Neg); Benzodiazepine, Urine Neg (Neg); Cocaine, Urine Neg (Neg); MDMA (Ecstacy), Urine Neg (Neg); Methadone, Urine Neg (Neg); Opiate, Urine Neg (Neg); Phencyclidine, Urine Neg (Neg)
[2020-07-14] MEDS ORDERED: haloperidoL 5 MG TAB PO STA (14:25)
[2020-07-14 14:40] LABS: Basophils # (auto) 0.05 K/uL (0-0.2); Basophils % (auto) 0.8 %; Eosinophils # (auto) 0.19 K/uL (0-0.5); Eosinophils % (auto) 3.2 %; Hematocrit (blood only) 40.5 % (42-52); Hemoglobin 13.9 g/dL (14.0-18.0); Immature Granulocytes # (auto) 0.03 K/uL (0.00-0.02); Immature Granulocytes % (auto) 0.5 %; Lymphocytes % (auto) 35.6 %; Mean Corpuscular Hemoglobin 31.1 pg (25-34); Mean Corpuscular Hgb Conc 34.3 g/dL (32-36); Mean Corpuscular Volume 90.6 fL (80-100); Mean Platelet Volume 10.5 fL (7.4-10.4); Monocytes # (auto) 0.64 K/uL (0.11-0.59); Monocytes % (auto) 10.8 %; Neutrophils # (auto) 2.89 K/uL (1.4-6.5); Neutrophils % (auto) 49.1 %; Platelet Count 238 K/uL (130-400); RDW Coefficient of Variation 12.4 % (11.5-14.5); RDW Standard Deviation 41.3 fL (36.4-46.3); Red Blood Count 4.47 M/uL (4.7-6.1)
[2020-07-14 14:49] LABS: Albumin Level 4.4 gm/dl (3.4-5.0); BUN Creatinine Ratio 16.3 (10-20); Calcium 9.6 mg/dl (8.5-10.1); Est GFR (African American) 123.9; Est GFR (Non-African American) 106.9; Potassium 4.4 mmol/L (3.5-5.1)
[2020-07-14 15:00] LABS: Albumin Globulin Ratio 1.2 (0.9-2); Bilirubin,Total 0.5 mg/dl (0.2-1); Globulin 3.7 gm/dl (2.5-4.0); Thyroid Stimulating Hormone 0.682 uIu/ml (0.300-4.500); Total Protein 8.1 gm/dl (6.4-8.2)
[2020-07-14 15:11] LABS: Acetaminophen < 2 ug/ml (10-30); Salicylate < 1.7 mg/dl (2.8-20); Valproic Acid 83 mcg/ml (50-100)
[2020-07-14] MEDS ORDERED: MAGNESIUM HYDROXIDE SUSP 30 ML UDC PO PRN ×2 (17:27→17:34)
[2020-07-14] MEDS ORDERED: BISMUTH SUBSALICYLATE LIQD 236 ML PO PRN ×2 (17:27→17:34)
[2020-07-14] MEDS ORDERED: ACETAMINOPHEN 325 MG TAB PO PRN ×2 (17:27→17:34)
[2020-07-14] MEDS ORDERED: SODIUM CHLORIDE 0.65% NA SOLN 45 ML (OCEAN) PRN ×2 (17:27→17:34)
[2020-07-14] MEDS ORDERED: ALUMINUM/MAGNESIUM SUSP 30 ML UDC PO PRN (17:34)
[2020-07-14] MEDS ORDERED: hydrOXYzine HCl 25 MG TAB PO PRN ×2 (17:34)
[2020-07-14] MEDS: BENZTROPINE MESYLATE 0.5 MG TAB PO SCH (19:46)
[2020-07-14] MEDS: DIVALPROEX EXTENDED RELEASE 500 MG TAB PO SCH (19:47)
[2020-07-14] MEDS: haloperidoL 5 MG TAB PO SCH (19:48)
[2020-07-15] MEDS: hydrOXYzine HCl 25 MG TAB PO PRN ×2 (06:27→22:40)
[2020-07-15] MEDS: DIVALPROEX EXTENDED RELEASE 500 MG TAB PO SCH ×2 (08:46→20:29)
[2020-07-15] MEDS: haloperidoL 5 MG TAB PO SCH ×3 (08:47→20:29)
[2020-07-15] MEDS: BENZTROPINE MESYLATE 0.5 MG TAB PO SCH ×2 (08:48→20:28)
[2020-07-15] MEDS: NICOTINE 21 MG/24 HR TDSY TD SCH ×2 (08:51→13:56)
[2020-07-15] MEDS ORDERED: PALIPERIDONE 3 MG TABCR PO ONE (09:25)
[2020-07-15] MEDS: BENZTROPINE MESYLATE 1 MG TAB PO PRN (12:19)
--- NOTE | 2020-07-15 12:33 | History & Physical ---
Date of Service July 15, 2020 Impression / Recommendations Impression 25 yo male with breakthrough manic symptoms presents for rehospitalization. He is currently manic but not to level of disorganization/agitation as last stay. (1) Bipolar disorder with severe nhan: The patient was admitted to the [facility]) on q15 min checks (behavioral with suicide precautions) for safety. The patient will participate in group, recreational, and milieu therapies and will be offered additional individual and family sessions as clinically appropriate. Risks/benefits/alternatives reviewed re: his current medications. Recommend a true Depakote trough. He requested to resume an injectable and reviewed that I'd suggest Invega as failed Abilify. Likely to require auth as primary diagnosis is bipolar disorder. Will challenge with 3 mg Invega today, reviewed lower mcc risk of TD than Haldol. Invega 6 mg tomorrow, when can confirm coverage/tolerability will inject. I suspect maybe med compliance wasn't 100% in recent days if parents away but will work to confirm. Will need to update county re: admission given 304 status. Inventory Assets Strengths: more insight this visit, family support Needs: confirm plan for outpatient care as provider on medical leave Risk Factors Assessment Male: Yes : Yes Do You Have Access To A Gun?: No Mental Health Diagnoses: Yes Substance Use Disorders: No Previous Attempt: No Previous Psychiatric Hospitalization: Yes Smoker: Yes Protective Factors Assessment Responsible for Young Children: No Employed: No Supportive Family: Yes Psychiatric History Identifying Data TARUN CAMPUZANO is a 25-year-old M who currently lives with mother, has a history o f recent inpatient stay on for nhan, and was admitted on 07/14/20 17:28 on a 201 voluntary commitment for increased agitation and non-specific hallucinations. Chief Complaint "I'm taking meds, Depakote is a gift from God". History of Present Illness Tarun was just hospitalized on the unit from 06/02-06/29 for manic episode after stealing a truck and discharged on a 304 outpatient commitment. Unclear when family first noted decline, he reports that stayed with sister for a few days while parents went camping. Found to be more restless and expansive at a recent appt with [place] where his hs Haldol was increased as reportedly not sleeping as well. He now denies this. States that "I don't need to be here, I just play video games at home and music is the only therapy I need". His case managers and mother convinced him to go to ED where he was found to be more anxious, restless, rapid speech, said he heard the voice of God. Past Psychiatric History Current Psychiatric Diagnosis: Bipolar Disorder Outpatient Services: Alejandra Yang, Salvador Galindo CM Previous Psych Admissions: as above [facility], 2 previous [place] Do You Have Access To A Gun?: No Describe Attempts in the Past: Denies Past Medication Trials: [place], Abilify, Abilify maintenna, Depakote, Haldol Allergies Allergy/AdvReac Type Severity Reaction Status Date / Time No Known Allergies Allergy Mild Verified 03/23/20 15:13 Home Medications Home Medications Medication Instructions Recorded Confirmed Type benztropine [Cogentin] 0.5 mg PO BID 07/14/20 07/14/20 History diphenhydramine HCl [Benadryl] 25 mg PO Q6H PRN 07/14/20 07/14/20 History divalproex 1,000 mg PO HS 07/14/20 07/14/20 History divalproex 500 mg PO QAM 07/14/20 07/14/20 History haloperidol 5 mg PO QAM 07/14/20 07/14/20 History haloperidol 5 mg PO QPM 07/14/20 07/14/20 History haloperidol 10 mg PO HS 07/14/20 07/14/20 History Family History Family History of: Depression and Anxiety Alcohol History Hx of Alcohol Use Over the Past 12 Months: No AUDIT Total Score: 1 Smoking Use Have You Smoked or Used Tobacco Products in the Last 30 Days: Yes tobacco type: e-cigarettes Smoking Status: Current every day smoker Smoking packs per day: 1 Substance History Hx of Prescription Med Misuse Over the Past 12 Months: No Hx of Over the Counter Med Misuse Over the Past 12 Months: No Hx of Inhalent Misuse Over the Past 12 Months: No Hx of Organic Substance Use Over the Past 12 Months: Yes (MJ, hasn't used since last admission to [address] [place] [address] (confirmed by tox)) Hx of Illegal Substances/Street Drug Use Over Past 12 Months: No Problems as a Result of Past Substance Use: None Identified Personal History Living Arrangements: Home Living Arrangements Comments: Patient resides at home with his mom Highest Grade Completed: High School Graduate Employment Status: Unemployed Marital Status: Single Number Of Children: 0 Beliefs That Will Affect Care: None Current Legal Problems: Yes (unclear status of charges from last admit, he is grandiose but says no) Legal Problems Comment: Last admission in May, patient stole a truck Hx Traumatic Life Events: No Patient History Medical History Bipolar disorder Kidney stones Surgical History H/O adenoidectomy Hx of tonsillectomy Family History Father Myocardial infarction Mother Anxiety Social History Smoking Status: Current every day smoker Tobacco Type: E-cigarettes / Vaping Preferred Language: Hong Konger Communication Ability: Effective Grocery Buyer Required: No Beliefs That Will Affect Care: None Feels Safe at Home: Yes Assistive Devices: Glasses Review of Systems Review of Systems: All systems reviewed & are unremarkable except as noted in HPI & below Physical Exam Psychiatric: Orientation: alert Apperance: appropriately groomed Eye Contact: good eye contact restless hyperverbal Affect: + elated affect Mood: + irritable mood Thought Process: + tangential thought process Thought Content: + persecution Suicidal Thoughts: denies suicidal thoughts Homicidal Thoughts: denies homicidal thoughts Hallucinations: no auditory hallucinations and no visual hallucinations Cognition: + attention not intact Estimated Intelligence: consistent with education level Insight: + poor insight Judgement: + poor judgement Vital Signs (Past 24 Hours): Last Vital Signs Temp 36.7 C 07/15/20 06:29 Pulse 106 H 07/15/20 06:29 Resp 17 07/15/20 06:29 BP 120/77 07/15/20 06:29 Pulse Ox 97 07/14/20 19:05 Exam Statement: A physical exam was performed in the ED by Dr. Kaur for the purposes of medical clearance. I accept that physical as correct and adequate for the purposes of the inpatient physical exam. Results & Data ([facility]) Laboratory Results Laboratory Results - last 24 hr 07/14/20 07/14/20 07/14/20 12:49 12:49 14:02 WBC 5.90 RBC 4.47 L Hgb 13.9 L Hct 40.5 L MCV 90.6 MCH 31.1 MCHC 34.3 RDW Std Deviation 41.3 RDW Coeff of Connie 12.4 Plt Count 238 MPV 10.5 H Immature Gran % (Auto) 0.5 Neut % (Auto) 49.1 Lymph % (Auto) 35.6 [place] % (Auto) 10.8 Eos % (Auto) 3.2 Baso % (Auto) 0.8 Neut # (Auto) 2.89 Lymph # (Auto) 2.10 [place] # (Auto) 0.64 H Eos # (Auto) 0.19 Baso # (Auto) 0.05 Immature Gran # (Auto) 0.03 H Sodium Potassium Chloride Carbon Dioxide Anion Gap BUN Creatinine Est Cr Clr Drug Dosing Est GFR ( Amer) Est GFR (Non-Af Amer) BUN/Creatinine Ratio Glucose Calcium Total Bilirubin AST ALT Alkaline Phosphatase Total Protein Albumin Globulin Albumin/Globulin Ratio TSH Urine Color Yellow Urine Appearance Clear Urine pH 6.5 Ur Specific [place] 1.019 Urine Protein Negative Urine Glucose (UA) Negative Urine Ketones Negative Urine Blood Negative Urine Nitrite Negative Urine Bilirubin Negative Urine Urobilinogen Negative Ur Leukocyte Esterase Negative Salicylates Urine Opiates Screen Neg Ur Methadone, Qual Neg Acetaminophen Urine Barbiturates Neg Valproic Acid Ur Phencyclidine (PCP) Neg U Amphetamin/Meth Scrn Neg MDMA (Ecstasy) Screen Neg U Benzodiazepines Scrn Neg Ur Cocaine Metabolite Neg U Marijuana (THC) Screen Neg Ethyl Alcohol mg/dL COVID-19 Eval Order SARS-CoV-2, RNA, NAAT 07/14/20 07/14/20 07/14/20 14:02 14:02 14:02 WBC RBC Hgb Hct MCV MCH MCHC RDW Std Deviation RDW Coeff of Connie Plt Count MPV Immature Gran % (Auto) Neut % (Auto) Lymph % (Auto) [place] % (Auto) Eos % (Auto) Baso % (Auto) Neut # (Auto) Lymph # (Auto) [place] # (Auto) Eos # (Auto) Baso # (Auto) Immature Gran # (Auto) Sodium 138 Potassium 4.4 Chloride 106 Carbon Dioxide 30 Anion Gap 2.0 L BUN 16 Creatinine 0.99 Est Cr Clr Drug Dosing 107.0 Est GFR ( Amer) 123.9 Est GFR (Non-Af Amer) 106.9 BUN/Creatinine Ratio 16.3 Glucose 80 Calcium 9.6 Total Bilirubin 0.5 AST 14 L ALT 22 Alkaline Phosphatase 64 Total Protein 8.1 Albumin 4.4 Globulin 3.7 Albumin/Globulin Ratio 1.2 TSH 0.682 Urine Color Urine Appearance Urine pH Ur Specific [place] Urine Protein Urine Glucose (UA) Urine Ketones Urine Blood Urine Nitrite Urine Bilirubin Urine Urobilinogen Ur Leukocyte Esterase Salicylates < 1.7 L Urine Opiates Screen Ur Methadone, Qual Acetaminophen < 2 L Urine Barbiturates Valproic Acid 83 Ur Phencyclidine (PCP) U Amphetamin/Meth Scrn MDMA (Ecstasy) Screen U Benzodiazepines Scrn Ur Cocaine Metabolite U Marijuana (THC) Screen Ethyl Alcohol mg/dL < 3.0 COVID-19 Eval Order SARS-CoV-2, RNA, NAAT 07/14/20 07/14/20 15:33 15:33 WBC RBC Hgb Hct MCV MCH MCHC RDW Std Deviation RDW Coeff of Connie Plt Count MPV Immature Gran % (Auto) Neut % (Auto) Lymph % (Auto) [place] % (Auto) Eos % (Auto) Baso % (Auto) Neut # (Auto) Lymph # (Auto) [place] # (Auto) Eos # (Auto) Baso # (Auto) Immature Gran # (Auto) Sodium Potassium Chloride Carbon Dioxide Anion Gap BUN Creatinine Est Cr Clr Drug Dosing Est GFR ( Amer) Est GFR (Non-Af Amer) BUN/Creatinine Ratio Glucose Calcium Total Bilirubin AST ALT Alkaline Phosphatase Total Protein Albumin Globulin Albumin/Globulin Ratio TSH Urine Color Urine Appearance Urine pH Ur Specific [place] Urine Protein Urine Glucose (UA) Urine Ketones Urine Blood Urine Nitrite Urine Bilirubin Urine Urobilinogen Ur Leukocyte Esterase Salicylates Urine Opiates Screen Ur Methadone, Qual Acetaminophen Urine Barbiturates Valproic Acid Ur Phencyclidine (PCP) U Amphetamin/Meth Scrn MDMA (Ecstasy) Screen U Benzodiazepines Scrn Ur Cocaine Metabolite U Marijuana (THC) Screen Ethyl Alcohol mg/dL COVID-19 Eval [facility] SARS-CoV-2, RNA, NAAT NEGATIVE Current Inpatient Medications Current Inpatient Medications: Current Inpatient Medications Acetaminophen (Acetaminophen 325 Mg Tab) 650 mg PO Q4H PRN PRN Reason: Headache or Minor Fever Stop: 08/13/20 17:26 Al Hydrox/Mg Hydrox/Simethicone (Aluminum/Magnesium Susp 30 Ml Udc) 30 ml PO Q4H PRN PRN Reason: GI Upset Stop: 08/13/20 17:26 Benztropine Mesylate (Benztropine Mesylate 0.5 Mg Tab) 0.5 mg PO BID [facility] Stop: 08/13/20 20:59 Last Admin: 07/15/20 08:48 Dose: 0.5 mg Documented by: Benztropine Mesylate (Benztropine Mesylate 1 Mg Tab) 1 mg PO Q6 PRN PRN Reason: Muscle Spasm Stop: 08/14/20 11:59 Last Admin: 07/15/20 12:19 Dose: 1 mg Documented by: Bismuth Subsalicylate (Bismuth Subsalicylate Liqd 236 Ml) 15 ml PO PRN PRN PRN Reason: Loose Stool Stop: 08/13/20 17:26 Divalproex Sodium (Divalproex Extended Release 500 Mg Tab) 1,000 mg PO [facility] Stop: 08/13/20 20:59 Last Admin: 07/14/20 19:47 Dose: 1,000 mg Documented by: Divalproex Sodium (Divalproex Extended Release 500 Mg Tab) 500 mg PO QAM [facility] Stop: 08/14/20 08:59 Last Admin: 07/15/20 08:46 Dose: 500 mg Documented by: Haloperidol (Haloperidol 5 Mg Tab) 5 mg PO QAM [facility] Stop: 08/14/20 08:59 Last Admin: 07/15/20 08:47 Dose: 5 mg Documented by: Haloperidol (Haloperidol 5 Mg Tab) 5 mg PO DAILY@1200 [facility] Stop: 08/14/20 11:59 Last Admin: 07/15/20 12:19 Dose: 5 mg Documented by: Haloperidol (Haloperidol 5 Mg Tab) 10 mg PO HS [facility] Stop: 08/13/20 20:59 Last Admin: 07/14/20 19:48 Dose: 10 mg Documented by: Hydroxyzine HCl (Hydroxyzine Hcl 25 Mg Tab) 50 mg PO HSZ PRN PRN Reason: Insomnia Stop: 08/13/20 17:26 Hydroxyzine HCl (Hydroxyzine Hcl 25 Mg Tab) 25 mg PO Q4H PRN PRN Reason: Anxiety Stop: 08/13/20 17:26 Last Admin: 07/15/20 06:27 Dose: 25 mg Documented by: Lorazepam (Lorazepam 1 Mg Tab) 1 mg PO Q4H PRN PRN Reason: Anxiety/Agitation Stop: 08/13/20 19:32 Magnesium Hydroxide (Magnesium Hydroxide Susp 30 Ml Udc) 30 ml PO DAILY PRN PRN Reason: Constipation Stop: 08/13/20 17:26 Miscellaneous (Remove Nicoderm Patch) 1 ea N/A DAILY@0859 [facility] Stop: 08/14/20 08:58 Last Admin: 07/15/20 08:50 Dose: Not Given Documented by: Nicotine (Nicotine 21 Mg/24 Hr Tdsy) 21 mg TD QAM [facility] Stop: 08/14/20 08:59 Last Admin: 07/15/20 08:51 Dose: Not Given Documented by: Nicotine Polacrilex (Nicotine Polacrilex 2 Mg Gum) 1 piece MT PRN PRN PRN Reason: Agitation Stop: 08/13/20 13:12 Last Admin: 07/14/20 13:21 Dose: 1 piece Documented by: Paliperidone (Paliperidone 3 Mg Tabcr) 6 mg PO QAM [facility] Stop: 08/15/20 08:59 Sodium Chloride (Sodium Chloride 0.65% Na Soln 45 Ml ([place])) 1 - 2 sprays NA PRN PRN PRN Reason: Nasal Dryness/Congestion Stop: 08/13/20 17:26
[2020-07-15] MEDS ORDERED: NICOTINE POLACRILEX 2 MG GUM MT PRN (15:03)
[2020-07-15] MEDS: ALUMINUM/MAGNESIUM SUSP 30 ML UDC PO PRN (23:09)
[2020-07-16] MEDS: hydrOXYzine HCl 25 MG TAB PO PRN (00:05)
[2020-07-16] MEDS: LORazepam 1 MG TAB PO PRN ×2 (01:44→08:11)
[2020-07-16] MEDS: DIVALPROEX EXTENDED RELEASE 500 MG TAB PO SCH ×2 (08:10→20:20)
[2020-07-16] MEDS: PALIPERIDONE 3 MG TABCR PO SCH (08:10)
[2020-07-16] MEDS: haloperidoL 5 MG TAB PO SCH ×3 (08:11→20:20)
[2020-07-16] MEDS: BENZTROPINE MESYLATE 0.5 MG TAB PO SCH ×2 (08:11→20:20)
[2020-07-16] MEDS: NICOTINE 21 MG/24 HR TDSY TD SCH ×3 (08:17→12:25)
[2020-07-16] MEDS ORDERED: DIVALPROEX EXTENDED RELEASE 500 MG TAB PO ONE (09:18)
--- NOTE | 2020-07-16 09:37 | Psychiatric Progress Note ---
Date of Service July 16, 2020 Impression / Recommendations Impression 25 yo male with breakthrough manic symptoms presents for rehospitalization. He is currently manic but not to level of disorganization/agitation as last stay. Increase in his resistance to inpatient care, now on elopement precautions. (1) Bipolar disorder with severe nhan: 07/15/20--The patient was admitted to the [facility] ([facility] unit) on q15 min checks (behavioral with suicide precautions) for safety. The patient will participate in group, recreational, and milieu therapies and will be offered additional individual and family sessions as clinically appropriate. Risks/benefits/alternatives reviewed re: his current medications. Recommend a true Depakote trough. He requested to resume an injectable and reviewed that I'd suggest Invega as failed Abilify. Likely to require auth as primary diagnosis is bipolar disorder. Will challenge with 3 mg Invega today, reviewed lower senior care risk of TD than Haldol. Invega 6 mg tomorrow, when can confirm coverage/tolerability will inject. I suspect maybe med compliance wasn't 100% in recent days if parents away but will work to confirm. Will need to update county re: admission given 304 status. 07/16/20--titrate Depakote to 1000 mg BID, Invega 6 mg today with plan for injection tomorrow. continue same dose of Haldol with Ativan prn. Continue MNPR as low frustration tolerance with peers, poor sleep and historically poor physical boundaries when manic. Inventory Assets Strengths: more insight this visit, family support Needs: confirm plan for outpatient care as provider on medical leave Risk Factors Assessment Male: Yes : Yes Do You Have Access To A Gun?: No Mental Health Diagnoses: Yes Substance Use Disorders: No Previous Attempt: No Previous Psychiatric Hospitalization: Yes Smoker: Yes Protective Factors Assessment Responsible for Young Children: No Employed: No Supportive Family: Yes Interval History Chief Complaint "I'm good, ready to leave, hearing God and Darío but it's all good stuff". Review of Systems Sleep Information Total Hours of Sleep: 4.5 Meal Information Percent Meal Consumed - Breakfast: 95 Percent Meal Consumed - Lunch: 100 Percent Meal Consumed - Dinner: 75 Subjective Subjective Patient was seen & assessed and interval progress reviewed with nursing and social work. Slept only 4 hrs last night, perhaps extra "hyped" after the [employer] game. Also got into some verbal difficulties with male peer over politics. He as repeatedly calling family and friends to come pick him up and was trying doors and is now on elopement precautions. Depakote level 64, he maintains that he didn't miss any doses and reviewed target level. Slight tachy this am but also dancing to loud music. Threatened to sign 72 hour notice, reviewed that 201 does not negate 304 outpatient commitment and we will be notifying county tomorrow. He voiced understanding of why can't leave hospital, changed topic and asked if could have Invega injection today. Reviewed I'd like to assess tolerability of 6 mg first. Agreed to titrate Depakote and denies he had EPS yesterday, staff related got one dose of Cogentin when arms felt restless. Physical Exam Psychiatric Orientation: alert Apperance: appropriately groomed Eye Contact: good eye contact Affect: + elated affect Mood: + irritable mood Thought Process: + tangential thought process Thought Content: + persecution Suicidal Thoughts: denies suicidal thoughts Homicidal Thoughts: denies homicidal thoughts Hallucinations: + auditory hallucinations; no visual hallucinations Cognition: + attention not intact Estimated Intelligence: consistent with education level Insight: + poor insight Judgement: + poor judgement Vital Signs (Past 24 Hours) Last Vital Signs Temp 37 C 07/16/20 06:30 Pulse 121 H 07/16/20 06:30 Resp 18 07/16/20 06:30 BP 104/71 07/16/20 06:30 Pulse Ox 97 07/14/20 19:05 [facility] & [facility] Laboratory Results Laboratory Results - last 24 hr 07/15/20 19:59 Valproic Acid 64 Current Inpatient Medications Current Inpatient Medications: Current Inpatient Medications Acetaminophen (Acetaminophen 325 Mg Tab) 650 mg PO Q4H PRN PRN Reason: Headache or Minor Fever Stop: 08/13/20 17:26 Al Hydrox/Mg Hydrox/Simethicone (Aluminum/Magnesium Susp 30 Ml Udc) 30 ml PO Q4H PRN PRN Reason: GI Upset Stop: 08/13/20 17:26 Last Admin: 07/15/20 23:09 Dose: 30 ml Documented by: Benztropine Mesylate (Benztropine Mesylate 0.5 Mg Tab) 0.5 mg PO BID [facility] Stop: 08/13/20 20:59 Last Admin: 07/16/20 08:11 Dose: 0.5 mg Documented by: Benztropine Mesylate (Benztropine Mesylate 1 Mg Tab) 1 mg PO Q6 PRN PRN Reason: Muscle Spasm Stop: 08/14/20 11:59 Last Admin: 07/15/20 12:19 Dose: 1 mg Documented by: Bismuth Subsalicylate (Bismuth Subsalicylate Liqd 236 Ml) 15 ml PO PRN PRN PRN Reason: Loose Stool Stop: 08/13/20 17:26 Divalproex Sodium (Divalproex Extended Release 500 Mg Tab) 1,000 mg PO BID [facility] Stop: 08/15/20 20:59 Haloperidol (Haloperidol 5 Mg Tab) 5 mg PO QAM [facility] Stop: 08/14/20 08:59 Last Admin: 07/16/20 08:11 Dose: 5 mg Documented by: Haloperidol (Haloperidol 5 Mg Tab) 5 mg PO DAILY@1200 [facility] Stop: 08/14/20 11:59 Last Admin: 07/15/20 12:19 Dose: 5 mg Documented by: Haloperidol (Haloperidol 5 Mg Tab) 10 mg PO HS [facility] Stop: 08/13/20 20:59 Last Admin: 07/15/20 20:29 Dose: 10 mg Documented by: Hydroxyzine HCl (Hydroxyzine Hcl 25 Mg Tab) 50 mg PO HSZ PRN PRN Reason: Insomnia Stop: 08/13/20 17:26 Last Admin: 07/16/20 00:05 Dose: 50 mg Documented by: Hydroxyzine HCl (Hydroxyzine Hcl 25 Mg Tab) 25 mg PO Q4H PRN PRN Reason: Anxiety Stop: 08/13/20 17:26 Last Admin: 07/15/20 06:27 Dose: 25 mg Documented by: Lorazepam (Lorazepam 1 Mg Tab) 1 mg PO Q4H PRN PRN Reason: Anxiety/Agitation Stop: 08/13/20 19:32 Last Admin: 07/16/20 08:11 Dose: 1 mg Documented by: Magnesium Hydroxide (Magnesium Hydroxide Susp 30 Ml Udc) 30 ml PO DAILY PRN PRN Reason: Constipation Stop: 08/13/20 17:26 Miscellaneous (Remove Nicoderm Patch) 1 ea N/A DAILY@0859 [facility] Stop: 08/14/20 08:58 Last Admin: 07/16/20 08:17 Dose: 1 ea Documented by: Nicotine (Nicotine 21 Mg/24 Hr Tdsy) 21 mg TD QAM [facility] Stop: 08/14/20 08:59 Last Admin: 07/16/20 08:17 Dose: Not Given Documented by: Nicotine Polacrilex (Nicotine Polacrilex 2 Mg Gum) 1 piece MT PRN PRN PRN Reason: Cravings Stop: 08/14/20 14:58 Paliperidone (Paliperidone 3 Mg Tabcr) 6 mg PO QAM [facility] Stop: 08/15/20 08:59 Last Admin: 07/16/20 08:10 Dose: 6 mg Documented by: Sodium Chloride (Sodium Chloride 0.65% Na Soln 45 Ml ([place])) 1 - 2 sprays NA PRN PRN PRN Reason: Nasal Dryness/Congestion Stop: 08/13/20 17:26 Mental Health & Subst Abuse Tx Psychiatrist Date of Appointment with Psychiatrist: 07/21/20 Therapist Name of Therapist: Alejandra Edge Baster Name of Edge Baster: Salvador Galindo-MARYLU Post Discharge Appointments Primary Care Physician Name Of Family Doctor: Marianne Thomas
[2020-07-16] MEDS: NICOTINE POLACRILEX 2 MG GUM MT PRN (18:19)
[2020-07-17] MEDS: BENZTROPINE MESYLATE 0.5 MG TAB PO SCH ×2 (08:38→20:11)
[2020-07-17] MEDS: DIVALPROEX EXTENDED RELEASE 500 MG TAB PO SCH ×2 (08:38→20:12)
[2020-07-17] MEDS: LORazepam 1 MG TAB PO PRN ×3 (08:40→22:23)
[2020-07-17] MEDS: NICOTINE 21 MG/24 HR TDSY TD SCH (08:40)
[2020-07-17] MEDS: haloperidoL 5 MG TAB PO SCH ×3 (08:40→20:12)
[2020-07-17] MEDS: PALIPERIDONE 3 MG TABCR PO SCH (09:51)
[2020-07-17] MEDS: NICOTINE POLACRILEX 2 MG GUM MT PRN (10:09)
[2020-07-17] MEDS: BENZTROPINE MESYLATE 1 MG TAB PO PRN (12:05)
[2020-07-17] MEDS: ALUMINUM/MAGNESIUM SUSP 30 ML UDC PO PRN (22:22)
[2020-07-18] MEDS: BENZTROPINE MESYLATE 0.5 MG TAB PO SCH ×2 (06:54→20:34)
[2020-07-18] MEDS: haloperidoL 5 MG TAB PO SCH ×3 (06:54→20:32)
[2020-07-18] MEDS: DIVALPROEX EXTENDED RELEASE 500 MG TAB PO SCH ×2 (06:55→20:32)
[2020-07-18] MEDS: PALIPERIDONE 3 MG TABCR PO SCH (06:55)
[2020-07-18] MEDS: NICOTINE 21 MG/24 HR TDSY TD SCH (06:59)
--- NOTE | 2020-07-18 09:20 | Psychiatric Progress Note ---
Date of Service July 18, 2020 Impression / Recommendations Impression 25 y/o male with bipolar type I who was admitted voluntarily for nhan and psychosis. He is on a 304 IOC, with a conversion hearing scheduled for tomorrow. He continues to be manic and psychotic, has poor insight, has been asking to leave, and is now placed on elopement precautions. He has been continued on his home dose of haloperidol, Depakote has been increased, and Invega added with a plan to transition to Sustenna if it is effective and tolerated. (1) Bipolar disorder with severe nhan: 07/15/20--The patient was admitted to the [facility] ([facility]) on q15 min checks (behavioral with suicide precautions) for safety. The patient will participate in group, recreational, and milieu therapies and will be offered additional individual and family sessions as clinically appropriate. Risks/benefits/alternatives reviewed re: his current medications. Recommend a true Depakote trough. He requested to resume an injectable and reviewed that I'd suggest Invega as failed Abilify. Likely to require auth as primary diagnosis is bipolar disorder. Will challenge with 3 mg Invega today, reviewed lower senior care risk of TD than Haldol. Invega 6 mg tomorrow, when can confirm coverage/tolerability will inject. I suspect maybe med compliance wasn't 100% in recent days if parents away but will work to confirm. Will need to update county re: admission given 304 status. 07/16/20--titrate Depakote to 1000 mg BID, Invega 6 mg today with plan for injection tomorrow. continue same dose of Haldol with Ativan prn. Continue MNPR as low frustration tolerance with peers, poor sleep and historically poor physical boundaries when manic. 07/18 -continue Depakote, trough level is scheduled for 07/20/2020 (although true trough will not be until 07/20/2020). Continue haloperidol 5 mg twice daily and 10 mg at bedtime, and Invega 6 mg daily. Will not yet proceed with Sustenna, as it is not clear that Invega is effective. -306 conversion hearing scheduled for tomorrow, as patient is on an IOC. -Patient's mother asking to speak with clinician; called her and left a message. Also called [facility] to coordinate care with Rachelle Bansal and left a message for a call back. Staff of been in contact with patient's [facility] who will attend the hearing tomorrow. -PCP, Dr. Thomas, had scheduled a brain MRI for this , which will need to be rescheduled as he is currently inpatient. Inventory Assets Strengths: more insight this visit, family support Needs: confirm plan for outpatient care as provider on medical leave Risk Factors Assessment Male: Yes : Yes Do You Have Access To A Gun?: No Mental Health Diagnoses: Yes Substance Use Disorders: No Previous Attempt: No Previous Psychiatric Hospitalization: Yes Smoker: Yes Protective Factors Assessment Responsible for Young Children: No Employed: No Supportive Family: Yes Interval History Identifying Information JAYSON CAMPUZANO is a 25-year-old M who currently lives with mother, has a history of bipolar disorder type I with a recent inpatient stay on 3S for nhan, and was admitted on 07/14/20 17:28 on a 201 voluntary commitment for increased agitation and non-specific hallucinations. He is on a 304 involuntary outpatient commitment, and a conversion hearing is scheduled for 07/19/2020. Chief Complaint "I don't need to eat though, the birds!" Review of Systems Notes Denies GI symptoms, pain Sleep Information Total Hours of Sleep: 6.5 Sleep Comments: pt on q-15 minute checks Meal Information Percent Meal Consumed - Breakfast: 95 Percent Meal Consumed - Lunch: 100 Percent Meal Consumed - Dinner: 100 Subjective Subjective Patient was seen & assessed and interval progress reviewed with nursing and social work. Staff report he self excused himself from group last evening as he couldn't focus and was having racing thoughts. He referred to himself as "Kid Broke" and requested prn medication as he "didn't feel right," and got Ativan 1mg x 3, haloperidol 5 mg x 2 and 10 mg x 1, and paliperidone 6 mg yesterday. After reviewing his treatment plan with the length of stay of 7-10 days, he said he wanted to call his employment agency manager because he wanted to leave sooner. He continued to display manic behavior, blaring music, offering to give money to staff and peers, and demonstrating flight of ideas. On my assessment today, he was in his room lying in bed fully dressed, with music blaring. He was unable to tell me what happened after he was discharged or how he returned to the hospital, initially saying his mom brought him, then saying his doctor brought him. He reports that God is speaking to him and telling him to "watch and find these birds." He says his energy and mood are "great," and that he is not going to eat because he wants to fast, because "that's what Darío Simmons did." He does not appear to understand the 306 conversion hearing, repeatedly insisting that he is here voluntarily and ready to leave, despite multiple attempts to explain that due to the 304 IOC, he will be converted to an involuntary inpatient commitment at the hearing. He cannot answer if he has spoken to his staff attorney or not, says he wants to talk to his staff attorney, and when advised that he was given the contact number which is on his bedside table, he then goes to the phone without the phone number, and proceeded to call his mother. He made several comments that he needed to leave today so that he could vote, and then asked to call his mother so that he could vote. He asked "is there anything wrong with me, I mean do I have any STDs? I need to go vote!" Attempted to review his diagnosis and treatment recommendations with him, but he was unable to meaningfully participate in the discussion. Records from [facility] reviewed: Patient was seen there once, on 06/30/2020, since discharge from the [facility] 06/19/2020. He reported stable mood, denied psychotic symptoms, and was able to review the series of events that led to his hospitalization on 3 S. He reported good sleep, appetite, shaking and restlessness, poor concentration, and good medication adherence. He had gone to an arraignment on 06/21/2020, and said his next court date was 07/27/2020. He had an appointment to establish care with Dr. Thomas, who would order a brain MRI. Benztropine 0.5 mg twice daily was added for akathisia, and the notes indicate his mother was sending in disability forms. A valproic acid level, free and total, and CMP were ordered for monitoring on the Depakote. They were trying to get him a therapist at [facility], and care was coordinated with his BCM, Salvador Galindo. Physical Exam Psychiatric Orientation: alert and cooperative (But a poor historian) Apperance: appropriately dressed Griffin, glasses, seated on the edge of the bed in no acute distress Eye Contact: good eye contact Motor Behavior: steady gait and station and + psychomotor agitation Rapid, pressured Euphoric, expansive "Great!" Thought Process: + tangential thought process, + flight of ideas and + looseness of associations Thought Content: + cognitive distortions and + ideas of reference Suicidal Thoughts: denies suicidal thoughts Homicidal Thoughts: denies homicidal thoughts Hallucinations: + auditory hallucinations (Hears the voice of God "in my head.") Cognition: language grossly intact; + recent memory not intact, + remote memory not intact and + attention not intact Estimated Intelligence: consistent with education level Insight: + impaired insight Judgement: + impaired judgement Vital Signs (Past 24 Hours) Last Vital Signs Temp 36.4 C L 07/18/20 06:31 Pulse 134 H 07/18/20 06:32 Resp 16 07/18/20 06:31 BP 93/64 L 07/18/20 06:32 Pulse Ox 97 07/14/20 19:05 Results & Data ([facility]) Current Inpatient Medications Current Inpatient Medications: Current Inpatient Medications Acetaminophen (Acetaminophen 325 Mg Tab) 650 mg PO Q4H PRN PRN Reason: Headache or Minor Fever Stop: 08/13/20 17:26 Al Hydrox/Mg Hydrox/Simethicone (Aluminum/Magnesium Susp 30 Ml Udc) 30 ml PO Q4H PRN PRN Reason: GI Upset Stop: 08/13/20 17:26 Last Admin: 07/17/20 22:22 Dose: 30 ml Documented by: Benztropine Mesylate (Benztropine Mesylate 0.5 Mg Tab) 0.5 mg PO BID TITA Stop: 08/13/20 20:59 Last Admin: 07/18/20 06:54 Dose: 0.5 mg Documented by: Benztropine Mesylate (Benztropine Mesylate 1 Mg Tab) 1 mg PO Q6 PRN PRN Reason: Muscle Spasm Stop: 08/14/20 11:59 Last Admin: 07/17/20 12:05 Dose: 1 mg Documented by: Bismuth Subsalicylate (Bismuth Subsalicylate Liqd 236 Ml) 15 ml PO PRN PRN PRN Reason: Loose Stool Stop: 08/13/20 17:26 Divalproex Sodium (Divalproex Extended Release 500 Mg Tab) 1,000 mg PO BID [facility] Stop: 08/15/20 20:59 Last Admin: 07/18/20 06:55 Dose: 1,000 mg Documented by: Haloperidol (Haloperidol 5 Mg Tab) 5 mg PO QAM [facility] Stop: 08/14/20 08:59 Last Admin: 07/18/20 06:54 Dose: 5 mg Documented by: Haloperidol (Haloperidol 5 Mg Tab) 5 mg PO DAILY@1200 [facility] Stop: 08/14/20 11:59 Last Admin: 07/17/20 12:05 Dose: 5 mg Documented by: Haloperidol (Haloperidol 5 Mg Tab) 10 mg PO HS [facility] Stop: 08/13/20 20:59 Last Admin: 07/17/20 20:12 Dose: 10 mg Documented by: Hydroxyzine HCl (Hydroxyzine Hcl 25 Mg Tab) 50 mg PO HSZ PRN PRN Reason: Insomnia Stop: 08/13/20 17:26 Last Admin: 07/16/20 00:05 Dose: 50 mg Documented by: Hydroxyzine HCl (Hydroxyzine Hcl 25 Mg Tab) 25 mg PO Q4H PRN PRN Reason: Anxiety Stop: 08/13/20 17:26 Last Admin: 07/15/20 06:27 Dose: 25 mg Documented by: Lorazepam (Lorazepam 1 Mg Tab) 1 mg PO Q4H PRN PRN Reason: Anxiety/Agitation Stop: 08/13/20 19:32 Last Admin: 07/17/20 22:23 Dose: 1 mg Documented by: Magnesium Hydroxide (Magnesium Hydroxide Susp 30 Ml Udc) 30 ml PO DAILY PRN PRN Reason: Constipation Stop: 08/13/20 17:26 Miscellaneous (Remove Nicoderm Patch) 1 ea N/A DAILY@0859 [facility] Stop: 08/14/20 08:58 Last Admin: 07/18/20 06:59 Dose: Not Given Documented by: Nicotine (Nicotine 21 Mg/24 Hr Tdsy) 21 mg TD QAM [facility] Stop: 08/14/20 08:59 Last Admin: 07/18/20 06:59 Dose: Not Given Documented by: Nicotine Polacrilex (Nicotine Polacrilex 2 Mg Gum) 1 piece MT PRN PRN PRN Reason: Cravings Stop: 08/14/20 14:58 Last Admin: 07/17/20 10:09 Dose: 1 piece Documented by: Paliperidone (Paliperidone 3 Mg Tabcr) 6 mg PO QAM [facility]ITA Stop: 08/15/20 08:59 Last Admin: 07/18/20 06:55 Dose: 6 mg Documented by: Sodium Chloride (Sodium Chloride 0.65% Na Soln 45 Ml (Emmet)) 1 - 2 sprays NA PRN PRN PRN Reason: Nasal Dryness/Congestion Stop: 08/13/20 17:26 Mental Health & Subst Abuse Tx Psychiatrist Date of Appointment with Psychiatrist: 07/21/20 Therapist Name of Therapist: Alejandra Cement Patcher Name of Cement Patcher: Salvador Galindo-[facility] Post Discharge Appointments Primary Care Physician Name Of Family Doctor: Marianne Thomas
[2020-07-18] MEDS: LORazepam 1 MG TAB PO PRN (14:43)
--- NOTE | 2020-07-18 19:00 | Psychiatric Progress Note ---
Date of Service July (late entry) Impression / Recommendations Impression 25 y/o male with bipolar type I who was admitted voluntarily for nhan and psychosis. He is on a 304 IOC, with a conversion hearing scheduled for 07/20. He continues to be manic and psychotic, has poor insight, has been asking to leave, and is now placed on elopement precautions. He has been continued on his home dose of haloperidol, Depakote has been increased, and Invega added with a plan to transition to Sustenna if it is effective and tolerated. Plan: continue current meds and tx plan, confirm coverage for Invega injectable, vpa level 07/20. Inventory Assets Strengths: more insight this visit, family support Needs: confirm plan for outpatient care as provider on medical leave Risk Factors Assessment Male: Yes : Yes Do You Have Access To A Gun?: No Mental Health Diagnoses: Yes Substance Use Disorders: No Previous Attempt: No Previous Psychiatric Hospitalization: Yes Smoker: Yes Protective Factors Assessment Responsible for Young Children: No Employed: No Supportive Family: Yes Interval History Identifying Information JAYSON CAMPUZANO is a 25-year-old M who currently lives with mother, has a history of bipolar disorder type I with a recent inpatient stay on 3S for nhan, and was admitted on 07/14/20 17:28 on a 201 voluntary commitment for increased agitation and non-specific hallucinations. He is on a 304 involuntary outpatient commitment, and a conversion hearing is scheduled for 07/19/2020. Chief Complaint "I'm great, give me the shot so I can leave". Review of Systems Sleep Information Total Hours of Sleep: 6.5 Sleep Comments: pt on q-15 minute checks Meal Information Percent Meal Consumed - Breakfast: 100 Percent Meal Consumed - Lunch: 100 Percent Meal Consumed - Dinner: 95 Subjective Subjective Patient was seen & assessed and interval progress reviewed with treatment team. Patient remains expansive/irritable, talks about hearing the voice of God but "it's all good". Denies medication side effects, slept a bit better last night. Generally a bit tachy as active. Physical Exam Psychiatric Orientation: alert Apperance: + disheveled Eye Contact: + fair eye contact Motor Behavior: no abnormal motor movements hyperverbal Affect: + elated affect Mood: + irritable mood Thought Process: + tangential thought process Thought Content: + preoccupation (discharge) and + delusions (grandiose) Suicidal Thoughts: denies suicidal thoughts Homicidal Thoughts: denies homicidal thoughts Hallucinations: + auditory hallucinations; no visual hallucinations Cognition: language grossly intact; + attention not intact Estimated Intelligence: consistent with education level Insight: + poor insight Judgement: + poor judgement Vital Signs (Past 24 Hours) Last Vital Signs Temp 36.4 C L 07/18/20 06:31 Pulse 134 H 07/18/20 06:32 Resp 16 07/18/20 06:31 BP 93/64 L 07/18/20 06:32 Pulse Ox 97 07/14/20 19:05 Results & Data ([facility]) Current Inpatient Medications Current Inpatient Medications: Current Inpatient Medications Acetaminophen (Acetaminophen 325 Mg Tab) 650 mg PO Q4H PRN PRN Reason: Headache or Minor Fever Stop: 08/13/20 17:26 Al Hydrox/Mg Hydrox/Simethicone (Aluminum/Magnesium Susp 30 Ml Udc) 30 ml PO Q4H PRN PRN Reason: GI Upset Stop: 08/13/20 17:26 Last Admin: 07/17/20 22:22 Dose: 30 ml Documented by: Benztropine Mesylate (Benztropine Mesylate 0.5 Mg Tab) 0.5 mg PO BID [facility] Stop: 08/13/20 20:59 Last Admin: 07/18/20 06:54 Dose: 0.5 mg Documented by: Benztropine Mesylate (Benztropine Mesylate 1 Mg Tab) 1 mg PO Q6 PRN PRN Reason: Muscle Spasm Stop: 08/14/20 11:59 Last Admin: 07/17/20 12:05 Dose: 1 mg Documented by: Bismuth Subsalicylate (Bismuth Subsalicylate Liqd 236 Ml) 15 ml PO PRN PRN PRN Reason: Loose Stool Stop: 08/13/20 17:26 Divalproex Sodium (Divalproex Extended Release 500 Mg Tab) 1,000 mg PO BID [facility] Stop: 08/15/20 20:59 Last Admin: 07/18/20 06:55 Dose: 1,000 mg Documented by: Haloperidol (Haloperidol 5 Mg Tab) 5 mg PO QAM [facility] Stop: 08/14/20 08:59 Last Admin: 07/18/20 06:54 Dose: 5 mg Documented by: Haloperidol (Haloperidol 5 Mg Tab) 5 mg PO DAILY@1200 [facility] Stop: 08/14/20 11:59 Last Admin: 07/18/20 12:41 Dose: 5 mg Documented by: Haloperidol (Haloperidol 5 Mg Tab) 10 mg PO HS [facility] Stop: 08/13/20 20:59 Last Admin: 07/17/20 20:12 Dose: 10 mg Documented by: Hydroxyzine HCl (Hydroxyzine Hcl 25 Mg Tab) 50 mg PO HSZ PRN PRN Reason: Insomnia Stop: 08/13/20 17:26 Last Admin: 07/16/20 00:05 Dose: 50 mg Documented by: Hydroxyzine HCl (Hydroxyzine Hcl 25 Mg Tab) 25 mg PO Q4H PRN PRN Reason: Anxiety Stop: 08/13/20 17:26 Last Admin: 07/15/20 06:27 Dose: 25 mg Documented by: Lorazepam (Lorazepam 1 Mg Tab) 1 mg PO Q4H PRN PRN Reason: Anxiety/Agitation Stop: 08/13/20 19:32 Last Admin: 07/18/20 14:43 Dose: 1 mg Documented by: Magnesium Hydroxide (Magnesium Hydroxide Susp 30 Ml Udc) 30 ml PO DAILY PRN PRN Reason: Constipation Stop: 08/13/20 17:26 Miscellaneous (Remove Nicoderm Patch) 1 ea N/A DAILY@0859 [facility] Stop: 08/14/20 08:58 Last Admin: 07/18/20 06:59 Dose: Not Given Documented by: Nicotine (Nicotine 21 Mg/24 Hr Tdsy) 21 mg TD QAM [facility] Stop: 08/14/20 08:59 Last Admin: 07/18/20 06:59 Dose: Not Given Documented by: Nicotine Polacrilex (Nicotine Polacrilex 2 Mg Gum) 1 piece MT PRN PRN PRN Reason: Cravings Stop: 08/14/20 14:58 Last Admin: 07/17/20 10:09 Dose: 1 piece Documented by: Paliperidone (Paliperidone 3 Mg Tabcr) 6 mg PO QAM [facility] Stop: 08/15/20 08:59 Last Admin: 07/18/20 06:55 Dose: 6 mg Documented by: Sodium Chloride (Sodium Chloride 0.65% Na Soln 45 Ml ([place]abine)) 1 - 2 sprays NA PRN PRN PRN Reason: Nasal Dryness/Congestion Stop: 08/13/20 17:26 Mental Health & Subst Abuse Tx Psychiatrist Name of Psychiatrist: [place] [facility] Psychiatrist's Date of Appointment with Psychiatrist: 07/21/20 Psychiatric Appointment Comment: JyotiJuan Keven Leung [place] Therapist Name of Therapist: Alejandra Bell Therapist's Therapy Appointment Comment: JyotiJuan Keven Leung [place] Pin Sticker Name of Pin Sticker: [employer] [facility] - Bill Phone Number for Pin Sticker: [phone] Post Discharge Appointments Primary Care Physician Name Of Family Doctor: Alejandra Bell - Dr. Thomas Primary Care Provider Appointment Comment: Patricia Leung [employer]im[employer] Name of Specialist: MRI Procedure[facility], as referred by Dr. Thomas Phone Number for Specialist: [phone] Date of Appointment with Specialist: 08/08/20 Time of Appointment with Specialist: 10:00 Specialty Appointment Comment: appt. was rescheduled, as MRI was scheduled during pt.'s hospitalization Contact Information Discharge Discharge Address: [address] [place] [address]
--- NOTE | 2020-07-19 07:36 | Psychiatric Progress Note ---
Date of Service July 19, 2020 Impression / Recommendations Impression 25 y/o male with bipolar type I who was admitted voluntarily for nhan and psychosis, converted to a 304 at hearing today. He continues to be manic and psychotic, has poor insight, is asking to leave, and is now on elopement precautions. He has been continued on his home dose of haloperidol, Depakote has been increased, and Invega added with a plan to transition to Sustenna if it is effective and tolerated. (1) Bipolar disorder with severe nhan: 07/15/20--The patient was admitted to the [facility] ([facility] mental health unit) on q15 min checks (behavioral with suicide precautions) for safety. The patient will participate in group, recreational, and milieu therapies and will be offered additional individual and family sessions as clinically appropriate. Risks/benefits/alternatives reviewed re: his current medications. Recommend a true Depakote trough. He requested to resume an injectable and reviewed that I'd suggest Invega as failed Abilify. Likely to require auth as primary diagnosis is bipolar disorder. Will challenge with 3 mg Invega today, reviewed lower mathematical scientist risk of TD than Haldol. Invega 6 mg tomorrow, when can confirm coverage/ tolerability will inject. I suspect maybe med compliance wasn't 100% in recent days if parents away but will work to confirm. Will need to update county re: admission given 304 status. 07/16/20--titrate Depakote to 1000 mg BID, Invega 6 mg today with plan for injection tomorrow. continue same dose of Haldol with Ativan prn. Continue MNPR as low frustration tolerance with peers, poor sleep and historically poor physical boundaries when manic. 07/18 -continue Depakote, trough level is scheduled for 07/20/2020 (although true trough will not be until 07/20/2020). Continue haloperidol 5 mg twice daily and 10 mg at bedtime, and Invega 6 mg daily. Will not yet proceed with Sustenna, as it is not clear that Invega is effective. -306 conversion hearing scheduled for tomorrow, as patient is on an IOC. -Patient's mother asking to speak with clinician; called her and left a message. Also called [place] to coordinate care with Rachelle Bansal and left a message for a call back. Staff of been in contact with patient's BCM who will attend the hearing tomorrow. -PCP, Dr. Thomas, had scheduled a brain MRI for this , which will need to be rescheduled as he is currently inpatient. 07/19 - Converted to 304 at [facility] today. Care coordinated with BCM who attended [facility] and will come see patient on Friday. Spoke with mother and reviewed course, plan. - Rescheduled brain MRI for 08/08. - No co-pay for Sustenna, but will wait to transition to PACHECO until there is evidence of efficacy. For now continue p.o. haloperidol and paliperidone. Fasting labs from 06/06/2020 reviewed: Cholesterol 226, otherwise normal. Inventory Assets Strengths: more insight this visit, family support Needs: confirm plan for outpatient care as provider on medical leave Risk Factors Assessment Male: Yes : Yes Do You Have Access To A Gun?: No Mental Health Diagnoses: Yes Substance Use Disorders: No Previous Attempt: No Previous Psychiatric Hospitalization: Yes Hopelessness: No Smoker: Yes Protective Factors Assessment L[employer] Beliefs: Yes : No Responsible for Young Children: No Employed: No Supportive Family: Yes Interval History Identifying Information JAYSON CAMPUZANO is a 25-year-old M who currently lives with mother, has a history of bipolar disorder type I with a recent inpatient stay on 3S for nhan, and was admitted on 07/14/20 17:28 on a 201 voluntary commitment for increased agitation and non-specific hallucinations. He is on a 304 involuntary outpatient commitment, conversion hearing on 07/19/2020. Chief Complaint "Hi". Review of Systems Sleep Information Total Hours of Sleep: 6.75 Sleep Comments: pt on q-15 minute checks Meal Information Percent Meal Consumed - Breakfast: 100 Percent Meal Consumed - Lunch: 100 Percent Meal Consumed - Dinner: 95 Subjective Subjective Patient was seen & assessed and interval progress reviewed with treatment team. Staff report he has been disorganized and hyperactive on the unit, requiring frequent redirection. He has poor boundaries it is easily overwhelmed by stimuli. 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 He is eating well, and received Ativan 1 mg X1 dose prn. Met with his BCM who said patient was doing well and appeared stable until late last week, at some point his Haldol was increased by [place] although it was unclear what triggered that increase. His mo ther contacted him last week saying he was manic again, and was calling friends to come get him, and she was concerned about his behavior and lack of insight. Spoke with patient's mother who stated the patient decompensated over a 5 day period prior to coming back to the hospital. He spent a couple of days at his sister's house, and had gone out with friends. He has not been driving. He often reported restlessness and difficulty sleeping. She observed that he has a pattern where he sleeps a lot for a time, then has a period where he seems "good," then decompensates again. 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 The patient reports he is doing well and feels he is fine to leave the hospital, saying he only came here for a blood draw, and wasn't supposed to be admitted. He initially says he wants to come to his 304 hearing, then says he doesn't want to come and his pillowcase maker will represent him. When asked if he followed up with his therapist at [facility], he initially says he did not, then says he did but "it was a disaster, just made me want to do drugs, they thought I was a drug user and I'm not." Physical Exam Psychiatric Orientation: alert and cooperative Apperance: appropriately dressed, appropriately groomed and appeared stated age Eye Contact: good eye contact intense staring Motor Behavior: steady gait and station and + psychomotor agitation (pacing, hyperactive) hyperverbal, rapid expansive, euphoric "Great!" Thought Process: + tangential thought process and + looseness of associations disorganized Thought Content: + delusions Suicidal Thoughts: denies suicidal thoughts Homicidal Thoughts: denies homicidal thoughts Hallucinations: no auditory hallucinations Cognition: language grossly intact; + recent memory not intact and + attention not intact Insight: + impaired insight Judgement: + impaired judgement Vital Signs (Past 24 Hours) Last Vital Signs Temp 36.5 C 07/19/20 06:34 Pulse 120 H 07/19/20 06:35 Resp 16 07/19/20 06:34 BP 115/76 07/19/20 06:35 Pulse Ox 97 07/14/20 19:05 Results & Data ([facility]) Current Inpatient Medications Current Inpatient Medications: Current Inpatient Medications Acetaminophen (Acetaminophen 325 Mg Tab) 650 mg PO Q4H PRN PRN Reason: Headache or Minor Fever Stop: 08/13/20 17:26 Al Hydrox/Mg Hydrox/Simethicone (Aluminum/Magnesium Susp 30 Ml Udc) 30 ml PO Q4H PRN PRN Reason: GI Upset Stop: 08/13/20 17:26 Last Admin: 07/17/20 22:22 Dose: 30 ml Documented by: Benztropine Mesylate (Benztropine Mesylate 0.5 Mg Tab) 0.5 mg PO BID TITA Stop: 08/13/20 20:59 Last Admin: 07/18/20 20:34 Dose: 0.5 mg Documented by: Benztropine Mesylate (Benztropine Mesylate 1 Mg Tab) 1 mg PO Q6 PRN PRN Reason: Muscle Spasm Stop: 08/14/20 11:59 Last Admin: 07/17/20 12:05 Dose: 1 mg Documented by: Bismuth Subsalicylate (Bismuth Subsalicylate Liqd 236 Ml) 15 ml PO PRN PRN PRN Reason: Loose Stool Stop: 08/13/20 17:26 Divalproex Sodium (Divalproex Extended Release 500 Mg Tab) 1,000 mg PO BID TITA Stop: 08/15/20 20:59 Last Admin: 07/18/20 20:32 Dose: 1,000 mg Documented by: Haloperidol (Haloperidol 5 Mg Tab) 5 mg PO QAM TITA Stop: 08/14/20 08:59 Last Admin: 07/18/20 06:54 Dose: 5 mg Documented by: Haloperidol (Haloperidol 5 Mg Tab) 5 mg PO DAILY@1200 TITA Stop: 08/14/20 11:59 Last Admin: 07/18/20 12:41 Dose: 5 mg Documented by: Haloperidol (Haloperidol 5 Mg Tab) 10 mg PO HS TITA Stop: 08/13/20 20:59 Last Admin: 07/18/20 20:32 Dose: 10 mg Documented by: Hydroxyzine HCl (Hydroxyzine Hcl 25 Mg Tab) 50 mg PO HSZ PRN PRN Reason: Insomnia Stop: 08/13/20 17:26 Last Admin: 07/16/20 00:05 Dose: 50 mg Documented by: Hydroxyzine HCl (Hydroxyzine Hcl 25 Mg Tab) 25 mg PO Q4H PRN PRN Reason: Anxiety Stop: 08/13/20 17:26 Last Admin: 07/15/20 06:27 Dose: 25 mg Documented by: Lorazepam (Lorazepam 1 Mg Tab) 1 mg PO Q4H PRN PRN Reason: Anxiety/Agitation Stop: 08/13/20 19:32 Last Admin: 07/18/20 14:43 Dose: 1 mg Documented by: Magnesium Hydroxide (Magnesium Hydroxide Susp 30 Ml Udc) 30 ml PO DAILY PRN PRN Reason: Constipation Stop: 08/13/20 17:26 Miscellaneous (Remove Nicoderm Patch) 1 ea N/A DAILY@0859 [facility] Stop: 08/14/20 08:58 Last Admin: 07/18/20 06:59 Dose: Not Given Documented by: Nicotine (Nicotine 21 Mg/24 Hr Tdsy) 21 mg TD QAM [facility] Stop: 08/14/20 08:59 Last Admin: 07/18/20 06:59 Dose: Not Given Documented by: Nicotine Polacrilex (Nicotine Polacrilex 2 Mg Gum) 1 piece MT PRN PRN PRN Reason: Cravings Stop: 08/14/20 14:58 Last Admin: 07/17/20 10:09 Dose: 1 piece Documented by: Paliperidone (Paliperidone 3 Mg Tabcr) 6 mg PO QAM [facility] Stop: 08/15/20 08:59 Last Admin: 07/18/20 06:55 Dose: 6 mg Documented by: Sodium Chloride (Sodium Chloride 0.65% Na Soln 45 Ml ([place])) 1 - 2 sprays NA PRN PRN PRN Reason: Nasal Dryness/Congestion Stop: 08/13/20 17:26 Mental Health & Subst Abuse Tx Psychiatrist Name of Psychiatrist: Alejandra Bell Psychiatrist's Date of Appointment with Psychiatrist: 07/21/20 Psychiatric Appointment Comment: [facility] Therapist Name of Therapist: Alejandra Bell Therapist's Therapy Appointment Comment: [facility] Diesel Maintenance Electrician Name of Diesel Maintenance Electrician: [employer] - Bill Phone Number for Diesel Maintenance Electrician: [phone] Post Discharge Appointments Primary Care Physician Name Of Family Doctor: Alejandra Bell - Dr. Thomas Primary Care Provider Appointment Comment: [id number] [facility] Specialist Name of Specialist: MRI Procedure-[facility], as referred by Dr. Thomas Phone Number for Specialist: [phone] Date of Appointment with Specialist: 08/08/20 Time of Appointment with Specialist: 10:00 Specialty Appointment Comment: appt. was rescheduled, as MRI was scheduled during pt.'s hospitalization Contact Information Discharge Discharge Address: [facility] [place] [address]
[2020-07-19] MEDS: DIVALPROEX EXTENDED RELEASE 500 MG TAB PO SCH ×2 (08:38→20:52)
[2020-07-19] MEDS: PALIPERIDONE 3 MG TABCR PO SCH (08:38)
[2020-07-19] MEDS: haloperidoL 5 MG TAB PO SCH ×3 (08:40→20:51)
[2020-07-19] MEDS: BENZTROPINE MESYLATE 0.5 MG TAB PO SCH ×2 (08:40→20:51)
[2020-07-19] MEDS: NICOTINE 21 MG/24 HR TDSY TD SCH (08:40)
[2020-07-19] MEDS: LORazepam 1 MG TAB PO PRN (12:36)
[2020-07-20] MEDS: DIVALPROEX EXTENDED RELEASE 500 MG TAB PO SCH ×2 (08:26→20:26)
[2020-07-20] MEDS: BENZTROPINE MESYLATE 0.5 MG TAB PO SCH ×2 (08:26→20:25)
[2020-07-20] MEDS: PALIPERIDONE 3 MG TABCR PO SCH (08:26)
[2020-07-20] MEDS: haloperidoL 5 MG TAB PO SCH ×3 (08:26→20:27)
[2020-07-20] MEDS: NICOTINE 21 MG/24 HR TDSY TD SCH (08:28)
[2020-07-20] MEDS: LORazepam 1 MG TAB PO PRN (12:20)
--- NOTE | 2020-07-20 13:26 | Psychiatric Progress Note ---
Date of Service July 20, 2020 Impression / Recommendations Impression 25 y/o male with bipolar type I who was admitted voluntarily for nhan and psychosis, converted to a 304 at hearing today. He continues to be manic and psychotic, has poor insight, is asking to leave, and is now on elopement precautions. He has been continued on his home dose of haloperidol, Depakote has been increased, and Invega added with initial plan to transition to Sustenna if it is effective and tolerated. There has been limited improvement since initiating Invega - will titrate oral dose to maximize dose, but if there is still no improvement it is likely that other options will need to be considered: maximizing Haldol, trial of another typical antipsychotic (Prolixin), or trial of risperidone. [place] goal would be to have patient stabilized on a medication that can be administered as an PACHECO, as there have been suspected medication compliance issues. Pt's manic episodes have been unusually treatment-resistant, and we will attempt to gather information that may help use understand this be tter. He continues to be disorganized, delusional, and intrusive. He is now reporting plans to "fast", more accurately refusal to eat - which increases concern for self harm if he were not in a supervised setting. He remains unable to attend to his basic needs and requires the supervision and support of an inpatient psychiatric unit. (1) Bipolar disorder with severe nhan: 07/15/20--The patient was admitted to the [facility] ([facility] mental [facility] unit) on q15 min checks (behavioral with suicide precautions) for safety. The patient will participate in group, recreational, and milieu therapies and will be offered additional individual and family sessions as clinically appropriate. Risks/benefits/alternatives reviewed re: his current medications. Recommend a true Depakote trough. He requested to resume an injectable and reviewed that I'd suggest Invega as failed Abilify. Likely to require auth as primary diagnosis is bipolar disorder. 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 Invega 6 mg tomorrow, when can confirm coverage/tolerability will inject. I suspect maybe med compliance wasn't 100% in recent days if parents away but will work to confirm. Will need to update county re: admission given 304 status. 07/16/20--titrate Depakote to 1000 mg BID, Invega 6 mg today with plan for injection tomorrow. continue same dose of Haldol with Ativan prn. Continue MNPR as low frustration tolerance with peers, poor sleep and historically poor physical boundaries when manic. 07/18 -continue Depakote, trough level is scheduled for 07/20/2020 (although true trough will not be until 07/20/2020). Continue haloperidol 5 mg twice daily and 10 mg at bedtime, and Invega 6 mg daily. Will not yet proceed with Sustenna, as it is not clear that Invega is effective. -306 conversion hearing scheduled for tomorrow, as patient is on an IOC. -Patient's mother asking to speak with clinician; called her and left a message. Also called [place] to coordinate care with Rachelle Bansal and left a message for a call back. Staff of been in contact with patient's BCM who will attend the hearing tomorrow. -PCP, Dr. Thomas, had scheduled a brain MRI for this , which will need to be rescheduled as he is currently inpatient. 07/19 - Converted to 304 at hearing today. Care coordinated with BCM who attended hearing and will come see patient on Friday. Spoke with mother and reviewed course, plan. - Rescheduled brain MRI for 08/08. - No co-pay for Sustenna, but will wait to transition to PACHECO until there is evidence of efficacy. For now continue p.o. haloperidol and paliperidone. Fasting labs from 06/06/2020 reviewed: Cholesterol 226, otherwise normal. 07/20 - Pt continues to be manic, delusional, intrusive, and religiously preoccupied. Will continue titration of paliperidone at this time - increasing dose to 9mg tomorrow. It has not yet shown to be profoundly beneficially, and we may need to consider alternative antipsychotic options. Considerations include titration of haloperidol, trial of another typical antipsychotic, or trial of risperidone (some concern regarding persistent tachycardia at baseline). Ideally, we would explore options that are available in an PACHECO, as patient is agreeable and his outpatient providers suspect there are medication compliance issues. - Continue Depakote - level today was 77, but uncertain that this was a true 5- day trough. Will recheck level on 07/22, prior to making dose changes. - Pt continues to refuse to consider trial of lithium, as there were reports of nausea with a previous trial - We will switch from lorazepam to clonazepam to continue utilization for antimanic properties, but capitalize on a longer half-life. Will schedule clonazepam dosing of 1mg BID, with up to two additional prn doses of 0.5mg available. - Continue attempts to clarify information that may help explain why patient has been so treatment resistant - may need to consider checks to rule out cheeking medications or other concerns. Inventory Assets Strengths: more insight this visit, family support Needs: confirm plan for outpatient care as provider on medical leave Risk Factors Assessment Male: Yes : Yes Do You Have Access To A Gun?: No Mental Health Diagnoses: Yes Substance Use Disorders: No Previous Attempt: No Previous Psychiatric Hospitalization: Yes Hopelessness: No Smoker: Yes Protective Factors Assessment Scientologist Beliefs: Yes : No Responsible for Young Children: No Employed: No Supportive Family: Yes Interval History Identifying Information JAYSON CAMPUZANO is a 25-year-old M who currently lives with mother, has a history of bipolar disorder type I with a recent inpatient stay on 3S for nhan, and was admitted on 07/14/20 17:28 on a 201 voluntary commitment for increased agitation and non-specific hallucinations. He is on a 304 involuntary outpatient commitment, conversion hearing on 07/19/2020. Chief Complaint "I'm doing amazing." Review of Systems Notes Constitutional: denied Cardiovascular: denied Respiratory: denied Gastrointestinal: denied Neurological: denied Psychiatric: denies symptoms other than stated above Total of at least 10 systems reviewed, pertinent positives as above and in HPI. Sleep Information Total Hours of Sleep: 7 Sleep Comments: pt on q-15 minute checks Meal Information Percent Meal Consumed - Breakfast: 0 Percent Meal Consumed - Lunch: 50 Percent Meal Consumed - Dinner: 75 Nutrition Comment: pt. states he is fasting Subjective Subjective Patient was seen & assessed and interval progress reviewed with nursing and social work. Staff report the patient has been attempting to participate in groups, but continues to be manic, disruptive, and occasionally irritable. Yesterday, patient demonstrated poor boundaries and was observed to be making the sign of the cross on other patient's and offering to pray with them during group. When he was informed that his behavior was not appropriate, he decided to "pass" on community meeting - reportedly sitting in group but refusing to talk. Pt was seen today to assess progress since admission. Pt states "I'm doing amazing." He admits he is "much better" since admission, but is not able to comment on specific improvements. Pt is able to state "well, I was delusional. I was believing things I had no reason to believe. 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 Pt at times seems overly eager to agree to medication recommendations - even suggesting he would take injections of both Haldol Decanoate and Invega Sustenna. He was informed this would not be necessary or advised, but that we are continuing to recommend an PACHECO at some point. Pt was agreeable with switching lorazepam to clonazepam to take advantage of a longer half-life. He was asked to consider re-trial for lithium for mood stabilization, but stated "no way, I couldn't eat while I was on that." When asked why this was, the patient provided the explanation that while he was on lithium he was "broke" and living with his parents, who have a wood stove, which made it harder to cook food - therefore, he wouldn't eat. After being challenged on this, he did admit that the lithium contributed to nausea. Pt was asked if he has been eating well, and he states "I'm fasting 16 hours a day. Mostly because of my evangelical, but also for justice." Pt then states that he has decided he will not eat again until he is discharged, reporting "I won't eat until there is justice for Odin He and his family." Pt was informed that his intent is appreciated, but that we are advising him to eat consistent meals. Pt denied other needs at this time. Physical Exam Psychiatric Orientation: alert, oriented x 3 and + guarded (superficially cooperative, but difficult to engage in conversation) Apperance: appropriately dressed and appeared stated age Casually dressed, hair appearing unkempt and appearing a bit sweaty. Eye Contact: good eye contact (prolonged staring) Motor Behavior: + psychomotor agitation (intermittently dancing) Speech: normal rate/rhythm/volume of speech Affect: expansive, euphoric Mood: "I'm amazing", but also "I get anxiety around other people" Thought Process: + tangential thought process and + looseness of associations Thought Content: + delusions Suicidal Thoughts: denies suicidal thoughts Homicidal Thoughts: denies homicidal thoughts Hallucinations: no auditory hallucinations Cognition: language grossly intact; + recent memory not intact and + attention not intact Estimated Intelligence: consistent with education level Insight: + impaired insight Judgement: + impaired judgement Vital Signs (Past 24 Hours) Last Vital Signs Temp 36.8 C 07/20/20 06:41 Pulse 128 H 07/20/20 06:41 Resp 18 07/20/20 06:41 BP 131/91 07/20/20 06:41 Pulse Ox 97 07/14/20 19:05 Results & Data ([facility]) Laboratory Results Laboratory Results - last 24 hr 07/20/20 08:12 Valproic Acid 77 Current Inpatient Medications Current Inpatient Medications: Current Inpatient Medications Acetaminophen (Acetaminophen 325 Mg Tab) 650 mg PO Q4H PRN PRN Reason: Headache or Minor Fever Stop: 08/13/20 17:26 Al Hydrox/Mg Hydrox/Simethicone (Aluminum/Magnesium Susp 30 Ml Udc) 30 ml PO Q4H PRN PRN Reason: GI Upset Stop: 08/13/20 17:26 Last Admin: 07/17/20 22:22 Dose: 30 ml Documented by: Benztropine Mesylate (Benztropine Mesylate 0.5 Mg Tab) 0.5 mg PO BID [facility] Stop: 08/13/20 20:59 Last Admin: 07/20/20 08:26 Dose: 0.5 mg Documented by: Benztropine Mesylate (Benztropine Mesylate 1 Mg Tab) 1 mg PO Q6 PRN PRN Reason: Muscle Spasm Stop: 08/14/20 11:59 Last Admin: 07/17/20 12:05 Dose: 1 mg Documented by: Bismuth Subsalicylate (Bismuth Subsalicylate Liqd 236 Ml) 15 ml PO PRN PRN PRN Reason: Loose Stool Stop: 08/13/20 17:26 Clonazepam (Clonazepam 1 Mg Tab) 1 mg PO BID@0900,1900 [facility] Stop: 08/19/20 18:59 Clonazepam (Clonazepam 0.5 Mg Tab) 0.5 mg PO BID PRN PRN Reason: Anxiety/Agitation Stop: 08/19/20 13:16 Divalproex Sodium (Divalproex Extended Release 500 Mg Tab) 1,000 mg PO BID [facility] Stop: 08/15/20 20:59 Last Admin: 07/20/20 08:26 Dose: 1,000 mg Documented by: Haloperidol (Haloperidol 5 Mg Tab) 5 mg PO QAM [facility] Stop: 08/14/20 08:59 Last Admin: 07/20/20 08:26 Dose: 5 mg Documented by: Haloperidol (Haloperidol 5 Mg Tab) 5 mg PO DAILY@1200 [facility] Stop: 08/14/20 11:59 Last Admin: 07/20/20 12:21 Dose: 5 mg Documented by: Haloperidol (Haloperidol 5 Mg Tab) 10 mg PO HS [facility] Stop: 08/13/20 20:59 Last Admin: 07/19/20 20:51 Dose: 10 mg Documented by: Hydroxyzine HCl (Hydroxyzine Hcl 25 Mg Tab) 50 mg PO HSZ PRN PRN Reason: Insomnia Stop: 08/13/20 17:26 Last Admin: 07/16/20 00:05 Dose: 50 mg Documented by: Hydroxyzine HCl (Hydroxyzine Hcl 25 Mg Tab) 25 mg PO Q4H PRN PRN Reason: Anxiety Stop: 08/13/20 17:26 Last Admin: 07/15/20 06:27 Dose: 25 mg Documented by: Magnesium Hydroxide (Magnesium Hydroxide Susp 30 Ml Udc) 30 ml PO DAILY PRN PRN Reason: Constipation Stop: 08/13/20 17:26 Miscellaneous (Remove Nicoderm Patch) 1 ea N/A DAILY@0859 [facility] Stop: 08/14/20 08:58 Last Admin: 07/20/20 08:28 Dose: Not Given Documented by: Nicotine (Nicotine 21 Mg/24 Hr Tdsy) 21 mg TD QAM [facility] Stop: 08/14/20 08:59 Last Admin: 07/20/20 08:28 Dose: Not Given Documented by: Nicotine Polacrilex (Nicotine Polacrilex 2 Mg Gum) 1 piece MT PRN PRN PRN Reason: Cravings Stop: 08/14/20 14:58 Last Admin: 07/17/20 10:09 Dose: 1 piece Documented by: Paliperidone (Paliperidone 3 Mg Tabcr) 6 mg PO QAM [facility] Stop: 08/15/20 08:59 Last Admin: 07/20/20 08:26 Dose: 6 mg Documented by: Sodium Chloride (Sodium Chloride 0.65% Na Soln 45 Ml (Jeff)) 1 - 2 sprays NA PRN PRN PRN Reason: Nasal Dryness/Congestion Stop: 08/13/20 17:26 Mental Health & Subst Abuse Tx Psychiatrist Name of Psychiatrist: Alejandra Bell Psychiatrist's Date of Appointment with Psychiatrist: 07/21/20 Psychiatric Appointment Comment: Jyoti6 [facility] Therapist Name of Therapist: Alejandra Bell - [place] Therapist's Therapy Appointment Comment: Jyoti6 [facility] Pump Service Supervisor Name of Pump Service Supervisor: [employer] - Bill Phone Number for Pump Service Supervisor: [phone] Post Discharge Appointments Primary Care Physician Name Of Family Doctor: Alejandra Bell - Dr. Thomas Primary Care Provider Appointment Comment: Jyoti6 [facility] Specialist Name of Specialist: MRI Procedure[facility], as referred by Dr. Thomas Phone Number for Specialist: [phone] Date of Appointment with Specialist: 08/08/20 Time of Appointment with Specialist: 10:00 Specialty Appointment Comment: appt. was rescheduled, as MRI was scheduled during pt.'s hospitalization Contact Information [facility] [place] [id number]
[2020-07-20] MEDS: clonazePAM 0.5 MG TAB PO PRN (17:23)
[2020-07-20] MEDS: clonazePAM 1 MG TAB PO SCH (18:31)
[2020-07-21] MEDS: PALIPERIDONE 3 MG TABCR PO SCH (08:59)
[2020-07-21] MEDS: BENZTROPINE MESYLATE 0.5 MG TAB PO SCH (08:59)
[2020-07-21] MEDS: haloperidoL 5 MG TAB PO SCH ×3 (09:00→20:48)
[2020-07-21] MEDS: clonazePAM 1 MG TAB PO SCH ×2 (09:00→19:03)
[2020-07-21] MEDS: NICOTINE 21 MG/24 HR TDSY TD SCH (09:00)
[2020-07-21] MEDS: DIVALPROEX EXTENDED RELEASE 500 MG TAB PO SCH ×2 (09:00→20:47)
[2020-07-21] MEDS: clonazePAM 0.5 MG TAB PO PRN (13:35)
--- NOTE | 2020-07-21 15:55 | Psychiatric Progress Note ---
Date of Service July 21, 2020 Impression / Recommendations Impression 25 y/o male with bipolar type I who was admitted voluntarily for nhan and psychosis, converted to a 304 at hearing today. He continues to be manic and psychotic, has poor insight, is asking to leave, and is now on elopement precautions. He has been continued on his home dose of haloperidol, Depakote has been increased, and Invega added with initial plan to transition to Sustenna if it is effective and tolerated. There has been limited improvement since initiating Invega - will titrate oral dose to maximize dose, but if there is still no improvement it is likely that other options will need to be considered: maximizing Haldol, trial of another typical antipsychotic (Prolixin), or trial of risperidone. [place] goal would be to have patient stabilized on a medication that can be administered as an PACHECO, as there have been suspected medication compliance issues. Pt's manic episodes have been unusually treatment-resistant, and we will attempt to gather information that may help use understand this be tter. He continues to be disorganized, delusional, and intrusive. He is now reporting plans to "fast", more accurately refusal to eat - which increases concern for self harm if he were not in a supervised setting. He remains unable to attend to his basic needs and requires the supervision and support of an inpatient psychiatric unit. (1) Bipolar disorder with severe nhan: 07/15/20--The patient was admitted to the [facility] ([facility] mental [facility] unit) on q15 min checks (behavioral with suicide precautions) for safety. The patient will participate in group, recreational, and milieu therapies and will be offered additional individual and family sessions as clinically appropriate. Risks/benefits/alternatives reviewed re: his current medications. Recommend a true Depakote trough. He requested to resume an injectable and reviewed that I'd suggest Invega as failed Abilify. Likely to require auth as primary diagnosis is bipolar disorder. Will challenge with 3 mg Invega today, reviewed lower long term care pharmacist risk of TD than Haldol. Invega 6 mg tomorrow, when can confirm coverage/tolerability will inject. I suspect maybe med compliance wasn't 100% in recent days if parents away but will work to confirm. Will need to update county re: admission given 304 status. 07/16/20--titrate Depakote to 1000 mg BID, Invega 6 mg today with plan for injection tomorrow. continue same dose of Haldol with Ativan prn. Continue MNPR as low frustration tolerance with peers, poor sleep and historically poor physical boundaries when manic. 07/18 -continue Depakote, trough level is scheduled for 07/20/2020 (although true trough will not be until 07/20/2020). Continue haloperidol 5 mg twice daily and 10 mg at bedtime, and Invega 6 mg daily. Will not yet proceed with Sustenna, as it is not clear that Invega is effective. -306 conversion hearing scheduled for tomorrow, as patient is on an IOC. -Patient's mother asking to speak with clinician; called her and left a message. Also called [place] to coordinate care with Rachelle Bansal and left a message for a call back. Staff of been in contact with patient's BCM who will attend the hearing tomorrow. -PCP, Dr. Thomas, had scheduled a brain MRI for this , which will need to be rescheduled as he is currently inpatient. 07/19 - Converted to 304 at hearing today. Care coordinated with BCM who attended hearing and will come see patient on Friday. Spoke with mother and reviewed course, plan. - Rescheduled brain MRI for 08/08. - No co-pay for Sustenna, but will wait to transition to PACHECO until there is evidence of efficacy. For now continue p.o. haloperidol and paliperidone. Fasting labs from 06/06/2020 reviewed: Cholesterol 226, otherwise normal. 07/20 - Pt continues to be manic, delusional, intrusive, and religiously preoccupied. Will continue titration of paliperidone at this time - increasing dose to 9mg tomorrow. It has not yet shown to be profoundly beneficially, and we may need to consider alternative antipsychotic options. Considerations include titration of haloperidol, trial of another typical antipsychotic, or trial of risperidone (some concern regarding persistent tachycardia at baseline). Ideally, we would explore options that are available in an PACHECO, as patient is agreeable and his outpatient providers suspect there are medication compliance issues. - Continue Depakote - level today was 77, but uncertain that this was a true 5- day trough. Will recheck level on 07/22, prior to making dose changes. - Pt continues to refuse to consider trial of lithium, as there were reports of nausea with a previous trial - We will switch from lorazepam to clonazepam to continue utilization for antimanic properties, but capitalize on a longer half-life. Will schedule clonazepam dosing of 1mg BID, with up to two additional prn doses of 0.5mg available. - Continue attempts to clarify information that may help explain why patient has been so treatment resistant - may need to consider checks to rule out cheeking medications or other concerns. 07/21 - Continue current medication regimen. - Pt continues to be manic and delusional - religiously preoccupied and somewhat disruptive in groups Inventory Assets Strengths: more insight this visit, family support Needs: confirm plan for outpatient care as provider on medical leave Risk Factors Assessment Male: Yes : Yes Do You Have Access To A Gun?: No Mental Health Diagnoses: Yes Substance Use Disorders: No Previous Attempt: No Previous Psychiatric Hospitalization: Yes Hopelessness: No Smoker: Yes Protective Factors Assessment Oriental Orthodox Beliefs: Yes : No Responsible for Young Children: No Employed: No Supportive Family: Yes Interval History Identifying Information JAYSON CAMPUZANO is a 25-year-old M who currently lives with mother, has a history of bipolar disorder type I with a recent inpatient stay on 3S for nhan, and was admitted on 07/14/20 17:28 on a 201 voluntary commitment for increased agitation and non-specific hallucinations. He is on a 304 involuntary outpatient commitment, conversion hearing on 07/19/2020. Chief Complaint "I'm better - better each day." Review of Systems Notes Constitutional: denied Cardiovascular: denied Respiratory: denied Gastrointestinal: denied Neurological: denied Psychiatric: denies symptoms other than stated above Total of at least 10 systems reviewed, pertinent positives as above and in HPI. Sleep Information Total Hours of Sleep: 8.25 Sleep Comments: pt on q-15 minute checks Meal Information Percent Meal Consumed - Breakfast: 100 Percent Meal Consumed - Lunch: 10 Percent Meal Consumed - Dinner: 50 Nutrition Comment: pt. had milk only--states he is fasting until there is justice for [place] He Subjective Subjective Patient was seen & assessed and interval progress reviewed with treatment team. Staff report the patient has still had difficulty tolerating groups and is occasionally disruptive. Pt was seen today to assess progress since admission. He reports he is "better - better each day." When asked why he believes this is happening, the patient states "each day were are closer to the coming of Darío Troy." Pt then continued to verbalize various religiously-themed thoughts. Pt was asked about his goals for the weekend and states "I just need to keep playing the right music." The patient shared that the music "speaks to me" but denied specifics about this. Pt randomly stated "I still think I can see and hear things that other people can't. So if I look over my shoulder or something, it's just because I see someone - either a real person or a spirit." Pt went on to elaborate, stating he believes everyone has spirits - his is "Darío Troy himself." Pt also believes his late father is his spirit. Pt then became suddenly tearful and inquired "how do you get over loss." He seemed to tolerate only a brief discussion on grief before his affect abruptly changed back to euphoric. He states "the Depakote is really working well, I'm not paranoid." Pt does share that he was paranoid about the presence of security cameras on the unit. He shares thoughts on [email or web address] security in [facility], and states "last admission I know they were watching me in order to augment reality." Pt wiped a tear from his face and said "I don't care if the cameras see me crying, I just care if they see my acne." Pt then smiled again and asked this provider "do you know anything about voting? What's going on?" [presumably referring to the presidential election]. Pt then smiles and states "see what I did there, how I switched topics so fast. That's bipolar disorder." Pt is agreeable with continuing his current medication regimen - again offering "I think I like the Invega so much, I'm willing to take that shot right now!" We discussed a plan to wait on the injection until we were able to see that the medication was providing appropriate benefit, and patient reported understanding. When discussing goals for the weekend, the patient became obviously distraught - he roxana from the table and said "I don't want to be here anymore. I guess I'll just go to my room." Pt left the room without saying anymore more to this provider. Physical Exam Psychiatric Orientation: alert, oriented x 3 and cooperative Apperance: appropriately dressed and appropriately groomed Eye Contact: good eye contact (intensely staring ) Motor Behavior: + tremor (visible shaking, reports he is "nervous") Speech: normal rate/rhythm/volume of speech Affect: Expansive Mood: no depressed mood ("great") Thought Process: + tangential thought process and + flight of ideas Thought Content: + preoccupation (quaker preoccupation), + paranoid (focused on cameras on the unit) and + delusions Suicidal Thoughts: denies suicidal thoughts Homicidal Thoughts: denies homicidal thoughts Hallucinations: + visual hallucinations (reports he is seeing "spirits" ); no auditory hallucinations Cognition: attention grossly intact and language grossly intact Estimated Intelligence: consistent with education level Insight: + impaired insight Judgement: + impaired judgement Vital Signs (Past 24 Hours) Last Vital Signs Temp 36.4 C L 07/21/20 06:39 Pulse 109 H 07/21/20 06:39 Resp 17 07/21/20 06:39 BP 113/70 07/21/20 06:39 Pulse Ox 97 07/14/20 19:05 [facility] & [facility] Current Inpatient Medications Current Inpatient Medications: Current Inpatient Medications Acetaminophen (Acetaminophen 325 Mg Tab) 650 mg PO Q4H PRN PRN Reason: Headache or Minor Fever Stop: 08/13/20 17:26 Al Hydrox/Mg Hydrox/Simethicone (Aluminum/Magnesium Susp 30 Ml Udc) 30 ml PO Q4H PRN PRN Reason: GI Upset Stop: 08/13/20 17:26 Last Admin: 07/17/20 22:22 Dose: 30 ml Documented by: Benztropine Mesylate (Benztropine Mesylate 0.5 Mg Tab) 0.5 mg PO BID TITA Stop: 08/13/20 20:59 Last Admin: 07/21/20 08:59 Dose: 0.5 mg Documented by: Benztropine Mesylate (Benztropine Mesylate 1 Mg Tab) 1 mg PO Q6 PRN PRN Reason: Muscle Spasm Stop: 08/14/20 11:59 Last Admin: 07/17/20 12:05 Dose: 1 mg Documented by: Bismuth Subsalicylate (Bismuth Subsalicylate Liqd 236 Ml) 15 ml PO PRN PRN PRN Reason: Loose Stool Stop: 08/13/20 17:26 Clonazepam (Clonazepam 1 Mg Tab) 1 mg PO BID@0900,1900 [facility] Stop: 08/19/20 18:59 Last Admin: 07/21/20 09:00 Dose: 1 mg Documented by: Clonazepam (Clonazepam 0.5 Mg Tab) 0.5 mg PO BID PRN PRN Reason: Anxiety/Agitation Stop: 08/19/20 13:16 Last Admin: 07/21/20 13:35 Dose: 0.5 mg Documented by: Divalproex Sodium (Divalproex Extended Release 500 Mg Tab) 1,000 mg PO BID [facility] Stop: 08/15/20 20:59 Last Admin: 07/21/20 09:00 Dose: 1,000 mg Documented by: Haloperidol (Haloperidol 5 Mg Tab) 5 mg PO QAM [facility] Stop: 08/14/20 08:59 Last Admin: 07/21/20 09:00 Dose: 5 mg Documented by: Haloperidol (Haloperidol 5 Mg Tab) 5 mg PO DAILY@1200 [facility] Stop: 08/14/20 11:59 Last Admin: 07/21/20 13:35 Dose: 5 mg Documented by: Haloperidol (Haloperidol 5 Mg Tab) 10 mg PO HS TITA Stop: 08/13/20 20:59 Last Admin: 07/20/20 20:27 Dose: 10 mg Documented by: Hydroxyzine HCl (Hydroxyzine Hcl 25 Mg Tab) 50 mg PO HSZ PRN PRN Reason: Insomnia Stop: 08/13/20 17:26 Last Admin: 07/16/20 00:05 Dose: 50 mg Documented by: Hydroxyzine HCl (Hydroxyzine Hcl 25 Mg Tab) 25 mg PO Q4H PRN PRN Reason: Anxiety Stop: 08/13/20 17:26 Last Admin: 07/15/20 06:27 Dose: 25 mg Documented by: Magnesium Hydroxide (Magnesium Hydroxide Susp 30 Ml Udc) 30 ml PO DAILY PRN PRN Reason: Constipation Stop: 08/13/20 17:26 Miscellaneous (Remove Nicoderm Patch) 1 ea N/A DAILY@0859 [facility] Stop: 08/14/20 08:58 Last Admin: 07/21/20 09:01 Dose: Not Given Documented by: Nicotine (Nicotine 21 Mg/24 Hr Tdsy) 21 mg TD QAM [facility] Stop: 08/14/20 08:59 Last Admin: 07/21/20 09:00 Dose: Not Given Documented by: Nicotine Polacrilex (Nicotine Polacrilex 2 Mg Gum) 1 piece MT PRN PRN PRN Reason: Cravings Stop: 08/14/20 14:58 Last Admin: 07/17/20 10:09 Dose: 1 piece Documented by: Paliperidone (Paliperidone 3 Mg Tabcr) 9 mg PO QAM TITA Stop: 08/20/20 08:59 Last Admin: 07/21/20 08:59 Dose: 9 mg Documented by: Sodium Chloride (Sodium Chloride 0.65% Na Soln 45 Ml ([place])) 1 - 2 sprays NA PRN PRN PRN Reason: Nasal Dryness/Congestion Stop: 08/13/20 17:26 Mental Health & Subst Abuse Tx Psychiatrist Name of Psychiatrist: Alejandra Bansal Psychiatrist's Date of Appointment with Psychiatrist: 08/17/20 Time of Appointment with Psychiatrist: 1:20 p.m. Psychiatric Appointment Comment: [facility] Therapist Name of Therapist: Alejandra Samuels Therapist's Date of Therapist Appointment: 08/02/20 Time of Therapist Appointment: 8:00 a.m. Therapy Appointment Comment: [facility] [employer]er Operator Automatic Name of Grinder And Honer Operator Automatic: [facility] - Bill Phone Number for Grinder And Honer Operator Automatic: [phone] Post Discharge Appointments Primary Care Physician Name Of Family Doctor: Alejandra Bell - Dr. Thomas Primary Care Date of Appointment with PCP: 08/03/20 Time of Appointment with PCP: 9:00 a.m. Provider Appointment Comment: [facility] Specialist Name of Specialist: MRI [facility], as referred by Dr. Thomas Phone Number for Specialist: [phone] Date of Appointment with Specialist: 08/08/20 Time of Appointment with Specialist: 10:00 Specialty Appointment Comment: appt. was rescheduled, as MRI was scheduled during pt.'s hospitalization Contact Information Discharge Discharge Address: [address] [place] [address]
[2020-07-21] MEDS: BENZTROPINE MESYLATE 1 MG TAB PO PRN (17:20)
--- NOTE | 2020-07-21 17:27 | Communication Note ---
Date of Service: July 21, 2020 I met with the patient this evening at his request. He has got a coarse tremor involving both hands tremor, as well as mild cogwheel rigidity on exam. I am increasing his benztropine from 0.5 mg twice a day to benztropine 2 mg daily (scheduled). He talks about receiving "signs from God." For example he says that it is a "sign from God" when he allowed the hospital's cook to choose his meal for tonight and the "director technical" selected sauted vegetablesa sign that he should "eat more healthy." However, the patient smiled as he said this and then added, "I guess that is kind of silly, is not it?" We are noticing that the patient's improvement seems to wax and wane, but overall the trajectory has been favorable. We are considering tapering his haloperidol, and possibly beginning the transition to Invega Sustenna, depending upon the patient's progress.
[2020-07-21] MEDS ORDERED: BENZTROPINE MESYLATE 1 MG TAB PO ONE (17:45)
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
[2020-07-22] MEDS: BENZTROPINE MESYLATE 1 MG TAB PO SCH (08:13)
[2020-07-22] MEDS: haloperidoL 5 MG TAB PO SCH ×2 (08:14→20:38)
[2020-07-22] MEDS: clonazePAM 1 MG TAB PO SCH ×2 (08:14→19:13)
[2020-07-22] MEDS: DIVALPROEX EXTENDED RELEASE 500 MG TAB PO SCH ×2 (08:14→20:36)
[2020-07-22] MEDS: PALIPERIDONE 3 MG TABCR PO SCH (08:14)
[2020-07-22] MEDS: NICOTINE 21 MG/24 HR TDSY TD SCH ×2 (08:18→10:55)
[2020-07-22] MEDS: ALUMINUM/MAGNESIUM SUSP 30 ML UDC PO PRN (14:34)
[2020-07-22] MEDS: clonazePAM 0.5 MG TAB PO PRN (15:19)
[2020-07-22] MEDS: NICOTINE POLACRILEX 2 MG GUM MT PRN (19:58)
[2020-07-22] MEDS: hydrOXYzine HCl 25 MG TAB PO PRN (21:50)
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
[2020-07-23] MEDS: PALIPERIDONE 3 MG TABCR PO SCH (08:06)
[2020-07-23] MEDS: BENZTROPINE MESYLATE 1 MG TAB PO SCH (08:06)
[2020-07-23] MEDS: haloperidoL 5 MG TAB PO SCH ×2 (08:07→20:27)
[2020-07-23] MEDS: DIVALPROEX EXTENDED RELEASE 500 MG TAB PO SCH ×2 (08:07→20:26)
[2020-07-23] MEDS: clonazePAM 1 MG TAB PO SCH ×2 (08:11→18:38)
[2020-07-23] MEDS: NICOTINE 21 MG/24 HR TDSY TD SCH (08:14)
[2020-07-23] MEDS: clonazePAM 0.5 MG TAB PO PRN ×2 (12:04→15:10)
[2020-07-23] MEDS: NICOTINE POLACRILEX 2 MG GUM MT PRN (13:22)
[2020-07-23] MEDS: BENZTROPINE MESYLATE 1 MG TAB PO PRN (15:09)
[2020-07-24] MEDS: NICOTINE 21 MG/24 HR TDSY TD SCH (07:01)
[2020-07-24] MEDS: DIVALPROEX EXTENDED RELEASE 500 MG TAB PO SCH ×2 (07:02→20:44)
[2020-07-24] MEDS: BENZTROPINE MESYLATE 1 MG TAB PO SCH (07:02)
[2020-07-24] MEDS: haloperidoL 5 MG TAB PO SCH (07:03)
[2020-07-24] MEDS: PALIPERIDONE 3 MG TABCR PO SCH (07:03)
[2020-07-24] MEDS: clonazePAM 1 MG TAB PO SCH ×2 (07:06→19:46)
[2020-07-24] MEDS: clonazePAM 0.5 MG TAB PO PRN (10:24)
[2020-07-24] MEDS: BENZTROPINE MESYLATE 1 MG TAB PO PRN (12:12)
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
[2020-07-24] MEDS ORDERED: haloperidoL 0.5 MG TAB PO PRN (14:38)
[2020-07-24] MEDS ORDERED: haloperidoL 5 MG TAB PO ONE (21:00)
[2020-07-25] MEDS ORDERED: haloperidoL 0.5 MG TAB PO PRN (08:00)
[2020-07-25] MEDS: DIVALPROEX EXTENDED RELEASE 500 MG TAB PO SCH ×2 (08:14→20:31)
[2020-07-25] MEDS: PALIPERIDONE 3 MG TABCR PO SCH (08:14)
[2020-07-25] MEDS: BENZTROPINE MESYLATE 1 MG TAB PO SCH (08:14)
[2020-07-25] MEDS: clonazePAM 1 MG TAB PO SCH ×2 (08:16→19:13)
[2020-07-25] MEDS: NICOTINE 21 MG/24 HR TDSY TD SCH (08:18)
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
[2020-07-25] MEDS: NICOTINE POLACRILEX 2 MG GUM MT PRN (14:33)
[2020-07-26] MEDS: BENZTROPINE MESYLATE 1 MG TAB PO SCH (08:34)
[2020-07-26] MEDS: PALIPERIDONE 3 MG TABCR PO SCH (08:35)
[2020-07-26] MEDS: DIVALPROEX EXTENDED RELEASE 500 MG TAB PO SCH ×2 (08:35→20:19)
[2020-07-26] MEDS: clonazePAM 1 MG TAB PO SCH ×2 (08:36→18:06)
[2020-07-26] MEDS: NICOTINE 21 MG/24 HR TDSY TD SCH (08:37)
[2020-07-26] MEDS: clonazePAM 0.5 MG TAB PO PRN (11:26)
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
[2020-07-26] MEDS: hydrOXYzine HCl 25 MG TAB PO PRN (15:54)
[2020-07-26] MEDS: BENZTROPINE MESYLATE 1 MG TAB PO PRN (15:56)
[2020-07-27] MEDS: DIVALPROEX EXTENDED RELEASE 500 MG TAB PO SCH ×2 (09:00→20:11)
[2020-07-27] MEDS: BENZTROPINE MESYLATE 1 MG TAB PO SCH (09:00)
[2020-07-27] MEDS: NICOTINE 21 MG/24 HR TDSY TD SCH (09:01)
[2020-07-27] MEDS: PALIPERIDONE 3 MG TABCR PO SCH (09:01)
[2020-07-27] MEDS: clonazePAM 1 MG TAB PO SCH ×2 (09:01→19:35)
[2020-07-27] MEDS: clonazePAM 0.5 MG TAB PO PRN (10:11)
[2020-07-27] MEDS ORDERED: haloperidoL 5 MG TAB PO PRN (10:15)
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
[2020-07-28] MEDS: clonazePAM 1 MG TAB PO SCH ×2 (09:32→20:09)
[2020-07-28] MEDS: BENZTROPINE MESYLATE 1 MG TAB PO SCH (09:32)
[2020-07-28] MEDS: PALIPERIDONE 3 MG TABCR PO SCH (09:32)
[2020-07-28] MEDS: DIVALPROEX EXTENDED RELEASE 500 MG TAB PO SCH ×2 (09:32→20:09)
[2020-07-28] MEDS: NICOTINE 21 MG/24 HR TDSY TD SCH (09:33)
[2020-07-28] MEDS ORDERED: PALIPERIDONE PALMITATE 234 MG/1.5 ML SYR IM ONE (15:42)
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
[2020-07-29] MEDS: clonazePAM 1 MG TAB PO SCH ×2 (08:46→20:11)
[2020-07-29] MEDS: DIVALPROEX EXTENDED RELEASE 500 MG TAB PO SCH ×2 (08:46→20:11)
[2020-07-29] MEDS: NICOTINE 21 MG/24 HR TDSY TD SCH (08:50)
[2020-07-29] MEDS: BENZTROPINE MESYLATE 1 MG TAB PO PRN (13:26)
[2020-07-29] MEDS: clonazePAM 0.5 MG TAB PO PRN (13:26)
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
[2020-07-30] MEDS: clonazePAM 1 MG TAB PO SCH ×2 (08:36→20:13)
[2020-07-30] MEDS: DIVALPROEX EXTENDED RELEASE 500 MG TAB PO SCH ×2 (08:36→20:13)
[2020-07-30] MEDS: NICOTINE 21 MG/24 HR TDSY TD SCH (08:38)
[2020-07-31] MEDS: clonazePAM 1 MG TAB PO SCH ×2 (08:42→17:13)
[2020-07-31] MEDS: DIVALPROEX EXTENDED RELEASE 500 MG TAB PO SCH ×2 (08:42→20:42)
[2020-07-31] MEDS: NICOTINE 21 MG/24 HR TDSY TD SCH (08:43)
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
--- NOTE | 2020-08-01 08:41 | Psychiatric Progress Note ---
Date of Service August 01, 2020 Impression / Recommendations Impression 25 y/o male with bipolar type I who was admitted voluntarily for nhan and psychosis, converted to a 304 as was on an IOC. He has been continued on Depakote, dose was titrated, and antipsychotic was switched from haloperidol to paliperidone, and then converted to Sustenna (first loading injection 07/28/2020). Manic and psychotic symptoms are improving, and he is now able to participate in groups and therapy. His rehabilitation caseworker has been involved in meeting with him weekly on the unit, and he had a family meeting with his mother. He is being referred for psych rehab for increased outpatient structure/supports. We are planning for discharge at the end of the week. (1) Bipolar disorder with severe nhan: 07/15/20--The patient was admitted to the [facility] ([facility] health unit) on q15 min checks (behavioral with suicide precautions) for safety. The patient will participate in group, recreational, and milieu therapies and will be offered additional individual and family sessions as clinically appropriate. Risks/benefits/alternatives reviewed re: his current medications. Recommend a true Depakote trough. He requested to resume an injectable and reviewed that I'd suggest Invega as failed Abilify. Likely to require auth as primary diagnosis is bipolar disorder. Will challenge with 3 mg Invega today, reviewed lower manager intermediate risk of TD than Haldol. Invega 6 mg tomorrow, when can confirm coverage/tolerability will inject. I suspect maybe med compliance wasn't 100% in recent days if parents away but will work to confirm. Will need to update county re: admission given 304 status. 07/16/20--titrate Depakote to 1000 mg BID, Invega 6 mg today with plan for injection tomorrow. continue same dose of Haldol with Ativan prn. Continue MNPR as low frustration tolerance with peers, poor sleep and historically poor physical boundaries when manic. 07/18 -continue Depakote, trough level is scheduled for 07/20/2020 (although true trough will not be until 07/20/2020). Continue haloperidol 5 mg twice daily and 10 mg at bedtime, and Invega 6 mg daily. Will not yet proceed with Sustenna, as it is not clear that Invega is effective. -306 conversion hearing scheduled for tomorrow, as patient is on an IOC. -Patient's mother asking to speak with clinician; called her and left a message. Also called [place] to coordinate care with Rachelle Bansal and left a message for a call back. Staff of been in contact with patient's BC who will attend the hearing tomorrow. -PCP, Dr. Thomas, had scheduled a brain MRI for this , which will need to be rescheduled as he is currently inpatient. 07/19 - Converted to 304 at hearing today. Care coordinated with BCM who attended hearing and will come see patient on Friday. Spoke with mother and reviewed course, plan. - Rescheduled brain MRI for 08/08. - No co-pay for Sustenna, but will wait to transition to PACHECO until there is evidence of efficacy. For now continue p.o. haloperidol and paliperidone. Fasting labs from 06/06/2020 reviewed: Cholesterol 226, otherwise normal. 07/20 - Pt continues to be manic, delusional, intrusive, and religiously preoccupied. Will continue titration of paliperidone at this time - increasing dose to 9mg tomorrow. It has not yet shown to be profoundly beneficially, and we may need to consider alternative antipsychotic options. Considerations include titration of haloperidol, trial of another typical antipsychotic, or trial of risperidone (some concern regarding persistent tachycardia at baseline). Ideally, we would explore options that are available in an PACHECO, as patient is agreeable and his outpatient providers suspect there are medication compliance issues. - Continue Depakote - level today was 77, but uncertain that this was a true 5- day trough. Will recheck level on 07/22, prior to making dose changes. - Pt continues to refuse to consider trial of lithium, as there were reports of nausea with a previous trial - We will switch from lorazepam to clonazepam to continue utilization for antimanic properties, but capitalize on a longer half-life. Will schedule clonazepam dosing of 1mg BID, with up to two additional prn doses of 0.5mg liliana ilable. - Continue attempts to clarify information that may help explain why patient has been so treatment resistant - may need to consider checks to rule out cheeking medications or other concerns. 07/21 - Continue current medication regimen. - Pt continues to be manic and delusional - religiously preoccupied and somewhat disruptive in groups 07/22 -Benztropine was increased to 2 mg daily yesterday due to tremor and cogwheeling on exam. Today I will reduce his Haldol to 5 mg twice daily, while continuing paliperidone 9 mg daily. Consider increasing further to 12 mg daily. -Continue Depakote 1000 mg twice daily; trough level today 89. 07/23 -continue current medications and plan. We will continue to taper off haloperidol. His manic symptoms may take longer to resolve given the number of episodes he has had. -Patient has been able to participate in a limited fashion in groups, but is excused when overstimulated. -Patient is not yet ready for a family meeting, but hopefully sometime this week he will be. 07/24 - Will discontinue scheduled haloperidol and titrate paliperidone to 12mg qAM - will continue to have as needed doses of haloperidol available if needed - Pt continues to state that he is better and ready for discharge, though behavior is not consistent with this report - It remains likely that the patient would not be able to tolerate a family meeting - Pt still requires medically necessary private room 07/25 - 07/26 - Continue paliperidone 12mg qAM, patient continues to receive benztropine and clonazepam on a scheduled basis as well - Behavior continues to be inconsistent and patient is easily stimulated by his peers - Family meeting when appropriate 07/27 - Continue paliperidone 12mg, benztropine, and clonazepam - He continues to demonstrate poor insight and disorganized and delusional thinking - inappropriate and poor boundaries with peers and requires frequent redirection - MNPR remains necessary due to poor boundaries and patient being easily ove rstimulated - manager engine to meet with patient tomorrow - will discuss our recommendation for IOP or psychiatric day programming at discharge 07/28 -The patient's behavior today has been more subdued. He has not seemingly been easily overstimulated, and the level of expressed emotion on the behavioral health unit today was, at times, quite high. The patient seems to have tolerated this reasonably well. -No delusional material is identified in the patient's thought content. He affirmed that he knows that he is not a rap star, and he also affirmed today that he is someone who considers himself to be anabaptism, and someone who believes in the divinity of Darío Troy, but he notes that he "definitely" is not Darío Troy. -He met with his rehabilitation caseworker today to discuss recommendations for intensive outpatient treatment or possibly psychiatric day programming at discharge. The patient reports that he feels that the meeting went well. -We discussed converting him to the Depo form of paliperidone (Invega Sustenna). Material risks and anticipated benefits of Invega Sustenna were reviewed with the patient, and he indicated understanding and an eagerness to excepted, particularly because he hopes that it will mean that he will not have to take as many medications by mouth each day. -At this point, the patient is not demonstrating first rank symptoms of nhan or hypomania. He does not have pressured speech. His thought processes are reasonably well organized without evidence of flight of ideas. There is no evidence of current delusional grandiosity. He also voices insight into the symptoms of his psychiatric illness as well as an intent to be fully adherent with outpatient treatment recommendations. -Benztropine has been discontinued because the patient is not demonstrating any EPS symptoms today on testing (for cogwheel rigidity) and haloperidol has been discontinued. He was advised to let us know if he begins to experience muscle stiffness restlessness, and that he was reminded that the benztropine had been to address those symptoms present earlier. -Oral paliperidone has been discontinued. The patient was advised that it may be necessary to supplement the intramuscular Depo medication with oral paliperidone during the transition process, and that he should let us know if he is starting to experience the manic symptoms which he has identified as his tar get symptoms. -We are also continuing Depakote 1000 mg twice a day. -We are moving towards discharge and it is our hope that he will be able to arrange to have his second dose of Invega Sustenna (156 mg) in about a week from today. 07/29 - Continue treatment plan as above - Pt receive initial Invega Sustenna injection of 234mg IM last evening - oral supplementation discontinued, but could be reinstituted if necessary. - Continue Depakote 1000mg BID. - Does admit to more depressed mood today. This is not entirely new, but also patient reports today is his father's birthday - MNPR to be continued until patient is able to consistently demonstrate improvement in delusional thinking and better boundaries with peers. - Pt did agree to [facility] psych rehab referrals during meeting with mother and rehabilitation caseworker yesterday; patient remains focused on discharge 07/30 - Continue treatment plan as above, encourage second Invega Sustenna initiation injection prior to discharge - Pt has been more subdued, gradually demonstrating fewer behavioral concerns - Continue MNPR - Engage family and rehabilitation caseworker in discharge planning efforts 07/31 - Continue current treatment plan - second dose of Invega Sustenna could be given as early as tomorrow - Ongoing improvement in stability of mood - mom did confirm that the patient is more withdrawn/subdued at baseline. - Continue MNPR - Mother updated by this provider via phone regarding current condition and potential discharge planning for later this week 08/01 -Order second Invega Sustenna loading injection for tomorrow. He will then be due for maintenance injection of 234 mg (equivalent to the 12 mg oral dose he was receiving) every 4 weeks, injection due 08/30/2020. -Arranging aftercare, including referral for psych rehab. -Discontinue private room and elopement precautions, as symptoms inability to tolerate being around others/stimuli are improving. Inventory Assets Strengths: more insight this visit, family support Needs: confirm plan for outpatient care as provider on medical leave Risk Factors Assessment Male: Yes : Yes Do You Have Access To A Gun?: No Mental Health Diagnoses: Yes Substance Use Disorders: No Previous Attempt: No Previous Psychiatric Hospitalization: Yes Hopelessness: No Smoker: Yes Protective Factors Assessment Taoism Beliefs: Yes : No Responsible for Young Children: No Employed: No Supportive Family: Yes Interval History Identifying Information JAYSON CAMPUZANO is a 25-year-old M who currently lives with mother, has a history of bipolar disorder type I with a recent inpatient stay on 3S for nhan, and was admitted on 07/14/20 17:28 on a 201 voluntary commitment for increased agitation and non-specific hallucinations. He is on a 304 involuntary outpatient commitment, conversion hearing on 07/19/2020. Chief Complaint "Good". Review of Systems Sleep Information Total Hours of Sleep: 8.5 Sleep Comments: pt on q-15 minute checks Meal Information Percent Meal Consumed - Breakfast: 95 Percent Meal Consumed - Lunch: 100 Percent Meal Consumed - Dinner: 50 Nutrition Comment: per meal record Subjective Subjective Patient was seen & assessed and interval progress reviewed with nursing and social work. Staff report he has been in better behavioral control, is attending and participating in groups, and rated his mood a 5/10 last evening. He has minimal interactions with staff and peers. On my assessment, he reports his mood is "steady," and describes sleep as "nice." He feels he is sleeping through the night and is rested during the day. Appetite is "not good," notes he is tired of the food here. He denies hallucinations and thoughts of harming himself or others. He is looking forward to discharge, stating he plans to spend his time at home playing video games, hanging out with his mother, and going to the to work out. He has not been driving since his last hospitalization, but states he hopes to be able to return to driving soon. Discussed that he will need to wait until symptoms have fully resolved to ensure he has no symptoms impairing his concentration, and also to ensure no problematic side effects from medications, and that he will need to discuss this with his outpatient clinician prior to resuming driving, to which he agreed. Physical Exam Psychiatric Orientation: alert and cooperative Apperance: appropriately dressed, appropriately groomed and appeared stated age Wearing blue scrub pants and a [employer] T-shirt, bearded, wearing glasses. Seated on the edge of the bed in no acute distress. Eye Contact: good eye contact Motor Behavior: steady gait and station Mildly slowed movements. Speech: normal rate/rhythm/volume of speech Affect: + blunted affect "Good." Thought Process: goal directed thought process Thought Content: reality based without delusions Suicidal Thoughts: denies suicidal thoughts Homicidal Thoughts: denies homicidal thoughts Hallucinations: no auditory hallucinations and no visual hallucinations Cognition: recent memory grossly intact, attention grossly intact and language grossly intact Estimated Intelligence: average estimated intelligence Insight: + fair insight Judgement: + fair judgement Vital Signs (Past 24 Hours) Last Vital Signs Temp 36.4 C L 08/01/20 06:00 Pulse 69 08/01/20 06:36 Resp 16 08/01/20 06:00 BP 124/72 08/01/20 06:36 Pulse Ox 97 07/14/20 19:05 Results & Data ([facility]) Current Inpatient Medications Current Inpatient Medications: Current Inpatient Medications Acetaminophen (Acetaminophen 325 Mg Tab) 650 mg PO Q4H PRN PRN Reason: Headache or Minor Fever Stop: 08/13/20 17:26 Al Hydrox/Mg Hydrox/Simethicone (Aluminum/Magnesium Susp 30 Ml Udc) 30 ml PO Q4H PRN PRN Reason: GI Upset Stop: 08/13/20 17:26 Last Admin: 07/22/20 14:34 Dose: 30 ml Documented by: Benztropine Mesylate (Benztropine Mesylate 1 Mg Tab) 1 mg PO Q6 PRN PRN Reason: Muscle Spasm Stop: 08/14/20 11:59 Last Admin: 07/29/20 13:26 Dose: 1 mg Documented by: Bismuth Subsalicylate (Bismuth Subsalicylate Liqd 236 Ml) 15 ml PO PRN PRN PRN Reason: Loose Stool Stop: 08/13/20 17:26 Clonazepam (Clonazepam 1 Mg Tab) 1 mg PO BID@0900,1900 [facility] Stop: 08/19/20 18:59 Last Admin: 07/31/20 17:13 Dose: 1 mg Documented by: Clonazepam (Clonazepam 0.5 Mg Tab) 0.5 mg PO BID PRN PRN Reason: Anxiety/Agitation Stop: 08/19/20 13:16 Last Admin: 07/29/20 13:26 Dose: 0.5 mg Documented by: Divalproex Sodium (Divalproex Extended Release 500 Mg Tab) 1,000 mg PO BID TITA Stop: 08/15/20 20:59 Last Admin: 07/31/20 20:42 Dose: 1,000 mg Documented by: Haloperidol (Haloperidol 5 Mg Tab) 2.5 mg PO BID PRN PRN Reason: Agitation/Anxiety Stop: 08/26/20 10:08 Last Admin: 07/27/20 10:26 Dose: 2.5 mg Documented by: Hydroxyzine HCl (Hydroxyzine Hcl 25 Mg Tab) 50 mg PO HSZ PRN PRN Reason: Insomnia Stop: 08/13/20 17:26 Last Admin: 07/22/20 21:50 Dose: 50 mg Documented by: Hydroxyzine HCl (Hydroxyzine Hcl 25 Mg Tab) 25 mg PO Q4H PRN PRN Reason: Anxiety Stop: 08/13/20 17:26 Last Admin: 07/26/20 15:54 Dose: 25 mg Documented by: Magnesium Hydroxide (Magnesium Hydroxide Susp 30 Ml Udc) 30 ml PO DAILY PRN PRN Reason: Constipation Stop: 08/13/20 17:26 Miscellaneous (Remove Nicoderm Patch) 1 ea N/A DAILY@0859 [facility] Stop: 08/14/20 08:58 Last Admin: 07/31/20 08:42 Dose: Not Given Documented by: Nicotine (Nicotine 21 Mg/24 Hr Tdsy) 21 mg TD QAM TITA Stop: 08/14/20 08:59 Last Admin: 07/31/20 08:43 Dose: Not Given Documented by: Nicotine Polacrilex (Nicotine Polacrilex 2 Mg Gum) 1 piece MT PRN PRN PRN Reason: Cravings Stop: 08/14/20 14:58 Last Admin: 07/25/20 14:33 Dose: 1 piece Documented by: Sodium Chloride (Sodium Chloride 0.65% Na Soln 45 Ml (Bucks)) 1 - 2 sprays NA PRN PRN PRN Reason: Nasal Dryness/Congestion Stop: 08/13/20 17:26 Mental Health & Subst Abuse Tx Psychiatrist Name of Psychiatrist: Alejandra Bansal Psychiatrist's Date of Appointment with Psychiatrist: 08/17/20 Time of Appointment with Psychiatrist: 1:20 p.m. Psychiatric Appointment Comment: In person - [address] [facility] Therapist Name of Therapist: Alejandra Samuels Therapist's Date of Therapist Appointment: 08/16/20 Time of Therapist Appointment: 8:00 a.m. Therapy Appointment Comment: Telehealth Cement Mason Name of Cement Mason: [facility] Salvador Galindo Phone Number for Cement Mason: [phone] Post Discharge Appointments Primary Care Physician Name Of Family Doctor: Alejandra Thomas Primary Care Date of Appointment with PCP: 08/09/20 Time of Appointment with PCP: 9:20 a.m. Provider Appointment Comment: In person - [address] [facility] Specialist Name of Specialist: MRI Procedure[facility], as referred by Dr. Thomas Phone Number for Specialist: [phone] Date of Appointment with Specialist: 08/08/20 Time of Appointment with Specialist: 10:00 Specialty Appointment Comment: appt. was rescheduled, as MRI was scheduled during pt.'s hospitalization Contact Information Discharge Discharge Address: [address] [place] [address]
[2020-08-01] MEDS: clonazePAM 1 MG TAB PO SCH ×2 (08:46→18:56)
[2020-08-01] MEDS: DIVALPROEX EXTENDED RELEASE 500 MG TAB PO SCH ×2 (08:46→21:16)
[2020-08-01] MEDS: NICOTINE 21 MG/24 HR TDSY TD SCH (08:49)
[2020-08-01] MEDS ORDERED: PALIPERIDONE PALMITATE 234 MG/1.5 ML SYR IM SCH (09:15)
[2020-08-02] MEDS ORDERED: PALIPERIDONE PALMITATE 156 MG/ML SYR IM ONE (08:00)
[2020-08-02] MEDS: clonazePAM 1 MG TAB PO SCH ×2 (09:58→19:40)
[2020-08-02] MEDS: DIVALPROEX EXTENDED RELEASE 500 MG TAB PO SCH ×2 (09:58→20:27)
[2020-08-02] MEDS: NICOTINE 21 MG/24 HR TDSY TD SCH (09:59)
--- NOTE | 2020-08-02 10:01 | Psychiatric Progress Note ---
Date of Service August 02, 2020 Impression / Recommendations Impression 25 y/o male with bipolar type I who was admitted voluntarily for nhan and psychosis, converted to a 304 as was on an IOC. He has been continued on Depakote, dose was titrated, and antipsychotic was switched from haloperidol to paliperidone, and then converted to Sustenna (first loading injection 07/28/2020). Manic and psychotic symptoms are improving, and he is now able to participate in groups and therapy. His patient case coordinator has been involved in meeting with him weekly on the unit, and he had a family meeting with his mother. He is being referred for psych rehab for increased outpatient structure/supports. We are planning for discharge at the end of the week. (1) Bipolar disorder with severe nhan: 07/15/20--The patient was admitted to the [facility]) on q15 min checks (behavioral with suicide precautions) for safety. The patient will participate in group, recreational, and milieu therapies and will be offered additional individual and family sessions as clinically appropriate. Risks/benefits/alternatives reviewed re: his current medications. Recommend a true Depakote trough. He requested to resume an injectable and reviewed that I'd suggest Invega as failed Abilify. Likely to require auth as primary diagnosis is bipolar disorder. Will challenge with 3 mg Invega today, reviewed lower bed bug exterminator risk of TD than Haldol. Invega 6 mg tomorrow, when can confirm coverage/tolerability will inject. I suspect maybe med compliance wasn't 100% in recent days if parents away but will work to confirm. Will need to update county re: admission given 304 status. 07/16/20--titrate Depakote to 1000 mg BID, Invega 6 mg today with plan for injection tomorrow. continue same dose of Haldol with Ativan prn. Continue MNPR as low frustration tolerance with peers, poor sleep and historically poor physical boundaries when manic. 07/18 -continue Depakote, trough level is scheduled for 07/20/2020 (although true trough will not be until 07/20/2020). Continue haloperidol 5 mg twice daily and 10 mg at bedtime, and Invega 6 mg daily. Will not yet proceed with Sustenna, as it is not clear that Invega is effective. -306 conversion hearing scheduled for tomorrow, as patient is on an IOC. -Patient's mother asking to speak with clinician; called her and left a message. Also called [place] to coordinate care with Rachelle Bansal and left a message for a call back. Staff of been in contact with patient's BC who will attend the hearing tomorrow. -PCP, Dr. Thomas, had scheduled a brain MRI for this , which will need to be rescheduled as he is currently inpatient. 07/19 - Converted to 304 at hearing today. Care coordinated with BCM who attended hearing and will come see patient on Friday. Spoke with mother and reviewed course, plan. - Rescheduled brain MRI for 08/08. - No co-pay for Sustenna, but will wait to transition to PACHECO until there is evidence of efficacy. For now continue p.o. haloperidol and paliperidone. Fasting labs from 06/06/2020 reviewed: Cholesterol 226, otherwise normal. 07/20 - Pt continues to be manic, delusional, intrusive, and religiously preoccupied. Will continue titration of paliperidone at this time - increasing dose to 9mg tomorrow. It has not yet shown to be profoundly beneficially, and we may need to consider alternative antipsychotic options. Considerations include titration of haloperidol, trial of another typical antipsychotic, or trial of risperidone (some concern regarding persistent tachycardia at baseline). Ideally, we would explore options that are available in an PACHECO, as patient is agreeable and his outpatient providers suspect there are medication compliance issues. - Continue Depakote - level today was 77, but uncertain that this was a true 5- day trough. Will recheck level on 07/22, prior to making dose changes. - Pt continues to refuse to consider trial of lithium, as there were reports of nausea with a previous trial - We will switch from lorazepam to clonazepam to continue utilization for antimanic properties, but capitalize on a longer half-life. Will schedule clonazepam dosing of 1mg BID, with up to two additional prn doses of 0.5mg liliana ilable. - Continue attempts to clarify information that may help explain why patient has been so treatment resistant - may need to consider checks to rule out cheeking medications or other concerns. 07/21 - Continue current medication regimen. - Pt continues to be manic and delusional - religiously preoccupied and somewhat disruptive in groups 07/22 -Benztropine was increased to 2 mg daily yesterday due to tremor and cogwheeling on exam. Today I will reduce his Haldol to 5 mg twice daily, while continuing paliperidone 9 mg daily. Consider increasing further to 12 mg daily. -Continue Depakote 1000 mg twice daily; trough level today 89. 07/23 -continue current medications and plan. We will continue to taper off haloperidol. His manic symptoms may take longer to resolve given the number of episodes he has had. -Patient has been able to participate in a limited fashion in groups, but is excused when overstimulated. -Patient is not yet ready for a family meeting, but hopefully sometime this week he will be. 07/24 - Will discontinue scheduled haloperidol and titrate paliperidone to 12mg qAM - will continue to have as needed doses of haloperidol available if needed - Pt continues to state that he is better and ready for discharge, though behavior is not consistent with this report - It remains likely that the patient would not be able to tolerate a family meeting - Pt still requires medically necessary private room 07/25 - 07/26 - Continue paliperidone 12mg qAM, patient continues to receive benztropine and clonazepam on a scheduled basis as well - Behavior continues to be inconsistent and patient is easily stimulated by his peers - Family meeting when appropriate 07/27 - Continue paliperidone 12mg, benztropine, and clonazepam - He continues to demonstrate poor insight and disorganized and delusional thinking - inappropriate and poor boundaries with peers and requires frequent redirection - MNPR remains necessary due to poor boundaries and patient being easily ove rstimulated - manager technical services to meet with patient tomorrow - will discuss our recommendation for IOP or psychiatric day programming at discharge 07/28 -The patient's behavior today has been more subdued. He has not seemingly been easily overstimulated, and the level of expressed emotion on the behavioral health unit today was, at times, quite high. The patient seems to have tolerated this reasonably well. -No delusional material is identified in the patient's thought content. He affirmed that he knows that he is not a rap star, and he also affirmed today that he is someone who considers himself to be restorationist, and someone who believes in the divinity of Darío Troy, but he notes that he "definitely" is not Darío Troy. -He met with his patient case coordinator today to discuss recommendations for intensive outpatient treatment or possibly psychiatric day programming at discharge. The patient reports that he feels that the meeting went well. -We discussed converting him to the Depo form of paliperidone (Invega Sustenna). Material risks and anticipated benefits of Invega Sustenna were reviewed with the patient, and he indicated understanding and an eagerness to excepted, particularly because he hopes that it will mean that he will not have to take as many medications by mouth each day. -At this point, the patient is not demonstrating first rank symptoms of nhan or hypomania. He does not have pressured speech. His thought processes are reasonably well organized without evidence of flight of ideas. There is no evidence of current delusional grandiosity. He also voices insight into the symptoms of his psychiatric illness as well as an intent to be fully adherent with outpatient treatment recommendations. -Benztropine has been discontinued because the patient is not demonstrating any EPS symptoms today on testing (for cogwheel rigidity) and haloperidol has been discontinued. He was advised to let us know if he begins to experience muscle stiffness restlessness, and that he was reminded that the benztropine had been to address those symptoms present earlier. -Oral paliperidone has been discontinued. The patient was advised that it may be necessary to supplement the intramuscular Depo medication with oral paliperidone during the transition process, and that he should let us know if he is starting to experience the manic symptoms which he has identified as his tar get symptoms. -We are also continuing Depakote 1000 mg twice a day. -We are moving towards discharge and it is our hope that he will be able to arrange to have his second dose of Invega Sustenna (156 mg) in about a week from today. 07/29 - Continue treatment plan as above - Pt receive initial Invega Sustenna injection of 234mg IM last evening - oral supplementation discontinued, but could be reinstituted if necessary. - Continue Depakote 1000mg BID. - Does admit to more depressed mood today. This is not entirely new, but also patient reports today is his father's birthday - MNPR to be continued until patient is able to consistently demonstrate improvement in delusional thinking and better boundaries with peers. - Pt did agree to [facility] psych rehab referrals during meeting with mother and patient case coordinator yesterday; patient remains focused on discharge 07/30 - Continue treatment plan as above, encourage second Invega Sustenna initiation injection prior to discharge - Pt has been more subdued, gradually demonstrating fewer behavioral concerns - Continue MNPR - Engage family and patient case coordinator in discharge planning efforts 07/31 - Continue current treatment plan - second dose of Invega Sustenna could be given as early as tomorrow - Ongoing improvement in stability of mood - mom did confirm that the patient is more withdrawn/subdued at baseline. - Continue MNPR - Mother updated by this provider via phone regarding current condition and potential discharge planning for later this week 08/01 -Order second Invega Sustenna loading injection for tomorrow. He will then be due for maintenance injection of 234 mg (equivalent to the 12 mg oral dose he was receiving) every 4 weeks, injection due 08/30/2020. -Arranging aftercare, including referral for psych rehab. -Discontinue private room and elopement precautions, as symptoms inability to tolerate being around others/stimuli are improving. 08/02 - Pt received second Invega Sustenna injection today - due again 08/30/2020 - Pt continues to appear subdued and withdrawn - consistently stating this is only related to prolonged hospitalization. Pt denies SI or other causes for depressed mood. - Behavior remains more consistent, patient no longer labile - Reviewed recommendation that patient not drive or have access to a vehicle until he is clinically stable - pt verbalized agreement with this recommendation Inventory Assets Strengths: more insight this visit, family support Needs: confirm plan for outpatient care as provider on medical leave Risk Factors Assessment Male: Yes : Yes Do You Have Access To A Gun?: No Mental Health Diagnoses: Yes Substance Use Disorders: No Previous Attempt: No Previous Psychiatric Hospitalization: Yes Hopelessness: No Smoker: Yes Protective Factors Assessment Yazidi Beliefs: Yes : No Responsible for Young Children: No Employed: No Supportive Family: Yes Interval History Identifying Information JAYSON CAMPUZANO is a 25-year-old M who currently lives with mother, has a history of bipolar disorder type I with a recent inpatient stay on 3S for nhan, and was admitted on 07/14/20 17:28 on a 201 voluntary commitment for increased agitation and non-specific hallucinations. He is on a 304 involuntary outpatient commitment, conversion hearing on 07/19/2020. Chief Complaint "I'm just resting a bit." Review of Systems Notes Constitutional: denied Cardiovascular: denied Respiratory: denied Gastrointestinal: denied Neurological: denied Psychiatric: denies symptoms other than stated above Total of at least 10 systems reviewed, pertinent positives as above and in HPI. Sleep Information Total Hours of Sleep: 8.25 Sleep Comments: pt on q-15 minute checks Meal Information Percent Meal Consumed - Breakfast: 100 Percent Meal Consumed - Lunch: 100 Percent Meal Consumed - Dinner: 100 Nutrition Comment: per meal record Subjective Subjective Patient was seen & assessed and interval progress reviewed with treatment team. Staff report the patient has been quiet, but participating appropriately in the groups he attends. He did report to staff that he was "feeling dull." Pt will receive second injection of Invega Sustenna today, discharge is anticipated at the end of the week. Pt was seen today to assess progress since admission. Pt was awoken from a nap, and states "I'm just resting a bit." He reports that overall he is doing well, describing his mood as "so-so." Pt does admit to lower mood recently, but when asked what is contributing he states "it's just being here." Pt states he feels his mood will improve dramatically when he is discharged. We reviewed recommendation that patient not be driving until he is clinically stable, patient verbalized agreement with this. He denied other needs at this time. Physical Exam Psychiatric Orientation: alert, oriented x 3 and cooperative Apperance: appropriately dressed, + disheveled and appeared stated age Eye Contact: good eye contact Motor Behavior: steady gait and station and no abnormal motor movements Speech: normal rate/rhythm/volume of speech (rather brief responses to questions) Affect: + blunted affect (subdued and fatigued ) and mood congruent with affect Mood: + depressed mood ("so-so" and "it's just being here") Thought Process: goal directed thought process and clear/coherent thought process Thought Content: reality based without delusions; no hopelessness and no worthlessness Suicidal Thoughts: denies suicidal thoughts, denies suicidal plan and denies suicidal intent Homicidal Thoughts: denies homicidal thoughts Hallucinations: no auditory hallucinations and no visual hallucinations Cognition: attention grossly intact and language grossly intact Estimated Intelligence: consistent with education level Insight: + fair insight Judgement: + fair judgement Vital Signs (Past 24 Hours) Last Vital Signs Temp 36.5 C 08/02/20 06:38 Pulse 98 H 08/02/20 06:38 Resp 20 08/02/20 06:38 BP 138/60 08/02/20 06:38 Pulse Ox 97 07/14/20 19:05 Results & Data ([facility]) Current Inpatient Medications Current Inpatient Medications: Current Inpatient Medications Acetaminophen (Acetaminophen 325 Mg Tab) 650 mg PO Q4H PRN PRN Reason: Headache or Minor Fever Stop: 08/13/20 17:26 Al Hydrox/Mg Hydrox/Simethicone (Aluminum/Magnesium Susp 30 Ml Udc) 30 ml PO Q4H PRN PRN Reason: GI Upset Stop: 08/13/20 17:26 Last Admin: 07/22/20 14:34 Dose: 30 ml Documented by: Benztropine Mesylate (Benztropine Mesylate 1 Mg Tab) 1 mg PO Q6 PRN PRN Reason: Muscle Spasm Stop: 08/14/20 11:59 Last Admin: 07/29/20 13:26 Dose: 1 mg Documented by: Bismuth Subsalicylate (Bismuth Subsalicylate Liqd 236 Ml) 15 ml PO PRN PRN PRN Reason: Loose Stool Stop: 08/13/20 17:26 Clonazepam (Clonazepam 1 Mg Tab) 1 mg PO BID@0900,1900 [facility] Stop: 08/19/20 18:59 Last Admin: 08/01/20 18:56 Dose: 1 mg Documented by: Clonazepam (Clonazepam 0.5 Mg Tab) 0.5 mg PO BID PRN PRN Reason: Anxiety/Agitation Stop: 08/19/20 13:16 Last Admin: 07/29/20 13:26 Dose: 0.5 mg Documented by: Divalproex Sodium (Divalproex Extended Release 500 Mg Tab) 1,000 mg PO BID TITA Stop: 08/15/20 20:59 Last Admin: 08/01/20 21:16 Dose: 1,000 mg Documented by: Haloperidol (Haloperidol 5 Mg Tab) 2.5 mg PO BID PRN PRN Reason: Agitation/Anxiety Stop: 08/26/20 10:08 Last Admin: 07/27/20 10:26 Dose: 2.5 mg Documented by: Hydroxyzine HCl (Hydroxyzine Hcl 25 Mg Tab) 50 mg PO HSZ PRN PRN Reason: Insomnia Stop: 08/13/20 17:26 Last Admin: 07/22/20 21:50 Dose: 50 mg Documented by: Hydroxyzine HCl (Hydroxyzine Hcl 25 Mg Tab) 25 mg PO Q4H PRN PRN Reason: Anxiety Stop: 08/13/20 17:26 Last Admin: 07/26/20 15:54 Dose: 25 mg Documented by: Magnesium Hydroxide (Magnesium Hydroxide Susp 30 Ml Udc) 30 ml PO DAILY PRN PRN Reason: Constipation Stop: 08/13/20 17:26 Miscellaneous (Remove Nicoderm Patch) 1 ea N/A DAILY@0859 [facility] Stop: 08/14/20 08:58 Last Admin: 08/01/20 08:49 Dose: Not Given Documented by: Nicotine (Nicotine 21 Mg/24 Hr Tdsy) 21 mg TD QAM [facility] Stop: 08/14/20 08:59 Last Admin: 08/01/20 08:49 Dose: Not Given Documented by: Nicotine Polacrilex (Nicotine Polacrilex 2 Mg Gum) 1 piece MT PRN PRN PRN Reason: Cravings Stop: 08/14/20 14:58 Last Admin: 07/25/20 14:33 Dose: 1 piece Documented by: Paliperidone Palmitate (Paliperidone Palmitate 234 Mg/1.5 Ml Syr) 234 mg IM Q4WK [facility] Stop: 09/29/20 08:59 Sodium Chloride (Sodium Chloride 0.65% Na Soln 45 Ml ([place])) 1 - 2 sprays NA PRN PRN PRN Reason: Nasal Dryness/Congestion Stop: 08/13/20 17:26 Mental Health & Subst Abuse Tx Psychiatrist Name of Psychiatrist: Alejandra Bansal Psychiatrist's Date of Appointment with Psychiatrist: 08/17/20 Time of Appointment with Psychiatrist: 1:20 p.m. Psychiatric Appointment Comment: In person - [facility] Therapist Name of Therapist: Alejandra Samuels Therapist's Date of Therapist Appointment: 08/16/20 Time of Therapist Appointment: 8:00 a.m. Therapy Appointment Comment: Telehealth Extrusion Die Repair Manager Name of Extrusion Die Repair Manager: [facility] - Salvador Galindo Phone Number for Extrusion Die Repair Manager: [phone] Date of Appointment with Extrusion Die Repair Manager: 08/18/20 Time of Appointment with Extrusion Die Repair Manager: 1:00 p.m. Case Management Appointment Comment: Will meet with you Post Discharge Appointments Primary Care Physician Name Of Family Doctor: Alejandra Bell - Dr. Thomas Primary Care Date of Appointment with PCP: 08/09/20 Time of Appointment with PCP: 9:20 a.m. Provider Appointment Comment: In person - [facility] Specialist Name of Specialist: MRI Procedure-[facility], as referred by Dr. Thomas Phone Number for Specialist: [phone] Date of Appointment with Specialist: 08/08/20 Time of Appointment with Specialist: 10:00 a.m. Specialty Appointment Comment: appt. was rescheduled, as MRI was scheduled during pt.'s hospitalization Contact Information Discharge Discharge Address: [facility] [place] [address]
[2020-08-03] MEDS: DIVALPROEX EXTENDED RELEASE 500 MG TAB PO SCH ×2 (08:40→20:41)
[2020-08-03] MEDS: clonazePAM 1 MG TAB PO SCH ×2 (08:40→20:40)
[2020-08-03] MEDS: NICOTINE 21 MG/24 HR TDSY TD SCH (08:40)
--- NOTE | 2020-08-03 09:19 | Psychiatric Progress Note ---
Date of Service August 03, 2020 Impression / Recommendations Impression 25 y/o male with bipolar type I who was admitted voluntarily for nhan and psychosis, converted to a 304 as was on an IOC. He has been continued on Depakote, dose was titrated, and antipsychotic was switched from haloperidol to paliperidone, and then converted to Sustenna (first loading injection 07/28/2020). Manic and psychotic symptoms are improving, and he is now able to participate in groups and therapy. His continuous pillowcase cutter has been involved in meeting with him weekly on the unit, and he had a family meeting with his mother. He is being referred for psych rehab for increased outpatient structure/supports. We are planning for discharge at the end of the week. (1) Bipolar disorder with severe nhan: 07/15/20--The patient was admitted to the [facility] ([facility]) on q15 min checks (behavioral with suicide precautions) for safety. The patient will participate in group, recreational, and milieu therapies and will be offered additional individual and family sessions as clinically appropriate. Risks/benefits/alternatives reviewed re: his current medications. Recommend a true Depakote trough. He requested to resume an injectable and reviewed that I'd suggest Invega as failed Abilify. Likely to require auth as primary diagnosis is bipolar disorder. Will challenge with 3 mg Invega today, reviewed lower parts counterman risk of TD than Haldol. Invega 6 mg tomorrow, when can confirm coverage/tolerability will inject. I suspect maybe med compliance wasn't 100% in recent days if parents away but will work to confirm. Will need to update county re: admission given 304 status. 07/16/20--titrate Depakote to 1000 mg BID, Invega 6 mg today with plan for injection tomorrow. continue same dose of Haldol with Ativan prn. Continue MNPR as low frustration tolerance with peers, poor sleep and historically poor physical boundaries when manic. 07/18 -continue Depakote, trough level is scheduled for 07/20/2020 (although true trough will not be until 07/20/2020). Continue haloperidol 5 mg twice daily and 10 mg at bedtime, and Invega 6 mg daily. Will not yet proceed with Sustenna, as it is not clear that Invega is effective. -306 conversion hearing scheduled for tomorrow, as patient is on an IOC. -Patient's mother asking to speak with clinician; called her and left a message. Also called [facility] to coordinate care with Rachelle Bansal and left a message for a call back. Staff of been in contact with patient's BC who will attend the hearing tomorrow. -PCP, Dr. Thomas, had scheduled a brain MRI for this , which will need to be rescheduled as he is currently inpatient. 07/19 - Converted to 304 at hearing today. Care coordinated with BCM who attended hearing and will come see patient on Friday. Spoke with mother and reviewed course, plan. - Rescheduled brain MRI for 08/08. - No co-pay for Sustenna, but will wait to transition to PACHECO until there is evidence of efficacy. For now continue p.o. haloperidol and paliperidone. Fasting labs from 06/06/2020 reviewed: Cholesterol 226, otherwise normal. 07/20 - Pt continues to be manic, delusional, intrusive, and religiously preoccupied. Will continue titration of paliperidone at this time - increasing dose to 9mg tomorrow. It has not yet shown to be profoundly beneficially, and we may need to consider alternative antipsychotic options. Considerations include titration of haloperidol, trial of another typical antipsychotic, or trial of risperidone (some concern regarding persistent tachycardia at baseline). Ideally, we would explore options that are available in an PACHECO, as patient is agreeable and his outpatient providers suspect there are medication compliance issues. - Continue Depakote - level today was 77, but uncertain that this was a true 5- day trough. Will recheck level on 07/22, prior to making dose changes. - Pt continues to refuse to consider trial of lithium, as there were reports of nausea with a previous trial - We will switch from lorazepam to clonazepam to continue utilization for antimanic properties, but capitalize on a longer half-life. Will schedule clonazepam dosing of 1mg BID, with up to two additional prn doses of 0.5mg liliana ilable. - Continue attempts to clarify information that may help explain why patient has been so treatment resistant - may need to consider checks to rule out cheeking medications or other concerns. 07/21 - Continue current medication regimen. - Pt continues to be manic and delusional - religiously preoccupied and somewhat disruptive in groups 07/22 -Benztropine was increased to 2 mg daily yesterday due to tremor and cogwheeling on exam. Today I will reduce his Haldol to 5 mg twice daily, while continuing paliperidone 9 mg daily. Consider increasing further to 12 mg daily. -Continue Depakote 1000 mg twice daily; trough level today 89. 07/23 -continue current medications and plan. We will continue to taper off haloperidol. His manic symptoms may take longer to resolve given the number of episodes he has had. -Patient has been able to participate in a limited fashion in groups, but is excused when overstimulated. -Patient is not yet ready for a family meeting, but hopefully sometime this week he will be. 07/24 - Will discontinue scheduled haloperidol and titrate paliperidone to 12mg qAM - will continue to have as needed doses of haloperidol available if needed - Pt continues to state that he is better and ready for discharge, though behavior is not consistent with this report - It remains likely that the patient would not be able to tolerate a family meeting - Pt still requires medically necessary private room 07/25 - 07/26 - Continue paliperidone 12mg qAM, patient continues to receive benztropine and clonazepam on a scheduled basis as well - Behavior continues to be inconsistent and patient is easily stimulated by his peers - Family meeting when appropriate 07/27 - Continue paliperidone 12mg, benztropine, and clonazepam - He continues to demonstrate poor insight and disorganized and delusional thinking - inappropriate and poor boundaries with peers and requires frequent redirection - MNPR remains necessary due to poor boundaries and patient being easily ove rstimulated - outreach manager to meet with patient tomorrow - will discuss our recommendation for IOP or psychiatric day programming at discharge 07/28 -The patient's behavior today has been more subdued. He has not seemingly been easily overstimulated, and the level of expressed emotion on the behavioral health unit today was, at times, quite high. The patient seems to have tolerated this reasonably well. -No delusional material is identified in the patient's thought content. He affirmed that he knows that he is not a rap star, and he also affirmed today that he is someone who considers himself to be moravian, and someone who believes in the divinity of Darío Troy, but he notes that he "definitely" is not Darío Troy. -He met with his continuous pillowcase cutter today to discuss recommendations for intensive outpatient treatment or possibly psychiatric day programming at discharge. The patient reports that he feels that the meeting went well. -We discussed converting him to the Depo form of paliperidone (Invega Sustenna). Material risks and anticipated benefits of Invega Sustenna were reviewed with the patient, and he indicated understanding and an eagerness to excepted, particularly because he hopes that it will mean that he will not have to take as many medications by mouth each day. -At this point, the patient is not demonstrating first rank symptoms of nhan or hypomania. He does not have pressured speech. His thought processes are reasonably well organized without evidence of flight of ideas. There is no evidence of current delusional grandiosity. He also voices insight into the symptoms of his psychiatric illness as well as an intent to be fully adherent with outpatient treatment recommendations. -Benztropine has been discontinued because the patient is not demonstrating any EPS symptoms today on testing (for cogwheel rigidity) and haloperidol has been discontinued. He was advised to let us know if he begins to experience muscle stiffness restlessness, and that he was reminded that the benztropine had been to address those symptoms present earlier. -Oral paliperidone has been discontinued. The patient was advised that it may be necessary to supplement the intramuscular Depo medication with oral paliperidone during the transition process, and that he should let us know if he is starting to experience the manic symptoms which he has identified as his tar get symptoms. -We are also continuing Depakote 1000 mg twice a day. -We are moving towards discharge and it is our hope that he will be able to arrange to have his second dose of Invega Sustenna (156 mg) in about a week from today. 07/29 - Continue treatment plan as above - Pt receive initial Invega Sustenna injection of 234mg IM last evening - oral supplementation discontinued, but could be reinstituted if necessary. - Continue Depakote 1000mg BID. - Does admit to more depressed mood today. This is not entirely new, but also patient reports today is his father's birthday - MNPR to be continued until patient is able to consistently demonstrate improvement in delusional thinking and better boundaries with peers. - Pt did agree [place] [facility] [place] during meeting with mother and continuous pillowcase cutter yesterday; patient remains focused on discharge 07/30 - Continue treatment plan as above, encourage second Invega Sustenna initiation injection prior to discharge - Pt has been more subdued, gradually demonstrating fewer behavioral concerns - Continue MNPR - Engage family and continuous pillowcase cutter in discharge planning efforts 07/31 - Continue current treatment plan - second dose of Invega Sustenna could be given as early as tomorrow - Ongoing improvement in stability of mood - mom did confirm that the patient is more withdrawn/subdued at baseline. - Continue MNPR - Mother updated by this provider via phone regarding current condition and potential discharge planning for later this week 08/01 -Order second Invega Sustenna loading injection for tomorrow. He will then be due for maintenance injection of 234 mg (equivalent to the 12 mg oral dose he was receiving) every 4 weeks, injection due 08/30/2020. -Arranging aftercare, including referral for psych rehab. -Discontinue private room and elopement precautions, as symptoms inability to tolerate being around others/stimuli are improving. 08/02 - Pt received second Invega Sustenna injection today - due again 08/30/2020 - Pt continues to appear subdued and withdrawn - consistently stating this is only related to prolonged hospitalization. Pt denies SI or other causes for depressed mood. - Behavior remains more consistent, patient no longer labile - Reviewed recommendation that patient not drive or have access to a vehicle until he is clinically stable - pt verbalized agreement with this recommendation 08/03 - Continue current treatment plan - pt denies feeling too sedated, discussed option to begin slowly tapering clonazepam if he is too tired - Pt tolerating addition of a roommate - Remains subdued (patient reports this is baseline) and behavior has been more appropriate Inventory Assets Strengths: more insight this visit, family support Needs: confirm plan for outpatient care as provider on medical leave Risk Factors Assessment Male: Yes : Yes Do You Have Access To A Gun?: No Mental Health Diagnoses: Yes Substance Use Disorders: No Previous Attempt: No Previous Psychiatric Hospitalization: Yes Hopelessness: No Smoker: Yes Protective Factors Assessment Christianity Beliefs: Yes : No Responsible for Young Children: No Employed: No Supportive Family: Yes Interval History Identifying Information JAYSON CAMPUZANO is a 25-year-old M who currently lives with mother, has a history of bipolar disorder type I with a recent inpatient stay on 3S for nhan, and was admitted on 07/14/20 17:28 on a 201 voluntary commitment for increased agitation and non-specific hallucinations. He is on a 304 involuntary outpatient commitment, conversion hearing on 07/19/2020. Chief Complaint "Um, I'm good." Review of Systems Notes Constitutional: reports fatigue, but claims this is due to "being sera bored" Cardiovascular: denied Respiratory: denied Gastrointestinal: denied Neurological: denied Psychiatric: denies symptoms other than stated above Total of at least 10 systems reviewed, pertinent positives as above and in HPI. Sleep Information Total Hours of Sleep: 9.25 Sleep Comments: pt on q-15 minute checks Meal Information Percent Meal Consumed - Breakfast: 100 Percent Meal Consumed - Lunch: 90 Percent Meal Consumed - Dinner: 50 Nutrition Comment: per meal record Subjective Subjective Patient was seen & assessed and interval progress reviewed with nursing and social work. Staff report the patient has been more subdued, but is still participating in group programming. He has not been intrusive or inappropriate with peers. Pt was seen today to assess progress since admission. Pt states "I'm good." He denies needs at this time. We did discuss his more subdued mood, attempting to better determine if this is baseline, related to boredom, a more concerning depressive presentation, or simply the patient stabilizing after his manic episode. Pt reports feeling his mood is "pretty normal I'd say." He denies feeling overly sedated. We did discuss the option to reduce his dose of clonazepam slightly should he feel overly tired. Pt believes his mood and energy level will improve after he is discharged. He denies other questions related to his medication regimen. Pt denies SI and any acute safety concerns. Pt denies other needs or concerns today. Physical Exam Psychiatric Orientation: alert, oriented x 3 and cooperative Apperance: appropriately dressed, + disheveled (hair appearing unkempt) and appeared stated age Affect: + blunted affect (appearing subdued) Mood: no depressed mood ("nah, this is pretty normal I'd say") Thought Process: goal directed thought process and clear/coherent thought process Thought Content: reality based without delusions; no hopelessness and no worthlessness Suicidal Thoughts: denies suicidal thoughts and denies suicidal intent Homicidal Thoughts: denies homicidal thoughts Hallucinations: no auditory hallucinations and no visual hallucinations Cognition: attention grossly intact and language grossly intact Estimated Intelligence: consistent with education level Insight: + fair insight Judgement: + fair judgement Vital Signs (Past 24 Hours) Last Vital Signs Temp 36.5 C 08/03/20 06:34 Pulse 83 08/03/20 06:34 Resp 19 08/03/20 06:34 BP 120/77 08/03/20 06:34 Pulse Ox 97 07/14/20 19:05 Results & Data ([facility]) Current Inpatient Medications Current Inpatient Medications: Current Inpatient Medications Acetaminophen (Acetaminophen 325 Mg Tab) 650 mg PO Q4H PRN PRN Reason: Headache or Minor Fever Stop: 08/13/20 17:26 Al Hydrox/Mg Hydrox/Simethicone (Aluminum/Magnesium Susp 30 Ml Udc) 30 ml PO Q4H PRN PRN Reason: GI Upset Stop: 08/13/20 17:26 Last Admin: 07/22/20 14:34 Dose: 30 ml Documented by: Benztropine Mesylate (Benztropine Mesylate 1 Mg Tab) 1 mg PO Q6 PRN PRN Reason: Muscle Spasm Stop: 08/14/20 11:59 Last Admin: 07/29/20 13:26 Dose: 1 mg Documented by: Bismuth Subsalicylate (Bismuth Subsalicylate Liqd 236 Ml) 15 ml PO PRN PRN PRN Reason: Loose Stool Stop: 08/13/20 17:26 Clonazepam (Clonazepam 1 Mg Tab) 1 mg PO BID@0900,1900 [facility] Stop: 08/19/20 18:59 Last Admin: 08/03/20 08:40 Dose: 1 mg Documented by: Clonazepam (Clonazepam 0.5 Mg Tab) 0.5 mg PO BID PRN PRN Reason: Anxiety/Agitation Stop: 08/19/20 13:16 Last Admin: 07/29/20 13:26 Dose: 0.5 mg Documented by: Divalproex Sodium (Divalproex Extended Release 500 Mg Tab) 1,000 mg PO BID [facility] Stop: 08/15/20 20:59 Last Admin: 08/03/20 08:40 Dose: 1,000 mg Documented by: Haloperidol (Haloperidol 5 Mg Tab) 2.5 mg PO BID PRN PRN Reason: Agitation/Anxiety Stop: 08/26/20 10:08 Last Admin: 07/27/20 10:26 Dose: 2.5 mg Documented by: Hydroxyzine HCl (Hydroxyzine Hcl 25 Mg Tab) 50 mg PO HSZ PRN PRN Reason: Insomnia Stop: 08/13/20 17:26 Last Admin: 07/22/20 21:50 Dose: 50 mg Documented by: Hydroxyzine HCl (Hydroxyzine Hcl 25 Mg Tab) 25 mg PO Q4H PRN PRN Reason: Anxiety Stop: 08/13/20 17:26 Last Admin: 07/26/20 15:54 Dose: 25 mg Documented by: Magnesium Hydroxide (Magnesium Hydroxide Susp 30 Ml Udc) 30 ml PO DAILY PRN PRN Reason: Constipation Stop: 08/13/20 17:26 Miscellaneous (Remove Nicoderm Patch) 1 ea N/A DAILY@0859 [facility] Stop: 08/14/20 08:58 Last Admin: 08/03/20 08:40 Dose: Not Given Documented by: Nicotine (Nicotine 21 Mg/24 Hr Tdsy) 21 mg TD QAM [facility] Stop: 08/14/20 08:59 Last Admin: 08/03/20 08:40 Dose: Not Given Documented by: Nicotine Polacrilex (Nicotine Polacrilex 2 Mg Gum) 1 piece MT PRN PRN PRN Reason: Cravings Stop: 08/14/20 14:58 Last Admin: 07/25/20 14:33 Dose: 1 piece Documented by: Paliperidone Palmitate (Paliperidone Palmitate 234 Mg/1.5 Ml Syr) 234 mg IM Q4WK [facility] Stop: 09/29/20 08:59 Sodium Chloride (Sodium Chloride 0.65% Na Soln 45 Ml ([place])) 1 - 2 sprays NA PRN PRN PRN Reason: Nasal Dryness/Congestion Stop: 08/13/20 17:26 Mental Health & Subst Abuse Tx Psychiatrist Name of Psychiatrist: Alejandra Bansal Psychiatrist's Date of Appointment with Psychiatrist: 08/17/20 Time of Appointment with Psychiatrist: 1:20 p.m. Psychiatric Appointment Comment: In person - [address] [facility] Therapist Name of Therapist: Alejandra Samuels Therapist's Date of Therapist Appointment: 08/16/20 Time of Therapist Appointment: 8:00 a.m. Therapy Appointment Comment: Telehealth Elementary Supervisor Name of Elementary Supervisor: [facility] - Salvador Galindo Phone Number for Elementary Supervisor: [phone] Date of Appointment with Elementary Supervisor: 08/18/20 Time of Appointment with Elementary Supervisor: 1:00 p.m. Case Management Appointment Comment: Will meet with you Post Discharge Appointments Primary Care Physician Name Of Family Doctor: Alejandra Bell - Dr. Thomas Primary Care Date of Appointment with PCP: 08/09/20 Time of Appointment with PCP: 9:20 a.m. Provider Appointment Comment: In person - [address] [facility] Specialist Name of Specialist: MRI Procedure-[facility], as referred by Dr. Thomas Phone Number for Specialist: [phone] Date of Appointment with Specialist: 08/08/20 Time of Appointment with Specialist: 10:00 a.m. Specialty Appointment Comment: appt. was rescheduled, as MRI was scheduled during pt.'s hospitalization Contact Information Discharge Discharge Address: [facility] [place] [address]
[2020-08-04] MEDS: DIVALPROEX EXTENDED RELEASE 500 MG TAB PO SCH ×2 (08:40→20:24)
[2020-08-04] MEDS: clonazePAM 1 MG TAB PO SCH ×2 (08:41→19:08)
[2020-08-04] MEDS: NICOTINE 21 MG/24 HR TDSY TD SCH (08:43)
--- NOTE | 2020-08-04 10:55 | Psychiatric Progress Note ---
Date of Service August 04, 2020 Impression / Recommendations Impression 25 y/o male with bipolar type I who was admitted voluntarily for nhan and psychosis, converted to a 304 as was on an IOC. He has been continued on Depakote, dose was titrated, and antipsychotic was switched from haloperidol to paliperidone, and then converted to Sustenna (first loading injection 07/28/2020). Manic and psychotic symptoms are improving, and he is now able to participate in groups and therapy. His adult protective caseworker has been involved in meeting with him weekly on the unit, and he had a family meeting with his mother. He is being referred for psych rehab for increased outpatient structure/supports. We are planning for discharge at the end of the week. (1) Bipolar disorder with severe nhan: 07/15/20--The patient was admitted to the [facility] ([facility] health unit) on q15 min checks (behavioral with suicide precautions) for safety. The patient will participate in group, recreational, and milieu therapies and will be offered additional individual and family sessions as clinically appropriate. Risks/benefits/alternatives reviewed re: his current medications. Recommend a true Depakote trough. He requested to resume an injectable and reviewed that I'd suggest Invega as failed Abilify. Likely to require auth as primary diagnosis is bipolar disorder. Will challenge with 3 mg Invega today, reviewed lower manager intermediate risk of TD than Haldol. Invega 6 mg tomorrow, when can confirm coverage/tolerability will inject. I suspect maybe med compliance wasn't 100% in recent days if parents away but will work to confirm. Will need to update county re: admission given 304 status. 07/16/20--titrate Depakote to 1000 mg BID, Invega 6 mg today with plan for injection tomorrow. continue same dose of Haldol with Ativan prn. Continue MNPR as low frustration tolerance with peers, poor sleep and historically poor physical boundaries when manic. 07/18 -continue Depakote, trough level is scheduled for 07/20/2020 (although true trough will not be until 07/20/2020). Continue haloperidol 5 mg twice daily and 10 mg at bedtime, and Invega 6 mg daily. Will not yet proceed with Sustenna, as it is not clear that Invega is effective. -306 conversion hearing scheduled for tomorrow, as patient is on an IOC. -Patient's mother asking to speak with clinician; called her and left a message. Also called [place] to coordinate care with Rachelle Bansal and left a message for a call back. Staff of been in contact with patient's BC who will attend the hearing tomorrow. -PCP, Dr. Thomas, had scheduled a brain MRI for this , which will need to be rescheduled as he is currently inpatient. 07/19 - Converted to 304 at hearing today. Care coordinated with BCM who attended hearing and will come see patient on Friday. Spoke with mother and reviewed course, plan. - Rescheduled brain MRI for 08/08. - No co-pay for Sustenna, but will wait to transition to PACHECO until there is evidence of efficacy. For now continue p.o. haloperidol and paliperidone. Fasting labs from 06/06/2020 reviewed: Cholesterol 226, otherwise normal. 07/20 - Pt continues to be manic, delusional, intrusive, and religiously preoccupied. Will continue titration of paliperidone at this time - increasing dose to 9mg tomorrow. It has not yet shown to be profoundly beneficially, and we may need to consider alternative antipsychotic options. Considerations include titration of haloperidol, trial of another typical antipsychotic, or trial of risperidone (some concern regarding persistent tachycardia at baseline). Ideally, we would explore options that are available in an PACHECO, as patient is agreeable and his outpatient providers suspect there are medication compliance issues. - Continue Depakote - level today was 77, but uncertain that this was a true 5- day trough. Will recheck level on 07/22, prior to making dose changes. - Pt continues to refuse to consider trial of lithium, as there were reports of nausea with a previous trial - We will switch from lorazepam to clonazepam to continue utilization for antimanic properties, but capitalize on a longer half-life. Will schedule clonazepam dosing of 1mg BID, with up to two additional prn doses of 0.5mg liliana ilable. - Continue attempts to clarify information that may help explain why patient has been so treatment resistant - may need to consider checks to rule out cheeking medications or other concerns. 07/21 - Continue current medication regimen. - Pt continues to be manic and delusional - religiously preoccupied and somewhat disruptive in groups 07/22 -Benztropine was increased to 2 mg daily yesterday due to tremor and cogwheeling on exam. Today I will reduce his Haldol to 5 mg twice daily, while continuing paliperidone 9 mg daily. Consider increasing further to 12 mg daily. -Continue Depakote 1000 mg twice daily; trough level today 89. 07/23 -continue current medications and plan. We will continue to taper off haloperidol. His manic symptoms may take longer to resolve given the number of episodes he has had. -Patient has been able to participate in a limited fashion in groups, but is excused when overstimulated. -Patient is not yet ready for a family meeting, but hopefully sometime this week he will be. 07/24 - Will discontinue scheduled haloperidol and titrate paliperidone to 12mg qAM - will continue to have as needed doses of haloperidol available if needed - Pt continues to state that he is better and ready for discharge, though behavior is not consistent with this report - It remains likely that the patient would not be able to tolerate a family meeting - Pt still requires medically necessary private room 07/25 - 07/26 - Continue paliperidone 12mg qAM, patient continues to receive benztropine and clonazepam on a scheduled basis as well - Behavior continues to be inconsistent and patient is easily stimulated by his peers - Family meeting when appropriate 07/27 - Continue paliperidone 12mg, benztropine, and clonazepam - He continues to demonstrate poor insight and disorganized and delusional thinking - inappropriate and poor boundaries with peers and requires frequent redirection - MNPR remains necessary due to poor boundaries and patient being easily ove rstimulated - client delivery manager to meet with patient tomorrow - will discuss our recommendation for IOP or psychiatric day programming at discharge 07/28 -The patient's behavior today has been more subdued. He has not seemingly been easily overstimulated, and the level of expressed emotion on the behavioral health unit today was, at times, quite high. The patient seems to have tolerated this reasonably well. -No delusional material is identified in the patient's thought content. He affirmed that he knows that he is not a rap star, and he also affirmed today that he is someone who considers himself to be worship, and someone who believes in the divinity of Darío Troy, but he notes that he "definitely" is not Darío Troy. -He met with his adult protective caseworker today to discuss recommendations for intensive outpatient treatment or possibly psychiatric day programming at discharge. The patient reports that he feels that the meeting went well. -We discussed converting him to the Depo form of paliperidone (Invega Sustenna). Material risks and anticipated benefits of Invega Sustenna were reviewed with the patient, and he indicated understanding and an eagerness to excepted, particularly because he hopes that it will mean that he will not have to take as many medications by mouth each day. -At this point, the patient is not demonstrating first rank symptoms of nhan or hypomania. He does not have pressured speech. His thought processes are reasonably well organized without evidence of flight of ideas. There is no evidence of current delusional grandiosity. He also voices insight into the symptoms of his psychiatric illness as well as an intent to be fully adherent with outpatient treatment recommendations. -Benztropine has been discontinued because the patient is not demonstrating any EPS symptoms today on testing (for cogwheel rigidity) and haloperidol has been discontinued. He was advised to let us know if he begins to experience muscle stiffness restlessness, and that he was reminded that the benztropine had been to address those symptoms present earlier. -Oral paliperidone has been discontinued. The patient was advised that it may be necessary to supplement the intramuscular Depo medication with oral paliperidone during the transition process, and that he should let us know if he is starting to experience the manic symptoms which he has identified as his tar get symptoms. -We are also continuing Depakote 1000 mg twice a day. -We are moving towards discharge and it is our hope that he will be able to arrange to have his second dose of Invega Sustenna (156 mg) in about a week from today. 07/29 - Continue treatment plan as above - Pt receive initial Invega Sustenna injection of 234mg IM last evening - oral supplementation discontinued, but could be reinstituted if necessary. - Continue Depakote 1000mg BID. - Does admit to more depressed mood today. This is not entirely new, but also patient reports today is his father's birthday - MNPR to be continued until patient is able to consistently demonstrate improvement in delusional thinking and better boundaries with peers. - Pt did agree to [facility] [place] [facility] referrals during meeting with mother and adult protective caseworker yesterday; patient remains focused on discharge 07/30 - Continue treatment plan as above, encourage second Invega Sustenna initiation injection prior to discharge - Pt has been more subdued, gradually demonstrating fewer behavioral concerns - Continue MNPR - Engage family and adult protective caseworker in discharge planning efforts 07/31 - Continue current treatment plan - second dose of Invega Sustenna could be given as early as tomorrow - Ongoing improvement in stability of mood - mom did confirm that the patient is more withdrawn/subdued at baseline. - Continue MNPR - Mother updated by this provider via phone regarding current condition and potential discharge planning for later this week 08/01 -Order second Invega Sustenna loading injection for tomorrow. He will then be due for maintenance injection of 234 mg (equivalent to the 12 mg oral dose he was receiving) every 4 weeks, injection due 08/30/2020. -Arranging aftercare, including referral for psych rehab. -Discontinue private room and elopement precautions, as symptoms inability to tolerate being around others/stimuli are improving. 08/02 - Pt received second Invega Sustenna injection today - due again 08/30/2020 - Pt continues to appear subdued and withdrawn - consistently stating this is only related to prolonged hospitalization. Pt denies SI or other causes for depressed mood. - Behavior remains more consistent, patient no longer labile - Reviewed recommendation that patient not drive or have access to a vehicle until he is clinically stable - pt verbalized agreement with this recommendation 08/03 - Continue current treatment plan - pt denies feeling too sedated, discussed option to begin slowly tapering clonazepam if he is too tired - Pt tolerating addition of a roommate - Remains subdued (patient reports this is baseline) and behavior has been more appropriate 08/04 -The patient reports that he feels that his mood is stable, he is ready for discharge, but that he is feeling somewhat apprehensive about the possibility of experiencing another exacerbation of his bipolar symptoms. He was offered reassurance is based on the fact that he is on a different medication regimen now, and with Invega Sustenna he will not need to take oral system. We also talked about the fact that we would recommend that his dose of clonazepam be tapered once he has reintegrated into the community. He continues to appear to be possibly somewhat overly sedated, but the patient says that he does not feel overly sedated. He explains that he just feels "bored" and finds that the time passes faster if he attempts to sleep. Inventory Assets Strengths: more insight this visit, family support Needs: confirm plan for outpatient care as provider on medical leave Risk Factors Assessment Male: Yes : Yes Do You Have Access To A Gun?: No Mental Health Diagnoses: Yes Substance Use Disorders: No Previous Attempt: No Previous Psychiatric Hospitalization: Yes Hopelessness: No Smoker: Yes Protective Factors Assessment Pentecostalism Beliefs: Yes : No Responsible for Young Children: No Employed: No Supportive Family: Yes Interval History Identifying Information JAYSON CAMPUZANO is a 25-year-old M who currently lives with mother, has a history of bipolar disorder type I with a recent inpatient stay on 3S for nhan, and was admitted on 07/14/20 17:28 on a 201 voluntary commitment for increased agitation and non-specific hallucinations. He is on a 304 involuntary outpatient commitment, conversion hearing on 07/19/2020. Chief Complaint "Well, at this point I think the main thing is I am just kind of bored." Review of Systems Sleep Information Total Hours of Sleep: 9.5 Sleep Comments: pt on q-15 minute checks Meal Information Percent Meal Consumed - Breakfast: 95 Percent Meal Consumed - Lunch: 100 Percent Meal Consumed - Dinner: 60 Nutrition Comment: per meal record Subjective Subjective Patient was seen & assessed and interval progress reviewed with treatment team. I met individually with the patient in order to assess his current mental status, evaluate his response to treatment, make any necessary changes in the patient's treatment regimen and coordination with the patient, and address issues, questions and concerns that may arise. The patient reports that while he is very eager to be discharged, he also has a certain sense of trepidation because he knows that he has challenges awaiting him in the community. I apologized to the patient because last week I had suggested that if things went well for him following his injection of Invega Sustenna 234 mg last Friday he might be able to be discharged early this week with a plan to receive his next dose of Invega Sustenna as an outpatient basis. However, because of the aftercare plan dependent upon the patient living with his mother while he enters the recovery phase of his illness, and after learning that the patient's mother was scheduled to have a cholecystectomy midweek, it was agreed that it would be best to have the patient get his second dose of Invega Sustenna on 08/05/2020 here in the hospital, and then be discharged home. The patient said that he felt that no apology was necessary and that he fully understood the reason for the extra days in the hospital. He does say that he feels "good" but worries about things such as eventually needing to find a job, and keeping himself occupied in the community. He also says that he worries that he might sustain another exacerbation of his psychiatric illness and reiterates that, prior to the current admission, he was, in fact, adherent with his outpatient medications. The patient has consistently report that he definitely feels that Depakote, in combination with Invega have been helpful in stabilizing his mood. He voices some insight into the behaviors and thoughts that he was having prior to and at the time of admission, but questions whether these were sufficient to require psychiatric hospitalization. He was able to listen as I reiterated some of the behaviors that had necessitated the admission such as intrusive behaviors, delusional grandiosity, and being easily triggered by the behaviors of others. Sleep and appetite are reportedly "fine." He notes that he has a fine tremor that he has had "for a while." However, no abnormal involuntary movements of his oral musculature or other portions of his anatomy seem to be involved. Also there is no cogwheel rigidity on testing. We also talked about using marijuana. I advised him that with his diagnosis of bipolar disorder use of marijuana, medical or otherwise, is contraindicated. He indicated understanding. Physical Exam Psychiatric Orientation: alert, oriented x 3 and cooperative Apperance: appropriately dressed, appropriately groomed and appeared stated age Eye Contact: good eye contact Motor Behavior: + tremor (The patient has a fine 12 beat per second tremor involving both hands. ) The tremor extinguishes with effort and does not present when the patient extends his hands. Speech: normal rate/rhythm/volume of speech Affect: euthymic affect "A little apprehensive. I do not want to get sick again." Thought Process: goal directed thought process and linear/logical thought process Thought Content: reality based without delusions Suicidal Thoughts: denies suicidal thoughts Homicidal Thoughts: denies homicidal thoughts Hallucinations: no auditory hallucinations Cognition: recent memory grossly intact, attention grossly intact and language grossly intact Insight: + fair insight Judgement: good judgement Vital Signs (Past 24 Hours) Last Vital Signs Temp 36.5 C 08/04/20 06:30 Pulse 88 08/04/20 06:30 Resp 16 08/04/20 06:30 BP 102/66 08/04/20 06:30 Pulse Ox 97 07/14/20 19:05 Results & Data ([facility]) Current Inpatient Medications Current Inpatient Medications: Current Inpatient Medications Acetaminophen (Acetaminophen 325 Mg Tab) 650 mg PO Q4H PRN PRN Reason: Headache or Minor Fever Stop: 08/13/20 17:26 Al Hydrox/Mg Hydrox/Simethicone (Aluminum/Magnesium Susp 30 Ml Udc) 30 ml PO Q4H PRN PRN Reason: GI Upset Stop: 08/13/20 17:26 Last Admin: 07/22/20 14:34 Dose: 30 ml Documented by: Benztropine Mesylate (Benztropine Mesylate 1 Mg Tab) 1 mg PO Q6 PRN PRN Reason: Muscle Spasm Stop: 08/14/20 11:59 Last Admin: 07/29/20 13:26 Dose: 1 mg Documented by: Bismuth Subsalicylate (Bismuth Subsalicylate Liqd 236 Ml) 15 ml PO PRN PRN PRN Reason: Loose Stool Stop: 08/13/20 17:26 Clonazepam (Clonazepam 1 Mg Tab) 1 mg PO BID@0900,1900 [facility] Stop: 08/19/20 18:59 Last Admin: 08/04/20 08:41 Dose: 1 mg Documented by: Clonazepam (Clonazepam 0.5 Mg Tab) 0.5 mg PO BID PRN PRN Reason: Anxiety/Agitation Stop: 08/19/20 13:16 Last Admin: 07/29/20 13:26 Dose: 0.5 mg Documented by: Divalproex Sodium (Divalproex Extended Release 500 Mg Tab) 1,000 mg PO BID [facility] Stop: 08/15/20 20:59 Last Admin: 08/04/20 08:40 Dose: 1,000 mg Documented by: Haloperidol (Haloperidol 5 Mg Tab) 2.5 mg PO BID PRN PRN Reason: Agitation/Anxiety Stop: 08/26/20 10:08 Last Admin: 07/27/20 10:26 Dose: 2.5 mg Documented by: Hydroxyzine HCl (Hydroxyzine Hcl 25 Mg Tab) 50 mg PO HSZ PRN PRN Reason: Insomnia Stop: 08/13/20 17:26 Last Admin: 07/22/20 21:50 Dose: 50 mg Documented by: Hydroxyzine HCl (Hydroxyzine Hcl 25 Mg Tab) 25 mg PO Q4H PRN PRN Reason: Anxiety Stop: 08/13/20 17:26 Last Admin: 07/26/20 15:54 Dose: 25 mg Documented by: Magnesium Hydroxide (Magnesium Hydroxide Susp 30 Ml Udc) 30 ml PO DAILY PRN PRN Reason: Constipation Stop: 08/13/20 17:26 Miscellaneous (Remove Nicoderm Patch) 1 ea N/A DAILY@[id number] [facility] Stop: 08/14/20 08:58 Last Admin: 08/04/20 08:43 Dose: Not Given Documented by: Nicotine (Nicotine 21 Mg/24 Hr Tdsy) 21 mg TD QAM [facility] Stop: 08/14/20 08:59 Last Admin: 08/04/20 08:43 Dose: Not Given Documented by: Nicotine Polacrilex (Nicotine Polacrilex 2 Mg Gum) 1 piece MT PRN PRN PRN Reason: Cravings Stop: 08/14/20 14:58 Last Admin: 07/25/20 14:33 Dose: 1 piece Documented by: Paliperidone Palmitate (Paliperidone Palmitate 234 Mg/1.5 Ml Syr) 234 mg IM Q4WK [facility] Stop: 09/29/20 08:59 Sodium Chloride (Sodium Chloride 0.65% Na Soln 45 Ml ([place])) 1 - 2 sprays NA PRN PRN PRN Reason: Nasal Dryness/Congestion Stop: 08/13/20 17:26 Mental Health & Subst Abuse Tx Psychiatrist Name of Psychiatrist: Alejandra Bansal Psychiatrist's Date of Appointment with Psychiatrist: 08/17/20 Time of Appointment with Psychiatrist: 1:20 p.m. Psychiatric Appointment Comment: In person - [address] [facility] Therapist Name of Therapist: Alejandra Samuels Therapist's Date of Therapist Appointment: 08/16/20 Time of Therapist Appointment: 8:00 a.m. Therapy Appointment Comment: Telehealth Filler Shredder Machine Name of Filler Shredder Machine: [facility] Salvador Galindo Phone Number for Filler Shredder Machine: [phone] Date of Appointment with Filler Shredder Machine: 08/18/20 Time of Appointment with Filler Shredder Machine: 1:00 p.m. Case Management Appointment Comment: Will meet with you Post Discharge Appointments Primary Care Physician Name Of Family Doctor: Alejandra Bell - Dr. Thomas Primary Care Date of Appointment with PCP: 08/09/20 Time of Appointment with PCP: 9:20 a.m. Provider Appointment Comment: In person - [address] [facility] Partial or Psych Rehab Name of Partial or Psych Rehab: [facility] Phone Number of Partial or Psych Rehab: [phone] Time of Appointment at Partial or Psych Rehab: Please follow up with Bill's assistance if needed to schedule Partial or Psych Rehab Appointment Comment: [id number] [place], [place] Specialist Name of Specialist: [facility] MRI Procedure Phone Number for Specialist: [phone] Date of Appointment with Specialist: 08/08/20 Time of Appointment with Specialist: 10:00 a.m. Specialty Appointment Comment: [facility] Contact Information Discharge Discharge Address: [facility] [place] [address]
[2020-08-05] MEDS: clonazePAM 1 MG TAB PO SCH (08:34)
[2020-08-05] MEDS: DIVALPROEX EXTENDED RELEASE 500 MG TAB PO SCH (08:35)
[2020-08-05] MEDS: NICOTINE 21 MG/24 HR TDSY TD SCH (08:36)
--- NOTE | 2020-08-05 09:41 | Discharge Summary ---
Date of Service August 05, 2020 History of Present Illness Tarun was just hospitalized on the unit from 06/02-06/29 for manic episode after stealing a truck and discharged on a 304 outpatient commitment. Unclear when family first noted decline, he reports that stayed with sister for a few days while parents went camping. Found to be more restless and expansive at a recent appt with [place] where his hs Haldol was increased as reportedly not sleeping as well. He now denies this. States that "I don't need to be here, I just play video games at home and music is the only therapy I need". His manager of case management and mother convinced him to go to ED where he was found to be more anxious, restless, rapid speech, said he heard the voice of God. Physical Exam Psychiatric Orientation: alert, oriented x 3 and cooperative Apperance: appropriately dressed and appropriately groomed Eye Contact: good eye contact Motor Behavior: + tremor (unchanged) Speech: normal rate/rhythm/volume of speech Affect: euthymic affect (mildly blunted. smiles appropriately) Mood: no depressed mood and no anxious mood Thought Process: goal directed thought process Thought Content: reality based without delusions; no hopelessness Suicidal Thoughts: denies suicidal thoughts, denies suicidal plan and denies suicidal intent Homicidal Thoughts: denies homicidal thoughts, denies homicidal plan and denies homicidal intent Hallucinations: no auditory hallucinations, no visual hallucinations and no tactile hallucinations Cognition: attention grossly intact and language grossly intact Estimated Intelligence: average estimated intelligence Insight: + fair insight Judgement: good judgement Vital Signs (Past 24 Hours) Last Vital Signs Temp 36.5 C 08/05/20 06:47 Pulse 105 H 08/05/20 06:47 Resp 16 08/05/20 06:47 BP 121/65 08/05/20 06:47 Pulse Ox 97 07/14/20 19:05 Principal Diagnosis BPAD I, MRE Manic Psychiatric Data Day of Discharge Assessment At time of discharge, patient endorses significant improvement since time of admission with resolution of nhan. He feels that he is tolerating his current medication regimen adequately. He denies any safety concerns associated with discharge. Specifically denies intent or plan of harm to self or others. Denies active symptoms of psychosis. Endorses willingness to continue to comply with medications and outpatient follow-up. Transition of Care Transition Of Care Record: was reviewed with the patient Advance Directives Advance Directives Information Provided: Yes Advance Directives: No Mental Health Advance Directive: No Advance Directives on File: No Living Will: No Power of Box Printer: No Advance Directives Reason:: Declines as Mental Health Visit. Risk Factors Assessment Male: Yes : Yes Do You Have Access To A Gun?: No Mental Health Diagnoses: Yes Substance Use Disorders: No Previous Attempt: No Previous Psychiatric Hospitalization: Yes Hopelessness: No Smoker: Yes Protective Factors Assessment Sabianism Beliefs: Yes : No Responsible for Young Children: No Employed: No Supportive Family: Yes Tobacco Cessation at Discharge Tobacco Cessation Medication Prescribed at Discharge: Offered & Pt Refused Practical counseling provided including: providing basic information about quitting Total Time Total Time Spent: Greater Than 30 Minutes Total Time Includes: Examination of the patient, Discharge Planning and Medication Reconciliation Discharge Data Lab Results 07/14/20 07/14/20 07/14/20 12:49 12:49 14:02 WBC 5.90 RBC 4.47 L Hgb 13.9 L Hct 40.5 L MCV 90.6 MCH 31.1 MCHC 34.3 RDW Std Deviation 41.3 RDW Coeff of Connie 12.4 Plt Count 238 MPV 10.5 H Immature Gran % (Auto) 0.5 Neut % (Auto) 49.1 Lymph % (Auto) 35.6 [place] % (Auto) 10.8 Eos % (Auto) 3.2 Baso % (Auto) 0.8 Neut # (Auto) 2.89 Lymph # (Auto) 2.10 [place] # (Auto) 0.64 H Eos # (Auto) 0.19 Baso # (Auto) 0.05 Immature Gran # (Auto) 0.03 H Sodium Potassium Chloride Carbon Dioxide Anion Gap BUN Creatinine Est Cr Clr Drug Dosing Est GFR ( Amer) Est GFR (Non-Af Amer) BUN/Creatinine Ratio Glucose Calcium Total Bilirubin AST ALT Alkaline Phosphatase Total Protein Albumin Globulin Albumin/Globulin Ratio TSH Urine Color Yellow Urine Appearance Clear Urine pH 6.5 Ur Specific Guy 1.019 Urine Protein Negative Urine Glucose (UA) Negative Urine Ketones Negative Urine Blood Negative Urine Nitrite Negative Urine Bilirubin Negative Urine Urobilinogen Negative Ur Leukocyte Esterase Negative Salicylates Urine Opiates Screen Neg Ur Methadone, Qual Neg Acetaminophen Urine Barbiturates Neg Valproic Acid Ur Phencyclidine (PCP) Neg U Amphetamin/Meth Scrn Neg MDMA (Ecstasy) Screen Neg U Benzodiazepines Scrn Neg Ur Cocaine Metabolite Neg U Marijuana (THC) Screen Neg Ethyl Alcohol mg/dL COVID-19 Eval Order SARS-CoV-2, RNA, NAAT 07/14/20 07/14/20 07/14/20 14:02 14:02 14:02 WBC RBC Hgb Hct MCV MCH MCHC RDW Std Deviation RDW Coeff of Connie Plt Count MPV Immature Gran % (Auto) Neut % (Auto) Lymph % (Auto) [place] % (Auto) Eos % (Auto) Baso % (Auto) Neut # (Auto) Lymph # (Auto) [place] # (Auto) Eos # (Auto) Baso # (Auto) Immature Gran # (Auto) Sodium 138 Potassium 4.4 Chloride 106 Carbon Dioxide 30 Anion Gap 2.0 L BUN 16 Creatinine 0.99 Est Cr Clr Drug Dosing 107.0 Est GFR ( Amer) 123.9 Est GFR (Non-Af Amer) 106.9 BUN/Creatinine Ratio 16.3 Glucose 80 Calcium 9.6 Total Bilirubin 0.5 AST 14 L ALT 22 Alkaline Phosphatase 64 Total Protein 8.1 Albumin 4.4 Globulin 3.7 Albumin/Globulin Ratio 1.2 TSH 0.682 Urine Color Urine Appearance Urine pH Ur Specific Guy Urine Protein Urine Glucose (UA) Urine Ketones Urine Blood Urine Nitrite Urine Bilirubin Urine Urobilinogen Ur Leukocyte Esterase Salicylates < 1.7 L Urine Opiates Screen Ur Methadone, Qual Acetaminophen < 2 L Urine Barbiturates Valproic Acid 83 Ur Phencyclidine (PCP) U Amphetamin/Meth Scrn MDMA (Ecstasy) Screen U Benzodiazepines Scrn Ur Cocaine Metabolite U Marijuana (THC) Screen Ethyl Alcohol mg/dL < 3.0 COVID-19 Eval Order SARS-CoV-2, RNA, NAAT 07/14/20 07/14/20 07/15/20 15:33 15:33 19:59 WBC RBC Hgb Hct MCV MCH MCHC RDW Std Deviation RDW Coeff of Connie Plt Count MPV Immature Gran % (Auto) Neut % (Auto) Lymph % (Auto) [place] % (Auto) Eos % (Auto) Baso % (Auto) Neut # (Auto) Lymph # (Auto) [place] # (Auto) Eos # (Auto) Baso # (Auto) Immature Gran # (Auto) Sodium Potassium Chloride Carbon Dioxide Anion Gap BUN Creatinine Est Cr Clr Drug Dosing Est GFR ( Amer) Est GFR (Non-Af Amer) BUN/Creatinine Ratio Glucose Calcium Total Bilirubin AST ALT Alkaline Phosphatase Total Protein Albumin Globulin Albumin/Globulin Ratio TSH Urine Color Urine Appearance Urine pH Ur Specific Guy Urine Protein Urine Glucose (UA) Urine Ketones Urine Blood Urine Nitrite Urine Bilirubin Urine Urobilinogen Ur Leukocyte Esterase Salicylates Urine Opiates Screen Ur Methadone, Qual Acetaminophen Urine Barbiturates Valproic Acid 64 Ur Phencyclidine (PCP) U Amphetamin/Meth Scrn MDMA (Ecstasy) Screen U Benzodiazepines Scrn Ur Cocaine Metabolite U Marijuana (THC) Screen Ethyl Alcohol mg/dL COVID-19 Eval [facility] SARS-CoV-2, RNA, NAAT NEGATIVE 07/20/20 07/22/20 08:12 08:09 WBC RBC Hgb Hct MCV MCH MCHC RDW Std Deviation RDW Coeff of Connie Plt Count MPV Immature Gran % (Auto) Neut % (Auto) Lymph % (Auto) [place] % (Auto) Eos % (Auto) Baso % (Auto) Neut # (Auto) Lymph # (Auto) [place] # (Auto) Eos # (Auto) Baso # (Auto) Immature Gran # (Auto) Sodium Potassium Chloride Carbon Dioxide Anion Gap BUN Creatinine Est Cr Clr Drug Dosing Est GFR ( Amer) Est GFR (Non-Af Amer) BUN/Creatinine Ratio Glucose Calcium Total Bilirubin AST ALT Alkaline Phosphatase Total Protein Albumin Globulin Albumin/Globulin Ratio TSH Urine Color Urine Appearance Urine pH Ur Specific Guy Urine Protein Urine Glucose (UA) Urine Ketones Urine Blood Urine Nitrite Urine Bilirubin Urine Urobilinogen Ur Leukocyte Esterase Salicylates Urine Opiates Screen Ur Methadone, Qual Acetaminophen Urine Barbiturates Valproic Acid 77 89 Ur Phencyclidine (PCP) U Amphetamin/Meth Scrn MDMA (Ecstasy) Screen U Benzodiazepines Scrn Ur Cocaine Metabolite U Marijuana (THC) Screen Ethyl Alcohol mg/dL COVID-19 Eval Order SARS-CoV-2, RNA, NAAT Hospital Course (1) Bipolar disorder with severe nhan: 07/15/20--The patient was admitted to the [facility] ([facility] mental health unit) on q15 min checks (behavioral with suicide precautions) for safety. The patient will participate in group, recreational, and milieu therapies and will be offered additional individual and family sessions as clinically appropriate. Risks/benefits/alternatives reviewed re: his current medications. Recommend a true Depakote trough. He requested to resume an injectable and reviewed that I'd suggest Invega as failed Abilify. Likely to require auth as primary diagnosis is bipolar disorder. Will challenge with 3 mg Invega today, reviewed lower roasterman risk of TD than Haldol. Invega 6 mg tomorrow, when can confirm coverage/tolerability will inject. I suspect maybe med compliance wasn't 100% in recent days if parents away but will work to confirm. Will need to update county re: admission given 304 status. 07/16/20--titrate Depakote to 1000 mg BID, Invega 6 mg today with plan for injection tomorrow. continue same dose of Haldol with Ativan prn. Continue MNPR as low frustration tolerance with peers, poor sleep and historically poor physical boundaries when manic. 07/18 -continue Depakote, trough level is scheduled for 07/20/2020 (although true trough will not be until 07/20/2020). Continue haloperidol 5 mg twice daily and 10 mg at bedtime, and Invega 6 mg daily. Will not yet proceed with Sustenna, as it is not clear that Invega is effective. -306 conversion hearing scheduled for tomorrow, as patient is on an IOC. -Patient's mother asking to speak with clinician; called her and left a message. Also called [place] to coordinate care with Rachelle Bansal and left a message for a call back. Staff of been in contact with patient's BCM who will attend the hearing tomorrow. -PCP, Dr. Thomas, had scheduled a brain MRI for this , which will need to be rescheduled as he is currently inpatient. 07/19 - Converted to 304 at [facility] today. Care coordinated with BCM who attended [facility] and will come see patient on Friday. Spoke with mother and reviewed course, plan. - Rescheduled brain MRI for 08/08. - No co-pay for Sustenna, but will wait to transition to PACHECO until there is evidence of efficacy. For now continue p.o. haloperidol and paliperidone. Fasting labs from 06/06/2020 reviewed: Cholesterol 226, otherwise normal. 07/20 - Pt continues to be manic, delusional, intrusive, and religiously preoccupied. Will continue titration of paliperidone at this time - increasing dose to 9mg tomorrow. It has not yet shown to be profoundly beneficially, and we may need to consider alternative antipsychotic options. Considerations include titration of haloperidol, trial of another typical antipsychotic, or trial of risperidone (some concern regarding persistent tachycardia at baseline). Ideally, we would explore options that are available in an PACHECO, as patient is agreeable and his outpatient providers suspect there are medication compliance issues. - Continue Depakote - level today was 77, but uncertain that this was a true 5- day trough. Will recheck level on 07/22, prior to making dose changes. - Pt continues to refuse to consider trial of lithium, as there were reports of nausea with a previous trial - We will switch from lorazepam to clonazepam to continue utilization for antimanic properties, but capitalize on a longer half-life. Will schedule clonazepam dosing of 1mg BID, with up to two additional prn doses of 0.5mg available. - Continue attempts to clarify information that may help explain why patient has been so treatment resistant - may need to consider checks to rule out cheeking medications or other concerns. 07/21 - Continue current medication regimen. - Pt continues to be manic and delusional - religiously preoccupied and somewhat disruptive in groups 07/22 -Benztropine was increased to 2 mg daily yesterday due to tremor and cogwheeling on exam. Today I will reduce his Haldol to 5 mg twice daily, while continuing paliperidone 9 mg daily. Consider increasing further to 12 mg daily. -Continue Depakote 1000 mg twice daily; trough level today 89. 07/23 -continue current medications and plan. We will continue to taper off haloperidol. His manic symptoms may take longer to resolve given the number of episodes he has had. -Patient has been able to participate in a limited fashion in groups, but is excused when overstimulated. -Patient is not yet ready for a family meeting, but hopefully sometime this week he will be. 07/24 - Will discontinue scheduled haloperidol and titrate paliperidone to 12mg qAM - will continue to have as needed doses of haloperidol available if needed - Pt continues to state that he is better and ready for discharge, though behavior is not consistent with this report - It remains likely that the patient would not be able to tolerate a family meeting - Pt still requires medically necessary private room 07/25 - 07/26 - Continue paliperidone 12mg qAM, patient continues to receive benztropine and clonazepam on a scheduled basis as well - Behavior continues to be inconsistent and patient is easily stimulated by his peers - Family meeting when appropriate 07/27 - Continue paliperidone 12mg, benztropine, and clonazepam - He continues to demonstrate poor insight and disorganized and delusional thinking - inappropriate and poor boundaries with peers and requires frequent redirection - MNPR remains necessary due to poor boundaries and patient being easily overstimulated - accredited farm manager to meet with patient tomorrow - will discuss our recommendation for IOP or psychiatric day programming at discharge 07/28 -The patient's behavior today has been more subdued. He has not seemingly been easily overstimulated, and the level of expressed emotion on the behavioral health unit today was, at times, quite high. The patient seems to have tolerated this reasonably well. -No delusional material is identified in the patient's thought content. He affirmed that he knows that he is not a rap star, and he also affirmed today that he is someone who considers himself to be mandaen, and someone who believes in the divinity of Darío Troy, but he notes that he "definitely" is not Darío Troy. -He met with his manager of case management today to discuss recommendations for intensive outpatient treatment or possibly psychiatric day programming at discharge. The patient reports that he feels that the meeting went well. -We discussed converting him to the Depo form of paliperidone (Invega Sustenna). Material risks and anticipated benefits of Invega Sustenna were reviewed with the patient, and he indicated understanding and an eagerness to excepted, particularly because he hopes that it will mean that he will not have to take as many medications by mouth each day. -At this point, the patient is not demonstrating first rank symptoms of nhan or hypomania. He does not have pressured speech. His thought processes are reasonably well organized without evidence of flight of ideas. There is no evidence of current delusional grandiosity. He also voices insight into the symptoms of his psychiatric illness as well as an intent to be fully adherent with outpatient treatment recommendations. -Benztropine has been discontinued because the patient is not demonstrating any EPS symptoms today on testing (for cogwheel rigidity) and haloperidol has been discontinued. He was advised to let us know if he begins to experience muscle stiffness restlessness, and that he was reminded that the benztropine had been to address those symptoms present earlier. -Oral paliperidone has been discontinued. The patient was advised that it may be necessary to supplement the intramuscular Depo medication with oral paliperidone during the transition process, and that he should let us know if he is starting to experience the manic symptoms which he has identified as his target symptoms. -We are also continuing Depakote 1000 mg twice a day. -We are moving towards discharge and it is our hope that he will be able to arrange to have his second dose of Invega Sustenna (156 mg) in about a week from today. 07/29 - Continue treatment plan as above - Pt receive initial Invega Sustenna injection of 234mg IM last evening - oral supplementation discontinued, but could be reinstituted if necessary. - Continue Depakote 1000mg BID. - Does admit to more depressed mood today. This is not entirely new, but also patient reports today is his father's birthday - MNPR to be continued until patient is able to consistently demonstrate improvement in delusional thinking and better boundaries with peers. - Pt did agree to [facility] [place] referrals during meeting with mother and manager of case management yesterday; patient remains focused on discharge 07/30 - Continue treatment plan as above, encourage second Invega Sustenna initiation injection prior to discharge - Pt has been more subdued, gradually demonstrating fewer behavioral concerns - Continue MNPR - Engage family and manager of case management in discharge planning efforts 07/31 - Continue current treatment plan - second dose of Invega Sustenna could be given as early as tomorrow - Ongoing improvement in stability of mood - mom did confirm that the patient is more withdrawn/subdued at baseline. - Continue MNPR - Mother updated by this provider via phone regarding current condition and potential discharge planning for later this week 08/01 -Order second Invega Sustenna loading injection for tomorrow. He will then be due for maintenance injection of 234 mg (equivalent to the 12 mg oral dose he was receiving) every 4 weeks, injection due 08/30/2020. -Arranging aftercare, including referral for psych rehab. -Discontinue private room and elopement precautions, as symptoms inability to tolerate being around others/stimuli are improving. 08/02 - Pt received second Invega Sustenna injection today - due again 08/30/2020 - Pt continues to appear subdued and withdrawn - consistently stating this is only related to prolonged hospitalization. Pt denies SI or other causes for depressed mood. - Behavior remains more consistent, patient no longer labile - Reviewed recommendation that patient not drive or have access to a vehicle until he is clinically stable - pt verbalized agreement with this recommendation 08/03 - Continue current treatment plan - pt denies feeling too sedated, discussed option to begin slowly tapering clonazepam if he is too tired - Pt tolerating addition of a roommate - Remains subdued (patient reports this is baseline) and behavior has been more appropriate 08/04 -The patient reports that he feels that his mood is stable, he is ready for discharge, but that he is feeling somewhat apprehensive about the possibility of experiencing another exacerbation of his bipolar symptoms. He was offered reassurance is based on the fact that he is on a different medication regimen now, and with Invega Sustenna he will not need to take oral system. We also talked about the fact that we would recommend that his dose of clonazepam be tapered once he has reintegrated into the community. He continues to appear to be possibly somewhat overly sedated, but the patient says that he does not feel overly sedated. He explains that he just feels "bored" and finds that the time passes faster if he attempts to sleep. Mental Health & Subst Abuse Tx Psychiatrist Name of Psychiatrist: Alejandra Bansal Psychiatrist's Date of Appointment with Psychiatrist: 08/17/20 Time of Appointment with Psychiatrist: 1:20 p.m. Psychiatric Appointment Comment: In person - [id number] [facility] Psychiatrist Release of Information: Obtained, Reviewed and Signed Therapist Name of Therapist: Alejandra Samuels Therapist's Date of Therapist Appointment: 08/16/20 Time of Therapist Appointment: 8:00 a.m. Therapy Appointment Comment: Telehealth Therapist Release of Information: Obtained, Reviewed and Signed Frozen Food Selector Name of Frozen Food Selector: [facility] Unit - Salvador Galindo Phone Number for Frozen Food Selector: [phone] Date of Appointment with Frozen Food Selector: 08/18/20 Time of Appointment with Frozen Food Selector: 1:00 p.m. Case Management Appointment Comment: Will meet with you Frozen Food Selector Release of Information: Obtained, Reviewed and Signed Post Discharge Appointments Primary Care Physician Name Of Family Doctor: Alejandra Bell - Dr. Thomas Primary Care Date of Appointment with PCP: 08/09/20 Time of Appointment with PCP: 9:20 a.m. Provider Appointment Comment: In person - [address] [facility] Primary Care Release of Information: Obtained, Reviewed and Signed Partial or Psych Rehab Name of Partial or Psych Rehab: [facility] Phone Number of Partial or Psych Rehab: [phone] Time of Appointment at Partial or Psych Rehab: Please follow up with Bill's assistance if needed to schedule Partial or Psych Rehab Appointment Comment: [id number] [place], [place] Release of Information for Partial or Psych Rehab: Obtained, Reviewed and Signed Specialist Name of Specialist: [facility] MRI Procedure Phone Number for Specialist: [phone] Date of Appointment with Specialist: 08/08/20 Time of Appointment with Specialist: 10:00 a.m. Specialty Appointment Comment: [facility] Specialist Release of Information: Obtained, Reviewed and Signed Smoking Cessation Counseling Tobacco Cessation Medication Prescribed at Discharge: Offered & Pt Refused Contact Information Discharge Discharge Address: [address] [place] [id number] Discharge Plan Discharge Items Patient Disposition: Home - Self-Care Reason For Visit: MANIC EPISODE Discharge Diagnosis: BPAD I, MRE manic Condition on Discharge: Fair Activity: Resume your previous activity Non-emergency contact: Primary Care Provider and Psychiatrist Call non-emergency contact if: you have any medication questions and your symptoms worsen Follow-up/Referrals: Marianne Thomas DO [Primary Care Provider] - Diet: Regular Addtl Attending Provider Instructions: next invega sustenna 234mg injection will be due on 08/30/2020 (last loading dose given 08/02/2020). please discuss tapering klonopin slowly as able with your outpatient provider to minimize sedation. Pending Studies at Discharge: No Stand-Alone Forms: [employer], Smoking Cessation, Suicide Prevention Resources Medications and DC Order Prescriptions: New clonazepam 1 mg Tablet 1 mg PO BID@0900,1900 30 Days Qty: 60 RF: 0 divalproex 500 mg Tablet Extended Release 24 Hr 1,000 mg PO BID 30 Days Qty: 120 RF: 0 benztropine 1 mg Tablet 1 mg PO Q6 PRN (Reason: for muscle tightness/shaking) 30 Days Qty: 60 RF: 0 hydroxyzine HCl 25 mg Tablet 25 mg PO Q4H PRN (Reason: anxiety) 30 Days Qty: 30 RF: 0 Invega Sustenna 234 mg/1.5 mL Syringe 234 mg IM Q4WK Qty: 1.5 RF: 0 Discontinued haloperidol 5 mg tablet 5 mg PO QAM RF: 0 benztropine [Cogentin] 0.5 mg Tablet 0.5 mg PO BID RF: 0 diphenhydramine HCl [Benadryl] 25 mg Capsule 25 mg PO Q6H PRN (Reason: Anxiety) RF: 0 divalproex 500 mg tablet extended release 24 hr 500 mg PO QAM RF: 0 divalproex 500 mg Tablet Extended Release 24 Hr 1,000 mg PO HS RF: 0 haloperidol 5 mg Tablet 5 mg PO QPM RF: 0 haloperidol 10 mg Tablet 10 mg PO HS RF: 0 Discharge Orders: Discharge Order (Routine); Ordered 08/05/20 Ordered By: Nilesh Miguel Admission Data Admit Date/Time: 07/14/20 17:28 Attending Provider: Iris Martinez Admit Provider: Artem Adorno Primary Care Provider: Marianne Thomas Other Interventions: PSY Interdisciplinary Discharge Planning Last Done: 08/05/20 09:31 Coding Level of Care Code 05802 D/C day mgmt > 30 min Diagnoses Bipolar disorder with severe [id number] F31.13 Time Spent (min) 45
[2020-08-30] MEDS ORDERED: PALIPERIDONE PALMITATE 234 MG/1.5 ML SYR IM SCH (09:00)
== END 2020-08-05 10:55 | disposition home or self-care (01) | DRG 885 ==
LOC: ED 12:34 → SUATTDRO 17:28 → 3S 17:28